=== PATIENT | male | born 1940 | race Caucasian/White ===

== ENCOUNTER 2016-07-24 11:34 | Inpatient (IN) | payer MEDICARE, OTHER ==
--- NOTE | 2016-07-24 11:59 | EDM.PDOC ---
<Bo Cramer - Last Filed: 07/24/16 20:56> ED HPI GI/ABDOMINAL - General Chief Complaint: Abdominal Pain Stated Complaint: [facility] Time Seen by Provider: 07/24/16 11:40 - Related Data Allergies/ADRs: Allergies Allergy/AdvReac Type Severity Reaction Status Date / Time strawberries Allergy Unknown Cannot Uncoded 07/25/16 00:30 Remember Home Meds: Home Meds Isosorbide Mononitrate [Isosorbide Mononitrate ER] 60 mg PO DAILY 07/15/13 [ History] Phenytoin Sodium Extended 200 mg PO TID 07/15/13 [History] atorvaSTATin [Lipitor] 40 mg PO DAILY 07/15/13 [History] Clotrimazole 10 mg PO BID 12/22/15 [History] Warfarin [Coumadin] 5 mg PO IRAHETA 12/22/15 [History] Aspirin [Tamika Chewable Aspirin] 81 mg PO DAILY 05/20/16 [History] Carvedilol 6.25 mg PO BIDMEALS 05/20/16 [History] Sulfamethoxazole/Trimethoprim [Sulfamethoxazole-Tmp Ds Tablet] 1 tab PO DAILY [History] Acetaminophen/oxyCODONE [Percocet 325-5 MG] 1 tab PO Q4H PRN 07/24/16 [History] Calcium Carb/D3/Magnesium/Zinc [Farzad Mag Zinc + D3] 1 each PO DAILY 07/24/16 [ History] Mycophenolate Mofetil 1,000 mg PO BID 07/24/16 [History] Warfarin [Coumadin] 2.5 mg PO MOTUWETHFRSA 07/24/16 [History] diphenhydrAMINE HCl [Benadryl] 25 mg PO BID PRN 07/24/16 [History] Bisacodyl [Dulcolax] 5 mg PO DAILY PRN #30 tablet 07/30/16 [Rx] Enoxaparin [Lovenox] 70 mg SUBCUT Q12HR #9 syringe 07/30/16 [Rx] Ergocalciferol (Vitamin D2) [Vitamin D2] 50,000 units PO Fr@2100 #6 cap [Rx] Famotidine 20 mg PO DAILY #14 tablet 07/30/16 [Rx] Lidocaine 2% [Xylocaine 2% Viscous] 15 ml PO TIDAC #13 cup 07/30/16 [Rx] Course - Vital Signs Last Recorded V/S: Last Vital Signs Temp 36.9 C 07/30/16 12:03 Pulse 79 07/30/16 12:03 Resp 18 07/30/16 12:03 BP 108/73 07/30/16 12:03 Pulse Ox 100 07/30/16 12:03 - Orders/Labs/Meds Labs: Laboratory Tests 07/24/16 07/24/16 07/24/16 Range/Units 12:04 12:04 12:04 WBC 8.54 (4.23-9.07) K/mm3 RBC 4.20 L (4.63-6.08) M/mm3 Hgb 12.0 L (13.7-17.5) gm/L Hct 36.2 L (40.1-51.0) % MCV 86.2 (79.0-92.2) fl MCH 28.6 (25.7-32.2) pg MCHC 33.1 (32.2-35.5) g/dl RDW Std Deviation 47.3 H (35.1-43.9) fL Plt Count 398 H (163-337) K/mm3 MPV 9.1 L (9.4-12.3) fl Neutrophils % (Manual) 75 H (40-60) % Band Neutrophils % 3 (0-10) % Lymphocytes % (Manual) 20 (20-40) % Atypical Lymphs % 0 % Monocytes % (Manual) 2 (2-10) % Eosinophils % (Manual) 0 L (0.8-7.0) % Basophils % (Manual) 0 L (0.2-1.2) Platelet Estimate Adequate RBC Morph Comment Normal PT 60.1 H* (8.0-13.0) SECONDS INR 4.98 Sodium 138 (136-145) mEq/L Potassium 3.8 (3.5-5.1) mEq/L Chloride 101 (98-107) mEq/L Carbon Dioxide 23 (21-32) mEq/L Anion Gap 17.8 H (5-15) BUN 26 H (7-18) mg/dL Creatinine 1.2 (0.7-1.3) mg/dL Est Cr Clr Drug Dosing 52.76 mL/min Estimated GFR (MDRD) 59 (>60) mL/min BUN/Creatinine Ratio 21.7 H (14-18) Glucose 93 (83-115) mg/dL Calcium 12.0 H (8.5-10.1) mg/dL Magnesium 1.5 L (1.8-2.4) mg/dl Total Bilirubin 0.3 (0.2-1.0) mg/dL AST 54 H (15-37) U/L ALT 24 (16-63) U/L Alkaline Phosphatase 184 H (46-116) U/L Troponin I (0.00-0.056) ng/mL C-Reactive Protein 4.5 H* (<1.0) mg/dL Total Protein 8.3 H (6.4-8.2) g/dl Albumin 2.7 L (3.4-5.0) g/dl Globulin 5.6 gm/dL Albumin/Globulin Ratio 0.5 L (1-2) Urine Color (Yellow) Urine Appearance (Clear) Urine pH (5.0-8.0) Ur Specific Dennard (1.005-1.030) Urine Protein (Negative) Urine Glucose (UA) (Negative) Urine Ketones (Negative) Urine Occult Blood (Negative) Urine Nitrite (Negative) Urine Bilirubin (Negative) Urine Urobilinogen (0.2-1.0) Ur Leukocyte Esterase (Negative) Urine RBC (0-5) /hpf Urine WBC (0-5) /hpf Ur Epithelial Cells (0-5) /hpf Urine Bacteria (FEW) /hpf Urine Mucus (FEW) /hpf Phenytoin 8.4 L (10.0-20.0) ug/mL 07/24/16 07/24/16 Range/Units 14:40 19:35 WBC (4.23-9.07) K/mm3 RBC (4.63-6.08) M/mm3 Hgb (13.7-17.5) gm/L Hct (40.1-51.0) % MCV (79.0-92.2) fl MCH (25.7-32.2) pg MCHC (32.2-35.5) g/dl RDW Std Deviation (35.1-43.9) fL Plt Count (163-337) K/mm3 MPV (9.4-12.3) fl Neutrophils % (Manual) (40-60) % Band Neutrophils % (0-10) % Lymphocytes % (Manual) (20-40) % Atypical Lymphs % % Monocytes % (Manual) (2-10) % Eosinophils % (Manual) (0.8-7.0) % Basophils % (Manual) (0.2-1.2) Platelet Estimate RBC Morph Comment PT (8.0-13.0) SECONDS INR Sodium (136-145) mEq/L Potassium (3.5-5.1) mEq/L Chloride (98-107) mEq/L Carbon Dioxide (21-32) mEq/L Anion Gap (5-15) BUN (7-18) mg/dL Creatinine (0.7-1.3) mg/dL Est Cr Clr Drug Dosing mL/min Estimated GFR (MDRD) (>60) mL/min BUN/Creatinine Ratio (14-18) Glucose (83-115) mg/dL Calcium (8.5-10.1) mg/dL Magnesium (1.8-2.4) mg/dl Total Bilirubin (0.2-1.0) mg/dL AST (15-37) U/L ALT (16-63) U/L Alkaline Phosphatase (46-116) U/L Troponin I < 0.017 (0.00-0.056) ng/mL C-Reactive Protein (<1.0) mg/dL Total Protein (6.4-8.2) g/dl Albumin (3.4-5.0) g/dl Globulin gm/dL Albumin/Globulin Ratio (1-2) Urine Color Yellow (Yellow) Urine Appearance Slt cloudy H (Clear) Urine pH 5.5 (5.0-8.0) Ur Specific Dennard > or = 1.030 (1.005-1.030) Urine Protein 2+ H (Negative) Urine Glucose (UA) Negative (Negative) Urine Ketones 1+ H (Negative) Urine Occult Blood 2+ H (Negative) Urine Nitrite Negative (Negative) Urine Bilirubin 1+ H (Negative) Urine Urobilinogen 0.2 (0.2-1.0) Ur Leukocyte Esterase Negative (Negative) Urine RBC 0-5 (0-5) /hpf Urine WBC 0-5 (0-5) /hpf Ur Epithelial Cells 0-5 (0-5) /hpf Urine Bacteria Few (FEW) /hpf Urine Mucus Not seen (FEW) /hpf Phenytoin (10.0-20.0) ug/mL Meds: Medications Discontinued Medications Generic Name Dose Route Start Last Admin Trade Name Freq PRN Reason Stop Dose Admin Acetaminophen 650 mg 07/24/16 22:37 07/30/16 09:05 Tylenol PO 650 mg Q4H PRN Administration Pain (Mild 1-3)/fever Hydrocodone Bitart/Acetaminophen 1 tab 07/24/16 22:37 07/29/16 17:46 Banner 325-5 Mg PO 1 tab Q4H PRN Administration Pain (moderate 4-6) Al Hydroxide/Mg Hydroxide 30 ml 07/28/16 11:00 07/29/16 16:15 Mag-Al Plus PO 30 ml TIDAC RICH Administration Albuterol 2.5 mg 07/24/16 22:37 Proventil Neb Soln NEB Q2H PRN Shortness Of Breath/wheezing Aspirin 81 mg 07/25/16 09:00 07/30/16 09:08 Aspirin PO 81 mg DAILY RICH Administration Bisacodyl 10 mg 07/24/16 21:59 07/25/16 00:22 Dulcolax RECTAL 07/24/16 22:00 Not Given ONETIME ONE Bisacodyl 5 mg 07/24/16 22:37 Dulcolax PO DAILY PRN Constipation Carvedilol 6.25 mg 07/25/16 07:00 07/30/16 07:00 Coreg PO 6.25 mg BIDMEALS RICH Administration Clotrimazole 10 mg 07/25/16 09:00 07/30/16 09:08 Mycelex PO 10 mg BID RICH Administration Al Hydroxide/Mg Hydroxide 30 0 ml 07/26/16 12:17 07/27/16 13:32 ml/ Lidocaine HCl 15 ml PO 1 solution Q4H PRN Administration ESOPHAGITIS Al Hydroxide/Mg Hydroxide 30 0 ml 07/27/16 12:38 ml/ Lidocaine HCl 15 ml PO TIDAC PRN ESOPHAGITIS Al Hydroxide/Mg Hydroxide 30 0 ml 07/27/16 17:00 07/28/16 11:52 ml/ Lidocaine HCl 15 ml PO Not Given TIDAC RICH Diatrizoate Meglum/Diatrizoate Sod 120 ml 07/24/16 13:16 07/24/16 14:26 Gastrografin 37% PO 07/24/16 13:17 90 ml ONETIME ONE Administration Diphenhydr/Magaldrate/Simeth/Lidoca 30 ml 07/26/16 12:00 First-Mouthwash Blm Susp PO ASDIRECTED PRN esophagitis Diphenhydramine HCl 25 mg 07/24/16 23:58 Benadryl PO ASDIRECTED PRN Allergies Diphenhydramine HCl 25 mg 07/25/16 00:10 Benadryl PO BID PRN Allergies Diphtheria/Tetanus/Acell Pertussis 0.5 ml 07/25/16 13:43 Boostrix IM 07/25/16 13:44 .ONCE ONE Diphtheria/Tetanus/Acell Pertussis 0.5 ml 07/30/16 12:15 07/30/16 12:16 Boostrix IM 07/30/16 12:16 0.5 ml .ONCE ONE Administration Enoxaparin Sodium 70 mg 07/26/16 21:00 07/30/16 09:07 Lovenox SUBCUT 70 mg Q12HR RICH Administration Ergocalciferol 50,000 units 07/28/16 21:00 07/29/16 08:34 Vitamin D2 PO 50,000 units Fr@2100 RICH Administration Hydralazine HCl 20 mg 07/24/16 23:05 Apresoline IVPUSH Q4H PRN Hypertension Hydromorphone HCl 0.5 mg 07/24/16 12:06 07/24/16 12:23 Dilaudid IVPUSH 07/24/16 12:07 0.5 mg ONETIME ONE Administration Hydromorphone HCl 0.25 mg 07/24/16 22:37 Dilaudid IVPUSH Q2H PRN Pain (severe 7-10) Hydromorphone HCl 0.25 mg 07/27/16 16:01 Dilaudid IVPUSH Q2H PRN Pain (severe 7-10) Sodium Chloride 1,000 mls @ 250 mls/hr 07/24/16 12:00 07/24/16 12:04 Normal Saline IV 150 mls/hr ASDIRECTED RICH Administration Sodium Chloride 1,000 mls @ 125 mls/hr 07/24/16 22:45 Normal Saline IV ASDIRECTED RICH Magnesium Sulfate 4 gm/ Premix 100 mls @ 50 mls/hr 07/24/16 23:06 07/25/16 00 :05 IV 07/25/16 01:05 Not Given ONETIME ONE Dextrose/Sodium Chloride 1,000 mls @ 250 mls/hr 07/24/16 23:15 07/26/16 02:18 Dextrose 5%-1/2 Ns IV 250 mls/hr ASDIRECTED RICH Administration Magnesium Sulfate 2 gm/ Premix 50 mls @ 25 mls/hr 07/24/16 23:20 07/24/16 23: 45 IV 07/25/16 01:19 25 mls/hr ONETIME ONE Administration Dextrose/Sodium Chloride 1,000 mls @ 100 mls/hr 07/26/16 06:45 07/29/16 05:47 Dextrose 5%-1/2 Ns IV 100 mls/hr ASDIRECTED RICH Administration Magnesium Sulfate 2 gm/ Premix 50 mls @ 25 mls/hr 07/26/16 12:00 07/26/16 12: 34 IV 07/26/16 13:59 25 mls/hr ONETIME ONE Administration Lidocaine HCl Confirm 07/26/16 09:18 Xylocaine-Mpf 1% Administered 07/26/16 09:19 Dose 4 mls @ as directed .ROUTE .STK-MED ONE Magnesium Sulfate 2 gm/ Premix 50 mls @ 25 mls/hr 07/27/16 07:45 07/27/16 09: 11 IV 07/27/16 09:44 25 mls/hr ONETIME ONE Administration Magnesium Sulfate 2 gm/ Premix 50 mls @ 25 mls/hr 07/28/16 08:00 07/28/16 08: 17 IV 07/28/16 09:59 25 mls/hr ONETIME ONE Administration Magnesium Sulfate 2 gm/ Premix 50 mls @ 25 mls/hr 07/28/16 18:29 07/28/16 18: 40 IV 07/28/16 20:28 25 mls/hr ONETIME ONE Administration Iopamidol 100 ml 07/24/16 13:16 07/24/16 14:26 Isovue-300 (61%) IVPUSH 07/24/16 13:17 100 ml ONETIME ONE Administration Isosorbide Mononitrate 60 mg 07/25/16 09:00 07/30/16 09:06 Imdur PO 60 mg DAILY RICH Administration Lidocaine HCl 15 ml 07/28/16 11:00 07/30/16 07:02 Xylocaine 2% Viscous PO 15 ml TIDAC RICH Administration Lidocaine HCl 15 ml 07/30/16 11:00 07/30/16 11:44 Xylocaine 2% Viscous PO 15 ml TIDAC RICH Administration Lorazepam 1 mg 07/24/16 22:37 Ativan IV Q6H PRN Anxiety Magnesium Citrate 240 ml 07/24/16 16:30 07/24/16 16:44 Citrate Of Magnesia PO 07/24/16 16:31 240 ml ONETIME ONE Administration Magnesium Oxide 400 mg 07/28/16 09:00 07/30/16 09:08 Magnesium Oxide PO 400 mg BID RICH Administration Magnesium Sulfate 1 dose 07/24/16 23:15 Pharmacy To Dose - Magnesium Replacement .XX ASDIRECTED [facility] Metoclopramide HCl 7.5 mg 07/24/16 15:29 07/24/16 15:37 Reglan IVPUSH 07/24/16 15:30 7.5 mg ONETIME ONE Administration Metoprolol Tartrate 5 mg 07/24/16 23:05 Lopressor IVPUSH Q4H PRN Tachycardia Morphine Sulfate 2 mg 07/24/16 20:30 07/24/16 20:35 Morphine IVPUSH 07/24/16 20:31 2 mg ONETIME ONE Administration Mycophenolate Mofetil 1,000 mg 07/25/16 09:00 07/30/16 09:04 Cellcept PO 1,000 mg BID RICH Administration Nitroglycerin 0.4 mg 07/24/16 19:56 07/24/16 20:18 Nitrostat SL 07/24/16 20:07 0.4 mg Q5M PRN Administration Chest Pain Ondansetron HCl 4 mg 07/24/16 12:06 07/24/16 12:24 Zofran IVPUSH 07/24/16 12:07 4 mg ONETIME ONE Administration Ondansetron HCl 4 mg 07/24/16 18:13 07/24/16 18:18 Zofran IVPUSH 07/24/16 18:14 4 mg ONETIME ONE Administration Ondansetron HCl 4 mg 07/24/16 22:37 07/25/16 05:10 Zofran IV 4 mg Q6H PRN Administration Nausea/Vomiting Ondansetron HCl 4 mg 07/25/16 21:52 07/28/16 05:44 Zofran IV 4 mg Q4H PRN Administration Nausea/Vomiting Oxycodone/Acetaminophen 1 tab 07/24/16 23:15 07/25/16 00:26 Percocet 325-5 Mg PO Not Given Q4H [facility] Oxycodone/Acetaminophen 1 tab 07/24/16 23:58 Percocet 325-5 Mg PO Q4H PRN Pain Pantoprazole Sodium 40 mg 07/26/16 12:00 07/30/16 11:57 Protonix Iv IVPUSH 40 mg Q12H [facility] Administration Calcium/D3/Magnesium 1 each 07/25/16 09:00 07/30/16 09:09 /Zinc Supplement PO Not Given DAILY [facility] Phenytoin Sodium 200 mg 07/25/16 09:00 07/30/16 09:06 Phenytoin PO 200 mg TID RICH Administration Phytonadione 5 mg 07/24/16 22:45 07/24/16 23:47 Aquamephyton PO 07/24/16 22:46 2.5 mg ONETIME ONE Administration Phytonadione 2.5 mg 07/25/16 00:01 07/25/16 00:10 Aquamephyton PO 07/25/16 00:02 2.5 mg ONETIME ONE Administration Pneumococcal Polyvalent Vaccine 0.5 ml 07/25/16 13:45 Pneumovax 23 IM 07/25/16 13:46 .ONCE ONE Pneumococcal Polyvalent Vaccine 0.5 ml 07/30/16 12:10 07/30/16 12:17 Pneumovax 23 SUBCUT 07/30/16 12:11 0.5 ml .ONCE ONE Administration Polyethylene Glycol 17 gm 07/24/16 22:37 Miralax PO DAILY PRN Constipation Polyethylene Glycol/Electrolytes 4,000 ml 07/25/16 20:34 07/26/16 00:28 Golytely PO 07/25/16 20:35 Not Given ONETIME ONE Potassium Chloride 1 dose 07/24/16 23:15 Pharmacy To Dose - Potassium Replacement .XX ASDIRECTED [facility] Potassium Chloride 20 meq 07/26/16 12:00 07/26/16 16:02 Klor-Con M20 PO 07/26/16 15:01 20 meq Q3H RICH Administration Potassium Chloride 20 meq 07/27/16 07:45 07/27/16 10:58 Klor-Con M20 PO 07/27/16 10:46 20 meq Q3H RICH Administration Potassium Chloride 20 meq 07/29/16 12:00 07/29/16 16:15 Klor-Con M20 PO 07/29/16 15:01 20 meq Q3H RICH Administration Propofol Confirm 07/26/16 09:18 Diprivan 20 Ml Administered 07/26/16 09:19 Dose 200 mg .ROUTE .STK-MED ONE Rosuvastatin Calcium 10 mg 07/25/16 09:00 07/30/16 09:08 Crestor PO 10 mg DAILY RICH Administration Senna/Docusate Sodium 1 tab 07/24/16 22:37 Senna Plus PO BID PRN Constipation Sodium Chloride 10 ml 07/24/16 13:16 07/24/16 14:26 Saline Flush FLUSH 07/24/16 13:17 10 ml ONETIME ONE Administration Tamsulosin HCl 0.4 mg 07/25/16 09:00 07/30/16 09:06 Flomax PO 0.4 mg BIDPC RICH Administration Temazepam 15 mg 07/24/16 22:37 Restoril PO BEDTIME PRN Sleep Trimethoprim/Sulfamethoxazole 1 tab 07/25/16 09:00 07/30/16 09:08 Septra Ds PO 1 tab DAILY RICH Administration Warfarin Sodium 0 dose 07/27/16 16:06 Pharmacy To Dose - Warfarin PO ASDIRECTED PRN RX TO DOSE COUMADIN Warfarin Sodium 5 mg 07/27/16 18:00 07/27/16 17:12 Coumadin PO 07/27/16 22:00 5 mg QPM RICH Administration Warfarin Sodium 5 mg 07/28/16 18:00 07/28/16 17:20 Coumadin PO 07/28/16 18:01 5 mg ONETIME ONE Administration Warfarin Sodium 5 mg 07/29/16 18:00 07/29/16 17:46 Coumadin PO 07/29/16 21:00 5 mg QPM RICH Administration Warfarin Sodium 5 mg 07/30/16 18:00 Coumadin PO 07/30/16 21:00 QPM RICH - Re-Assessments/Exams Free Text/Narrative Re-Assessment/Exam: 07/24/16 20:17 Assumed care at change of shift. Patient recently developed some chest pain left -sided with some left upper abdominal discomfort 2. Patient has achieved is oral contrast for his CAT scan and this was followed up a bottle of mag citrate is not able to recall bottle of mag citrate because of nausea. While attempting to drink mag citrate he did develop some chest discomfort. He rates his pain as a 10 he is not diaphoretic there is no associated shortness of breath or radiating pain we'll are attempting nitroglycerin and did recheck another EKG that was nondiagnostic. 07/24/16 20:32 Patient was trialed on nitroglycerin this may help a little bit but as time went by his pain would radiate from his abdomen up into his chest is hard to know his troponin came back negative. We'll continue to observe we'll try morphine for his abdominal discomfort as he is pain-free at this time in his chest. 07/24/16 20:52 Has resolved after 2 mg of morphine patient is doing much better given this scenario living in [place] we will watch the patient overnight, make sure this resolves without difficulty. Case discussed with Dr. Apple the hospitalist. Departure - Departure Time of Disposition: 20:55 Disposition: Refer to Observation Clinical Impression: Chest pain, Abdominal pain of unknown cause <Chalo Hoskins - Last Filed: 07/31/16 23:58> ED HPI GI/ABDOMINAL - General Source of Information: Reports: Patient, EMS notes reviewed History Limitations: Reports: No limitations - History of Present Illness INITIAL COMMENTS - FREE TEXT/NARRATIVE: 75-year-old male presents to the ED per [place] [facility]. Chief complaint is diffuse right lyssa-abdominal pain radiating through to his right back and flank area for the last 3 days. Bowels have been working slowly and tends to be constipated. Last bowel movement reportedly was 2 days ago. Has hiccups at present --is not sure if he is going to vomit. His appetite is poor . he has had very little had very little intake over the last 2-3 days. Not aware of any fever or chills. Denies any change in color of the urine. Previous abdominal surgery is that of temporary colostomy left lower quadrant for 2 months. Midline incision for laparotomy for initial surgery as well as reanastomosis . Apparently had remote peptic ulcer surgery done on his stomach as well. He can not remember of bowel was removed. OCan not remembere why he had surgery. Denies abdomen feel bloated or distended. He has no history of kidney stones. Pain is constant and radiates from right lower quadrant across the lower abdomen to the left lower quadrant. Pain does have a colicky component. He was given Dilaudid 1 mg intravenousl en route to the hospital by the by [facility]edics. Currently relates rates his pain as a 6/10. Symptom Onset Date: 07/21/16 Timing/Duration: Reports: Day(s):, Getting worse, Gradual onset Location: other (Right hemiabdomen radiating towards the right flank. He gives no history of kidney stones) Quality: Reports: ache, cramping, fullness Severity: moderate Improves with: Reports: other (Nothing seems to make it better or worse.) Context: Denies: bad/questionable food, out of country travel, recent surgery, lifting, activity/exercise Associated Symptoms: Reports: back pain, constipation, loss of appetite, malaise , other (Has the hiccups at this time). 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: Other (see below) (None) Past Medical History HEENT History: Reports: Impaired vision Cardiovascular History: Reports: CAD, High cholesterol, Hypertension, MD Respiratory History: Reports: SOB Gastrointestinal History: Reports: Diverticulosis Musculoskeletal History: Reports: Arthritis, Osteoarthritis, Osteoporosis Neurological History: Reports: Seizure - Past Surgical History HEENT Surgical History: Reports: Cataract surgery GI Surgical History: Reports: Cholecystectomy, Colostomy Social & Family History - Family History Family Medical History: Noncontributory - Tobacco Use Smoking Status *Q: Former Smoker (Quit 29 years ago.) Years of Tobacco use: 20 Used Tobacco, but Quit: Yes Month Tobacco Last Used: 04/1991 Second Hand Smoke Exposure: No - Caffeine Use Caffeine Use: Reports: Coffee, Tea - Alcohol Use Alcohol Use History: Yes Days Per Week of Alcohol Use: 0 (Quit drinking alcohol 29 years ago) - Recreational Drug Use Recreational Drug Use: No - Living Situation & Occupation Living situation: Reports: single Occupation: retired ED ROS GENERAL - Review of Systems Review Of Systems: See Below Constitutional: Reports: malaise, weakness, fatigue, decreased appetite, weight loss. Denies: fever, chills HEENT: Reports: Other (Dry mouth) Respiratory: Reports: Shortness of Breath, Wheezing (Occasional wheezing.) Cardiovascular: Reports: Blood pressure problem, Dyspnea on exertion. Denies: Chest pain, Edema, Lightheadedness, Orthopnea, Palpitations (Chronically) Endocrine: Reports: fatigue GI/Abdominal: Reports: Abdominal pain, Constipation, Decreased appetite (See history of present illness), Nausea. Denies: Black stool, Difficulty swallowing , Distension, Flatus, Hematemesis, Hematochezia, Melena, Stool incontinence, Vomiting, Other : Reports: frequency, other (Nocturia usually x4) Musculoskeletal: Reports: back pain (Occasional pause with low back pain and knee and hip pain.) Skin: Reports: other (Or skin sores top of the head and face nose from picking.) Neurological: Reports: No Symptoms Psychiatric: Reports: Other Hematologic/Lymphatic: Reports: no symptoms Immunologic: Reports: no symptoms ED EXAM, GI/ABD - Physical Exam Exam: See Below Exam Limited By: No limitations General Appearance: alert, WD/WN, other (Disheveled and poorly dressed. Numerous skin sores on his hand nose left chin area from picking.) Eyes: bilateral: normal appearance (No jaundice) Throat/Mouth: Other (Tongue is very dry with thick tenacious sputum and mucus.) Head: atraumatic, normocephalic Neck: normal inspection, supple, non-tender. No: full range of motion, carotid bruit, lymphadenopathy (L), lymphadenopathy (R) Respiratory/Chest: decreased breath sounds (Severely decreased breath sounds to the posterior lung bases i.e. COPD. Decreased air entry lower 30%), wheezing. No: rhonchi (Occasional expiratory wheezes.) Cardiovascular: regular rate, rhythm, no edema, no gallop, no murmur, no rub. No: normal peripheral pulses GI/Abdominal: no organomegaly, no distention, hypoactive bowel sounds, other ( Evidence of midline laparotomies at least twice and a healed colostomy wound left lower quadrant. No hernias identified in the wounds. Surgical wounds are well-healed. There is no guarding or rebound tenderness.). No: no abnormal bruit, distention, guarding, rebound Back Exam: normal inspection, full range of motion, CVA tenderness (R) (Mild). No: CVA tenderness (L) Extremities: normal inspection, normal capillary refill, other (Decreased range of motion of both hips. Crepitus both knees with evidence of a stricture changes. Poor pedal pulses.) Neurological: alert, oriented, CN II-XII intact, normal cognition Psychiatric: normal affect, normal mood Skin Exam: Warm, Dry, Intact, Normal color, Other (unkempt appearance) Course - Orders/Labs/Meds Labs: Laboratory Tests 07/24/16 07/24/16 07/24/16 Range/Units 12:04 12:04 12:04 WBC 8.54 (4.23-9.07) K/mm3 RBC 4.20 L (4.63-6.08) M/mm3 Hgb 12.0 L (13.7-17.5) gm/L Hct 36.2 L (40.1-51.0) % MCV 86.2 (79.0-92.2) fl MCH 28.6 (25.7-32.2) pg MCHC 33.1 (32.2-35.5) g/dl RDW Std Deviation 47.3 H (35.1-43.9) fL Plt Count 398 H (163-337) K/mm3 MPV 9.1 L (9.4-12.3) fl Neutrophils % (Manual) 75 H (40-60) % Band Neutrophils % 3 (0-10) % Lymphocytes % (Manual) 20 (20-40) % Atypical Lymphs % 0 % Monocytes % (Manual) 2 (2-10) % Eosinophils % (Manual) 0 L (0.8-7.0) % Basophils % (Manual) 0 L (0.2-1.2) Platelet Estimate Adequate RBC Morph Comment Normal PT 60.1 H* (8.0-13.0) SECONDS INR 4.98 Sodium 138 (136-145) mEq/L Potassium 3.8 (3.5-5.1) mEq/L Chloride 101 (98-107) mEq/L Carbon Dioxide 23 (21-32) mEq/L Anion Gap 17.8 H (5-15) BUN 26 H (7-18) mg/dL Creatinine 1.2 (0.7-1.3) mg/dL Est Cr Clr Drug Dosing 52.76 mL/min Estimated GFR (MDRD) 59 (>60) mL/min BUN/Creatinine Ratio 21.7 H (14-18) Glucose 93 (83-115) mg/dL Calcium 12.0 H (8.5-10.1) mg/dL Magnesium 1.5 L (1.8-2.4) mg/dl Total Bilirubin 0.3 (0.2-1.0) mg/dL AST 54 H (15-37) U/L ALT 24 (16-63) U/L Alkaline Phosphatase 184 H (46-116) U/L Troponin I (0.00-0.056) ng/mL C-Reactive Protein 4.5 H* (<1.0) mg/dL Total Protein 8.3 H (6.4-8.2) g/dl Albumin 2.7 L (3.4-5.0) g/dl Globulin 5.6 gm/dL Albumin/Globulin Ratio 0.5 L (1-2) Urine Color (Yellow) Urine Appearance (Clear) Urine pH (5.0-8.0) Ur Specific Dennard (1.005-1.030) Urine Protein (Negative) Urine Glucose (UA) (Negative) Urine Ketones (Negative) Urine Occult Blood (Negative) Urine Nitrite (Negative) Urine Bilirubin (Negative) Urine Urobilinogen (0.2-1.0) Ur Leukocyte Esterase (Negative) Urine RBC (0-5) /hpf Urine WBC (0-5) /hpf Ur Epithelial Cells (0-5) /hpf Urine Bacteria (FEW) /hpf Urine Mucus (FEW) /hpf Phenytoin 8.4 L (10.0-20.0) ug/mL 07/24/16 07/24/16 Range/Units 14:40 19:35 WBC (4.23-9.07) K/mm3 RBC (4.63-6.08) M/mm3 Hgb (13.7-17.5) gm/L Hct (40.1-51.0) % MCV (79.0-92.2) fl MCH (25.7-32.2) pg MCHC (32.2-35.5) g/dl RDW Std Deviation (35.1-43.9) fL Plt Count (163-337) K/mm3 MPV (9.4-12.3) fl Neutrophils % (Manual) (40-60) % Band Neutrophils % (0-10) % Lymphocytes % (Manual) (20-40) % Atypical Lymphs % % Monocytes % (Manual) (2-10) % Eosinophils % (Manual) (0.8-7.0) % Basophils % (Manual) (0.2-1.2) Platelet Estimate RBC Morph Comment PT (8.0-13.0) SECONDS INR Sodium (136-145) mEq/L Potassium (3.5-5.1) mEq/L Chloride (98-107) mEq/L Carbon Dioxide (21-32) mEq/L Anion Gap (5-15) BUN (7-18) mg/dL Creatinine (0.7-1.3) mg/dL Est Cr Clr Drug Dosing mL/min Estimated GFR (MDRD) (>60) mL/min BUN/Creatinine Ratio (14-18) Glucose (83-115) mg/dL Calcium (8.5-10.1) mg/dL Magnesium (1.8-2.4) mg/dl Total Bilirubin (0.2-1.0) mg/dL AST (15-37) U/L ALT (16-63) U/L Alkaline Phosphatase (46-116) U/L Troponin I < 0.017 (0.00-0.056) ng/mL C-Reactive Protein (<1.0) mg/dL Total Protein (6.4-8.2) g/dl Albumin (3.4-5.0) g/dl Globulin gm/dL Albumin/Globulin Ratio (1-2) Urine Color Yellow (Yellow) Urine Appearance Slt cloudy H (Clear) Urine pH 5.5 (5.0-8.0) Ur Specific Dennard > or = 1.030 (1.005-1.030) Urine Protein 2+ H (Negative) Urine Glucose (UA) Negative (Negative) Urine Ketones 1+ H (Negative) Urine Occult Blood 2+ H (Negative) Urine Nitrite Negative (Negative) Urine Bilirubin 1+ H (Negative) Urine Urobilinogen 0.2 (0.2-1.0) Ur Leukocyte Esterase Negative (Negative) Urine RBC 0-5 (0-5) /hpf Urine WBC 0-5 (0-5) /hpf Ur Epithelial Cells 0-5 (0-5) /hpf Urine Bacteria Few (FEW) /hpf Urine Mucus Not seen (FEW) /hpf Phenytoin (10.0-20.0) ug/mL Meds: Medications Discontinued Medications Generic Name Dose Route Start Last Admin Trade Name Freq PRN Reason Stop Dose Admin Acetaminophen 650 mg 07/24/16 22:37 07/30/16 09:05 Tylenol PO 650 mg Q4H PRN Administration Pain (Mild 1-3)/fever Hydrocodone Bitart/Acetaminophen 1 tab 07/24/16 22:37 07/29/16 17:46 Banner 325-5 Mg PO 1 tab Q4H PRN Administration Pain (moderate 4-6) Al Hydroxide/Mg Hydroxide 30 ml 07/28/16 11:00 07/29/16 16:15 Mag-Al Plus PO 30 ml TIDAC RICH Administration Albuterol 2.5 mg 07/24/16 22:37 Proventil Neb Soln NEB Q2H PRN Shortness Of Breath/wheezing Aspirin 81 mg 07/25/16 09:00 07/30/16 09:08 Aspirin PO 81 mg DAILY RICH Administration Bisacodyl 10 mg 07/24/16 21:59 07/25/16 00:22 Dulcolax RECTAL 07/24/16 22:00 Not Given ONETIME ONE Bisacodyl 5 mg 07/24/16 22:37 Dulcolax PO DAILY PRN Constipation Carvedilol 6.25 mg 07/25/16 07:00 07/30/16 07:00 Coreg PO 6.25 mg BIDMEALS RICH Administration Clotrimazole 10 mg 07/25/16 09:00 07/30/16 09:08 Mycelex PO 10 mg BID RICH Administration Al Hydroxide/Mg Hydroxide 30 0 ml 07/26/16 12:17 07/27/16 13:32 ml/ Lidocaine HCl 15 ml PO 1 solution Q4H PRN Administration ESOPHAGITIS Al Hydroxide/Mg Hydroxide 30 0 ml 07/27/16 12:38 ml/ Lidocaine HCl 15 ml PO TIDAC PRN ESOPHAGITIS Al Hydroxide/Mg Hydroxide 30 0 ml 07/27/16 17:00 07/28/16 11:52 ml/ Lidocaine HCl 15 ml PO Not Given TIDAC RICH Diatrizoate Meglum/Diatrizoate Sod 120 ml 07/24/16 13:16 07/24/16 14:26 Gastrografin 37% PO 07/24/16 13:17 90 ml ONETIME ONE Administration Diphenhydr/Magaldrate/Simeth/Lidoca 30 ml 07/26/16 12:00 First-Mouthwash Blm Susp PO ASDIRECTED PRN esophagitis Diphenhydramine HCl 25 mg 07/24/16 23:58 Benadryl PO ASDIRECTED PRN Allergies Diphenhydramine HCl 25 mg 07/25/16 00:10 Benadryl PO BID PRN Allergies Diphtheria/Tetanus/Acell Pertussis 0.5 ml 07/25/16 13:43 Boostrix IM 07/25/16 13:44 .ONCE ONE Diphtheria/Tetanus/Acell Pertussis 0.5 ml 07/30/16 12:15 07/30/16 12:16 Boostrix IM 07/30/16 12:16 0.5 ml .ONCE ONE Administration Enoxaparin Sodium 70 mg 07/26/16 21:00 07/30/16 09:07 Lovenox SUBCUT 70 mg Q12HR RICH Administration Ergocalciferol 50,000 units 07/28/16 21:00 07/29/16 08:34 Vitamin D2 PO 50,000 units Fr@2100 RICH Administration Hydralazine HCl 20 mg 07/24/16 23:05 Apresoline IVPUSH Q4H PRN Hypertension Hydromorphone HCl 0.5 mg 07/24/16 12:06 07/24/16 12:23 Dilaudid IVPUSH 07/24/16 12:07 0.5 mg ONETIME ONE Administration Hydromorphone HCl 0.25 mg 07/24/16 22:37 Dilaudid IVPUSH Q2H PRN Pain (severe 7-10) Hydromorphone HCl 0.25 mg 07/27/16 16:01 Dilaudid IVPUSH Q2H PRN Pain (severe 7-10) Sodium Chloride 1,000 mls @ 250 mls/hr 07/24/16 12:00 07/24/16 12:04 Normal Saline IV 150 mls/hr ASDIRECTED RICH Administration Sodium Chloride 1,000 mls @ 125 mls/hr 07/24/16 22:45 Normal Saline IV ASDIRECTED RICH Magnesium Sulfate 4 gm/ Premix 100 mls @ 50 mls/hr 07/24/16 23:06 07/25/16 00 :05 IV 07/25/16 01:05 Not Given ONETIME ONE Dextrose/Sodium Chloride 1,000 mls @ 250 mls/hr 07/24/16 23:15 07/26/16 02:18 Dextrose 5%-1/2 Ns IV 250 mls/hr ASDIRECTED RICH Administration Magnesium Sulfate 2 gm/ Premix 50 mls @ 25 mls/hr 07/24/16 23:20 07/24/16 23: 45 IV 07/25/16 01:19 25 mls/hr ONETIME ONE Administration Dextrose/Sodium Chloride 1,000 mls @ 100 mls/hr 07/26/16 06:45 07/29/16 05:47 Dextrose 5%-1/2 Ns IV 100 mls/hr ASDIRECTED RICH Administration Magnesium Sulfate 2 gm/ Premix 50 mls @ 25 mls/hr 07/26/16 12:00 07/26/16 12: 34 IV 07/26/16 13:59 25 mls/hr ONETIME ONE Administration Lidocaine HCl Confirm 07/26/16 09:18 Xylocaine-Mpf 1% Administered 07/26/16 09:19 Dose 4 mls @ as directed .ROUTE .STK-MED ONE Magnesium Sulfate 2 gm/ Premix 50 mls @ 25 mls/hr 07/27/16 07:45 07/27/16 09: 11 IV 07/27/16 09:44 25 mls/hr ONETIME ONE Administration Magnesium Sulfate 2 gm/ Premix 50 mls @ 25 mls/hr 07/28/16 08:00 07/28/16 08: 17 IV 07/28/16 09:59 25 mls/hr ONETIME ONE Administration Magnesium Sulfate 2 gm/ Premix 50 mls @ 25 mls/hr 07/28/16 18:29 07/28/16 18: 40 IV 07/28/16 20:28 25 mls/hr ONETIME ONE Administration Iopamidol 100 ml 07/24/16 13:16 07/24/16 14:26 Isovue-300 (61%) IVPUSH 07/24/16 13:17 100 ml ONETIME ONE Administration Isosorbide Mononitrate 60 mg 07/25/16 09:00 07/30/16 09:06 Imdur PO 60 mg DAILY RICH Administration Lidocaine HCl 15 ml 07/28/16 11:00 07/30/16 07:02 Xylocaine 2% Viscous PO 15 ml TIDAC RICH Administration Lidocaine HCl 15 ml 07/30/16 11:00 07/30/16 11:44 Xylocaine 2% Viscous PO 15 ml TIDAC RICH Administration Lorazepam 1 mg 07/24/16 22:37 Ativan IV Q6H PRN Anxiety Magnesium Citrate 240 ml 07/24/16 16:30 07/24/16 16:44 Citrate Of Magnesia PO 07/24/16 16:31 240 ml ONETIME ONE Administration Magnesium Oxide 400 mg 07/28/16 09:00 07/30/16 09:08 Magnesium Oxide PO 400 mg BID RICH Administration Magnesium Sulfate 1 dose 07/24/16 23:15 Pharmacy To Dose - Magnesium Replacement .XX ASDIRECTED [facility] Metoclopramide HCl 7.5 mg 07/24/16 15:29 07/24/16 15:37 Reglan IVPUSH 07/24/16 15:30 7.5 mg ONETIME ONE Administration Metoprolol Tartrate 5 mg 07/24/16 23:05 Lopressor IVPUSH Q4H PRN Tachycardia Morphine Sulfate 2 mg 07/24/16 20:30 07/24/16 20:35 Morphine IVPUSH 07/24/16 20:31 2 mg ONETIME ONE Administration Mycophenolate Mofetil 1,000 mg 07/25/16 09:00 07/30/16 09:04 Cellcept PO 1,000 mg BID RICH Administration Nitroglycerin 0.4 mg 07/24/16 19:56 07/24/16 20:18 Nitrostat SL 07/24/16 20:07 0.4 mg Q5M PRN Administration Chest Pain Ondansetron HCl 4 mg 07/24/16 12:06 07/24/16 12:24 Zofran IVPUSH 07/24/16 12:07 4 mg ONETIME ONE Administration Ondansetron HCl 4 mg 07/24/16 18:13 07/24/16 18:18 Zofran IVPUSH 07/24/16 18:14 4 mg ONETIME ONE Administration Ondansetron HCl 4 mg 07/24/16 22:37 07/25/16 05:10 Zofran IV 4 mg Q6H PRN Administration Nausea/Vomiting Ondansetron HCl 4 mg 07/25/16 21:52 07/28/16 05:44 Zofran IV 4 mg Q4H PRN Administration Nausea/Vomiting Oxycodone/Acetaminophen 1 tab 07/24/16 23:15 07/25/16 00:26 Percocet 325-5 Mg PO Not Given Q4H [facility] Oxycodone/Acetaminophen 1 tab 07/24/16 23:58 Percocet 325-5 Mg PO Q4H PRN Pain Pantoprazole Sodium 40 mg 07/26/16 12:00 07/30/16 11:57 Protonix Iv IVPUSH 40 mg Q12H [facility] Administration Calcium/D3/Magnesium 1 each 07/25/16 09:00 07/30/16 09:09 /Zinc Supplement PO Not Given DAILY [facility] Phenytoin Sodium 200 mg 07/25/16 09:00 07/30/16 09:06 Phenytoin PO 200 mg TID RICH Administration Phytonadione 5 mg 07/24/16 22:45 07/24/16 23:47 Aquamephyton PO 07/24/16 22:46 2.5 mg ONETIME ONE Administration Phytonadione 2.5 mg 07/25/16 00:01 07/25/16 00:10 Aquamephyton PO 07/25/16 00:02 2.5 mg ONETIME ONE Administration Pneumococcal Polyvalent Vaccine 0.5 ml 07/25/16 13:45 Pneumovax 23 IM 07/25/16 13:46 .ONCE ONE Pneumococcal Polyvalent Vaccine 0.5 ml 07/30/16 12:10 07/30/16 12:17 Pneumovax 23 SUBCUT 07/30/16 12:11 0.5 ml .ONCE ONE Administration Polyethylene Glycol 17 gm 07/24/16 22:37 Miralax PO DAILY PRN Constipation Polyethylene Glycol/Electrolytes 4,000 ml 07/25/16 20:34 07/26/16 00:28 Golytely PO 07/25/16 20:35 Not Given ONETIME ONE Potassium Chloride 1 dose 07/24/16 23:15 Pharmacy To Dose - Potassium Replacement .XX ASDIRECTED [facility] Potassium Chloride 20 meq 07/26/16 12:00 07/26/16 16:02 Klor-Con M20 PO 07/26/16 15:01 20 meq Q3H RICH Administration Potassium Chloride 20 meq 07/27/16 07:45 07/27/16 10:58 Klor-Con M20 PO 07/27/16 10:46 20 meq Q3H RICH Administration Potassium Chloride 20 meq 07/29/16 12:00 07/29/16 16:15 Klor-Con M20 PO 07/29/16 15:01 20 meq Q3H RICH Administration Propofol Confirm 07/26/16 09:18 Diprivan 20 Ml Administered 07/26/16 09:19 Dose 200 mg .ROUTE .STK-MED ONE Rosuvastatin Calcium 10 mg 07/25/16 09:00 07/30/16 09:08 Crestor PO 10 mg DAILY RICH Administration Senna/Docusate Sodium 1 tab 07/24/16 22:37 Senna Plus PO BID PRN Constipation Sodium Chloride 10 ml 07/24/16 13:16 07/24/16 14:26 Saline Flush FLUSH 07/24/16 13:17 10 ml ONETIME ONE Administration Tamsulosin HCl 0.4 mg 07/25/16 09:00 07/30/16 09:06 Flomax PO 0.4 mg BIDPC RICH Administration Temazepam 15 mg 07/24/16 22:37 Restoril PO BEDTIME PRN Sleep Trimethoprim/Sulfamethoxazole 1 tab 07/25/16 09:00 07/30/16 09:08 Septra Ds PO 1 tab DAILY RICH Administration Warfarin Sodium 0 dose 07/27/16 16:06 Pharmacy To Dose - Warfarin PO ASDIRECTED PRN RX TO DOSE COUMADIN Warfarin Sodium 5 mg 07/27/16 18:00 07/27/16 17:12 Coumadin PO 07/27/16 22:00 5 mg QPM RICH Administration Warfarin Sodium 5 mg 07/28/16 18:00 07/28/16 17:20 Coumadin PO 07/28/16 18:01 5 mg ONETIME ONE Administration Warfarin Sodium 5 mg 07/29/16 18:00 07/29/16 17:46 Coumadin PO 07/29/16 21:00 5 mg QPM RICH Administration Warfarin Sodium 5 mg 07/30/16 18:00 Coumadin PO 07/30/16 21:00 QPM RICH - Radiology Interpretation Free Text/Narrative:: 75-year-old male arrives in the ED per ambulance from [place]. He does a lot of a private residence. He states she's been having right lyssa-abdominal pain rating to his right flank for the last 3 days. Pain is constant with a colicky component. Tends to be on the constipated side. No history of kidney stones. He is afebrile upon arrival. 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 This is his knees the pain a good deal. He reports pain in his right flank is worse in the pain in his right lower abdomen. Previous abdominal surgery laparotomy x2 for temporary colostomy left side. It's unclear whether this was a Wilde's procedure due to diverticulitis or if he actually had some colon resected. A history has benign prostatism. He is a benign abdomen on examination with hypoactive bowel sounds no distention. Plan IV normal saline at 150 mils per hour. One view of the abdomen done as well as routine lab work and a urinalysis. - Re-Assessments/Exams Free Text/Narrative Re-Assessment/Exam: 07/24/16 13:03 KUB reveals increased stool throughout the transverse colon and the descending colon on the left side. There is also increased stool in the rectal vault. No sign of bowel obstruction. White count is 8.54 with a left shift of 75% neutrophils and 3% bands. Hemoglobin is 12.0 hematocrit is 36.2 platelets 390,000. The PT is elevated at 16.1 INR is elevated at 4.98. Takedown the stool is positive. Chemistry shows a sodium of 138 a potassium of 3.8. Chloride 11 bicarbonate 23. Anion gap is elevated at 17.8. BUN is 26 anion is 1.2 GFR 59 CRP is elevated at 4.5. AST is 54 ALT is 24 alkaline phosphatase 104. Because of the pain and elevated white count and elevated CRP CT of the abdomen done with oral and IV contrast. Awaiting a urinalysis. 07/24/16 13:12 looking at old records of Dr. Terry and Dr. Francois he patient was admitted in July 2013 with slight bleeding per rectum. His Coumadin was high at that time as well. He had a negative colonoscopy performed at that time. CT suggested a thickening mid colon in the descending colon side at that time. He had had polyps removed in the past on colonoscopies he said upper GI surgery for peptic ulcer disease prior to that. I therefore cannot find information relating to a colostomy temporarily and if part of his bowl was resected. Stool for guaiac was strongly positive. He is not anemic at this time. Red cell indices do not reveal any evidence of microcytosis. 07/24/16 14:52 ET of the abdomen and pelvis has been completed. Visualized portions of the lungs appear clear. Heart is borderline in size. The liver appears intact previous cholecystectomy appreciated. Pancreas is mildly atrophic. Spleen normal . Stomach is filled with contrast.. Kidneys are both normal as are the drainage tubes. There is a large amount of stool throughout the colon. There are a few diverticula but no evidence of acute diverticulitis. Appendix is visualized and is felt to be upper limits of normal in size. But it is short and stubby. Evidence of diffuse atherosclerosis of the aorta appreciated. 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 Anastomatic sutures are present in the LLQ -- in the distribution of the sigmoid colon. There are marked degenerative changes throughout the thoracic spine and a compression fracture of T12 is noted. Radiologist appreciated and this is new since his CT was done about 2 and half years ago. Urine was obtained by catheter and noted to be bloody. Apparently catheter was passed with some degreee of difficulty. 07/24/16 15:15 urinalysis shows 2+ blood but no signs of any infection. Therefore I believe his major problem is actually constipation. 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 I do not feel this is an emergency however. 07/24/16 15:28 on reexamination he is still having significant right-sided abdominal pain. I cannot be sure the aneurysm is not contributing to some portion of this pain. Benign abdominal examination otherwise. Overall impression is that the constipation is contributing a good deal to his abdominal pain at this time. Pain radiates up into his right flank area posteriorly. The kidney itself does not show any sign of obstruction of the right side Also discussed the aneurysm he is eager to have this looked at and possibly fixed as soon as possible. He is asked to call [place] in [facility] to see if we can set something up. He is very nauseated this time and I'm going to give him Reglan 7.5 mg IV for nausea relief. 07/24/16 18:13 patient is starting to keep down the Citroma. Feeling more nauseated. Will give Zofran 4 mg IV. 07/24/16 19:05 patient has not yet had a bowel movement after the Citroma. I will transfer care to Dr. Cramer as it is change of shift. The goal is the same. Bowel clans which I think will relieve his right-sided abdominal pain and then he could go home. Ms. however or if the stool comes out quite bloody indicating a further problem with GI bleeding due to this hyperanticoagulation he may require admission to the hospital.
[2016-07-24] MEDS ORDERED: Sodium Chloride 0.9% 1,000 ML IV SCH ×2 (12:00→22:45)
[2016-07-24] MEDS ORDERED: Ondansetron 4 MG/2 ML SDV IVPUSH ONE ×2 (12:06→18:13)
[2016-07-24] MEDS ORDERED: HYDROmorphone 0.5 MG/0.5 ML Syringe IVPUSH ONE (12:06)
[2016-07-24] MEDS ORDERED: Iopamidol 612 MG/ML 100 ML Bottle IVPUSH ONE (13:16)
[2016-07-24] MEDS ORDERED: Diatrizoate Meglumine/Diatrizoate Sodium 37% 120 ML Bottle PO ONE (13:16)
[2016-07-24] MEDS ORDERED: Sodium Chloride 0.9% 10 ML Syringe FLUSH ONE (13:16)
--- NOTE | 2016-07-24 15:02 | CT ---
CT abdomen and pelvis Technique: Multiple axial sections were obtained from above the dome of the diaphragm inferiorly through the pubic symphysis. Intravenous and oral contrast was utilized. Comparison: Previous CT abdomen and pelvis study of 07/15/13. Findings: Visualized lung bases shows nothing acute. Liver shows no focal abnormality. Spleen appears within normal limits. Surgical clips are seen from prior cholecystectomy. Adrenal glands show no nodule. Pancreas is within normal limits other than being atrophied. Kidneys show symmetric contrast enhancement without hydronephrosis or mass. Aorta shows some ectasia with maximum AP dimension of 2.5 cm. Ectasia of the common iliac arteries are also noted. Atherosclerotic change is seen within the aorta and within the iliac vessels. Aneurysm is seen which appears to be at the bifurcation of the common iliac artery into the external and internal iliac arteries on the right side. Aneurysm felt to mostly involve the internal iliac artery measuring up to 2.8 cm which has increased from prior exam at which time it measured about 2.3 cm. No retroperitoneal adenopathy or mesenteric abnormalities are seen. Appendix is seen which appears to be normal. No pelvic mass or adenopathy is seen. Mild increased stool is noted within portions of the rectum and sigmoid colon. Anastomotic sutures are noted within the sigmoid colon. Bowel gas pattern is unremarkable. Delayed images shows contrast within the distal ureters and within the bladder. Compression deformity seen at T12 which is an interval change from prior study. Mild degenerative change is scattered within the spine. Impression: 1. Interval sigmoid resection with anastomotic sutures being seen when compared to prior exam. 2. Interval cholecystectomy also noted. 3. 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 This could be causing the patient's symptoms and please correlate. Consideration could be made to refer the patient to an interventional radiologist. 4. Other incidental findings as noted above. Nothing acute is otherwise appreciated. Diagnostic code #5
--- NOTE | 2016-07-24 15:02 | CR ---
Abdomen: Supine view of the abdomen was obtained. Comparison: No previous study. Scattered degenerative spurring seen within the spine. Bony structures are osteopenic. Surgical anastomotic sutures are seen within the pelvis. Arterial calcification is seen. Surgical clips noted within the upper abdomen. Bowel gas pattern is normal. Calcification appears to be present within the central left kidney presumably within the renal pelvis. Impression: 1. Incidental findings. 2. Possible renal calculus within the left renal pelvis. Diagnostic code #3
[2016-07-24] MEDS ORDERED: Metoclopramide 10 MG/2 ML SDV IVPUSH ONE (15:29)
[2016-07-24] MEDS ORDERED: Magnesium Citrate Solution 296 ML Bottle PO ONE (16:30)
[2016-07-24] MEDS: Nitroglycerin 0.4 MG Tab.SL SL PRN ×2 (20:02→20:18)
[2016-07-24] MEDS ORDERED: Morphine 2 MG/ML Syringe IVPUSH ONE (20:30)
[2016-07-24] MEDS ORDERED: HYDROmorphone 1 MG/ML Syringe IVPUSH PRN (22:37)
[2016-07-24] MEDS ORDERED: Ondansetron 4 MG/2 ML SDV IV PRN (22:37)
[2016-07-24] MEDS ORDERED: Albuterol 0.083% 2.5 MG/3 ML Neb Soln NEB PRN (22:37)
[2016-07-24] MEDS ORDERED: Temazepam 15 MG Cap PO PRN (22:37)
[2016-07-24] MEDS ORDERED: LORazepam 2 MG/ML MDV IV PRN (22:37)
[2016-07-24] MEDS ORDERED: Polyethylene Glycol 3350 Powder 17 GM Packet PO PRN (22:37)
[2016-07-24] MEDS ORDERED: Bisacodyl 5 MG Tab PO PRN (22:37)
--- NOTE | 2016-07-24 22:46 | PCM.HP ---
H&P History of Present Illness - General Date of Service: 07/24/16 Admit Problem/Dx: Admission Diagnosis/Problem Admission Diagnosis/Problem Chest pain Source of Information: Patient, Family, Old records, Provider, RN notes reviewed History Limitations: Reports: No limitations - History of Present Illness Initial Comments - Free Text/Narative: This is a 75 yo elderly white male with past medical hx/o CAD, [place] in 1996, HLD, HTN, Chronic SOB, OA, Osteoporosis, Seizure Disorder, Chronic Bullous Pemphigoid and Diverticulosis who comes in to ED with complaints of abdominal with radiation to the right flank that has been going on for 3 days now but more like over a couple of months according to his . His pain is constant with colicky in nature. He is known to have chronic constipation. Patient carries a hx/o colon resection with colostomy in the past due to bowel obstruction. His colostomy has been repaired along with intestinal anastomosis. Per , patient has not been doing well for over 2 months now. He has been having chronic abdominal and flank pain. He is on narcotic for pain management. His warfarin was stopped for planned colonoscopy. His initial lab shows a CBC remarkable for Hgb of 12, Hct of 36.2, Platelet of 398 and Neutrophils of 75. His chemistry is remarkable for AG of 17.8, Cr of 26 , Ca of 12, Mg of 1.5, AST of 54, Alk Phos of 184, CRP of 4.5, and Albumin of 2.7. Troponinc x1 is < 0.070. PT/INR is 60/4.98. His UA is negative for UTI but with spec gravity of > or = 1.030. 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 Patient was referred to me for abdominal pain, chest pain and constipation. He is full code. Right Abdominal Pain Score (Numeric/FACES): 10 - Related Data Allergies/Adverse Reactions: Allergies Allergy/AdvReac Type Severity Reaction Status Date / Time strawberries Allergy Unknown Cannot Uncoded 07/24/16 11:42 Remember Home Medications: Home Meds Isosorbide Mononitrate [Isosorbide Mononitrate ER] 60 mg PO DAILY 07/15/13 [ History] Phenytoin Sodium Extended 200 mg PO TID 07/15/13 [History] atorvaSTATin [Lipitor] 40 mg PO DAILY 07/15/13 [History] Clotrimazole [Clotrimazole] 10 mg PO BID 12/22/15 [History] Warfarin [Coumadin] 5 mg PO IRAHETA 12/22/15 [History] Aspirin [Tamika Chewable Aspirin] 81 mg PO DAILY 05/20/16 [History] Carvedilol 6.25 mg PO BIDMEALS 05/20/16 [History] Sulfamethoxazole/Trimethoprim [Sulfamethoxazole-Tmp Ds Tablet] 1 tab PO DAILY [History] Acetaminophen/oxyCODONE [Percocet 325-5 MG] 1 tab PO Q4H 07/24/16 [History] Calcium Carb/D3/Magnesium/Zinc [Farzad Mag Zinc + D3] 1 each PO DAILY 07/24/16 [ History] Mycophenolate Mofetil 1,000 mg PO BID 07/24/16 [History] Warfarin [Coumadin] 2.5 mg PO MOTUWETHFRSA 07/24/16 [History] diphenhydrAMINE HCl [Benadryl] 25 mg PO ASDIRECTED PRN 07/24/16 [History] Past Medical History HEENT History: Reports: Impaired vision Cardiovascular History: Reports: CAD, High cholesterol, Hypertension, [place] Respiratory History: Reports: SOB Gastrointestinal History: Reports: Diverticulosis Musculoskeletal History: Reports: Arthritis, Osteoarthritis, Osteoporosis Neurological History: Reports: Seizure - Past Surgical History HEENT Surgical History: Reports: Cataract surgery GI Surgical History: Reports: Cholecystectomy, Colostomy Social & Family History - Family History Family Medical History: Noncontributory - Tobacco Use Smoking Status *Q: Former Smoker (Quit 29 years ago.) Years of Tobacco use: 20 Used Tobacco, but Quit: Yes Month Tobacco Last Used: 04/1991 Second Hand Smoke Exposure: No - Caffeine Use Caffeine Use: Reports: Coffee, Tea - Alcohol Use Days Per Week of Alcohol Use: 0 (Quit drinking alcohol 29 years ago) - Recreational Drug Use Recreational Drug Use: No - Living Situation & Occupation Living situation: Reports: single Occupation: retired H&P Review of Systems - Review of Systems: Review Of Systems: See Below General: Reports: malaise, weakness, fatigue, decreased appetite, weight loss HEENT: Reports: other (dry mouth) Pulmonary: Reports: Shortness of Breath, Wheezing Cardiovascular: Reports: dyspnea on exertion, blood pressure problem. Denies: chest pain Gastrointestinal: Reports: Abdominal pain, Constipation, Decreased appetite, Nausea. Denies: Black stool, Bloody stool, Hematochezia, Melena Genitourinary: Reports: frequency, other (nocturia) Musculoskeletal: Reports: back pain, other (flank pain) Skin: Reports: lesions Psychiatric: Denies: depression, anxiety, hallucinations Neurological: Reports: Weakness. Denies: Confusion, Seizure, Difficulty Walking Hematologic/Lymphatic: Reports: easy bleeding Immunologic: Reports: no symptoms Exam - Exam Exam: See Below - Vital Signs Vital Signs: Last Vital Signs Temp 36.6 C 07/24/16 21:51 Pulse 106 H 07/24/16 21:51 Resp 18 07/24/16 21:51 BP 120/98 H 07/24/16 21:51 Pulse Ox 98 07/24/16 21:51 Weight: 68.311 kg - Exam General: alert, oriented, cooperative, mild distress HEENT: Conjunctiva clear, EACs clear, EOMI, Hearing intact, Nares patent, Normal nasal septum, Posterior pharynx clear, Pupils equal, Pupils reactive. No : Mucosa moist & pink Neck: supple, trachea midline Lungs: Normal respiratory effort, Decreased breath sounds, Wheezing Cardiovascular: regular rate, regular rhythm. No: systolic murmur, diastolic murmur Abdomen: soft, tenderness, hypoactive bowel sounds, other (midline surgical scar and healed colostomy on left lower quadrant). No: organomegaly, peritoneal signs, distention, guarding, rigidity, rebound, McBurney's sign, abdominal bruit, aortic pulsation, aortic bruit (Male) Exam: Urethral discharge, Other (bloody discharge). No: Penile lesions, Scrotal swelling, Scrotum tenderness (L), Scrotum tenderness (R), Suprapubic fullness, Testicular mass, Testicular tenderness (L), Testicular tenderness (R) Rectal (Males) Exam: Normal exam. No: Bloody Stool Back Exam: normal inspection, decreased range of motion, vertebral tenderness. No: CVA tenderness (L), CVA tenderness (R) Extremities: normal inspection, normal pulses. No: clubbing, cyanosis, calf tenderness, edema Peripheral Pulses: 2+: posterior tibial (L), posterior tibial (R), dorsalis pedis (L), dorsalis pedis (R) Skin: warm, dry, intact, other (numerous skin sores) Neuro Extensive - Mental Status: oriented x3, normal cognition, memory intact Neuro Extensive - Motor, Sensory, Reflexes: CN II-XII intact (fairly intact), normal gait Psychiatric: alert, normal affect, normal mood - Patient Data Result Diagrams: 07/24/16 12:04 07/24/16 12:04 EKG INTERPRETATION EKG Date: 07/24/16 Time: 23:09 Rhythm: other (Sinus tachycardia) Rate (beats/min): 101 QRS: RBBB EKG Interpretation Comments: Q wave in V2-V6 *Q Meaningful Use (ADM) - VTE *Q VTE Criteria *Q: - Stroke *Q Stroke Criteria *Q: - AMI *Q AMI Criteria *Q: Problem List Initiated/Reviewed/Updated: Yes Orders Last 24hrs: Active Orders 24 hr Category Date Time Status Cardiac Monitoring [RC] CONTINUOUS Care 07/24/16 22:39 Ordered Height and Weight [RC] DAILY Care 07/24/16 22:37 Ordered Intake and Output [RC] QSHIFT Care 07/24/16 22:39 Ordered Oxygen Therapy [RC] PRN Care 07/24/16 22:37 Ordered RT Aerosol Therapy [RC] ASDIRECTED Care 07/24/16 22:41 Ordered Up With Assistance [RC] ASDIRECTED Care 07/24/16 22:37 Ordered Up ad Ambreen [RC] ASDIRECTED Care 07/24/16 22:37 Ordered VTE/DVT Education [RC] PER UNIT ROUTINE Care 07/24/16 22:37 Ordered Vital Signs [RC] Q4H Care 07/24/16 22:37 Ordered Consult to Case Management [CONS] Routine Cons 07/24/16 22:41 Ordered Consult to [employer] [CONS] Routine Cons 07/24/16 22:41 Ordered Consult to Spiritual Care [CONS] Routine Cons 07/24/16 22:41 Ordered OT Evaluation and Treatment [CONS] Routine Cons 07/24/16 22:41 Ordered PT Evaluation and Treatment [CONS] Routine Cons 07/24/16 22:41 Ordered BASIC METABOLIC PANEL,BMP [CHEM] AM Lab 07/25/16 05:11 Ordered BASIC METABOLIC PANEL,BMP [CHEM] AM Lab 07/26/16 05:11 Ordered BASIC METABOLIC PANEL,BMP [CHEM] AM Lab 07/27/16 05:11 Ordered BASIC METABOLIC PANEL,BMP [CHEM] AM Lab 07/28/16 05:11 Ordered BASIC METABOLIC PANEL,BMP [CHEM] AM Lab 07/29/16 05:11 Ordered CBC WITH AUTO DIFF [HEME] AM Lab 07/25/16 05:11 Ordered CBC WITH AUTO DIFF [HEME] AM Lab 07/26/16 05:11 Ordered CBC WITH AUTO DIFF [HEME] AM Lab 07/27/16 05:11 Ordered CBC WITH AUTO DIFF [HEME] AM Lab 07/28/16 05:11 Ordered CBC WITH AUTO DIFF [HEME] AM Lab 07/29/16 05:11 Ordered INR,PT,PROTHROMBIN TIME [COAG] AM Lab 07/25/16 05:11 Ordered INR,PT,PROTHROMBIN TIME [COAG] AM Lab 07/26/16 05:11 Ordered INR,PT,PROTHROMBIN TIME [COAG] AM Lab 07/27/16 05:11 Ordered INR,PT,PROTHROMBIN TIME [COAG] AM Lab 07/28/16 05:11 Ordered INR,PT,PROTHROMBIN TIME [COAG] AM Lab 07/29/16 05:11 Ordered MAGNESIUM [CHEM] AM Lab 07/25/16 05:11 Ordered MAGNESIUM [CHEM] AM Lab 07/26/16 05:11 Ordered MAGNESIUM [CHEM] AM Lab 07/27/16 05:11 Ordered MAGNESIUM [CHEM] AM Lab 07/28/16 05:11 Ordered MAGNESIUM [CHEM] AM Lab 07/29/16 05:11 Ordered Acetaminophen [Tylenol] Med 07/24/16 22:37 Ordered 650 mg PO Q4H PRN Acetaminophen/HYDROcodone [[place] 325-5 MG] Med 07/24/16 22:37 Ordered 1 tab PO Q4H PRN Albuterol [Proventil Neb Soln] Med 07/24/16 22:37 Ordered 2.5 mg NEB Q2H PRN Bisacodyl [Dulcolax] Med 07/24/16 22:37 Ordered 5 mg PO DAILY PRN Docusate Sodium/Sennosides [Senna Plus] Med 07/24/16 22:37 Ordered 1 tab PO BID PRN HYDROmorphone [Dilaudid] Med 07/24/16 22:37 Ordered 0.25 mg IVPUSH Q2H PRN LORazepam [Ativan] Med 07/24/16 22:37 Ordered 1 mg IV Q6H PRN Ondansetron [Zofran] Med 07/24/16 22:37 Ordered 4 mg IV Q6H PRN Phytonadione [AquaMephyton] Med 07/24/16 22:45 Once 5 mg PO ONETIME ONE Polyethylene Glycol 3350 [MiraLAX] Med 07/24/16 22:37 Ordered 17 gm PO DAILY PRN Sodium Chloride 0.9% @ 125 MLS/HR (1000ml) Med 07/24/16 22:45 Ordered Sodium Chloride 0.9% [Normal Saline] 1,000 ml IV ASDIRECTED Temazepam [Restoril] Med 07/24/16 22:37 Ordered 15 mg PO BEDTIME PRN Resuscitation Status Routine Resus Stat 07/24/16 22:37 Ordered Medication Orders Acetaminophen (Tylenol) 650 mg PO Q4H PRN PRN Reason: Pain (Mild 1-3)/fever Hydrocodone Bitart/Acetaminophen ([place] 325-5 Mg) 1 tab PO Q4H PRN PRN Reason: Pain (moderate 4-6) Albuterol (Proventil Neb Soln) 2.5 mg NEB Q2H PRN PRN Reason: Shortness Of Breath/wheezing Bisacodyl (Dulcolax) 5 mg PO DAILY PRN PRN Reason: Constipation Hydromorphone HCl (Dilaudid) 0.25 mg IVPUSH Q2H PRN PRN Reason: Pain (severe 7-10) Sodium Chloride (Normal Saline) 1,000 mls @ 125 mls/hr IV ASDIRECTED RICH Lorazepam (Ativan) 1 mg IV Q6H PRN PRN Reason: Anxiety Ondansetron HCl (Zofran) 4 mg IV Q6H PRN PRN Reason: Nausea/Vomiting Polyethylene Glycol (Miralax) 17 gm PO DAILY PRN PRN Reason: Constipation Senna/Docusate Sodium (Senna Plus) 1 tab PO BID PRN PRN Reason: Constipation Temazepam (Restoril) 15 mg PO BEDTIME PRN PRN Reason: Sleep Assessment/Plan Comment:: Assessment/Plan: Acute: Acute on Chronic Abdominal Pain - Likely from Impacted stools - Has been going on for 2 months now per - He is taking narcotics for it - He is scheduled for colonoscopy - CTS can showed: impacted stools and a 2.8 cm aneurysm in internal iliac artery - Bowel prep Gross Hematuria - 2/2 failed traumatic garvin insertion attempt in ED - He has supratherapeutic INR of 4.9 - Witness by me and night nursing staff - IVF hydration Supratherapeutic INR - INR is 4.9 - On Warfarin for Stroke ppx - He is also on anti-rejection and seizure meds - Oral Vit k 5 mg po x1 now Acute on Chronic Flank Pain - He is on narcotic pain - This has been going on for 2 months now, he is scheduled for colonoscopy - This maybe mistaken for chest pain Chest Pain - I do no think he actually has chest pain - Troponin x 1 negative and EKG is non-diagnostic (Sinus Rhythm and RB3) - CE Q6 x 2 more and follow up EKG in AM Dehydration - Spec gravity on UA is 1.030 - Contributory to his Constipation - Will hydrate him Constipation - As noted on CT scan - Bowel prep: oral and suppository Hypomagnesemia - Mg 1.5 - Magnesium Sulfate Supplement - Pharmacy to replete and monitor Generalized Weakness - Has been going on for 2 months - PT/OT consult - Vit D and TFT in am Hypercalcemia with Elevated Alk Phos Level - Suspect Hyperparathyroidism - Will check Vit D level, likely low given his hx/o osteoporosis Chronic: Hx/o Cardiac Dysrhythmia? on Warfarin CAD HTN HLD Hx/o [place] in 1996 Hx/o Diverticulosis OA Osteoporosis Urinary Retention SOB Seizure Hx/o Colon Resection 2/2 bowel obstruction with colostomy Hx/o Skin Abnormality: Bullous Pemphigoid on immuno-suppressant (Cellcept) and anti-fungal Plan: Admit to Inpatient with Tele Routine AM Labs KUB follow up in AM Resume Home Meds except Warfarin PT/OT consult Possible GS consult in AM for colonoscopy, will talk to Dr. Stanton since we discuss case with him this evening SW/CM for d/c planning Code status: 1
[2016-07-24] MEDS ORDERED: Metoprolol Tartrate 5 MG/5 ML SDV IVPUSH PRN (23:05)
[2016-07-24] MEDS ORDERED: hydrALAZINE 20 MG/ML SDV IVPUSH PRN (23:05)
[2016-07-24] MEDS ORDERED: Magnesium Sulfate/Water 4 GM in Premix Bag 1 BAG IV ONE (23:06)
[2016-07-24] MEDS ORDERED: Acetaminophen/oxyCODONE 325-5 MG Tab PO SCH (23:15)
[2016-07-24] MEDS ORDERED: Magnesium Sulfate/Water 2 GM in Premix Bag 1 BAG IV ONE (23:20)
[2016-07-24] MEDS: Dextrose 5%-0.45% NaCl 1,000 ML IV SCH (23:45)
[2016-07-24] MEDS: Bisacodyl 10 MG Supp RECTAL ONE (23:47)
[2016-07-24] MEDS ORDERED: Acetaminophen/oxyCODONE 325-5 MG Tab PO PRN (23:58)
[2016-07-24] MEDS ORDERED: diphenhydrAMINE 25 MG Cap PO PRN (23:58)
[2016-07-25] MEDS ORDERED: Phytonadione ORAL 2.5mg/2.5ml Soln Simple Syrup U/D PO ONE (00:01)
[2016-07-25] MEDS ORDERED: diphenhydrAMINE 25 MG Cap PO PRN (00:10)
[2016-07-25] MEDS: Bisacodyl 10 MG Supp RECTAL ONE (00:22)
[2016-07-25] MEDS: Dextrose 5%-0.45% NaCl 1,000 ML IV SCH ×5 (05:01→22:17)
[2016-07-25] MEDS: Carvedilol 6.25 MG Tab PO SCH ×2 (07:07→17:02)
--- NOTE | 2016-07-25 09:13 | CR ---
Chest: Portable view of the chest was obtained. Comparison: Previous chest x-ray of 05/20/16. Heart size at the upper limits of normal. Tortuous thoracic aorta is seen. Minimal scarring is noted within the left lung base. Lungs otherwise are clear. Scoliosis is present within the spine. Bony structures are osteopenic. Impression: 1. Incidental findings. Nothing acute is identified. Diagnostic code #2
[2016-07-25] MEDS: Clotrimazole 10 MG Troche PO SCH ×2 (09:50→20:56)
[2016-07-25] MEDS: Aspirin 81 MG Tab.Chew PO SCH (09:50)
[2016-07-25] MEDS: Rosuvastatin 10 MG Tab PO SCH (09:51)
[2016-07-25] MEDS: Phenytoin 100 MG Cap.ER PO SCH ×3 (09:51→20:56)
[2016-07-25] MEDS: Sulfamethoxazole/Trimethoprim 800-160 MG Tab PO SCH (09:51)
[2016-07-25] MEDS: Isosorbide Mononitrate 60 MG Tab.ER PO SCH (09:51)
[2016-07-25] MEDS: Tamsulosin 0.4 MG Cap.ER PO SCH ×2 (09:51→17:02)
[2016-07-25] MEDS: Mycophenolate Mofetil 250 MG Cap PO SCH ×2 (09:53→21:30)
--- NOTE | 2016-07-25 09:58 | PCM.PN ---
- General Info Date of Service: 07/25/16 Admission Dx/Problem (Free Text): Admission Diagnosis/Problem Admission Diagnosis/Problem Chest pain Subjective Update: Follow up Functional Status: Reports: pain controlled, tolerating diet, ambulating, urinating. Denies: new symptoms - Review of Systems General: Reports: Weakness. Denies: Fever, Chills HEENT: Reports: no symptoms Pulmonary: Denies: shortness of breath Cardiovascular: Denies: Chest Pain Gastrointestinal: Denies: Abdominal pain, Nausea, Vomiting Genitourinary: Reports: hematuria Musculoskeletal: Reports: no symptoms Skin: Reports: no symptoms Neurological: Reports: Weakness. Denies: Confusion Psychiatric: Denies: depression, anxiety, hallucinations Systems Review Comment:: His hematuria has greatly improved to tea-pinkish in color. He had a good few bowel movements overnight. He abdominal, flank and chest pain is gone. His Hgb is stable at 11.6 (12). His INR is now at 1.45. Troponin x 3 and CKMB x 2 -were all negative. He appears comfortable and in no acute distress. - Patient Data Vitals - most recent: Last Vital Signs Temp 36.7 C 07/25/16 07:33 Pulse 84 07/25/16 07:33 Resp 16 07/25/16 07:33 BP 131/72 07/25/16 07:33 Pulse Ox 97 07/25/16 07:33 Weight - most recent: 67.676 kg I&O - last 24 hours: Intake & Output 07/24/16 07/25/16 07/25/16 22:59 06:59 14:59 Intake Total 1450 Output Total 500 Balance 950 Lab Results last 24 hrs: Laboratory Results - last 24 hr 07/25/16 07/25/16 07/25/16 Range/Units 05:58 05:58 05:58 WBC 12.32 H (4.23-9.07) K/mm3 RBC 3.94 L (4.63-6.08) M/mm3 Hgb 11.6 L (13.7-17.5) gm/L Hct 34.4 L (40.1-51.0) % MCV 87.3 (79.0-92.2) fl MCH 29.4 (25.7-32.2) pg MCHC 33.7 (32.2-35.5) g/dl RDW Std Deviation 48.2 H (35.1-43.9) fL Plt Count 390 H (163-337) K/mm3 MPV 9.4 (9.4-12.3) fl Neut % (Auto) 77.7 H (34.0-67.9) % Lymph % (Auto) 8.8 L (21.8-53.1) % [place] % (Auto) 12.2 (5.3-12.2) % Eos % (Auto) 0.6 L (0.8-7.0) Baso % (Auto) 0.3 (0.1-1.2) % Neut # (Auto) 9.57 H (1.78-5.38) K/mm3 Lymph # (Auto) 1.09 L (1.32-3.57) K/mm3 [place] # (Auto) 1.50 H (0.30-0.82) K/mm3 Eos # (Auto) 0.07 (0.04-0.54) K/mm3 Baso # (Auto) 0.04 (0.01-0.08) K/mm3 Manual Slide Review Normal smear PT 16.2 H (8.0-13.0) SECONDS INR 1.45 Sodium 136 (136-145) mEq/L Potassium 4.0 (3.5-5.1) mEq/L Chloride 103 (98-107) mEq/L Carbon Dioxide 28 (21-32) mEq/L Anion Gap 9.0 (5-15) BUN 24 H (7-18) mg/dL Creatinine 0.9 (0.7-1.3) mg/dL Est Cr Clr Drug Dosing 69.97 mL/min Estimated GFR (MDRD) > 60 (>60) mL/min BUN/Creatinine Ratio 26.7 H (14-18) Glucose 155 H (83-115) mg/dL Calcium 10.2 H (8.5-10.1) mg/dL Magnesium 2.5 H (1.8-2.4) mg/dl CK-MB (CK-2) 1.7 (0-3.6) ng/ml Troponin I 0.030 (0.00-0.056) ng/mL Free T4 1.30 (0.76-1.46) ng/dL TSH 3rd Generation 1.572 (0.358-3.74) uIU/mL Med Orders - Current: Current Medications Acetaminophen (Tylenol) 650 mg PO Q4H PRN PRN Reason: Pain (Mild 1-3)/fever Hydrocodone Bitart/Acetaminophen ([place] 325-5 Mg) 1 tab PO Q4H PRN PRN Reason: Pain (moderate 4-6) Albuterol (Proventil Neb Soln) 2.5 mg NEB Q2H PRN PRN Reason: Shortness Of Breath/wheezing Aspirin (Aspirin) 81 mg PO DAILY [facility] Last Admin: 07/25/16 09:50 Dose: 81 mg Bisacodyl (Dulcolax) 5 mg PO DAILY PRN PRN Reason: Constipation Carvedilol (Coreg) 6.25 mg PO BIDMEALS [facility] Last Admin: 07/25/16 07:07 Dose: 6.25 mg Clotrimazole (Mycelex) 10 mg PO BID [facility] Last Admin: 07/25/16 09:50 Dose: 10 mg Diphenhydramine HCl (Benadryl) 25 mg PO BID PRN PRN Reason: Allergies Hydralazine HCl (Apresoline) 20 mg IVPUSH Q4H PRN PRN Reason: Hypertension Hydromorphone HCl (Dilaudid) 0.25 mg IVPUSH Q2H PRN PRN Reason: Pain (severe 7-10) Dextrose/Sodium Chloride (Dextrose 5%-1/2 Ns) 1,000 mls @ 250 mls/hr IV ASDIRECTED [facility] Last Admin: 07/25/16 09:50 Dose: 250 mls/hr Isosorbide Mononitrate (Imdur) 60 mg PO DAILY [facility] Last Admin: 07/25/16 09:51 Dose: 60 mg Lorazepam (Ativan) 1 mg IV Q6H PRN PRN Reason: Anxiety Magnesium Sulfate (Pharmacy To Dose - Magnesium Replacement) 1 dose .XX ASDIRECTED [facility] Metoprolol Tartrate (Lopressor) 5 mg IVPUSH Q4H PRN PRN Reason: Tachycardia Mycophenolate Mofetil (Cellcept) 1,000 mg PO BID [facility] Last Admin: 07/25/16 09:53 Dose: 1,000 mg Ondansetron HCl (Zofran) 4 mg IV Q6H PRN PRN Reason: Nausea/Vomiting Last Admin: 07/25/16 05:10 Dose: 4 mg Oxycodone/Acetaminophen (Percocet 325-5 Mg) 1 tab PO Q4H PRN PRN Reason: Pain Calcium/D3/Magnesium (/Zinc Supplement) 1 each PO DAILY [facility] Phenytoin Sodium (Phenytoin) 200 mg PO TID [facility] Last Admin: 07/25/16 09:51 Dose: 200 mg Polyethylene Glycol (Miralax) 17 gm PO DAILY PRN PRN Reason: Constipation Potassium Chloride (Pharmacy To Dose - Potassium Replacement) 1 dose .XX ASDIRECTED [facility] Rosuvastatin Calcium (Crestor) 10 mg PO DAILY [facility] Last Admin: 07/25/16 09:51 Dose: 10 mg Senna/Docusate Sodium (Senna Plus) 1 tab PO BID PRN PRN Reason: Constipation [facility] Admin: 07/25/16 09:51 Dose: 0.4 mg Temazepam (Restoril) 15 mg PO BEDTIME PRN PRN Reason: Sleep Trimethoprim/Sulfamethoxazole (Septra Ds) 1 tab PO DAILY [facility] Last Admin: 07/25/16 09:51 Dose: 1 tab Discontinued Medications Bisacodyl (Dulcolax) 10 mg RECTAL ONETIME ONE Stop: 07/24/16 22:00 Last Admin: 07/25/16 00:22 Dose: Not Given Diatrizoate Meglum/Diatrizoate Sod (Gastrografin 37%) 120 ml PO ONETIME ONE Stop: 07/24/16 13:17 Last Admin: 07/24/16 14:26 Dose: 90 ml Diphenhydramine HCl (Benadryl) 25 mg PO ASDIRECTED PRN PRN Reason: Allergies Hydromorphone HCl (Dilaudid) 0.5 mg IVPUSH ONETIME ONE Stop: 07/24/16 12:07 Last Admin: 07/24/16 12:23 Dose: 0.5 mg Sodium Chloride (Normal Saline) 1,000 mls @ 250 mls/hr IV ASDIRECTED [facility] Last Admin: 07/24/16 12:04 Dose: 150 mls/hr Sodium Chloride (Normal Saline) 1,000 mls @ 125 mls/hr IV ASDIRECTED [facility] Magnesium Sulfate 4 gm/ Premix 100 mls @ 50 mls/hr IV ONETIME ONE Stop: 07/25/16 01:05 Last Admin: 07/25/16 00:05 Dose: Not Given Magnesium Sulfate 2 gm/ Premix 50 mls @ 25 mls/hr IV ONETIME ONE Stop: 07/25/16 01:19 Last Admin: 07/24/16 23:45 Dose: 25 mls/hr Iopamidol (Isovue-300 (61%)) 100 ml IVPUSH ONETIME ONE Stop: 07/24/16 13:17 Last Admin: 07/24/16 14:26 Dose: 100 ml Magnesium Citrate (Citrate Of Magnesia) 240 ml PO ONETIME ONE Stop: 07/24/16 16:31 Last Admin: 07/24/16 16:44 Dose: 240 ml Metoclopramide HCl (Reglan) 7.5 mg IVPUSH ONETIME ONE Stop: 07/24/16 15:30 Last Admin: 07/24/16 15:37 Dose: 7.5 mg Morphine Sulfate (Morphine) 2 mg IVPUSH ONETIME ONE Stop: 07/24/16 20:31 Last Admin: 07/24/16 20:35 Dose: 2 mg Nitroglycerin (Nitrostat) 0.4 mg SL Q5M PRN PRN Reason: Chest Pain Stop: 07/24/16 20:07 Last Admin: 07/24/16 20:18 Dose: 0.4 mg Ondansetron HCl (Zofran) 4 mg IVPUSH ONETIME ONE Stop: 07/24/16 12:07 Last Admin: 07/24/16 12:24 Dose: 4 mg Ondansetron HCl (Zofran) 4 mg IVPUSH ONETIME ONE Stop: 07/24/16 18:14 Last Admin: 07/24/16 18:18 Dose: 4 mg Oxycodone/Acetaminophen (Percocet 325-5 Mg) 1 tab PO Q4H [facility] Last Admin: 07/25/16 00:26 Dose: Not Given Phytonadione (Aquamephyton) 5 mg PO ONETIME ONE Stop: 07/24/16 22:46 Last Admin: 07/24/16 23:47 Dose: 2.5 mg Phytonadione (Aquamephyton) 2.5 mg PO ONETIME ONE Stop: 07/25/16 00:02 Last Admin: 07/25/16 00:10 Dose: 2.5 mg Sodium Chloride (Saline Flush) 10 ml FLUSH ONETIME ONE Stop: 07/24/16 13:17 Last Admin: 07/24/16 14:26 Dose: 10 ml - Exam General: alert, cooperative, no acute distress HEENT: Pupils equal, Pupils reactive, EOMI, Mucous membr. moist/pink Neck: supple, trachea midline, no JVD, no thyromegaly Lungs: Normal respiratory effort, Decreased breath sounds Cardiovascular: Regular Rate, Regular Rhythm Abdomen: bowel sounds present, soft, no tenderness, no distension (Male) Exam: Deferred Back Exam: normal inspection, decreased range of motion Extremities: no edema, normal pulses, no tenderness/swelling, no clubbing, no cyanosis, no calf tenderness Skin: warm, dry, intact, other (noted mutliple skin sores) Neurological: no new focal deficit Psy/Mental Status: alert, normal affect, normal mood - Problem List Review Problem List Initiated/Reviewed/Updated: Yes - My Orders Last 24 Hours: My Active Orders 07/24/16 21:00 Patient Status [ADT] Routine 07/24/16 22:37 Height and Weight [RC] 04 Oxygen Therapy [RC] PRN Up With Assistance [RC] QSHIFT Up ad Ambreen [RC] QSHIFT VTE/DVT Education [RC] BID Vital Signs [RC] Q4HR Acetaminophen [Tylenol] 650 mg PO Q4H PRN Acetaminophen/HYDROcodone [[place] 325-5 MG] 1 tab PO Q4H PRN Albuterol [Proventil Neb Soln] 2.5 mg NEB Q2H PRN Bisacodyl [Dulcolax] 5 mg PO DAILY PRN Docusate Sodium/Sennosides [Senna Plus] 1 tab PO BID PRN HYDROmorphone [Dilaudid] 0.25 mg IVPUSH Q2H PRN LORazepam [Ativan] 1 mg IV Q6H PRN Ondansetron [Zofran] 4 mg IV Q6H PRN Polyethylene Glycol 3350 [MiraLAX] 17 gm PO DAILY PRN Temazepam [Restoril] 15 mg PO BEDTIME PRN Resuscitation Status Routine 07/24/16 22:39 Cardiac Monitoring [RC] Intake and Output [RC] 04,16 07/24/16 22:41 RT Aerosol Therapy [RC] Consult to Case Management [CONS] Routine Consult to Director Of Research And Development [CONS] Routine Consult to Spiritual Care [CONS] Routine OT Evaluation and Treatment [CONS] Routine PT Evaluation and Treatment [CONS] Routine 07/24/16 23:05 Metoprolol Tartrate [Lopressor] 5 mg IVPUSH Q4H PRN hydrALAZINE [Apresoline] 20 mg IVPUSH Q4H PRN 07/24/16 23:15 Dextrose 5%-0.45% NaCl [Dextrose 5%-1/2 NS] 1,000 ml IV ASDIRECTED Magnesium Rep Pharmacy to Dose [Pharmacy to Dose - Magnesium Replacement] 1 dose .XX ASDIRECTED Potassium Rep Pharmacy to Dose [Pharmacy to Dose - Potassium Replacement] 1 dose .XX ASDIRECTED 07/24/16 23:24 VITAMIN D 25-HYROXY (D2, D3) [REF] Stat 07/24/16 23:26 PTH INTACT INCL CALCIUM [REF] Stat 07/24/16 23:58 Acetaminophen/oxyCODONE [Percocet 325-5 MG] 1 tab PO Q4H PRN 07/25/16 00:10 diphenhydrAMINE [Benadryl] 25 mg PO BID PRN 07/25/16 00:17 Precautions [COMM] Routine 07/25/16 01:31 Antiembolic Devices [RC] PER UNIT ROUTINE SCD [Sequential Compression Device] [OM.PC] Routine 07/25/16 05:11 KUB [Abdomen 1V Flat] [CR] AM 07/25/16 07:00 EKG 12 Lead [EKG Documentation Completion] [RC] AM Carvedilol [Coreg] 6.25 mg PO BIDMEALS 07/25/16 09:00 Aspirin 81 mg PO DAILY Clotrimazole [Mycelex] 10 mg PO BID Isosorbide Mononitrate [Imdur] 60 mg PO DAILY Mycophenolate Mofetil [Cellcept] 1,000 mg PO BID Patient's Own Medication [Ptom] 1 each PO DAILY Phenytoin 200 mg PO TID Rosuvastatin [Crestor] 10 mg PO DAILY Sulfamethoxazole/Trimethoprim [Septra DS] 1 tab PO DAILY Tamsulosin [Flomax] 0.4 mg PO BIDPC 07/25/16 09:56 Consult to Physician [CONS] Routine 07/25/16 09:58 Notify Provider Consults [RC] ASDIRECTED 07/25/16 12:00 CKMB [CHEM] Routine TROPONIN I [CHEM] Routine 07/25/16 Breakfast Clear Liquid Diet [DIET] 07/26/16 05:11 BASIC METABOLIC PANEL,BMP [CHEM] AM CBC WITH AUTO DIFF [HEME] AM INR,PT,PROTHROMBIN TIME [COAG] AM MAGNESIUM [CHEM] AM 07/27/16 05:11 BASIC METABOLIC PANEL,BMP [CHEM] AM CBC WITH AUTO DIFF [HEME] AM INR,PT,PROTHROMBIN TIME [COAG] AM MAGNESIUM [CHEM] AM 07/28/16 05:11 BASIC METABOLIC PANEL,BMP [CHEM] AM CBC WITH AUTO DIFF [HEME] AM INR,PT,PROTHROMBIN TIME [COAG] AM MAGNESIUM [CHEM] AM 07/29/16 05:11 BASIC METABOLIC PANEL,BMP [CHEM] AM CBC WITH AUTO DIFF [HEME] AM INR,PT,PROTHROMBIN TIME [COAG] AM MAGNESIUM [CHEM] AM - Plan Plan:: Assessment/Plan: Acute: Acute on Chronic Abdominal Pain, Improved - Likely from Impacted stools - Has been going on for 2 months now per - He is taking narcotics for it - He is scheduled for colonoscopy - CTS can showed: impacted stools and 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 Stanton Hypermagnesemia - 2/2 Receiving Mag-Citrate and Mag-Sulfate last night - Mg 2.5 - Will monitor Resolved: Subtherapeutic INR - INR is 4.9---> 1.45 - On Warfarin for Stroke ppx - He is also on anti-rejection and seizure meds - Received Oral Vit k 5 mg po x1 last night S/p Acute on Chronic Flank Pain - He is on narcotic pain - This has been going on for 2 months now, he is scheduled for colonoscopy - This maybe mistaken for chest pain S/p Chest Pain - I do no think he actually has chest pain - Troponin x 1 negative and EKG is non-diagnostic (Sinus Rhythm and RB3) - CE x 2 more and CKMB x 2 all negative S/p Dehydration - Spec gravity on UA is 1.030 - Contributory to his Constipation - Will hydrate him S/p Constipation - As noted on CT scan - Bowel prep: oral and suppository S/p Hypomagnesemia - Mg 1.5 - Magnesium Sulfate Supplement - Pharmacy to replete and monitor Chronic: Hx/o Cardiac Dysrhythmia? 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 Burden for colonoscopy and EGD SW/CM for d/c planning Code status: 1 CM spoke to and would like to have colonoscopy done here. She also would like to have an EGD to re-check patient's hx/o esophageal tear. I called and spoke to Dr. Stanton and discussed case with him. For now, we will keep patient on clears for possible endoscopy in am. Will also consult MEDICAL BILLING SERVICE to asses his swallowing.
--- NOTE | 2016-07-25 10:24 | CR ---
Abdomen: Supine view of the abdomen was obtained. Comparison: Previous abdominal x-ray of 07/24/16. Contrast seen within the colon from CT exam performed one day earlier. Surgical clips are seen within the right upper abdomen. Small amount of vascular calcification is seen medial to the left kidney. Vascular calcification is noted within the iliac vessels. Mild degenerative change is noted within the spine. Impression: 1. Incidental findings as noted above. Diagnostic code #2
[2016-07-25] MEDS: MAGNESIUM PO SCH (10:46)
[2016-07-25] MEDS: CALCIUM PO SCH (10:46)
[2016-07-25] MEDS: D3 PO SCH (10:46)
[2016-07-25] MEDS: [UNRECOGNIZED DRUG - OTHER] PO SCH (10:46)
[2016-07-25] MEDS ORDERED: Diphtheria,Pertussis(Acell),Tetanus Vaccine 0.5 ML SDV inactive IM ONE (13:43)
[2016-07-25] MEDS ORDERED: Pneumococcal Polyvalent-23 Vaccine 0.5 ML SDV IM ONE (13:45)
--- NOTE | 2016-07-25 20:34 | PCM.CONSN ---
- General Info Date of Service: 07/25/16 - Patient Data Vitals - most recent: Last Vital Signs Temp 98.2 F 07/25/16 19:25 Pulse 74 07/25/16 19:25 Resp 18 07/25/16 19:25 BP 112/79 07/25/16 19:25 Pulse Ox 98 07/25/16 19:25 Weight - most recent: 67.676 kg I&O - last 24 hours: Intake & Output 07/25/16 07/25/16 07/25/16 07:59 15:59 23:59 Intake Total 5042 711 8044 Output Total 500 300 Balance 597 [id number] [id number] Lab Results last 24 hrs: Laboratory Results - last 24 hr 07/25/16 07/25/16 07/25/16 Range/Units 05:58 05:58 05:58 WBC 12.32 H (4.23-9.07) K/mm3 RBC 3.94 L (4.63-6.08) M/mm3 Hgb 11.6 L (13.7-17.5) gm/L Hct 34.4 L (40.1-51.0) % MCV 87.3 (79.0-92.2) fl MCH 29.4 (25.7-32.2) pg MCHC 33.7 (32.2-35.5) g/dl RDW Std Deviation 48.2 H (35.1-43.9) fL Plt Count 390 H (163-337) K/mm3 MPV 9.4 (9.4-12.3) fl Neut % (Auto) 77.7 H (34.0-67.9) % Lymph % (Auto) 8.8 L (21.8-53.1) % [place] % (Auto) 12.2 (5.3-12.2) % Eos % (Auto) 0.6 L (0.8-7.0) Baso % (Auto) 0.3 (0.1-1.2) % Neut # (Auto) 9.57 H (1.78-5.38) K/mm3 Lymph # (Auto) 1.09 L (1.32-3.57) K/mm3 [place] # (Auto) 1.50 H (0.30-0.82) K/mm3 Eos # (Auto) 0.07 (0.04-0.54) K/mm3 Baso # (Auto) 0.04 (0.01-0.08) K/mm3 Manual Slide Review Normal smear PT 16.2 H (8.0-13.0) SECONDS INR 1.45 Sodium 136 (136-145) mEq/L Potassium 4.0 (3.5-5.1) mEq/L Chloride 103 (98-107) mEq/L Carbon Dioxide 28 (21-32) mEq/L Anion Gap 9.0 (5-15) BUN 24 H (7-18) mg/dL Creatinine 0.9 (0.7-1.3) mg/dL Est Cr Clr Drug Dosing 69.97 mL/min Estimated GFR (MDRD) > 60 (>60) mL/min BUN/Creatinine Ratio 26.7 H (14-18) Glucose 155 H (83-115) mg/dL Calcium 10.2 H (8.5-10.1) mg/dL Magnesium 2.5 H (1.8-2.4) mg/dl CK-MB (CK-2) 1.7 (0-3.6) ng/ml Troponin I 0.030 (0.00-0.056) ng/mL Free T4 1.30 (0.76-1.46) ng/dL TSH 3rd Generation 1.572 (0.358-3.74) uIU/mL 07/25/16 Range/Units 12:22 WBC (4.23-9.07) K/mm3 RBC (4.63-6.08) M/mm3 Hgb (13.7-17.5) gm/L Hct (40.1-51.0) % MCV (79.0-92.2) fl MCH (25.7-32.2) pg MCHC (32.2-35.5) g/dl RDW Std Deviation (35.1-43.9) fL Plt Count (163-337) K/mm3 MPV (9.4-12.3) fl Neut % (Auto) (34.0-67.9) % Lymph % (Auto) (21.8-53.1) % [place] % (Auto) (5.3-12.2) % Eos % (Auto) (0.8-7.0) Baso % (Auto) (0.1-1.2) % Neut # (Auto) (1.78-5.38) K/mm3 Lymph # (Auto) (1.32-3.57) K/mm3 [place] # (Auto) (0.30-0.82) K/mm3 Eos # (Auto) (0.04-0.54) K/mm3 Baso # (Auto) (0.01-0.08) K/mm3 Manual Slide Review PT (8.0-13.0) SECONDS INR Sodium (136-145) mEq/L Potassium (3.5-5.1) mEq/L Chloride (98-107) mEq/L Carbon Dioxide (21-32) mEq/L Anion Gap (5-15) BUN (7-18) mg/dL Creatinine (0.7-1.3) mg/dL Est Cr Clr Drug Dosing mL/min Estimated GFR (MDRD) (>60) mL/min BUN/Creatinine Ratio (14-18) Glucose (83-115) mg/dL Calcium (8.5-10.1) mg/dL Magnesium (1.8-2.4) mg/dl CK-MB (CK-2) 1.5 (0-3.6) ng/ml Troponin I 0.042 (0.00-0.056) ng/mL Free T4 (0.76-1.46) ng/dL TSH 3rd Generation (0.358-3.74) uIU/mL Med Orders - Current: Current Medications Acetaminophen (Tylenol) 650 mg PO Q4H PRN PRN Reason: Pain (Mild 1-3)/fever Hydrocodone Bitart/Acetaminophen ([place] 325-5 Mg) 1 tab PO Q4H PRN PRN Reason: Pain (moderate 4-6) Albuterol (Proventil Neb Soln) 2.5 mg NEB Q2H PRN PRN Reason: Shortness Of Breath/wheezing Aspirin (Aspirin) 81 mg PO DAILY [facility] Last Admin: 07/25/16 09:50 Dose: 81 mg Bisacodyl (Dulcolax) 5 mg PO DAILY PRN PRN Reason: Constipation Carvedilol (Coreg) 6.25 mg PO BIDMEALS [facility] Last Admin: 07/25/16 17:02 Dose: 6.25 mg Clotrimazole (Mycelex) 10 mg PO BID [facility] Last Admin: 07/25/16 09:50 Dose: 10 mg Diphenhydramine HCl (Benadryl) 25 mg PO BID PRN PRN Reason: Allergies Hydralazine HCl (Apresoline) 20 mg IVPUSH Q4H PRN PRN Reason: Hypertension Hydromorphone HCl (Dilaudid) 0.25 mg IVPUSH Q2H PRN PRN Reason: Pain (severe 7-10) Dextrose/Sodium Chloride (Dextrose 5%-1/2 Ns) 1,000 mls @ 250 mls/hr IV ASDIRECTED [facility] Last Admin: 07/25/16 17:57 Dose: 250 mls/hr Isosorbide Mononitrate (Imdur) 60 mg PO DAILY [facility] Last Admin: 07/25/16 09:51 Dose: 60 mg Lorazepam (Ativan) 1 mg IV Q6H PRN PRN Reason: Anxiety Magnesium Sulfate (Pharmacy To Dose - Magnesium Replacement) 1 dose .XX ASDIRECTED [facility] Metoprolol Tartrate (Lopressor) 5 mg IVPUSH Q4H PRN PRN Reason: Tachycardia Mycophenolate Mofetil (Cellcept) 1,000 mg PO BID [facility] Last Admin: 07/25/16 09:53 Dose: 1,000 mg Ondansetron HCl (Zofran) 4 mg IV Q6H PRN PRN Reason: Nausea/Vomiting Last Admin: 07/25/16 05:10 Dose: 4 mg Calcium/D3/Magnesium (/Zinc Supplement) 1 each PO DAILY [facility] Last Admin: 07/25/16 10:46 Dose: Not Given Phenytoin Sodium (Phenytoin) 200 mg PO TID [facility] Last Admin: 07/25/16 15:19 Dose: 200 mg Polyethylene Glycol (Miralax) 17 gm PO DAILY PRN PRN Reason: Constipation Potassium Chloride (Pharmacy To Dose - Potassium Replacement) 1 dose .XX ASDIRECTED [facility] Rosuvastatin Calcium (Crestor) 10 mg PO DAILY [facility] Last Admin: 07/25/16 09:51 Dose: 10 mg Senna/Docusate Sodium (Senna Plus) 1 tab PO BID PRN PRN Reason: Constipation Tamsulosin [facility] ([facility]) [facility] Last Admin: 07/25/16 17:02 Dose: 0.4 mg Temazepam (Restoril) 15 mg PO BEDTIME PRN PRN Reason: Sleep Trimethoprim/Sulfamethoxazole (Septra Ds) 1 tab PO DAILY [facility] Last Admin: 07/25/16 09:51 Dose: 1 tab Discontinued Medications Bisacodyl (Dulcolax) 10 mg RECTAL ONETIME ONE Stop: 07/24/16 22:00 Last Admin: 07/25/16 00:22 Dose: Not Given Diatrizoate Meglum/Diatrizoate Sod (Gastrografin 37%) 120 ml PO ONETIME ONE Stop: 07/24/16 13:17 Last Admin: 07/24/16 14:26 Dose: 90 ml Diphenhydramine HCl (Benadryl) 25 mg PO ASDIRECTED PRN PRN Reason: Allergies Diphtheria/Tetanus/Acell Pertussis (Boostrix) 0.5 ml IM .ONCE ONE Stop: 07/25/16 13:44 Hydromorphone HCl (Dilaudid) 0.5 mg IVPUSH ONETIME ONE Stop: 07/24/16 12:07 Last Admin: 07/24/16 12:23 Dose: 0.5 mg Sodium Chloride (Normal Saline) 1,000 mls @ 250 mls/hr IV ASDIRECTED [facility] Last Admin: 07/24/16 12:04 Dose: 150 mls/hr Sodium Chloride (Normal Saline) 1,000 mls @ 125 mls/hr IV ASDIRECTED [facility] Magnesium Sulfate 4 gm/ Premix 100 mls @ 50 mls/hr IV ONETIME ONE Stop: 07/25/16 01:05 Last Admin: 07/25/16 00:05 Dose: Not Given Magnesium Sulfate 2 gm/ Premix 50 mls @ 25 mls/hr IV ONETIME ONE Stop: 07/25/16 01:19 Last Admin: 07/24/16 23:45 Dose: 25 mls/hr Iopamidol (Isovue-300 (61%)) 100 ml IVPUSH ONETIME ONE Stop: 07/24/16 13:17 Last Admin: 07/24/16 14:26 Dose: 100 ml Magnesium Citrate (Citrate Of Magnesia) 240 ml PO ONETIME ONE Stop: 07/24/16 16:31 Last Admin: 07/24/16 16:44 Dose: 240 ml Metoclopramide HCl (Reglan) 7.5 mg IVPUSH ONETIME ONE Stop: 07/24/16 15:30 Last Admin: 07/24/16 15:37 Dose: 7.5 mg Morphine Sulfate (Morphine) 2 mg IVPUSH ONETIME ONE Stop: 07/24/16 20:31 Last Admin: 07/24/16 20:35 Dose: 2 mg Nitroglycerin (Nitrostat) 0.4 mg SL Q5M PRN PRN Reason: Chest Pain Stop: 07/24/16 20:07 Last Admin: 07/24/16 20:18 Dose: 0.4 mg Ondansetron HCl (Zofran) 4 mg IVPUSH ONETIME ONE Stop: 07/24/16 12:07 Last Admin: 07/24/16 12:24 Dose: 4 mg Ondansetron HCl (Zofran) 4 mg IVPUSH ONETIME ONE Stop: 07/24/16 18:14 Last Admin: 07/24/16 18:18 Dose: 4 mg Oxycodone/Acetaminophen (Percocet 325-5 Mg) 1 tab PO Q4H [facility] Last Admin: 07/25/16 00:26 Dose: Not Given Oxycodone/Acetaminophen (Percocet 325-5 Mg) 1 tab PO Q4H PRN PRN Reason: Pain Phytonadione ([place]amephy[place]) 5 mg PO ONETIME ONE Stop: 07/24/16 22:46 Last Admin: 07/24/16 23:47 Dose: 2.5 mg Phytonadione (Aquamephyton) 2.5 mg PO ONETIME ONE Stop: 07/25/16 00:02 Last Admin: 07/25/16 00:10 Dose: 2.5 mg Pneumococcal Polyvalent Vaccine (Pneumovax 23) 0.5 ml IM .ONCE ONE Stop: 07/25/16 13:46 Sodium Chloride (Saline Flush) 10 ml FLUSH ONETIME ONE Stop: 07/24/16 13:17 Last Admin: 07/24/16 14:26 Dose: 10 ml Consult PN Assessment/Plan Procedures: Procedures ASSAY OF BLOOD LIPOPROTEIN (06/25/14) ASSAY OF FERRITIN (07/15/13) ASSAY OF IRON (07/15/13) ASSAY OF LACTIC ACID (07/15/13) ASSAY OF LIPOPROTEIN (06/25/14) ASSAY OF MAGNESIUM (05/20/16) ASSAY OF NATRIURETIC PEPTIDE (05/20/16) ASSAY OF PHENYTOIN TOTAL (05/20/16) ASSAY OF TROPONIN QUANT (05/20/16) ASSAY THYROID STIM HORMONE (06/25/14) AUTOMATED RETICULOCYTE COUNT (07/15/13) BLOOD TYPING SEROLOGIC ABO (07/15/13) BLOOD TYPING SEROLOGIC RH(D) (07/15/13) C-REACTIVE PROTEIN (05/20/16) CATARACT SURG W/IOL 1 STAGE (01/20/16) CHEST X-RAY 1 VIEW FRONTAL (07/15/13) CHEST X-RAY 2VW FRONTAL&LATL (05/20/16) COMPATIBILITY TEST ANTIGLOB (07/15/13) COMPLETE CBC AUTOMATED (07/15/13) COMPLETE CBC W/AUTO DIFF WBC (05/20/16) COMPREHEN METABOLIC PANEL (05/20/16) CREATINE MB FRACTION (05/20/16) CT ABD & PELV W/CONTRAST (07/15/13) ELECTROCARDIOGRAM TRACING (05/20/16) EMERGENCY DEPT VISIT (05/20/16) MEASURE BLOOD OXYGEN LEVEL (07/15/13) METABOLIC PANEL TOTAL CA (07/29/13) MICROALBUMIN SEMIQUANT (06/23/14) OCCULT BLD FECES 1-3 TESTS (07/30/13) PROTHROMBIN TIME (05/20/16) RBC ANTIBODY SCREEN (07/15/13) ROUTINE VENIPUNCTURE (05/20/16) THER/PROPH/DIAG INJ IV PUSH (07/15/13) THROMBOPLASTIN TIME PARTIAL (07/15/13) TISSUE EXAM BY PATHOLOGIST (07/15/13) TTE W/DOPPLER COMPLETE (07/15/13) TX/PRO/DX INJ NEW DRUG ADDON (07/15/13) URINALYSIS AUTO W/SCOPE (06/25/14) Problem List Initiated/Reviewed/Updated: Yes Plan: surgical consults dictated HIEN
[2016-07-25] MEDS: Polyethylene Glycol/Electrolytes 4,000 ML Bottle PO ONE (20:57)
[2016-07-25] MEDS: Ondansetron 4 MG/2 ML SDV IV PRN (22:17)
[2016-07-26] MEDS: Polyethylene Glycol/Electrolytes 4,000 ML Bottle PO ONE (00:28)
[2016-07-26] MEDS: Dextrose 5%-0.45% NaCl 1,000 ML IV SCH ×3 (02:18→23:57)
[2016-07-26] MEDS: Carvedilol 6.25 MG Tab PO SCH ×2 (06:01→16:01)
--- NOTE | 2016-07-26 07:51 | PCM.PREANE ---
Preanesthetic Assessment - Anesthesia/Transfusion/Family Hx Anesthesia History: Prior Anesthesia Without Reaction Family History of Anesthesia Reaction: No Transfusion History: No Prior Transfusion(s) - Review of Systems General: No Symptoms Pulmonary: Shortness of Breath (frequently), Wheezing Cardiovascular: Chest Pain (sharp- not now) Gastrointestinal: Abdominal pain, Constipation Neurological: Dizziness (some times), Seizure (in past but now on pills), Difficulty Walking Other: Reports: Easy Bruising - Physical Assessment NPO Status Date: 07/25/16 NPO Status Time: 17:00 Pulse: 85 O2 Sat by Pulse Oximetry: 97 Respiratory Rate: 17 Blood Pressure: 108/66 Temperature: 98.4 F Vital Signs: Last Vital Signs Temp 98.4 F 07/26/16 02:48 Pulse 85 07/26/16 06:01 Resp 17 07/26/16 02:48 BP 108/66 07/26/16 06:01 Pulse Ox 97 07/26/16 02:48 Height: 5 ft 8 in Weight: 71.35 kg ASA Class: 3 Mental Status: Alert & Oriented x3 Airway Class: Mallampati = 1 Dentition: Reports: Edentulous Thyro-Mental Finger Breadths: 3 Mouth Opening Finger Breadths: 3 ROM/Head Extension: Full Lungs: Clear to auscultation, Normal respiratory effort Cardiovascular: Regular Rate, Regular Rhythm - Lab Values: Laboratory Last Values WBC 7.73 K/mm3 (4.23-9.07) 07/26/16 06:04 RBC 3.55 M/mm3 (4.63-6.08) L 07/26/16 06:04 Hgb 10.1 gm/L (13.7-17.5) L 07/26/16 06:04 Hct 30.6 % (40.1-51.0) L 07/26/16 06:04 MCV 86.2 fl (79.0-92.2) 07/26/16 06:04 MCH 28.5 pg (25.7-32.2) 07/26/16 06:04 MCHC 33.0 g/dl (32.2-35.5) 07/26/16 06:04 RDW Std Deviation 45.4 fL (35.1-43.9) H 07/26/16 06:04 Plt Count 339 K/mm3 (163-337) H 07/26/16 06:04 MPV 8.7 fl (9.4-12.3) L 07/26/16 06:04 Neut % (Auto) 70.8 % (34.0-67.9) H 07/26/16 06:04 Lymph % (Auto) 14.5 % (21.8-53.1) L 07/26/16 06:04 [place] % (Auto) 12.0 % (5.3-12.2) 07/26/16 06:04 Eos % (Auto) 2.2 (0.8-7.0) 07/26/16 06:04 Baso % (Auto) 0.1 % (0.1-1.2) 07/26/16 06:04 Neut # (Auto) 5.47 K/mm3 (1.78-5.38) H 07/26/16 06:04 Lymph # (Auto) 1.12 K/mm3 (1.32-3.57) L 07/26/16 06:04 [place] # (Auto) 0.93 K/mm3 (0.30-0.82) H 07/26/16 06:04 Eos # (Auto) 0.17 K/mm3 (0.04-0.54) 07/26/16 06:04 Baso # (Auto) 0.01 K/mm3 (0.01-0.08) 07/26/16 06:04 Neutrophils % (Manual) 75 % (40-60) H 07/24/16 12:04 Band Neutrophils % 3 % (0-10) 07/24/16 12:04 Lymphocytes % (Manual) 20 % (20-40) 07/24/16 12:04 Atypical Lymphs % 0 % 07/24/16 12:04 Monocytes % (Manual) 2 % (2-10) 07/24/16 12:04 Eosinophils % (Manual) 0 % (0.8-7.0) L 07/24/16 12:04 Basophils % (Manual) 0 (0.2-1.2) L 07/24/16 12:04 Manual Slide Review Normal smear 07/25/16 05:58 Platelet Estimate Adequate 07/24/16 12:04 RBC Morph Comment Normal 07/24/16 12:04 PT 11.1 SECONDS (8.0-13.0) 07/26/16 06:04 INR 1.02 07/26/16 06:04 Sodium 135 mEq/L (136-145) L 07/26/16 06:04 Potassium 3.3 mEq/L (3.5-5.1) L 07/26/16 06:04 Chloride 102 mEq/L (98-107) 07/26/16 06:04 Carbon Dioxide 25 mEq/L (21-32) 07/26/16 06:04 Anion Gap 11.3 (5-15) 07/26/16 06:04 BUN 10 mg/dL (7-18) 07/26/16 06:04 Creatinine 0.8 mg/dL (0.7-1.3) 07/26/16 06:04 Est Cr Clr Drug Dosing 79.56 mL/min 07/26/16 06:04 Estimated GFR (MDRD) > 60 mL/min (>60) 07/26/16 06:04 BUN/Creatinine Ratio 12.5 (14-18) L 07/26/16 06:04 Glucose 126 mg/dL (83-115) H 07/26/16 06:04 Calcium 9.7 mg/dL (8.5-10.1) 07/26/16 06:04 Magnesium 1.4 mg/dl (1.8-2.4) L 07/26/16 06:04 Total Bilirubin 0.3 mg/dL (0.2-1.0) 07/24/16 12:04 AST 54 U/L (15-37) H 07/24/16 12:04 ALT 24 U/L (16-63) 07/24/16 12:04 Alkaline Phosphatase 184 U/L (46-116) H 07/24/16 12:04 CK-MB (CK-2) 1.5 ng/ml (0-3.6) 07/25/16 12:22 Troponin I 0.042 ng/mL (0.00-0.056) 07/25/16 12:22 C-Reactive Protein 4.5 mg/dL (<1.0) H* 07/24/16 12:04 Total Protein 8.3 g/dl (6.4-8.2) H 07/24/16 12:04 Albumin 2.7 g/dl (3.4-5.0) L 07/24/16 12:04 Globulin 5.6 gm/dL 07/24/16 12:04 Albumin/Globulin Ratio 0.5 (1-2) L 07/24/16 12:04 Vitamin D 25-Hydroxy 13 ng/mL H 07/24/16 23:24 Free T4 1.30 ng/dL (0.76-1.46) 07/25/16 05:58 TSH 3rd Generation 1.572 uIU/mL (0.358-3.74) 07/25/16 05:58 Urine Color Yellow (Yellow) 07/24/16 14:40 Urine Appearance Slt cloudy (Clear) H 07/24/16 14:40 Urine pH 5.5 (5.0-8.0) 07/24/16 14:40 Ur Specific [place] > or = 1.030 (1.005-1.030) 07/24/16 14:40 Urine Protein 2+ (Negative) H 07/24/16 14:40 Urine Glucose (UA) Negative (Negative) 07/24/16 14:40 Urine Ketones 1+ (Negative) H 07/24/16 14:40 Urine Occult Blood 2+ (Negative) H 07/24/16 14:40 Urine Nitrite Negative (Negative) 07/24/16 14:40 Urine Bilirubin 1+ (Negative) H 07/24/16 14:40 Urine Urobilinogen 0.2 (0.2-1.0) 07/24/16 14:40 Ur Leukocyte Esterase Negative (Negative) 07/24/16 14:40 Urine RBC 0-5 /hpf (0-5) 07/24/16 14:40 Urine WBC 0-5 /hpf (0-5) 07/24/16 14:40 Ur Epithelial Cells 0-5 /hpf (0-5) 07/24/16 14:40 Urine Bacteria Few /hpf (FEW) 07/24/16 14:40 Urine Mucus Not seen /hpf (FEW) 07/24/16 14:40 Phenytoin 8.4 ug/mL (10.0-20.0) L 07/24/16 12:04 - Allergies Allergies/Adverse Reactions: Allergies Allergy/AdvReac Type Severity Reaction Status Date / Time strawberries Allergy Unknown Cannot Uncoded 07/25/16 00:30 Remember - Blood Blood Available: No - Anesthesia Plan Pre-Op Medication Ordered: Beta Randa Beta Randa: Carvedilol Med Last Dose Date: 07/26/16 Med Last Dose Time: 06:00 - Acknowledgements Anesthesia Type Planned: MAC Pt an Appropriate Candidate for the Planned Anesthesia: Yes Alternatives and Risks of Anesthesia Discussed w Pt/Guardian: Yes Pt/Guardian Understands and Agrees with Anesthesia Plan: Yes PreAnesthesia Questionnaire HEENT History: Reports: Impaired vision Other HEENT History: Glases Cardiovascular History: Reports: CAD, High cholesterol, Hypertension, [place] Other Cardiovascular History: [place] in 1996 Respiratory History: Reports: SOB Gastrointestinal History: Reports: Diverticulosis Other Gastrointestinal History: "3 years he had a blockage in intestines, put a temporary bag on it - Dr. Bartlett at [facility] in [place]". Bleeding ulcer in and had half of stomach removed. Musculoskeletal History: Reports: Arthritis, Osteoarthritis, Osteoporosis Other Musculoskeletal History: Falling at home lately Neurological History: Reports: Seizure Other Neuro History: Last seizure was 1984. denies that patient has memory problems Other Psychiatric History: Been a little more "down" the last couple montshs. 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 Nisreen Bell - [facility] - Past Surgical History HEENT Surgical History: Reports: Cataract surgery GI Surgical History: Reports: Cholecystectomy, Colostomy - SUBSTANCE USE Smoking Status *Q: Former Smoker (Quit 29 years ago.) Tobacco Use Within Last Twelve Months: No Second Hand Smoke Exposure: No Days Per Week of Alcohol Use: 0 (Quit drinking alcohol 29 years ago) Recreational Drug Use History: No - HOME MEDS Home Medications: Home Meds Isosorbide Mononitrate [Isosorbide Mononitrate ER] 60 mg PO DAILY 07/15/13 [ History] Phenytoin Sodium Extended 200 mg PO TID 07/15/13 [History] atorvaSTATin [Lipitor] 40 mg PO DAILY 07/15/13 [History] Clotrimazole [Clotrimazole] 10 mg PO BID 12/22/15 [History] Warfarin [Coumadin] 5 mg PO IRAHETA 12/22/15 [History] Aspirin [Tamika Chewable Aspirin] 81 mg PO DAILY 05/20/16 [History] Carvedilol 6.25 mg PO BIDMEALS 05/20/16 [History] Sulfamethoxazole/Trimethoprim [Sulfamethoxazole-Tmp Ds Tablet] 1 tab PO DAILY [History] Acetaminophen/oxyCODONE [Percocet 325-5 MG] 1 tab PO Q4H PRN 07/24/16 [History] Calcium Carb/D3/Magnesium/Zinc [Farzad Mag Zinc + D3] 1 each PO DAILY 07/24/16 [ History] Mycophenolate Mofetil 1,000 mg PO BID 07/24/16 [History] Warfarin [Coumadin] 2.5 mg PO MOTUWETHFRSA 07/24/16 [History] diphenhydrAMINE HCl [Benadryl] 25 mg PO BID PRN 07/24/16 [History] - CURRENT (IN HOUSE) MEDS Current Meds: Current Medications Acetaminophen (Tylenol) 650 mg PO Q4H PRN PRN Reason: Pain (Mild 1-3)/fever Hydrocodone Bitart/Acetaminophen ([place] 325-5 Mg) 1 tab PO Q4H PRN PRN Reason: Pain (moderate 4-6) Albuterol (Proventil Neb Soln) 2.5 mg NEB Q2H PRN PRN Reason: Shortness Of Breath/wheezing Aspirin (Aspirin) 81 mg PO DAILY [facility] Last Admin: 07/25/16 09:50 Dose: 81 mg Bisacodyl (Dulcolax) 5 mg PO DAILY PRN PRN Reason: Constipation Carvedilol (Coreg) 6.25 mg PO BIDMEALS [facility] Last Admin: 07/26/16 06:01 Dose: 6.25 mg Clotrimazole (Mycelex) 10 mg PO BID [facility] Last Admin: 07/25/16 20:56 Dose: 10 mg Diphenhydramine HCl (Benadryl) 25 mg PO BID PRN PRN Reason: Allergies Hydralazine HCl (Apresoline) 20 mg IVPUSH Q4H PRN PRN Reason: Hypertension Hydromorphone HCl (Dilaudid) 0.25 mg IVPUSH Q2H PRN PRN Reason: Pain (severe 7-10) Dextrose/Sodium Chloride (Dextrose 5%-1/2 Ns) 1,000 mls @ 100 mls/hr IV ASDIRECTED [facility] Isosorbide Mononitrate (Imdur) 60 mg PO DAILY [facility] Last Admin: 07/25/16 09:51 Dose: 60 mg Lorazepam (Ativan) 1 mg IV Q6H PRN PRN Reason: Anxiety Magnesium Sulfate (Pharmacy To Dose - Magnesium Replacement) 1 dose .XX ASDIRECTED [facility] Metoprolol Tartrate (Lopressor) 5 mg IVPUSH Q4H PRN PRN Reason: Tachycardia Mycophenolate Mofetil (Cellcept) 1,000 mg PO BID [facility] Last Admin: 07/25/16 21:30 Dose: 1,000 mg Ondansetron HCl (Zofran) 4 mg IV Q4H PRN PRN Reason: Nausea/Vomiting Last Admin: 07/25/16 22:17 Dose: 4 mg Calcium/D3/Magnesium (/Zinc Supplement) 1 each PO DAILY [facility] Last Admin: 07/25/16 10:46 Dose: Not Given Phenytoin Sodium (Phenytoin) 200 mg PO TID [facility] Last Admin: 07/25/16 20:56 Dose: 200 mg Polyethylene Glycol (Miralax) 17 gm PO DAILY PRN PRN Reason: Constipation Potassium Chloride (Pharmacy To Dose - Potassium Replacement) 1 dose .XX ASDIRECTED [facility] Rosuvastatin Calcium (Crestor) 10 mg PO DAILY [facility] Last Admin: 07/25/16 09:51 Dose: 10 mg Senna/Docusate Sodium (Senna Plus) 1 tab PO BID PRN PRN Reason: Constipation Tamsulosin HCl (Flomax) 0.4 mg PO BIDPC [facility] Last Admin: 07/25/16 17:02 Dose: 0.4 mg Temazepam (Restoril) 15 mg PO BEDTIME PRN PRN Reason: Sleep Trimethoprim/Sulfamethoxazole (Septra Ds) 1 tab PO DAILY [facility] Last Admin: 07/25/16 09:51 Dose: 1 tab Discontinued Medications Bisacodyl (Dulcolax) 10 mg RECTAL ONETIME ONE Stop: 07/24/16 22:00 Last Admin: 07/25/16 00:22 Dose: Not Given Diatrizoate Meglum/Diatrizoate Sod (Gastrografin 37%) 120 ml PO ONETIME ONE Stop: 07/24/16 13:17 Last Admin: 07/24/16 14:26 Dose: 90 ml Diphenhydramine HCl (Benadryl) 25 mg PO ASDIRECTED PRN PRN Reason: Allergies Diphtheria/Tetanus/Acell Pertussis (Boostrix) 0.5 ml IM .ONCE ONE Stop: 07/25/16 13:44 Hydromorphone HCl (Dilaudid) 0.5 mg IVPUSH ONETIME ONE Stop: 07/24/16 12:07 Last Admin: 07/24/16 12:23 Dose: 0.5 mg Sodium Chloride (Normal Saline) 1,000 mls @ 250 mls/hr IV ASDIRECTED [facility] Last Admin: 07/24/16 12:04 Dose: 150 mls/hr Sodium Chloride (Normal Saline) 1,000 mls @ 125 mls/hr IV ASDIRECTED [facility] Magnesium Sulfate 4 gm/ Premix 100 mls @ 50 mls/hr IV ONETIME ONE Stop: 07/25/16 01:05 Last Admin: 07/25/16 00:05 Dose: Not Given Dextrose/Sodium Chloride (Dextrose 5%-1/2 Ns) 1,000 mls @ 250 mls/hr IV ASDIRECTED [facility] Last Admin: 07/26/16 02:18 Dose: 250 mls/hr Magnesium Sulfate 2 gm/ Premix 50 mls @ 25 mls/hr IV ONETIME ONE Stop: 07/25/16 01:19 Last Admin: 07/24/16 23:45 Dose: 25 mls/hr Iopamidol (Isovue-300 (61%)) 100 ml IVPUSH ONETIME ONE Stop: 07/24/16 13:17 Last Admin: 07/24/16 14:26 Dose: 100 ml Magnesium Citrate (Citrate Of Magnesia) 240 ml PO ONETIME ONE Stop: 07/24/16 16:31 Last Admin: 07/24/16 16:44 Dose: 240 ml Metoclopramide HCl (Reglan) 7.5 mg IVPUSH ONETIME ONE Stop: 07/24/16 15:30 Last Admin: 07/24/16 15:37 Dose: 7.5 mg Morphine Sulfate (Morphine) 2 mg IVPUSH ONETIME ONE Stop: 07/24/16 20:31 Last Admin: 07/24/16 20:35 Dose: 2 mg Nitroglycerin (Nitrostat) 0.4 mg SL Q5M PRN PRN Reason: Chest Pain Stop: 07/24/16 20:07 Last Admin: 07/24/16 20:18 Dose: 0.4 mg Ondansetron HCl (Zofran) 4 mg IVPUSH ONETIME ONE Stop: 07/24/16 12:07 Last Admin: 07/24/16 12:24 Dose: 4 mg Ondansetron HCl (Zofran) 4 mg IVPUSH ONETIME ONE Stop: 07/24/16 18:14 Last Admin: 07/24/16 18:18 Dose: 4 mg Ondansetron HCl (Zofran) 4 mg IV Q6H PRN PRN Reason: Nausea/Vomiting Last Admin: 07/25/16 05:10 Dose: 4 mg Oxycodone/Acetaminophen (Percocet 325-5 Mg) 1 tab PO Q4H RICH Last Admin: 07/25/16 00:26 Dose: Not Given Oxycodone/Acetaminophen (Percocet 325-5 Mg) 1 tab PO Q4H PRN PRN Reason: Pain Phytonadione (Aquamephyton) 5 mg PO ONETIME ONE Stop: 07/24/16 22:46 Last Admin: 07/24/16 23:47 Dose: 2.5 mg Phytonadione (Aquamephyton) 2.5 mg PO ONETIME ONE Stop: 07/25/16 00:02 Last Admin: 07/25/16 00:10 Dose: 2.5 mg Pneumococcal Polyvalent Vaccine (Pneumovax 23) 0.5 ml IM .ONCE ONE Stop: 07/25/16 13:46 Polyethylene Glycol/Electrolytes (Golytely) 4,000 ml PO ONETIME ONE Stop: 07/25/16 20:35 Last Admin: 07/26/16 00:28 Dose: Not Given Sodium Chloride (Saline Flush) 10 ml FLUSH ONETIME ONE Stop: 07/24/16 13:17 Last Admin: 07/24/16 14:26 Dose: 10 ml
--- NOTE | 2016-07-26 08:22 | PCM.PN ---
- General Info Date of Service: 07/26/16 Admission Dx/Problem (Free Text): Admission Diagnosis/Problem Admission Diagnosis/Problem Chest pain Subjective Update: Follow up Functional Status: Reports: pain controlled, ambulating, urinating. Denies: new symptoms - Review of Systems General: Reports: Weakness, Malaise. Denies: Fever, Fatigue, Chills HEENT: Reports: no symptoms Pulmonary: Denies: shortness of breath Cardiovascular: Denies: Chest Pain Gastrointestinal: Denies: Abdominal pain, Nausea, Vomiting Genitourinary: Reports: no symptoms Musculoskeletal: Reports: no symptoms Skin: Denies: cyanosis, rash Neurological: Denies: Confusion, Dizziness, Difficulty Walking Psychiatric: Denies: depression, anxiety, agitation, cravings, hallucinations Systems Review Comment:: Had difficulty taking in the bowel pre last night. However he is asymptomatic. He has keke acuet issues at [facility]. - Patient Data Vitals - most recent: Last Vital Signs Temp 36.9 C 07/26/16 07:58 Pulse 85 07/26/16 07:58 Resp 17 07/26/16 07:58 BP 108/66 07/26/16 07:58 Pulse Ox 97 07/26/16 07:58 Weight - most recent: 71.35 kg I&O - last 24 hours: Intake & Output 07/25/16 07/26/16 07/26/16 22:59 06:59 14:59 Intake Total 2181 2255 Output Total 300 1000 Balance 1881 1255 Lab Results last 24 hrs: Laboratory Results - last 24 hr 07/24/16 07/25/16 07/26/16 Range/Units 23:24 12:22 06:04 WBC 7.73 (4.23-9.07) K/mm3 RBC 3.55 L (4.63-6.08) M/mm3 Hgb 10.1 L (13.7-17.5) gm/L Hct 30.6 L (40.1-51.0) % MCV 86.2 (79.0-92.2) fl MCH 28.5 (25.7-32.2) pg MCHC 33.0 (32.2-35.5) g/dl RDW Std Deviation 45.4 H (35.1-43.9) fL Plt Count 339 H (163-337) K/mm3 MPV 8.7 L (9.4-12.3) fl Neut % (Auto) 70.8 H (34.0-67.9) % Lymph % (Auto) 14.5 L (21.8-53.1) % [place] % (Auto) 12.0 (5.3-12.2) % Eos % (Auto) 2.2 (0.8-7.0) Baso % (Auto) 0.1 (0.1-1.2) % Neut # (Auto) 5.47 H (1.78-5.38) K/mm3 Lymph # (Auto) 1.12 L (1.32-3.57) K/mm3 [place] # (Auto) 0.93 H (0.30-0.82) K/mm3 Eos # (Auto) 0.17 (0.04-0.54) K/mm3 Baso # (Auto) 0.01 (0.01-0.08) K/mm3 PT (8.0-13.0) SECONDS INR Sodium (136-145) mEq/L Potassium (3.5-5.1) mEq/L Chloride (98-107) mEq/L Carbon Dioxide (21-32) mEq/L Anion Gap (5-15) BUN (7-18) mg/dL Creatinine (0.7-1.3) mg/dL Est Cr Clr Drug Dosing mL/min Estimated GFR (MDRD) (>60) mL/min BUN/Creatinine Ratio (14-18) Glucose (83-115) mg/dL Calcium (8.5-10.1) mg/dL Magnesium (1.8-2.4) mg/dl CK-MB (CK-2) 1.5 (0-3.6) ng/ml Troponin I 0.042 (0.00-0.056) ng/mL Vitamin D 25-Hydroxy 13 H ng/mL 07/26/16 07/26/16 Range/Units 06:04 06:04 WBC (4.23-9.07) K/mm3 RBC (4.63-6.08) M/mm3 Hgb (13.7-17.5) gm/L Hct (40.1-51.0) % MCV (79.0-92.2) fl MCH (25.7-32.2) pg MCHC (32.2-35.5) g/dl RDW Std Deviation (35.1-43.9) fL Plt Count (163-337) K/mm3 MPV (9.4-12.3) fl Neut % (Auto) (34.0-67.9) % Lymph % (Auto) (21.8-53.1) % [place] % (Auto) (5.3-12.2) % Eos % (Auto) (0.8-7.0) Baso % (Auto) (0.1-1.2) % Neut # (Auto) (1.78-5.38) K/mm3 Lymph # (Auto) (1.32-3.57) K/mm3 [place] # (Auto) (0.30-0.82) K/mm3 Eos # (Auto) (0.04-0.54) K/mm3 Baso # (Auto) (0.01-0.08) K/mm3 PT 11.1 (8.0-13.0) SECONDS INR 1.02 Sodium 135 L (136-145) mEq/L Potassium 3.3 L (3.5-5.1) mEq/L Chloride 102 (98-107) mEq/L Carbon Dioxide 25 (21-32) mEq/L Anion Gap 11.3 (5-15) BUN 10 (7-18) mg/dL Creatinine 0.8 (0.7-1.3) mg/dL Est Cr Clr Drug Dosing 79.56 mL/min Estimated GFR (MDRD) > 60 (>60) mL/min BUN/Creatinine Ratio 12.5 L (14-18) Glucose 126 H (83-115) mg/dL Calcium 9.7 (8.5-10.1) mg/dL Magnesium 1.4 L (1.8-2.4) mg/dl CK-MB (CK-2) (0-3.6) ng/ml Troponin I (0.00-0.056) ng/mL Vitamin D 25-Hydroxy ng/mL Med Orders - Current: Current Medications Acetaminophen (Tylenol) 650 mg PO Q4H PRN PRN Reason: Pain (Mild 1-3)/fever Hydrocodone Bitart/Acetaminophen ([place] 325-5 Mg) 1 tab PO Q4H PRN PRN Reason: Pain (moderate 4-6) Albuterol (Proventil Neb Soln) 2.5 mg NEB Q2H PRN PRN Reason: Shortness Of Breath/wheezing Aspirin (Aspirin) 81 mg PO DAILY [facility] Last Admin: 07/25/16 09:50 Dose: 81 mg Bisacodyl (Dulcolax) 5 mg PO DAILY PRN PRN Reason: Constipation Carvedilol (Coreg) 6.25 mg PO BIDMEALS [facility] Last Admin: 07/26/16 06:01 Dose: 6.25 mg Clotrimazole (Mycelex) 10 mg PO BID [facility] Last Admin: 07/25/16 20:56 Dose: 10 mg Diphenhydramine HCl (Benadryl) 25 mg PO BID PRN PRN Reason: Allergies Hydralazine HCl (Apresoline) 20 mg IVPUSH Q4H PRN PRN Reason: Hypertension Hydromorphone HCl (Dilaudid) 0.25 mg IVPUSH Q2H PRN PRN Reason: Pain (severe 7-10) Dextrose/Sodium Chloride (Dextrose 5%-1/2 Ns) 1,000 mls @ 100 mls/hr IV ASDIRECTED [facility] Magnesium Sulfate 2 gm/ Premix 50 mls @ 25 mls/hr IV ONETIME ONE Stop: 07/26/16 13:59 Isosorbide Mononitrate (Imdur) 60 mg PO DAILY [facility] Last Admin: 07/25/16 09:51 Dose: 60 mg Lorazepam (Ativan) 1 mg IV Q6H PRN PRN Reason: Anxiety Magnesium Sulfate (Pharmacy To Dose - Magnesium Replacement) 1 dose .XX ASDIRECTED [facility] Metoprolol Tartrate (Lopressor) 5 mg IVPUSH Q4H PRN PRN Reason: Tachycardia Mycophenolate Mofetil (Cellcept) 1,000 mg PO BID [facility] Last Admin: 07/25/16 21:30 Dose: 1,000 mg Ondansetron HCl (Zofran) 4 mg IV Q4H PRN PRN Reason: Nausea/Vomiting Last Admin: 07/25/16 22:17 Dose: 4 mg Calcium/D3/Magnesium (/Zinc Supplement) 1 each PO DAILY [facility] Last Admin: 07/25/16 10:46 Dose: Not Given Phenytoin Sodium (Phenytoin) 200 mg PO TID [facility] Last Admin: 07/25/16 20:56 Dose: 200 mg Polyethylene Glycol (Miralax) 17 gm PO DAILY PRN PRN Reason: Constipation Potassium Chloride (Pharmacy To Dose - Potassium Replacement) 1 dose .XX ASDIRECTED [facility] Potassium Chloride (Klor-Con M20) 20 meq PO Q3H [facility] Stop: 07/26/16 15:01 Rosuvastatin Calcium (Crestor) 10 mg PO DAILY [facility] Last Admin: 07/25/16 09:51 Dose: 10 mg Senna/Docusate Sodium (Senna Plus) 1 tab PO BID PRN PRN Reason: Constipation Tamsulosin HCl (Flomax) 0.4 mg PO BIDPC [facility] Last Admin: 07/25/16 17:02 Dose: 0.4 mg Temazepam (Restoril) 15 mg PO BEDTIME PRN PRN Reason: Sleep Trimethoprim/Sulfamethoxazole (Septra Ds) 1 tab PO DAILY [facility] Last Admin: 07/25/16 09:51 Dose: 1 tab Discontinued Medications Bisacodyl (Dulcolax) 10 mg RECTAL ONETIME ONE Stop: 07/24/16 22:00 Last Admin: 07/25/16 00:22 Dose: Not Given Diatrizoate Meglum/Diatrizoate Sod (Gastrografin 37%) 120 ml PO ONETIME ONE Stop: 07/24/16 13:17 Last Admin: 07/24/16 14:26 Dose: 90 ml Diphenhydramine HCl (Benadryl) 25 mg PO ASDIRECTED PRN PRN Reason: Allergies Diphtheria/Tetanus/Acell Pertussis (Boostrix) 0.5 ml IM .ONCE ONE Stop: 07/25/16 13:44 Hydromorphone HCl (Dilaudid) 0.5 mg IVPUSH ONETIME ONE Stop: 07/24/16 12:07 Last Admin: 07/24/16 12:23 Dose: 0.5 mg Sodium Chloride (Normal Saline) 1,000 mls @ 250 mls/hr IV ASDIRECTED [facility] Last Admin: 07/24/16 12:04 Dose: 150 mls/hr Sodium Chloride (Normal Saline) 1,000 mls @ 125 mls/hr IV ASDIRECTED [facility] Magnesium Sulfate 4 gm/ Premix 100 mls @ 50 mls/hr IV ONETIME ONE Stop: 07/25/16 01:05 Last Admin: 07/25/16 00:05 Dose: Not Given Dextrose/Sodium Chloride (Dextrose 5%-1/2 Ns) 1,000 mls @ 250 mls/hr IV ASDIRECTED [facility] Last Admin: 07/26/16 02:18 Dose: 250 mls/hr Magnesium Sulfate 2 gm/ Premix 50 mls @ 25 mls/hr IV ONETIME ONE Stop: 07/25/16 01:19 Last Admin: 07/24/16 23:45 Dose: 25 mls/hr Iopamidol (Isovue-300 (61%)) 100 ml IVPUSH ONETIME ONE Stop: 07/24/16 13:17 Last Admin: 07/24/16 14:26 Dose: 100 ml Magnesium Citrate (Citrate Of Magnesia) 240 ml PO ONETIME ONE Stop: 07/24/16 16:31 Last Admin: 07/24/16 16:44 Dose: 240 ml Metoclopramide HCl (Reglan) 7.5 mg IVPUSH ONETIME ONE Stop: 07/24/16 15:30 Last Admin: 07/24/16 15:37 Dose: 7.5 mg Morphine Sulfate (Morphine) 2 mg IVPUSH ONETIME ONE Stop: 07/24/16 20:31 Last Admin: 07/24/16 20:35 Dose: 2 mg Nitroglycerin (Nitrostat) 0.4 mg SL Q5M PRN PRN Reason: Chest Pain Stop: 07/24/16 20:07 Last Admin: 07/24/16 20:18 Dose: 0.4 mg Ondansetron HCl (Zofran) 4 mg IVPUSH ONETIME ONE Stop: 07/24/16 12:07 Last Admin: 07/24/16 12:24 Dose: 4 mg Ondansetron HCl (Zofran) 4 mg IVPUSH ONETIME ONE Stop: 07/24/16 18:14 Last Admin: 07/24/16 18:18 Dose: 4 mg Ondansetron HCl (Zofran) 4 mg IV Q6H PRN PRN Reason: Nausea/Vomiting Last Admin: 07/25/16 05:10 Dose: 4 mg Oxycodone/Acetaminophen (Percocet 325-5 Mg) 1 tab PO Q4H [facility] Last Admin: 07/25/16 00:26 Dose: Not Given Oxycodone/Acetaminophen (Percocet 325-5 Mg) 1 tab PO Q4H PRN PRN Reason: Pain Phytonadione (Aquamephyton) 5 mg PO ONETIME ONE Stop: 07/24/16 22:46 Last Admin: 07/24/16 23:47 Dose: 2.5 mg Phytonadione (Aquamephyton) 2.5 mg PO ONETIME ONE Stop: 07/25/16 00:02 Last Admin: 07/25/16 00:10 Dose: 2.5 mg Pneumococcal Polyvalent Vaccine (Pneumovax 23) 0.5 ml IM .ONCE ONE Stop: 07/25/16 13:46 Polyethylene Glycol/Electrolytes (Golytely) 4,000 ml PO ONETIME ONE Stop: 07/25/16 20:35 Last Admin: 07/26/16 00:28 Dose: Not Given Sodium Chloride (Saline Flush) 10 ml FLUSH ONETIME ONE Stop: 07/24/16 13:17 Last Admin: 07/24/16 14:26 Dose: 10 ml - Exam General: alert, oriented, cooperative, no acute distress HEENT: Pupils equal, Pupils reactive, Mucous membr. moist/pink Neck: supple, trachea midline, no JVD Lungs: Normal respiratory effort Cardiovascular: Regular Rate, Regular Rhythm Abdomen: bowel sounds present, soft, no tenderness, no distension (Male) Exam: Deferred Back Exam: normal inspection, decreased range of motion Extremities: no edema, normal pulses, no tenderness/swelling, no clubbing, no cyanosis, no calf tenderness Skin: warm, dry, intact Neurological: no new focal deficit Psy/Mental Status: alert, depressed. No: normal affect - Problem List Review Problem List Initiated/Reviewed/Updated: Yes - My Orders Last 24 Hours: My Active Orders 07/25/16 09:00 Aspirin 81 mg PO DAILY Clotrimazole [Mycelex] 10 mg PO BID Isosorbide Mononitrate [Imdur] 60 mg PO DAILY Mycophenolate Mofetil [Cellcept] 1,000 mg PO BID Patient's Own Medication [Ptom] 1 each PO DAILY Phenytoin 200 mg PO TID Rosuvastatin [Crestor] 10 mg PO DAILY Sulfamethoxazole/Trimethoprim [Septra DS] 1 tab PO DAILY Tamsulosin [Flomax] 0.4 mg PO BIDPC 07/25/16 09:56 Consult to Physician [CONS] Routine 07/25/16 09:58 Notify Provider Consults [RC] ASDIRECTED 07/25/16 13:44 Vaccines to be Administered [RC] PER UNIT ROUTINE 07/25/16 14:55 Consult to Speech Language Pathology [FLIGHT READINESS TECHNICIAN Evaluation and Treatment] [CONS] Routine 07/25/16 21:52 Ondansetron [Zofran] 4 mg IV Q4H PRN 07/26/16 06:45 Dextrose 5%-0.45% NaCl [Dextrose 5%-1/2 NS] 1,000 ml IV ASDIRECTED 07/26/16 12:00 Magnesium Sulfate/Water [Magnesium Sulfate 2 GM in Water 50 ML] 2 gm Premix Bag 1 bag IV ONETIME Potassium Chloride [Klor-Con M20] 20 meq PO Q3H 07/27/16 05:11 BASIC METABOLIC PANEL,BMP [CHEM] AM CBC WITH AUTO DIFF [HEME] AM INR,PT,PROTHROMBIN TIME [COAG] AM MAGNESIUM [CHEM] AM 07/28/16 05:11 BASIC METABOLIC PANEL,BMP [CHEM] AM CBC WITH AUTO DIFF [HEME] AM INR,PT,PROTHROMBIN TIME [COAG] AM MAGNESIUM [CHEM] AM 07/29/16 05:11 BASIC METABOLIC PANEL,BMP [CHEM] AM CBC WITH AUTO DIFF [HEME] AM INR,PT,PROTHROMBIN TIME [COAG] AM MAGNESIUM [CHEM] AM - Plan Plan:: Assessment/Plan: Acute: Generalized Weakness - Has been going on for 2 months - Continue PT/OT - Vit D--pending - TFT: normal Hx/o Esophageal Tear - Pending EGD this am - would like to get it done here if possible - Will consult Dr. Stanton Hypomagnesemia - Mg 1.4 - Pharmacy to replete and monitor Hypokalemia - K 3.3 - Pharmacy to replete and monitor Subtherapeutic INR - INR 1.0 - Will start Lovenox Sub BID - Will try to reach and Dr. Stanton for further input Resolved: Subtherapeutic INR - INR is 4.9---> 1.45 - On Warfarin for Stroke ppx - He is also on anti-rejection and seizure meds - Received Oral Vit k 5 mg po x1 last night S/p Acute on Chronic Flank Pain - He is on narcotic pain - This has been going on for 2 months now, he is scheduled for colonoscopy - This maybe mistaken for chest pain S/p Chest Pain - I do no think he actually has chest pain - Troponin x 1 negative and EKG is non-diagnostic (Sinus Rhythm and RB3) - CE x 2 more and CKMB x 2 all negative S/p Dehydration - Spec gravity on UA is 1.030 - Contributory to his Constipation - Will hydrate him S/p Constipation - As noted on CT scan - Bowel prep: oral and suppository S/p Hypomagnesemia - Mg 1.5 - Magnesium Sulfate Supplement - Pharmacy to replete and monitor S/p Acute on Chronic Abdominal Pain - Likely from Impacted stools - Has been going on for 2 months now per - He is taking narcotics for it - He is scheduled for colonoscopy - CTS can showed: impacted stools and 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 Romy VILLALTA TID Encourage to Ambulate TID SW/CM for d/c planning Code status: 1
--- NOTE | 2016-07-26 08:30 | CONS ---
CONSULTING PHYSICIAN: Brett Stanton MD DATE OF CONSULTATION: 07/25/2016 HISTORY OF PRESENT ILLNESS: This 75-year-old came in through the emergency room on 07/24, with nausea and vomiting and abdominal pain in the lower abdomen radiating to the right flank. This had been going on for 3 days and says even longer than that. The patient was placed in the hospital and was given enemas for what appeared to be a longstanding problem of constipation and he improved. Of interest is he had diverticulosis with obstruction and a colon resection with colostomy and then reanastomosis by Dr. Calzada about 3 years ago. He also has had a problem with the esophageal tear of unknown etiology treated with endoscopic stapling device. The family was wondering of the source of his nausea and vomiting. The patient's chronic abdominal pain comes and goes. It seems to be in the abdomen and rotates around to the left flank and this has been going on for about 2 months. He is on narcotics for chronic pain management, given laminectomy for his back. He also has the need for warfarin, but it is not known to the patient. REVIEW OF SYSTEMS: He does have some chronic abdominal pain and flank pain. Past history of kidney stones. Has some nausea and vomiting. Chronic constipation, malaise, tiredness. Denies any chest pain, cough, hoarseness, fainting, weakness, numbness, convulsions. Additional review of systems, no hematemesis, no melena, or hematochezia. FAMILY HISTORY: Not helpful. SOCIAL HISTORY: Former smoker. Quit 29 years ago. Does use alcohol. No recreational use of drugs. PHYSICAL EXAMINATION: GENERAL: Reveals an alert cooperative male. VITAL SIGNS: Temperature is 98, pulse 70, blood pressure 104/58, and respirations 16. HEENT: Eyes, sclerae white. Extraocular muscle motion normal. Oral cavity, healthy mucous membrane with mouth and tongue. NECK: Supple. No nodes. No thyromegaly. Trachea midline. LUNGS: Clear, but distant breath sounds. No rales or rhonchi. HEART: Tones regular rate. No S3, S4, or jugular venous distention or murmurs. ABDOMEN: Soft, no tenderness, guarding, rebound, organomegaly, or pulsatile masses. Midline surgical scar noted. No ventral or inguinal hernias. RECTAL: Per admitting physician normal. BACK: There is a kyphoscoliosis, but no tenderness. Mild right tenderness, especially rib tenderness. EXTREMITY: Moves all 4 extremities. No sensorineural deficit. Pulses are present. SKIN: Warm and dry. NEUROLOGIC: Mental status oriented x3. Memory is poor for details. Cranial nerves 3 to 12 intact. No sensorineural deficit. LABORATORY DATA: Reviewed. MEDICATIONS: Per medication reconciliation form. ASSESSMENT: 1. Abdominal pain, unknown etiology, chronic constipation, and a history of sigmoid resection. 2. Secondly is history of esophageal injury in the past and persistent vomiting. PLAN: 1. Colonoscopy. Discussed the procedure, risks, complications. He understands. 2. Upper GI endoscopy. Discussed these with the patient, risks, complications. He understands and consents and we will schedule. LASHELL /[id number]
[2016-07-26] MEDS ORDERED: Propofol 200 MG/20 ML SDV ONE (09:18)
[2016-07-26] MEDS ORDERED: Lidocaine 1% 4 ML ONE (09:18)
[2016-07-26] MEDS: [UNRECOGNIZED DRUG - OTHER] PO SCH (10:05)
[2016-07-26] MEDS: CALCIUM PO SCH (10:05)
[2016-07-26] MEDS: MAGNESIUM PO SCH (10:05)
[2016-07-26] MEDS: D3 PO SCH (10:05)
[2016-07-26] MEDS ORDERED: Diphenhydramine/Lidocaine/MagAl/Simethicone 119 ML Bottle PO PRN (12:00)
[2016-07-26] MEDS ORDERED: Magnesium Sulfate/Water 2 GM in Premix Bag 1 BAG IV ONE (12:00)
--- NOTE | 2016-07-26 12:04 | PCM.OPNOTE ---
- General Post-Op/Procedure Note Date of Surgery/Procedure: 07/26/16 Operative Procedure(s): EGS with bx Pre Op Diagnosis: nausea and vomiting Post-Op Diagnosis: Same Anesthesia Technique: MAC Primary Surgeon: Brett Stanton EBL in mLs: 0 Complications: None Condition: Good Free Text/Narrative:: Intake & Output 07/25/16 07/26/16 07/26/16 23:59 07:59 15:59 Intake Total 2181 2255 Output Total 300 1000 Balance 1881 1255
--- NOTE | 2016-07-26 12:08 | PCM48HPAN ---
Post Anesthesia Note - EVALUATION WITHIN 48HRS OF ANESTHETIC Vital Signs in Normal Range: Yes Patient Participated in Evaluation: Yes Respiratory Function Stable: Yes Airway Patent: Yes Cardiovascular Function Stable: Yes Hydration Status Stable: Yes Pain Control Satisfactory: Yes Nausea and Vomiting Control Satisfactory: Yes Mental Status Recovered: Yes
[2016-07-26] MEDS ORDERED: Alum Hydrox/Mag Hydrox/Simeth 30 ML, Lidocaine 2% 15 ML PO PRN ×2 (12:17)
[2016-07-26] MEDS: Phenytoin 100 MG Cap.ER PO SCH ×3 (12:36→20:41)
[2016-07-26] MEDS: Rosuvastatin 10 MG Tab PO SCH (12:36)
[2016-07-26] MEDS: Tamsulosin 0.4 MG Cap.ER PO SCH ×2 (12:36→17:45)
[2016-07-26] MEDS: Isosorbide Mononitrate 60 MG Tab.ER PO SCH (12:36)
[2016-07-26] MEDS: Potassium Chloride 20 MEQ Tab.ER PO SCH ×2 (12:36→16:02)
[2016-07-26] MEDS: Sulfamethoxazole/Trimethoprim 800-160 MG Tab PO SCH (12:36)
[2016-07-26] MEDS: Clotrimazole 10 MG Troche PO SCH ×2 (12:37→20:41)
[2016-07-26] MEDS: Pantoprazole 40 MG Vial IVPUSH SCH ×2 (12:37→23:52)
[2016-07-26] MEDS: Aspirin 81 MG Tab.Chew PO SCH (12:37)
[2016-07-26] MEDS: Mycophenolate Mofetil 250 MG Cap PO SCH ×2 (12:45→20:45)
--- NOTE | 2016-07-26 13:57 | OR ---
DATE OF OPERATION: 07/26/2016 SURGEON: Brett Stanton MD PREOPERATIVE DIAGNOSIS: Nausea and vomiting. POSTOPERATIVE DIAGNOSIS: Nausea and vomiting. OPERATION PERFORMED: Esophagogastroduodenoscopy with biopsy. FINDINGS: Esophagitis, grade 4, involving the lower part of the esophagus starting at 40 cm with the GE junction, resides up to about 30 cm. It is all ulceration and exudate without any notable normal esophageal mucosa. The second portion of the duodenum was unremarkable, but the duodenal bulb appears to be absent and looks like there might have been a pyloromyotomy. The area around this area labeled duodenal bulb was biopsied and it was not clear whether it is duodenum or antrum. Also some inflammation and thickening of the antrum, and this was biopsied. Body, fundus, and cardia unremarkable. There is a sliding hiatal hernia, which is incompetence. There is a lot of free flow of bile into the stomach. ANESTHESIA: Done under IV sedation. DESCRIPTION OF PROCEDURE: The patient was taken to the operating room, placed in a supine position, connected to monitoring equipment, given IV sedation, and placed in left lateral position. Bite block was inserted. Video Olympus gastroscope placed in the posterior oropharynx, threaded past the cricopharyngeus, down the esophagus, into the stomach. The stomach was insufflated, which only partially inflated and then passed into the second portion of the duodenum, which was unremarkable. Duodenal bulb appeared to be absent as was the pylorus and lot of inflammation where duodenum met the stomach, and this was biopsied. The antrum was biopsied and then J-maneuver was performed, and the rest of the stomach was evaluated. The stomach was difficult to expand. Scope was withdrawn to the GE junction, which showed erosive esophagitis extending from 40 cm at the beginning of the GE junction up to about 30 cm. This erosions involved the entire circumference of the esophagus, and there was no notable normal mucosa whatsoever in this segment of the distal esophagus. The rest of the esophagus above this did not show any pathology of acute nature. Biopsies of the GE junction at 30 cm was performed. The rest of the esophagus was viewed as the scope withdrawn. The patient tolerated the procedure and was sent to the recovery room in a stable condition. Specimen sent to pathology in a labeled container. DIAGNOSIS: Severe esophagitis. ESTIMATED BLOOD LOSS: 0 mLs. MMODAL /[id number]
[2016-07-26] MEDS: Acetaminophen/HYDROcodone 325-5 MG Tab PO PRN ×2 (17:51→22:14)
[2016-07-26] MEDS: Enoxaparin 80 MG/0.8 ML Syringe SUBCUT SCH (20:42)
[2016-07-27] MEDS: Acetaminophen/HYDROcodone 325-5 MG Tab PO PRN ×5 (01:13→22:30)
[2016-07-27] MEDS: Carvedilol 6.25 MG Tab PO SCH ×2 (06:19→16:00)
[2016-07-27] MEDS: Ondansetron 4 MG/2 ML SDV IV PRN (06:31)
[2016-07-27] MEDS ORDERED: Magnesium Sulfate/Water 2 GM in Premix Bag 1 BAG IV ONE (07:45)
--- NOTE | 2016-07-27 08:55 | PCM.PN ---
- General Info Date of Service: 07/27/16 Admission Dx/Problem (Free Text): Admission Diagnosis/Problem Admission Diagnosis/Problem Chest pain Subjective Update: Follow up Functional Status: Reports: pain controlled, urinating, new symptoms - Review of Systems General: Denies: Fever, Weakness, Fatigue, Malaise, Chills HEENT: Reports: no symptoms Pulmonary: Denies: shortness of breath Cardiovascular: Denies: Chest Pain Gastrointestinal: Denies: Abdominal pain, Constipation, Diarrhea, Difficulty swallowing, Nausea, Vomiting Genitourinary: Reports: no symptoms Musculoskeletal: Reports: no symptoms Skin: Reports: no symptoms Neurological: Reports: Weakness. Denies: Dizziness, Gait Disturbance Psychiatric: Denies: depression, anxiety, hallucinations Systems Review Comment:: No overnight issues. Still has mild abdominal pain. No nausea or dry heaving this am. He tolerated clear liquids. Patient would like to speak with Dr. Stanton. He has no new complaints. - Patient Data Vitals - most recent: Last Vital Signs Temp 36.9 C 07/27/16 03:21 Pulse 77 07/27/16 06:19 Resp 20 07/27/16 03:21 BP 134/84 07/27/16 06:19 Pulse Ox 98 07/27/16 03:21 Weight - most recent: 71.078 kg I&O - last 24 hours: Intake & Output 07/26/16 07/27/16 07/27/16 22:59 06:59 14:59 Intake Total 1850 1355 Output Total 1950 1000 Balance -100 355 Lab Results last 24 hrs: Laboratory Results - last 24 hr 07/27/16 07/27/16 07/27/16 Range/Units 06:05 06:05 06:05 WBC 6.54 (4.23-9.07) K/mm3 RBC 3.61 L (4.63-6.08) M/mm3 Hgb 10.3 L (13.7-17.5) gm/L Hct 31.3 L (40.1-51.0) % MCV 86.7 (79.0-92.2) fl MCH 28.5 (25.7-32.2) pg MCHC 32.9 (32.2-35.5) g/dl RDW Std Deviation 46.1 H (35.1-43.9) fL Plt Count 331 (163-337) K/mm3 MPV 9.1 L (9.4-12.3) fl Neut % (Auto) 61.8 (34.0-67.9) % Lymph % (Auto) 21.1 L (21.8-53.1) % Taylor % (Auto) 13.5 H (5.3-12.2) % Eos % (Auto) 2.8 (0.8-7.0) Baso % (Auto) 0.3 (0.1-1.2) % Neut # (Auto) 4.05 (1.78-5.38) K/mm3 Lymph # (Auto) 1.38 (1.32-3.57) K/mm3 Taylor # (Auto) 0.88 H (0.30-0.82) K/mm3 Eos # (Auto) 0.18 (0.04-0.54) K/mm3 Baso # (Auto) 0.02 (0.01-0.08) K/mm3 Manual Slide Review Normal smear PT 11.3 (8.0-13.0) SECONDS INR 1.03 Sodium 138 (136-145) mEq/L Potassium 3.3 L (3.5-5.1) mEq/L Chloride 105 (98-107) mEq/L Carbon Dioxide 24 (21-32) mEq/L Anion Gap 12.3 (5-15) BUN 5 L (7-18) mg/dL Creatinine 0.9 (0.7-1.3) mg/dL Est Cr Clr Drug Dosing 70.98 mL/min Estimated GFR (MDRD) > 60 (>60) mL/min BUN/Creatinine Ratio 5.6 L (14-18) Glucose 110 (83-115) mg/dL Calcium 9.5 (8.5-10.1) mg/dL Magnesium 1.5 L (1.8-2.4) mg/dl Med Orders - Current: Current Medications Acetaminophen (Tylenol) 650 mg PO Q4H PRN PRN Reason: Pain (Mild 1-3)/fever Hydrocodone Bitart/Acetaminophen (Beemer 325-5 Mg) 1 tab PO Q4H PRN PRN Reason: Pain (moderate 4-6) Last Admin: 07/27/16 06:27 Dose: 1 tab Albuterol (Proventil Neb Soln) 2.5 mg NEB Q2H PRN PRN Reason: Shortness Of Breath/wheezing Aspirin (Aspirin) 81 mg PO DAILY [facility] Last Admin: 07/26/16 12:37 Dose: 81 mg Bisacodyl (Dulcolax) 5 mg PO DAILY PRN PRN Reason: Constipation Carvedilol (Coreg) 6.25 mg PO BIDMEALS [facility] Last Admin: 07/27/16 06:19 Dose: 6.25 mg Clotrimazole (Mycelex) 10 mg PO BID [facility] Last Admin: 07/26/16 20:41 Dose: 10 mg Al Hydroxide/Mg Hydroxide 30 (ml/ Lidocaine HCl 15 ml) 0 ml PO Q4H PRN PRN Reason: ESOPHAGITIS Diphenhydramine HCl (Benadryl) 25 mg PO BID PRN PRN Reason: Allergies Enoxaparin Sodium (Lovenox) 70 mg SUBCUT Q12HR [facility] Last Admin: 07/26/16 20:42 Dose: 70 mg Hydralazine HCl (Apresoline) 20 mg IVPUSH Q4H PRN PRN Reason: Hypertension Hydromorphone HCl (Dilaudid) 0.25 mg IVPUSH Q2H PRN PRN Reason: Pain (severe 7-10) Dextrose/Sodium Chloride (Dextrose 5%-1/2 Ns) 1,000 mls @ 100 mls/hr IV ASDIRECTED [facility] Last Admin: 07/26/16 23:57 Dose: 100 mls/hr Magnesium Sulfate 2 gm/ Premix 50 mls @ 25 mls/hr IV ONETIME ONE Stop: 07/27/16 09:44 Isosorbide Mononitrate (Imdur) 60 mg PO DAILY [facility] Last Admin: 07/26/16 12:36 Dose: 60 mg Lorazepam (Ativan) 1 mg IV Q6H PRN PRN Reason: Anxiety Magnesium Sulfate (Pharmacy To Dose - Magnesium Replacement) 1 dose .XX ASDIRECTED [facility] Metoprolol Tartrate (Lopressor) 5 mg IVPUSH Q4H PRN PRN Reason: Tachycardia Mycophenolate Mofetil (Cellcept) 1,000 mg PO BID [facility] Last Admin: 07/26/16 20:45 Dose: 1,000 mg Ondansetron HCl (Zofran) 4 mg IV Q4H PRN PRN Reason: Nausea/Vomiting Last Admin: 07/27/16 06:31 Dose: 4 mg Pantoprazole Sodium (Protonix Iv) 40 mg IVPUSH Q12H [facility] Last Admin: 07/26/16 23:52 Dose: 40 mg Calcium/D3/Magnesium (/Zinc Supplement) 1 each PO DAILY [facility] Last Admin: 07/26/16 10:05 Dose: Not Given Phenytoin Sodium (Phenytoin) 200 mg PO TID [facility] Last Admin: 07/26/16 20:41 Dose: 200 mg Polyethylene Glycol (Miralax) 17 gm PO DAILY PRN PRN Reason: Constipation Potassium Chloride (Pharmacy To Dose - Potassium Replacement) 1 dose .XX ASDIRECTED [facility] Potassium Chloride (Klor-Con M20) 20 meq PO Q3H [facility] Stop: 07/27/16 10:46 Rosuvastatin Calcium (Crestor) 10 mg PO DAILY [facility] Last Admin: 07/26/16 12:36 Dose: 10 mg Senna/Docusate Sodium (Senna Plus) 1 tab PO BID PRN PRN Reason: Constipation Tamsulosin HCl (Flomax) 0.4 mg PO BIDPC [facility] Last Admin: 07/26/16 17:45 Dose: 0.4 mg Temazepam (Restoril) 15 mg PO BEDTIME PRN PRN Reason: Sleep Trimethoprim/Sulfamethoxazole (Septra Ds) 1 tab PO DAILY [facility] Last Admin: 07/26/16 12:36 Dose: 1 tab Discontinued Medications Bisacodyl (Dulcolax) 10 mg RECTAL ONETIME ONE Stop: 07/24/16 22:00 Last Admin: 07/25/16 00:22 Dose: Not Given Diatrizoate Meglum/Diatrizoate Sod (Gastrografin 37%) 120 ml PO ONETIME ONE Stop: 07/24/16 13:17 Last Admin: 07/24/16 14:26 Dose: 90 ml Diphenhydr/Magaldrate/Simeth/Lidoca (First-Mouthwash Blm Susp) 30 ml PO ASDIRECTED PRN PRN Reason: esophagitis Diphenhydramine HCl (Benadryl) 25 mg PO ASDIRECTED PRN PRN Reason: Allergies Diphtheria/Tetanus/Acell Pertussis (Boostrix) 0.5 ml IM .ONCE ONE Stop: 07/25/16 13:44 Hydromorphone HCl (Dilaudid) 0.5 mg IVPUSH ONETIME ONE Stop: 07/24/16 12:07 Last Admin: 07/24/16 12:23 Dose: 0.5 mg Sodium Chloride (Normal Saline) 1,000 mls @ 250 mls/hr IV ASDIRECTED [facility] Last Admin: 07/24/16 12:04 Dose: 150 mls/hr Sodium Chloride (Normal Saline) 1,000 mls @ 125 mls/hr IV ASDIRECTED [facility] Magnesium Sulfate 4 gm/ Premix 100 mls @ 50 mls/hr IV ONETIME ONE Stop: 07/25/16 01:05 Last Admin: 07/25/16 00:05 Dose: Not Given Dextrose/Sodium Chloride (Dextrose 5%-1/2 Ns) 1,000 mls @ 250 mls/hr IV ASDIRECTED [facility] Last Admin: 07/26/16 02:18 Dose: 250 mls/hr Magnesium Sulfate 2 gm/ Premix 50 mls @ 25 mls/hr IV ONETIME ONE Stop: 07/25/16 01:19 Last Admin: 07/24/16 23:45 Dose: 25 mls/hr Magnesium Sulfate 2 gm/ Premix 50 mls @ 25 mls/hr IV ONETIME ONE Stop: 07/26/16 13:59 Last Admin: 07/26/16 12:34 Dose: 25 mls/hr Lidocaine HCl (Xylocaine-Mpf 1%) Confirm Administered Dose 4 mls @ as directed .ROUTE .STK-MED ONE Stop: 07/26/16 09:19 Iopamidol (Isovue-300 (61%)) 100 ml IVPUSH ONETIME ONE Stop: 07/24/16 13:17 Last Admin: 07/24/16 14:26 Dose: 100 ml Magnesium Citrate (Citrate Of Magnesia) 240 ml PO ONETIME ONE Stop: 07/24/16 16:31 Last Admin: 07/24/16 16:44 Dose: 240 ml Metoclopramide HCl (Reglan) 7.5 mg IVPUSH ONETIME ONE Stop: 07/24/16 15:30 Last Admin: 07/24/16 15:37 Dose: 7.5 mg Morphine Sulfate (Morphine) 2 mg IVPUSH ONETIME ONE Stop: 07/24/16 20:31 Last Admin: 07/24/16 20:35 Dose: 2 mg Nitroglycerin (Nitrostat) 0.4 mg SL Q5M PRN PRN Reason: Chest Pain Stop: 07/24/16 20:07 Last Admin: 07/24/16 20:18 Dose: 0.4 mg Ondansetron HCl (Zofran) 4 mg IVPUSH ONETIME ONE Stop: 07/24/16 12:07 Last Admin: 07/24/16 12:24 Dose: 4 mg Ondansetron HCl (Zofran) 4 mg IVPUSH ONETIME ONE Stop: 07/24/16 18:14 Last Admin: 07/24/16 18:18 Dose: 4 mg Ondansetron HCl (Zofran) 4 mg IV Q6H PRN PRN Reason: Nausea/Vomiting Last Admin: 07/25/16 05:10 Dose: 4 mg Oxycodone/Acetaminophen (Percocet 325-5 Mg) 1 tab PO Q4H [facility] Last Admin: 07/25/16 00:26 Dose: Not Given Oxycodone/Acetaminophen (Percocet 325-5 Mg) 1 tab PO Q4H PRN PRN Reason: Pain Phytonadione (Aquamephyton) 5 mg PO ONETIME ONE Stop: 07/24/16 22:46 Last Admin: 07/24/16 23:47 Dose: 2.5 mg Phytonadione (Aquamephyton) 2.5 mg PO ONETIME ONE Stop: 07/25/16 00:02 Last Admin: 07/25/16 00:10 Dose: 2.5 mg Pneumococcal Polyvalent Vaccine (Pneumovax 23) 0.5 ml IM .ONCE ONE Stop: 07/25/16 13:46 Polyethylene Glycol/Electrolytes (Golytely) 4,000 ml PO ONETIME ONE Stop: 07/25/16 20:35 Last Admin: 07/26/16 00:28 Dose: Not Given Potassium Chloride (Klor-Con M20) 20 meq PO Q3H [facility] Stop: 07/26/16 15:01 Last Admin: 07/26/16 16:02 Dose: 20 meq Propofol (Diprivan 20 Ml) Confirm Administered Dose 200 mg .ROUTE .STK-MED ONE Stop: 07/26/16 09:19 Sodium Chloride (Saline Flush) 10 ml FLUSH ONETIME ONE Stop: 07/24/16 13:17 Last Admin: 07/24/16 14:26 Dose: 10 ml - Exam General: alert, oriented, cooperative, no acute distress HEENT: Pupils equal, Pupils reactive, EOMI, Mucous membr. moist/pink Neck: supple, trachea midline, no JVD, no thyromegaly Lungs: Normal respiratory effort, Decreased breath sounds Cardiovascular: Regular Rate, Regular Rhythm Abdomen: bowel sounds present, soft, rigidity, tenderness (minimal). No: no tenderness, no distension (Male) Exam: Deferred Back Exam: normal inspection, decreased range of motion Extremities: no edema, normal pulses, no tenderness/swelling, no clubbing, no cyanosis, no calf tenderness Peripheral Pulses: 2+: dorsalis pedis (L), dorsalis pedis (R) Skin: intact Neurological: no new focal deficit Psy/Mental Status: alert, normal affect, normal mood - Problem List Review Problem List Initiated/Reviewed/Updated: Yes - My Orders Last 24 Hours: My Active Orders 07/26/16 15:18 OOB [Out of Bed] [RC] Q8HR 07/26/16 21:00 Enoxaparin [Lovenox] 70 mg SUBCUT Q12HR 07/26/16 21:03 Ambulate [RC] 09,15,20 07/27/16 07:45 Magnesium Sulfate/Water [Magnesium Sulfate 2 GM in Water 50 ML] 2 gm Premix Bag 1 bag IV ONETIME Potassium Chloride [Klor-Con M20] 20 meq PO Q3H 07/28/16 05:11 BASIC METABOLIC PANEL,BMP [CHEM] AM CBC WITH AUTO DIFF [HEME] AM INR,PT,PROTHROMBIN TIME [COAG] AM MAGNESIUM [CHEM] AM 07/29/16 05:11 BASIC METABOLIC PANEL,BMP [CHEM] AM CBC WITH AUTO DIFF [HEME] AM INR,PT,PROTHROMBIN TIME [COAG] AM MAGNESIUM [CHEM] AM 07/31/16 07:00 CBC W/O DIFF,HEMOGRAM [HEME] MOTH@69908/03/16 07:00 CBC W/O DIFF,HEMOGRAM [HEME] MOTH@69908/07/16 07:00 CBC W/O DIFF,HEMOGRAM [HEME] MOTH@69908/10/16 07:00 CBC W/O DIFF,HEMOGRAM [HEME] MOTH@69908/14/16 07:00 CBC W/O DIFF,HEMOGRAM [HEME] MOTH@0700 - Plan Plan:: Assessment/Plan: Acute: Esophagitis With Sliding Hiatal Hernia S/p EGD - On PPI and Viscous Xylocain for Dysphagia - Dr. Stanton following Generalized Weakness - Has been going on for 2 months - Continue PT/OT - Vit D--pending - TFT: normal Hx/o Esophageal Tear - Pending EGD this am - would like to get it done here if possible - Will consult Dr. Stanton Hypomagnesemia - Mg 1.4 ---> 1.5 - Pharmacy to replete and monitor Hypokalemia - K 3.3 same - Pharmacy to replete and monitor Subtherapeutic INR - INR 1.0 - Continue Lovenox Sub BID - Will resume Warfarin, since he will not have colonoscopy anytime soon. Dr. Stanton would like this esophagitis get better before undergoing colonoscopy. - Pharmacy to monitor and follow Resolved: Subtherapeutic INR - INR is 4.9---> 1.45 - On Warfarin for Stroke ppx - He is also on anti-rejection and seizure meds - Received Oral Vit k 5 mg po x1 last night S/p Acute on Chronic Flank Pain - He is on narcotic pain - This has been going on for 2 months now, he is scheduled for colonoscopy - This maybe mistaken for chest pain S/p Chest Pain - I do no think he actually has chest pain - Troponin x 1 negative and EKG is non-diagnostic (Sinus Rhythm and RB3) - CE x 2 more and CKMB x 2 all negative S/p Dehydration - Spec gravity on UA is 1.030 - Contributory to his Constipation - Will hydrate him S/p Constipation - As noted on CT scan - Bowel prep: oral and suppository S/p Hypomagnesemia - Mg 1.5 - Magnesium Sulfate Supplement - Pharmacy to replete and monitor S/p Acute on Chronic Abdominal Pain - Likely from Impacted stools - Has been going on for 2 months now per - He is taking narcotics for it - He is scheduled for colonoscopy - CTS can showed: impacted stools and 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 Stanton in 1 week for further eval and possible outpatient colonoscopy SW/CM for d/c planning Code status: 1 LOS > 96 hrs, we have to resume his warfarin and advance his diet as tolerated
[2016-07-27] MEDS: Phenytoin 100 MG Cap.ER PO SCH ×3 (09:15→20:31)
[2016-07-27] MEDS: Aspirin 81 MG Tab.Chew PO SCH (09:15)
[2016-07-27] MEDS: Clotrimazole 10 MG Troche PO SCH ×2 (09:15→20:31)
[2016-07-27] MEDS: Isosorbide Mononitrate 60 MG Tab.ER PO SCH (09:16)
[2016-07-27] MEDS: Tamsulosin 0.4 MG Cap.ER PO SCH ×2 (09:16→17:12)
[2016-07-27] MEDS: Sulfamethoxazole/Trimethoprim 800-160 MG Tab PO SCH (09:16)
[2016-07-27] MEDS: Rosuvastatin 10 MG Tab PO SCH (09:16)
[2016-07-27] MEDS: Potassium Chloride 20 MEQ Tab.ER PO SCH ×2 (09:16→10:58)
[2016-07-27] MEDS: Mycophenolate Mofetil 250 MG Cap PO SCH ×2 (09:17→20:31)
[2016-07-27] MEDS: MAGNESIUM PO SCH (09:18)
[2016-07-27] MEDS: CALCIUM PO SCH (09:18)
[2016-07-27] MEDS: [UNRECOGNIZED DRUG - OTHER] PO SCH (09:18)
[2016-07-27] MEDS: D3 PO SCH (09:18)
[2016-07-27] MEDS: Enoxaparin 80 MG/0.8 ML Syringe SUBCUT SCH ×2 (09:24→20:31)
[2016-07-27] MEDS: Dextrose 5%-0.45% NaCl 1,000 ML IV SCH ×2 (09:30→21:40)
[2016-07-27] MEDS: Pantoprazole 40 MG Vial IVPUSH SCH (11:00)
[2016-07-27] MEDS ORDERED: Alum Hydrox/Mag Hydrox/Simeth 30 ML, Lidocaine 2% 15 ML PO PRN ×2 (12:38)
[2016-07-27] MEDS: Alum Hydrox/Mag Hydrox/Simeth 30 ML, Lidocaine 2% 15 ML PO SCH ×2 (16:00)
[2016-07-27] MEDS ORDERED: HYDROmorphone 0.5 MG/0.5 ML Syringe IVPUSH PRN (16:01)
[2016-07-27] MEDS ORDERED: Warfarin 5 MG Tab PO SCH (18:00)
[2016-07-27] MEDS: Acetaminophen 325 MG Tab PO PRN (20:31)
[2016-07-28] MEDS: Pantoprazole 40 MG Vial IVPUSH SCH ×3 (00:05→23:13)
[2016-07-28] MEDS: Ondansetron 4 MG/2 ML SDV IV PRN (05:44)
[2016-07-28] MEDS: Acetaminophen/HYDROcodone 325-5 MG Tab PO PRN (05:45)
[2016-07-28] MEDS: Carvedilol 6.25 MG Tab PO SCH ×3 (05:45→16:03)
[2016-07-28] MEDS: Alum Hydrox/Mag Hydrox/Simeth 30 ML, Lidocaine 2% 15 ML PO SCH ×6 (05:51→11:52)
--- NOTE | 2016-07-28 07:11 | PCM.PN ---
- General Info Date of Service: 07/28/16 Admission Dx/Problem (Free Text): Admission Diagnosis/Problem Admission Diagnosis/Problem Chest pain Subjective Update: Follow up Functional Status: Reports: pain controlled, tolerating diet, urinating. Denies : new symptoms - Review of Systems General: Denies: Fever, Weakness, Fatigue, Malaise, Chills, Night Sweats HEENT: Reports: no symptoms Pulmonary: Denies: shortness of breath Cardiovascular: Denies: Chest Pain Gastrointestinal: Reports: Abdominal pain. Denies: Nausea, Vomiting Genitourinary: Reports: no symptoms Musculoskeletal: Reports: no symptoms Skin: Reports: rash Neurological: Denies: Confusion Psychiatric: Denies: depression, mood lability, anxiety, hallucinations, suicidal ideation Systems Review Comment:: No overnight or cute issues. He is doing much better. Still has mild abdominal pain. He is tolerating clear liquid diet. He has no new complaints. - Patient Data Vitals - most recent: Last Vital Signs Temp 37.1 C 07/28/16 03:38 Pulse 72 07/28/16 05:45 Resp 20 07/28/16 03:38 BP 123/76 07/28/16 05:45 Pulse Ox 97 07/28/16 03:38 Weight - most recent: 71.668 kg I&O - last 24 hours: Intake & Output 07/27/16 07/28/16 07/28/16 22:59 06:59 14:59 Intake Total 2125 1417 Output Total 250 2150 Balance 1875 -733 Lab Results last 24 hrs: Laboratory Results - last 24 hr 07/24/16 Range/Units 23:26 PTH Intact 3 L (12-88) pg/mL Calcium (PTH Intact) 10.2 (8.5-10.2) mg/dL Med Orders - Current: Current Medications Acetaminophen (Tylenol) 650 mg PO Q4H PRN PRN Reason: Pain (Mild 1-3)/fever Last Admin: 07/27/16 20:31 Dose: 650 mg Hydrocodone Bitart/Acetaminophen ([place] 325-5 Mg) 1 tab PO Q4H PRN PRN Reason: Pain (moderate 4-6) Last Admin: 07/28/16 05:45 Dose: 1 tab Albuterol (Proventil Neb Soln) 2.5 mg NEB Q2H PRN PRN Reason: Shortness Of Breath/wheezing Aspirin (Aspirin) 81 mg PO DAILY [facility] Last Admin: 07/27/16 09:15 Dose: 81 mg Bisacodyl (Dulcolax) 5 mg PO DAILY PRN PRN Reason: Constipation Carvedilol (Coreg) 6.25 mg PO BIDMEALS [facility] Last Admin: 07/28/16 07:07 Dose: Not Given Clotrimazole (Mycelex) 10 mg PO BID [facility] Last Admin: 07/27/16 20:31 Dose: 10 mg Al Hydroxide/Mg Hydroxide 30 (ml/ Lidocaine HCl 15 ml) 0 ml PO TIDAC [facility] Last Admin: 07/28/16 07:07 Dose: Not Given Diphenhydramine HCl (Benadryl) 25 mg PO BID PRN PRN Reason: Allergies Enoxaparin Sodium (Lovenox) 70 mg SUBCUT Q12HR [facility] Last Admin: 07/27/16 20:31 Dose: 70 mg Hydralazine HCl (Apresoline) 20 mg IVPUSH Q4H PRN PRN Reason: Hypertension Hydromorphone HCl (Dilaudid) 0.25 mg IVPUSH Q2H PRN PRN Reason: Pain (severe 7-10) Dextrose/Sodium Chloride (Dextrose 5%-1/2 Ns) 1,000 mls @ 100 mls/hr IV ASDIRECTED [facility] Last Admin: 07/27/16 21:40 Dose: 100 mls/hr Isosorbide Mononitrate (Imdur) 60 mg PO DAILY [facility] Last Admin: 07/27/16 09:16 Dose: 60 mg Lorazepam (Ativan) 1 mg IV Q6H PRN PRN Reason: Anxiety Magnesium Sulfate (Pharmacy To Dose - Magnesium Replacement) 1 dose .XX ASDIRECTED [facility] Metoprolol Tartrate (Lopressor) 5 mg IVPUSH Q4H PRN PRN Reason: Tachycardia Mycophenolate Mofetil (Cellcept) 1,000 mg PO BID [facility] Last Admin: 07/27/16 20:31 Dose: 1,000 mg Ondansetron HCl (Zofran) 4 mg IV Q4H PRN PRN Reason: Nausea/Vomiting Last Admin: 07/28/16 05:44 Dose: 4 mg Pantoprazole Sodium (Protonix Iv) 40 mg IVPUSH Q12H [facility] Last Admin: 07/28/16 00:05 Dose: 40 mg Calcium/D3/Magnesium (/Zinc Supplement) 1 each PO DAILY [facility] Last Admin: 07/27/16 09:18 Dose: Not Given Phenytoin Sodium (Phenytoin) 200 mg PO TID [facility] Last Admin: 07/27/16 20:31 Dose: 200 mg Polyethylene Glycol (Miralax) 17 gm PO DAILY PRN PRN Reason: Constipation Potassium Chloride (Pharmacy To Dose - Potassium Replacement) 1 dose .XX ASDIRECTED [facility] Rosuvastatin Calcium (Crestor) 10 mg PO DAILY [facility] Last Admin: 07/27/16 09:16 Dose: 10 mg Senna/Docusate Sodium (Senna Plus) 1 tab PO BID PRN PRN Reason: Constipation Tamsulosin HCl (Flomax) 0.4 mg PO BIDPC [facility] Last Admin: 07/27/16 17:12 Dose: 0.4 mg Temazepam (Restoril) 15 mg PO BEDTIME PRN PRN Reason: Sleep Trimethoprim/Sulfamethoxazole (Septra Ds) 1 tab PO DAILY [facility] Last Admin: 07/27/16 09:16 Dose: 1 tab Warfarin Sodium (Pharmacy To Dose - Warfarin) 0 dose PO ASDIRECTED PRN PRN Reason: RX TO DOSE COUMADIN Discontinued Medications Bisacodyl (Dulcolax) 10 mg RECTAL ONETIME ONE Stop: 07/24/16 22:00 Last Admin: 07/25/16 00:22 Dose: Not Given Al Hydroxide/Mg Hydroxide 30 (ml/ Lidocaine HCl 15 ml) 0 ml PO Q4H PRN PRN Reason: ESOPHAGITIS Last Admin: 07/27/16 13:32 Dose: 1 solution Al Hydroxide/Mg Hydroxide 30 (ml/ Lidocaine HCl 15 ml) 0 ml PO TIDAC PRN PRN Reason: ESOPHAGITIS Diatrizoate Meglum/Diatrizoate Sod (Gastrografin 37%) 120 ml PO ONETIME ONE Stop: 07/24/16 13:17 Last Admin: 07/24/16 14:26 Dose: 90 ml Diphenhydr/Magaldrate/Simeth/Lidoca (First-Mouthwash Blm Susp) 30 ml PO ASDIRECTED PRN PRN Reason: esophagitis Diphenhydramine HCl (Benadryl) 25 mg PO ASDIRECTED PRN PRN Reason: Allergies Diphtheria/Tetanus/Acell Pertussis (Boostrix) 0.5 ml IM .ONCE ONE Stop: 07/25/16 13:44 Hydromorphone HCl (Dilaudid) 0.5 mg IVPUSH ONETIME ONE Stop: 07/24/16 12:07 Last Admin: 07/24/16 12:23 Dose: 0.5 mg Hydromorphone HCl (Dilaudid) 0.25 mg IVPUSH Q2H PRN PRN Reason: Pain (severe 7-10) Sodium Chloride (Normal Saline) 1,000 mls @ 250 mls/hr IV ASDIRECTED [facility] Last Admin: 07/24/16 12:04 Dose: 150 mls/hr Sodium Chloride (Normal Saline) 1,000 mls @ 125 [facility] S[facility] 4 gm/ Premix 100 mls @ 50 mls/hr IV ONETIME ONE Stop: 07/25/16 01:05 Last Admin: 07/25/16 00:05 Dose: Not Given Dextrose/Sodium Chloride (Dextrose 5%-1/2 Ns) 1,000 mls @ 250 mls[facility]hr [facility] Last Admin: 07/26/16 02:18 Dose: 250 mls/hr Magnesium Sulfate 2 gm/ Premix 50 mls @ 25 mls/hr IV ONETIME ONE Stop: 07/25/16 01:19 Last Admin: 07/24/16 23:45 Dose: 25 mls/hr Magnesium Sulfate 2 gm/ Premix 50 mls @ 25 mls/hr IV ONETIME ONE Stop: 07/26/16 13:59 Last Admin: 07/26/16 12:34 Dose: 25 mls/hr Lidocaine HCl (Xylocaine-Mpf 1%) Confirm Administered Dose 4 mls @ as directed .ROUTE .STK-MED ONE Stop: 07/26/16 09:19 Magnesium Sulfate 2 gm/ Premix 50 mls @ 25 mls/hr IV ONETIME ONE Stop: 07/27/16 09:44 Last Admin: 07/27/16 09:11 Dose: 25 mls/hr Iopamidol (Isovue-300 (61%)) 100 ml IVPUSH ONETIME ONE Stop: 07/24/16 13:17 Last Admin: 07/24/16 14:26 Dose: 100 ml Magnesium Citrate (Citrate Of Magnesia) 240 ml PO ONETIME ONE Stop: 07/24/16 16:31 Last Admin: 07/24/16 16:44 Dose: 240 ml Metoclopramide HCl (Reglan) 7.5 mg IVPUSH ONETIME ONE Stop: 07/24/16 15:30 Last Admin: 07/24/16 15:37 Dose: 7.5 mg Morphine Sulfate (Morphine) 2 mg IVPUSH ONETIME ONE Stop: 07/24/16 20:31 Last Admin: 07/24/16 20:35 Dose: 2 mg Nitroglycerin (Nitrostat) 0.4 mg SL Q5M PRN PRN Reason: Chest Pain Stop: 07/24/16 20:07 Last Admin: 07/24/16 20:18 Dose: 0.4 mg Ondansetron HCl (Zofran) 4 mg IVPUSH ONETIME ONE Stop: 07/24/16 12:07 Last Admin: 07/24/16 12:24 Dose: 4 mg Ondansetron HCl (Zofran) 4 mg IVPUSH ONETIME ONE Stop: 07/24/16 18:14 Last Admin: 07/24/16 18:18 Dose: 4 mg Ondansetron HCl (Zofran) 4 mg IV Q6H PRN PRN Reason: Nausea/Vomiting Last Admin: 07/25/16 05:10 Dose: 4 mg Oxycodone/Acetaminophen (Percocet 325-5 Mg) 1 tab PO Q4H [facility] Last Admin: 07/25/16 00:26 Dose: Not Given Oxycodone/Acetaminophen (Percocet 325-5 Mg) 1 tab PO Q4H PRN PRN Reason: Pain Phytonadione (Aquamephyton) 5 mg PO ONETIME ONE Stop: 07/24/16 22:46 Last Admin: 07/24/16 23:47 Dose: 2.5 mg Phytonadione (Aquamephyton) 2.5 mg PO ONETIME ONE Stop: 07/25/16 00:02 Last Admin: 07/25/16 00:10 Dose: 2.5 mg Pneumococcal Polyvalent Vaccine (Pneumovax 23) 0.5 ml IM .ONCE ONE Stop: 07/25/16 13:46 Polyethylene Glycol/Electrolytes (Golytely) 4,000 ml PO ONETIME ONE Stop: 07/25/16 20:35 Last Admin: 07/26/16 00:28 Dose: Not Given Potassium Chloride (Klor-Con M20) 20 meq PO Q3H [facility] Stop: 07/26/16 15:01 Last Admin: 07/26/16 16:02 Dose: 20 meq Potassium Chloride (Klor-Con M20) 20 meq PO Q3H [facility] Stop: 07/27/16 10:46 Last Admin: 07/27/16 10:58 Dose: 20 meq Propofol (Diprivan 20 Ml) Confirm Administered Dose 200 mg .ROUTE .STK-MED ONE Stop: 07/26/16 09:19 Sodium Chloride (Saline Flush) 10 ml FLUSH ONETIME ONE Stop: 07/24/16 13:17 Last Admin: 07/24/16 14:26 Dose: 10 ml Warfarin Sodium (Coumadin) 5 mg PO QPM [facility] Stop: 07/27/16 22:00 Last Admin: 07/27/16 17:12 Dose: 5 mg - Exam General: alert, oriented, cooperative, no acute distress HEENT: Pupils equal, Pupils reactive, EOMI, Mucous membr. moist/pink Neck: supple, trachea midline, no JVD, no thyromegaly Lungs: Clear to auscultation, Normal respiratory effort Cardiovascular: Regular Rate, Regular Rhythm Abdomen: bowel sounds present, soft, no tenderness, no distension, tenderness ( mild). No: rigidity, rebound, guarding (Male) Exam: Deferred Back Exam: normal inspection, decreased range of motion Extremities: no edema, normal pulses, no tenderness/swelling, no clubbing, no cyanosis, no calf tenderness Peripheral Pulses: 2+: posterior tibial (L), posterior tibial (R), dorsalis pedis (L), dorsalis pedis (R) Skin: warm, dry, other (numerous skin lesions) Wound/Incisions: healing well Neurological: no new focal deficit Psy/Mental Status: alert, normal affect, normal mood, labile mood - Problem List Review Problem List Initiated/Reviewed/Updated: Yes - My Orders Last 24 Hours: My Active Orders 07/27/16 16:01 HYDROmorphone [Dilaudid] 0.25 mg IVPUSH Q2H PRN 07/27/16 16:06 Warfarin Pharmacy to Dose [Pharmacy to Dose - Warfarin] 0 dose PO ASDIRECTED PRN 07/27/16 Breakfast Soft Diet [DIET] 07/28/16 06:48 BASIC METABOLIC PANEL,BMP [CHEM] AM CBC WITH AUTO DIFF [HEME] AM INR,PT,PROTHROMBIN TIME [COAG] AM MAGNESIUM [CHEM] AM 07/29/16 05:11 BASIC METABOLIC PANEL,BMP [CHEM] AM CBC WITH AUTO DIFF [HEME] AM INR,PT,PROTHROMBIN TIME [COAG] AM MAGNESIUM [CHEM] AM 07/31/16 07:00 CBC W/O DIFF,HEMOGRAM [HEME] MOTH@00 08/03/16 07:00 CBC W/O DIFF,HEMOGRAM [HEME] MOTH@69908/07/16 07:00 CBC W/O DIFF,HEMOGRAM [HEME] MOTH@69908/10/16 07:00 CBC W/O DIFF,HEMOGRAM [HEME] MOTH@69908/14/16 07:00 CBC W/O DIFF,HEMOGRAM [HEME] MOTH@699 - Plan Plan:: Assessment/Plan: Acute: Esophagitis With Sliding Hiatal Hernia S/p EGD - On PPI and Viscous Xylocain for Dysphagia - Dr. Stanton following Generalized Weakness - Has been going on for 2 months - Continue PT/OT - Vit D---> 13 (Low) - TFT: normal Hx/o Esophageal Tear - Pending EGD this am - would like to get it done here if possible - Will consult Dr. Stanton Hypomagnesemia - Mg 1.4 ---> 1.6 - Pharmacy to replete and monitor - Also on Mag-Ox 400 mg po BID Subtherapeutic INR - INR 1.0 - Continue Lovenox Sub BID and Warfarin - Pharmacy to monitor and follow Vit D Deficiency - Vit D2 50K units po Weekly for 4 weeks then monthly Resolved: Subtherapeutic INR - INR is 4.9---> 1.45 - On Warfarin for Stroke ppx - He is also on anti-rejection and seizure meds - Received Oral Vit k 5 mg po x1 last night S/p Acute on Chronic Flank Pain - He is on narcotic pain - This has been going on for 2 months now, he is scheduled for colonoscopy - This maybe mistaken for chest pain S/p Chest Pain - I do no think he actually has chest pain - Troponin x 1 negative and EKG is non-diagnostic (Sinus Rhythm and RB3) - CE x 2 more and CKMB x 2 all negative S/p Dehydration - Spec gravity on UA is 1.030 - Contributory to his Constipation - Will hydrate him S/p Constipation - As noted on CT scan - Bowel prep: oral and suppository S/p Hypomagnesemia - Mg 1.5 - Magnesium Sulfate Supplement - Pharmacy to replete and monitor S/p Acute on Chronic Abdominal Pain - Likely from Impacted stools - Has been going on for 2 months now per - He is taking narcotics for it - He is scheduled for colonoscopy - CTS can showed: impacted stools and 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
[2016-07-28] MEDS ORDERED: Magnesium Sulfate/Water 2 GM in Premix Bag 1 BAG IV ONE ×2 (08:00→18:29)
[2016-07-28] MEDS: Dextrose 5%-0.45% NaCl 1,000 ML IV SCH ×2 (08:17→18:39)
[2016-07-28] MEDS: Rosuvastatin 10 MG Tab PO SCH (08:19)
[2016-07-28] MEDS: Phenytoin 100 MG Cap.ER PO SCH ×3 (08:19→21:20)
[2016-07-28] MEDS: Sulfamethoxazole/Trimethoprim 800-160 MG Tab PO SCH (08:19)
[2016-07-28] MEDS: Clotrimazole 10 MG Troche PO SCH ×2 (08:19→21:20)
[2016-07-28] MEDS: D3 PO SCH (08:20)
[2016-07-28] MEDS: Tamsulosin 0.4 MG Cap.ER PO SCH ×2 (08:20→17:20)
[2016-07-28] MEDS: Mycophenolate Mofetil 250 MG Cap PO SCH ×2 (08:20→21:18)
[2016-07-28] MEDS: Isosorbide Mononitrate 60 MG Tab.ER PO SCH (08:20)
[2016-07-28] MEDS: MAGNESIUM PO SCH (08:20)
[2016-07-28] MEDS: Aspirin 81 MG Tab.Chew PO SCH (08:20)
[2016-07-28] MEDS: CALCIUM PO SCH (08:20)
[2016-07-28] MEDS: [UNRECOGNIZED DRUG - OTHER] PO SCH (08:20)
[2016-07-28] MEDS: Magnesium Oxide 400 MG Tab PO SCH ×2 (09:42→21:19)
[2016-07-28] MEDS: Enoxaparin 80 MG/0.8 ML Syringe SUBCUT SCH ×2 (09:43→21:19)
[2016-07-28] MEDS: Lidocaine 2% Viscous Solution 15 ML Cup PO SCH ×2 (11:52→16:05)
[2016-07-28] MEDS: Aluminum Hydroxide/Magnesium Hydroxide/Simethicone Susp 30 ML Cup PO SCH ×2 (11:52→16:05)
[2016-07-28] MEDS ORDERED: Warfarin 5 MG Tab PO ONE (18:00)
--- NOTE | 2016-07-28 18:09 | PCM.SN ---
- Free Text/Narrative Note: Spoke to patients this am, updated her about his progress and the possibility of d/c this weekend. She is aware patient will follow up with Dr. Burden for further eval in week.
[2016-07-28] MEDS: Ergocalciferol (Vitamin D2) 50,000 Unit Cap PO SCH (21:53)
[2016-07-29] MEDS: Dextrose 5%-0.45% NaCl 1,000 ML IV SCH (05:47)
[2016-07-29] MEDS: Lidocaine 2% Viscous Solution 15 ML Cup PO SCH ×4 (05:48→16:15)
[2016-07-29] MEDS: Aluminum Hydroxide/Magnesium Hydroxide/Simethicone Susp 30 ML Cup PO SCH ×4 (05:48→16:15)
[2016-07-29] MEDS: Carvedilol 6.25 MG Tab PO SCH ×3 (05:48→16:16)
--- NOTE | 2016-07-29 07:27 | PCM.PN ---
- General Info Date of Service: 07/29/16 Admission Dx/Problem (Free Text): Admission Diagnosis/Problem Admission Diagnosis/Problem Chest pain Subjective Update: Follow up Functional Status: Reports: pain controlled, tolerating diet, urinating. Denies : new symptoms - Review of Systems General: Denies: Fever, Weakness, Fatigue, Malaise, Chills HEENT: Reports: no symptoms Pulmonary: Denies: shortness of breath Cardiovascular: Denies: Chest Pain Gastrointestinal: Reports: Abdominal pain. Denies: Constipation, Diarrhea, Nausea, Vomiting Genitourinary: Reports: no symptoms Musculoskeletal: Reports: no symptoms Skin: Reports: rash. Denies: cyanosis Neurological: Denies: Confusion, Weakness Psychiatric: Denies: depression, anxiety, agitation, cravings, hallucinations, homicidal ideation Systems Review Comment:: No overnight or acute issues. He is essentially the same as yesterday. He has no new complaints. - Patient Data Vitals - most recent: Last Vital Signs Temp 36.6 C 07/29/16 05:09 Pulse 74 07/29/16 05:48 Resp 14 07/29/16 05:09 BP 136/78 07/29/16 06:15 Pulse Ox 97 07/29/16 05:09 Weight - most recent: 71.758 kg I&O - last 24 hours: Intake & Output 07/28/16 07/29/16 07/29/16 22:59 06:59 14:59 Intake Total 1834 1245 400 Output Total 900 2500 Balance 934 1245 -2100 Lab Results last 24 hrs: Laboratory Results - last 24 hr 07/28/16 07/28/16 07/29/16 Range/Units 06:48 06:48 05:30 WBC 6.61 (4.23-9.07) K/mm3 RBC 3.54 L (4.63-6.08) M/mm3 Hgb 10.1 L (13.7-17.5) gm/L Hct 30.8 L (40.1-51.0) % MCV 87.0 (79.0-92.2) fl MCH 28.5 (25.7-32.2) pg MCHC 32.8 (32.2-35.5) g/dl RDW Std Deviation 47.3 H (35.1-43.9) fL Plt Count 348 H (163-337) K/mm3 MPV 9.5 (9.4-12.3) fl Neut % (Auto) 63.4 (34.0-67.9) % Lymph % (Auto) 17.5 L (21.8-53.1) % Rusk % (Auto) 14.4 H (5.3-12.2) % Eos % (Auto) 4.1 (0.8-7.0) Baso % (Auto) 0.3 (0.1-1.2) % Neut # (Auto) 4.19 (1.78-5.38) K/mm3 Lymph # (Auto) 1.16 L (1.32-3.57) K/mm3 Rusk # (Auto) 0.95 H (0.30-0.82) K/mm3 Eos # (Auto) 0.27 (0.04-0.54) K/mm3 Baso # (Auto) 0.02 (0.01-0.08) K/mm3 PT 11.6 (8.0-13.0) SECONDS INR 1.06 Sodium 137 (136-145) mEq/L Potassium 3.9 (3.5-5.1) mEq/L Chloride 104 (98-107) mEq/L Carbon Dioxide 26 (21-32) mEq/L Anion Gap 10.9 (5-15) BUN 6 L (7-18) mg/dL Creatinine 0.9 (0.7-1.3) mg/dL Est Cr Clr Drug Dosing 70.98 mL/min Estimated GFR (MDRD) > 60 (>60) mL/min BUN/Creatinine Ratio 6.7 L (14-18) Glucose 112 (83-115) mg/dL Calcium 9.6 (8.5-10.1) mg/dL Magnesium 1.6 L (1.8-2.4) mg/dl 07/29/16 07/29/16 Range/Units 05:30 05:30 WBC (4.23-9.07) K/mm3 RBC (4.63-6.08) M/mm3 Hgb (13.7-17.5) gm/L Hct (40.1-51.0) % MCV (79.0-92.2) fl MCH (25.7-32.2) pg MCHC (32.2-35.5) g/dl RDW Std Deviation (35.1-43.9) fL Plt Count (163-337) K/mm3 MPV (9.4-12.3) fl Neut % (Auto) (34.0-67.9) % Lymph % (Auto) (21.8-53.1) % Rusk % (Auto) (5.3-12.2) % Eos % (Auto) (0.8-7.0) Baso % (Auto) (0.1-1.2) % Neut # (Auto) (1.78-5.38) K/mm3 Lymph # (Auto) (1.32-3.57) K/mm3 Rusk # (Auto) (0.30-0.82) K/mm3 Eos # (Auto) (0.04-0.54) K/mm3 Baso # (Auto) (0.01-0.08) K/mm3 PT 13.5 H (8.0-13.0) SECONDS INR 1.22 Sodium 135 L (136-145) mEq/L Potassium 3.4 L (3.5-5.1) mEq/L Chloride 104 (98-107) mEq/L Carbon Dioxide 24 (21-32) mEq/L Anion Gap 10.4 (5-15) BUN 6 L (7-18) mg/dL Creatinine 0.8 (0.7-1.3) mg/dL Est Cr Clr Drug Dosing 79.86 mL/min Estimated GFR (MDRD) > 60 (>60) mL/min BUN/Creatinine Ratio 7.5 L (14-18) Glucose 121 H (83-115) mg/dL Calcium 9.0 (8.5-10.1) mg/dL Magnesium 2.0 (1.8-2.4) mg/dl Med Orders - Current: Current Medications Acetaminophen (Tylenol) 650 mg PO Q4H PRN PRN Reason: Pain (Mild 1-3)/fever Last Admin: 07/27/16 20:31 Dose: 650 mg Hydrocodone Bitart/Acetaminophen (Brooks 325-5 Mg) 1 tab PO Q4H PRN PRN Reason: Pain (moderate 4-6) Last Admin: 07/28/16 05:45 Dose: 1 tab Al Hydroxide/Mg Hydroxide (Mag-Al Plus) 30 ml PO TIDAC RICH Last Admin: 07/29/16 06:41 Dose: Not Given Albuterol (Proventil Neb Soln) 2.5 mg NEB Q2H PRN PRN Reason: Shortness Of Breath/wheezing Aspirin (Aspirin) 81 mg PO DAILY [facility] Last Admin: 07/28/16 08:20 Dose: 81 mg Bisacodyl (Dulcolax) 5 mg PO DAILY PRN PRN Reason: Constipation Carvedilol (Coreg) 6.25 mg PO BIDMEALS [facility] Last Admin: 07/29/16 06:40 Dose: Not Given Clotrimazole (Mycelex) 10 mg PO BID [facility] Last Admin: 07/28/16 21:20 Dose: 10 mg Diphenhydramine HCl (Benadryl) 25 mg PO BID PRN PRN Reason: Allergies Enoxaparin Sodium (Lovenox) 70 mg SUBCUT Q12HR [facility] Last Admin: 07/28/16 21:19 Dose: 70 mg Ergocalciferol (Vitamin D2) 50,000 units PO Fr@2100 [facility] Last Admin: 07/28/16 21:53 Dose: Not Given Hydralazine HCl (Apresoline) 20 mg IVPUSH Q4H PRN PRN Reason: Hypertension Hydromorphone HCl (Dilaudid) 0.25 mg IVPUSH Q2H PRN PRN Reason: Pain (severe 7-10) Dextrose/Sodium Chloride (Dextrose 5%-1/2 Ns) 1,000 mls @ 100 mls/hr IV ASDIRECTED [facility] Last Admin: 07/29/16 05:47 Dose: 100 mls/hr Isosorbide Mononitrate (Imdur) 60 mg PO DAILY [facility] Last Admin: 07/28/16 08:20 Dose: 60 mg Lidocaine HCl (Xylocaine 2% Viscous) 15 ml PO TIDAC [facility] Last Admin: 07/29/16 06:41 Dose: Not Given Lorazepam (Ativan) 1 mg IV Q6H PRN PRN Reason: Anxiety Magnesium Oxide (Magnesium Oxide) 400 mg PO BID [facility] Last Admin: 07/28/16 21:19 Dose: 400 mg Magnesium Sulfate (Pharmacy To Dose - Magnesium Replacement) 1 dose .XX ASDIRECTED [facility] Metoprolol Tartrate (Lopressor) 5 mg IVPUSH Q4H PRN PRN Reason: Tachycardia Mycophenolate Mofetil (Cellcept) 1,000 mg PO BID [facility] Last Admin: 07/28/16 21:18 Dose: 1,000 mg Ondansetron HCl (Zofran) 4 mg IV Q4H PRN PRN Reason: Nausea/Vomiting Last Admin: 07/28/16 05:44 Dose: 4 mg Pantoprazole Sodium (Protonix Iv) 40 mg IVPUSH Q12H [facility] Last Admin: 07/28/16 23:13 Dose: 40 mg Calcium/D3/Magnesium (/Zinc Supplement) 1 each PO DAILY [facility] Last Admin: 07/28/16 08:20 Dose: Not Given Phenytoin Sodium (Phenytoin) 200 mg PO TID [facility] Last Admin: 07/28/16 21:20 Dose: 200 mg Polyethylene Glycol (Miralax) 17 gm PO DAILY PRN PRN Reason: Constipation Potassium Chloride (Pharmacy To Dose - Potassium Replacement) 1 dose .XX ASDIRECTED [facility] Rosuvastatin Calcium (Crestor) 10 mg PO DAILY [facility] Last Admin: 07/28/16 08:19 Dose: 10 mg Senna/Docusate Sodium (Senna Plus) 1 tab PO BID PRN PRN Reason: Constipation Tamsulosin HCl (Flomax) 0.4 mg PO BIDPC [facility] Last Admin: 07/28/16 17:20 Dose: 0.4 mg Temazepam (Restoril) 15 mg PO BEDTIME PRN PRN Reason: Sleep Trimethoprim/Sulfamethoxazole (Septra Ds) 1 tab PO DAILY [facility] Last Admin: 07/28/16 08:19 Dose: 1 tab Warfarin Sodium (Pharmacy To Dose - Warfarin) 0 dose PO ASDIRECTED PRN PRN Reason: RX TO DOSE COUMADIN Discontinued Medications Bisacodyl (Dulcolax) 10 mg RECTAL ONETIME ONE Stop: 07/24/16 22:00 Last Admin: 07/25/16 00:22 Dose: Not Given Al Hydroxide/Mg Hydroxide 30 (ml/ Lidocaine HCl 15 ml) 0 ml PO Q4H PRN PRN Reason: ESOPHAGITIS Last Admin: 07/27/16 13:32 Dose: 1 solution Al Hydroxide/Mg Hydroxide 30 (ml/ Lidocaine HCl 15 ml) 0 ml PO TIDAC PRN PRN Reason: ESOPHAGITIS Al Hydroxide/Mg Hydroxide 30 (ml/ Lidocaine HCl 15 ml) 0 ml PO TIDAC [facility] Last Admin: 07/28/16 11:52 Dose: Not Given Diatrizoate Meglum/Diatrizoate Sod (Gastrografin 37%) 120 ml PO ONETIME ONE Stop: 07/24/16 13:17 Last Admin: 07/24/16 14:26 Dose: 90 ml Diphenhydr/Magaldrate/Simeth/Lidoca (First-Mouthwash Blm Susp) 30 ml PO ASDIRECTED PRN PRN Reason: esophagitis Diphenhydramine HCl (Benadryl) 25 mg PO ASDIRECTED PRN PRN Reason: Allergies Diphtheria/Tetanus/Acell Pertussis (Boostrix) 0.5 ml IM .ONCE ONE Stop: 07/25/16 13:44 Hydromorphone HCl (Dilaudid) 0.5 mg IVPUSH ONETIME ONE Stop: 07/24/16 12:07 Last Admin: 07/24/16 12:23 Dose: 0.5 mg Hydromorphone HCl (Dilaudid) 0.25 mg IVPUSH Q2H PRN PRN Reason: Pain (severe 7-10) Sodium Chloride (Normal Saline) 1,000 mls @ 250 mls/hr IV ASDIRECTED [facility] Last Admin: 07/24/16 12:04 Dose: 150 mls/hr Sodium Chloride (Normal Saline) 1,000 mls @ 125 mls/hr IV ASDIRECTED [facility] Magnesium Sulfate 4 gm/ Premix 100 mls @ 50 mls/hr IV ONETIME ONE Stop: 07/25/16 01:05 Last Admin: 07/25/16 00:05 Dose: Not Given Dextrose/Sodium Chloride (Dextrose 5%-1/2 Ns) 1,000 mls @ 250 mls/hr IV ASDIRECTED [facility] Last Admin: 07/26/16 02:18 Dose: 250 mls/hr Magnesium Sulfate 2 gm/ Premix 50 mls @ 25 mls/hr IV ONETIME ONE Stop: 07/25/16 01:19 Last Admin: 07/24/16 23:45 Dose: 25 mls/hr Magnesium Sulfate 2 gm/ Premix 50 mls @ 25 mls/hr IV ONETIME ONE Stop: 07/26/16 13:59 Last Admin: 07/26/16 12:34 Dose: 25 mls/hr Lidocaine HCl (Xylocaine-Mpf 1%) Confirm Administered Dose 4 mls @ as directed .ROUTE .STK-MED ONE Stop: 07/26/16 09:19 Magnesium Sulfate 2 gm/ Premix 50 mls @ 25 mls/hr IV ONETIME ONE Stop: 07/27/16 09:44 Last Admin: 07/27/16 09:11 Dose: 25 mls/hr Magnesium Sulfate 2 gm/ Premix 50 mls @ 25 mls/hr IV ONETIME ONE Stop: 07/28/16 09:59 Last Admin: 07/28/16 08:17 Dose: 25 mls/hr Magnesium Sulfate 2 gm/ Premix 50 mls @ 25 mls/hr IV ONETIME ONE Stop: 07/28/16 20:28 Last Admin: 07/28/16 18:40 Dose: 25 mls/hr Iopamidol (Isovue-300 (61%)) 100 ml IVPUSH ONETIME ONE Stop: 07/24/16 13:17 Last Admin: 07/24/16 14:26 Dose: 100 ml Magnesium Citrate (Citrate Of Magnesia) 240 ml PO ONETIME ONE Stop: 07/24/16 16:31 Last Admin: 07/24/16 16:44 Dose: 240 ml Metoclopramide HCl (Reglan) 7.5 mg IVPUSH ONETIME ONE Stop: 07/24/16 15:30 Last Admin: 07/24/16 15:37 Dose: 7.5 mg Morphine Sulfate (Morphine) 2 mg IVPUSH ONETIME ONE Stop: 07/24/16 20:31 Last Admin: 07/24/16 20:35 Dose: 2 mg Nitroglycerin (Nitrostat) 0.4 mg SL Q5M PRN PRN Reason: Chest Pain Stop: 07/24/16 20:07 Last Admin: 07/24/16 20:18 Dose: 0.4 mg Ondansetron HCl (Zofran) 4 mg IVPUSH ONETIME ONE Stop: 07/24/16 12:07 Last Admin: 07/24/16 12:24 Dose: 4 mg Ondansetron HCl (Zofran) 4 mg IVPUSH ONETIME ONE Stop: 07/24/16 18:14 Last Admin: 07/24/16 18:18 Dose: 4 mg Ondansetron HCl (Zofran) 4 mg IV Q6H PRN PRN Reason: Nausea/Vomiting Last Admin: 07/25/16 05:10 Dose: 4 mg Oxycodone/Acetaminophen (Percocet 325-5 Mg) 1 tab PO Q4H [facility] Last Admin: 07/25/16 00:26 Dose: Not Given Oxycodone/Acetaminophen (Percocet 325-5 Mg) 1 tab PO Q4H PRN PRN Reason: Pain Phytonadione (Aquamephyton) 5 mg PO ONETIME ONE Stop: 07/24/16 22:46 Last Admin: 07/24/16 23:47 Dose: 2.5 mg Phytonadione (Aquamephyton) 2.5 mg PO ONETIME ONE Stop: 07/25/16 00:02 Last Admin: 07/25/16 00:10 Dose: 2.5 mg Pneumococcal Polyvalent Vaccine (Pneumovax 23) 0.5 ml IM .ONCE ONE Stop: 07/25/16 13:46 Polyethylene Glycol/Electrolytes (Golytely) 4,000 ml PO ONETIME ONE Stop: 07/25/16 20:35 Last Admin: 07/26/16 00:28 Dose: Not Given Potassium Chloride (Klor-Con M20) 20 meq PO Q3H R[facility] Stop: 07/26/16 15:01 Last Admin: 07/26/16 16:02 Dose: 20 meq Potassium Chloride (Klor-Con M20) 20 meq PO Q3H [facility] Stop: 07/27/16 10:46 Last Admin: 07/27/16 10:58 Dose: 20 meq Propofol (Diprivan 20 Ml) Confirm Administered Dose 200 mg .ROUTE .STK-MED ONE Stop: 07/26/16 09:19 Sodium Chloride (Saline Flush) 10 ml FLUSH ONETIME ONE Stop: 07/24/16 13:17 Last Admin: 07/24/16 14:26 Dose: 10 ml Warfarin Sodium (Coumadin) 5 mg PO QPM R[facility] Stop: 07/27/16 22:00 Last Admin: 07/27/16 17:12 Dose: 5 mg Warfarin Sodium (Coumadin) 5 mg PO ONETIME ONE Stop: 07/28/16 18:01 Last Admin: 07/28/16 17:20 Dose: 5 mg - Exam General: alert, cooperative, no acute distress HEENT: Pupils equal, Pupils reactive, EOMI, Mucous membr. moist/pink Neck: supple, trachea midline, no JVD, no thyromegaly Lungs: Normal respiratory effort, Decreased breath sounds Cardiovascular: Regular Rate, Regular Rhythm Abdomen: bowel sounds present, soft, no tenderness, no distension (Male) Exam: Deferred Back Exam: normal inspection, decreased range of motion Extremities: no edema, normal pulses, no tenderness/swelling, no clubbing, no cyanosis, no calf tenderness Skin: warm, dry, intact, other (numerous skin lesion) Wound/Incisions: healing well Neurological: no new focal deficit Psy/Mental Status: alert, normal affect, normal mood - Problem List Review Problem List Initiated/Reviewed/Updated: Yes - My Orders Last 24 Hours: My Active Orders 07/28/16 09:00 Magnesium Oxide 400 mg PO BID 07/28/16 21:00 Ergocalciferol (Vitamin D2) [Vitamin D2] 50,000 units PO Fr@2100 07/31/16 07:00 CBC W/O DIFF,HEMOGRAM [HEME] MOTH@0700 08/03/16 07:00 CBC W/O DIFF,HEMOGRAM [HEME] MOTH@0700 08/07/16 07:00 CBC W/O DIFF,HEMOGRAM [HEME] MOTH@0700 08/10/16 07:00 CBC W/O DIFF,HEMOGRAM [HEME] MOTH@0700 08/14/16 07:00 CBC W/O DIFF,HEMOGRAM [HEME] MOTH@0700 - Plan Plan:: Assessment/Plan: Acute: Esophagitis With Sliding Hiatal Hernia S/p EGD - On PPI and Viscous Xylocain for Dysphagia - Improved, he is able to eat - Dr. Stanton consulted Generalized Weakness, Improved - Has been going on for 2 months - Continue PT/OT - Vit D---> 13 (Low) - TFT: normal Subtherapeutic INR - INR 1.0 ---> 1.27 - Continue Lovenox Sub BID and Warfarin - Pharmacy to monitor and follow Vit D Deficiency - Vit D level is 13 (low) - Vit D2 50K units po Weekly for 4 weeks then monthly Hx/o Esophageal Tear - EGD showed no tear - would like to get it done here if possible Resolved: Subtherapeutic INR - INR is 4.9---> 1.45 - On Warfarin for Stroke ppx - He is also on anti-rejection and seizure meds - Received Oral Vit k 5 mg po x1 last night S/p Acute on Chronic Flank Pain - He is on narcotic pain - This has been going on for 2 months now, he is scheduled for colonoscopy - This maybe mistaken for chest pain S/p Chest Pain - I do no think he actually has chest pain - Troponin x 1 negative and EKG is non-diagnostic (Sinus Rhythm and RB3) - CE x 2 more and CKMB x 2 all negative S/p Dehydration - Spec gravity on UA is 1.030 - Contributory to his Constipation - Will hydrate him S/p Constipation - As noted on CT scan - Bowel prep: oral and suppository S/p Acute on Chronic Abdominal Pain - Likely from Impacted stools - Has been going on for 2 months now per - He is taking narcotics for it - He is scheduled for colonoscopy - CTS can showed: impacted stools and 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
[2016-07-29] MEDS: Acetaminophen/HYDROcodone 325-5 MG Tab PO PRN ×2 (08:33→17:46)
[2016-07-29] MEDS: Aspirin 81 MG Tab.Chew PO SCH (08:33)
[2016-07-29] MEDS: Phenytoin 100 MG Cap.ER PO SCH ×3 (08:33→21:25)
[2016-07-29] MEDS: Magnesium Oxide 400 MG Tab PO SCH ×2 (08:33→21:24)
[2016-07-29] MEDS: Sulfamethoxazole/Trimethoprim 800-160 MG Tab PO SCH (08:33)
[2016-07-29] MEDS: Clotrimazole 10 MG Troche PO SCH ×2 (08:33→21:25)
[2016-07-29] MEDS: Isosorbide Mononitrate 60 MG Tab.ER PO SCH (08:33)
[2016-07-29] MEDS: Tamsulosin 0.4 MG Cap.ER PO SCH ×2 (08:33→17:46)
[2016-07-29] MEDS: Mycophenolate Mofetil 250 MG Cap PO SCH ×2 (08:33→21:22)
[2016-07-29] MEDS: CALCIUM PO SCH (08:34)
[2016-07-29] MEDS: Rosuvastatin 10 MG Tab PO SCH (08:34)
[2016-07-29] MEDS: D3 PO SCH (08:34)
[2016-07-29] MEDS: Enoxaparin 80 MG/0.8 ML Syringe SUBCUT SCH ×2 (08:34→21:23)
[2016-07-29] MEDS: [UNRECOGNIZED DRUG - OTHER] PO SCH (08:34)
[2016-07-29] MEDS: Ergocalciferol (Vitamin D2) 50,000 Unit Cap PO SCH (08:34)
[2016-07-29] MEDS: MAGNESIUM PO SCH (08:34)
[2016-07-29] MEDS: Potassium Chloride 20 MEQ Tab.ER PO SCH ×2 (11:21→16:15)
[2016-07-29] MEDS: Pantoprazole 40 MG Vial IVPUSH SCH (11:21)
[2016-07-29] MEDS ORDERED: Warfarin 5 MG Tab PO SCH (18:00)
[2016-07-30] MEDS: Pantoprazole 40 MG Vial IVPUSH SCH ×2 (00:45→11:57)
[2016-07-30] MEDS: Carvedilol 6.25 MG Tab PO SCH (07:00)
[2016-07-30] MEDS: Lidocaine 2% Viscous Solution 15 ML Cup PO SCH (07:02)
[2016-07-30] MEDS: Mycophenolate Mofetil 250 MG Cap PO SCH (09:04)
[2016-07-30] MEDS: Acetaminophen 325 MG Tab PO PRN (09:05)
[2016-07-30] MEDS: Isosorbide Mononitrate 60 MG Tab.ER PO SCH (09:06)
[2016-07-30] MEDS: Tamsulosin 0.4 MG Cap.ER PO SCH (09:06)
[2016-07-30] MEDS: Phenytoin 100 MG Cap.ER PO SCH (09:06)
[2016-07-30] MEDS: Enoxaparin 80 MG/0.8 ML Syringe SUBCUT SCH (09:07)
[2016-07-30] MEDS: Rosuvastatin 10 MG Tab PO SCH (09:08)
[2016-07-30] MEDS: Magnesium Oxide 400 MG Tab PO SCH (09:08)
[2016-07-30] MEDS: Clotrimazole 10 MG Troche PO SCH (09:08)
[2016-07-30] MEDS: Sulfamethoxazole/Trimethoprim 800-160 MG Tab PO SCH (09:08)
[2016-07-30] MEDS: Aspirin 81 MG Tab.Chew PO SCH (09:08)
[2016-07-30] MEDS: [UNRECOGNIZED DRUG - OTHER] PO SCH (09:09)
[2016-07-30] MEDS: D3 PO SCH (09:09)
[2016-07-30] MEDS: MAGNESIUM PO SCH (09:09)
[2016-07-30] MEDS: CALCIUM PO SCH (09:09)
--- NOTE | 2016-07-30 10:44 | PCM.DCSUM1 ---
Discharge Summary - Hospital Course Brief History: This is a 75 yo elderly white male with past medical hx/o CAD, [place] in 1996, HLD, HTN, Chronic SOB, OA, Osteoporosis, Seizure Disorder, Chronic Bullous Pemphigoid and Diverticulosis who comes in to ED with complaints of abdominal with radiation to the right flank that has been going on for 3 days now but more like over a couple of months according to his . His pain is constant with colicky in nature. He is known to have chronic constipation. Patient carries a hx/o colon resection with colostomy in the past due to bowel obstruction. His colostomy has been repaired along with intestinal anastomosis. Per , patient has not been doing well for over 2 months now. He has been having chronic abdominal and flank pain. He is on narcotic for pain management. His warfarin was stopped for planned colonoscopy. His initial lab shows a CBC remarkable for Hgb of 12, Hct of 36.2, Platelet of 398 and Neutrophils of 75. His chemistry is remarkable for AG of 17.8, Cr of 26, Ca of 12, Mg of 1.5, AST of 54, Alk Phos of 184, CRP of 4.5, and Albumin of 2.7. Troponinc x1 is < 0.070. PT/INR is 60/4.98. His UA is negative for UTI but with spec gravity of > or = 1.030. 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 Patient was referred to me for abdominal pain, chest pain and constipation. - Discharge Data Discharge Date: 07/30/16 Discharge Disposition: Home, Self-Care 01 Condition: Good - Discharge Diagnosis/Problem(s) (1) Gross hematuria SNOMED Code(s): 964224232 ICD Code: R31.0 - GROSS HEMATURIA Status: Resolved (2) Abdominal pain of unknown cause SNOMED Code(s): 989883492 ICD Code: R10.9 - UNSPECIFIED ABDOMINAL PAIN Status: Chronic (3) Supratherapeutic INR SNOMED Code(s): 726038873, 046843407 ICD Code: R79.1 - ABNORMAL COAGULATION PROFILE Status: Resolved (4) Acute flank pain SNOMED Code(s): 626240920 ICD Code: R10.9 - UNSPECIFIED ABDOMINAL PAIN Status: Resolved (5) Chest pain of uncertain etiology SNOMED Code(s): 96441890 ICD Code: R07.89 - OTHER CHEST PAIN Status: Resolved (6) Dehydration SNOMED Code(s): 09928852 ICD Code: E86.0 - DEHYDRATION Status: Resolved (7) Constipation SNOMED Code(s): 30462765 ICD Code: K59.00 - CONSTIPATION, UNSPECIFIED Status: Resolved Qualifiers: Constipation type: unspecified constipation type Qualified Code(s): K59.00 - Constipation, unspecified (8) Hypomagnesemia SNOMED Code(s): 389221123 ICD Code: E83.42 - HYPOMAGNESEMIA Status: Resolved (9) Hypercalcemia SNOMED Code(s): 30010948 ICD Code: E83.52 - HYPERCALCEMIA Status: Resolved (10) Generalized muscle weakness SNOMED Code(s): 23491407 ICD Code: M62.81 - MUSCLE WEAKNESS (GENERALIZED) Status: Resolved (11) Esophagitis SNOMED Code(s): 00345456 ICD Code: K20.9 - ESOPHAGITIS, UNSPECIFIED Status: Acute (12) Sliding hiatal hernia SNOMED Code(s): 202527869 ICD Code: K44.9 - DIAPHRAGMATIC HERNIA WITHOUT OBSTRUCTION OR GANGRENE Status: Chronic (13) Vitamin D deficiency SNOMED Code(s): 42712733 ICD Code: E55.9 - VITAMIN D DEFICIENCY, UNSPECIFIED Status: Acute (14) Aneurysm of internal iliac artery SNOMED Code(s): 372380629 ICD Code: I72.3 - ANEURYSM OF ILIAC ARTERY Status: Acute - Patient Summary/Data Operative Procedure(s) Performed: EGD with bx Complications: None Consults: Consultations 07/24/16 22:41 Consult to Case Management [CONS] Routine Consult to Inserter Operator [CONS] Routine Consult to Spiritual Care [CONS] Routine OT Evaluation and Treatment [CONS] Routine PT Evaluation and Treatment [CONS] Routine 07/25/16 09:56 Consult to Physician [CONS] Routine 07/25/16 14:55 Consult to Speech Language Pathology [BASKETBALL COACH Evaluation and Treatment] [CONS] Routine Hospital Course: Patient was primarily admitted for abdominal pain felt to be secondary to severe constipation. Patient carries a hx/o chronic abdominal pain and flank pain. He was initially scheduled for colonoscopy but he was brought over to us due to worsening abdominal and flank pain. A CT scan of his abdomen showed severe constipation and a finding of an internal iliac aneurysm, appeared to be stable. With bowel prep, patient constipation gradually resolved. As we gathered more information from his , patient has not been doing well in the past 2-3 months. His appetite was not great and he has been having generalized weakness. He also carried a hx/o esophageal tear and again also scheduled for endoscopy in [place], [place]. After further talking to his , she requested those procedures be done here if possible. So Dr. Stanton was consulted for evaluation and management. Once his INR was subtherapeutic, patient underwent upper endoscopy. He tolerated the procedure w/o any complications. EGD showed a esophagitis and a sliding hiatal hernia. Patient was treated with PPIs and Maalox mixed with Viscous lidocaine. Patient slowly improved on this regimen. We felt this was the reason for his vague chest pain. Patient has done fairly well since admission. His hospital course was complicated by gross hematuria from traumatic garvin insertion in the setting of considerably elevated INR level. However his symptom improved immediately after getting a one time low dose of Vitamin K. His INR is now at 1.57. He will be discharged with Lovenox 70 mg SubQ BID and to continue his warfarin home dose. On this admission, patient did not have lower endoscopy because he was not able to take in the colon prep. However he will follow up with Dr. Stanton in one week for possible outpatient procedure. He was provided stool softener in the meantime given that he is actively taking narcotics for his chronic pain syndrome. Prior to discharge, patient was able to eat without significant GI symptoms. His chest and flank pain have resolved. He also felt better then when he first came in. However he still has some lingering mild abdominal pain but he will further evaluated in 1 week. Patient will go home with new medications as listed on his discharge med list: Dulcolax 5 mg po daily PNR for constipation, Vit D2 50K units po weekly for 3 weeks and then monthly for Vit D. Deficiency, Famotidine 20 mg po Daily for esophagitis and Viscous Lidocaine 15 mg po TID for his Esophagitis. Patient was advised to follow dietary restriction. He is to call his doctor for any questions or concerns. If unable to reach him, he is to go to the nearest medical facility for further care. Lastly, he was further advised to call Dr. Stanton/s office for follow up appointment if not already scheduled. Patient expressed understanding and in agreement with the plans as discussed above. All questions were answered. - Patient Instructions Diet: Usual Diet as Tolerated Activity: As Tolerated Driving: Do Not Drive Showering/Bathing: May Shower Notify Provider of: Fever, Increased Pain, Swelling and Redness, Nausea and/or Vomiting Other/Special Instructions: - Please take all medications as directed. - Follow up with your doctor in 2-3 weeks. - Follow dietary restriction as directed by the Lumber Material Handler. - Keep your appointment with Dr. Stanton in 1 week if not already scheduled, please give him call. - INR check on Sunday- for your Warfarin. - Call you doctor for any questions or concerns. If you are not able to get a hold of him, go to the nearest medical facility for urgent medical care - Discharge Plan Prescriptions/Med Rec: Enoxaparin [Lovenox] 70 mg SUBCUT Q12HR #9 syringe Bisacodyl [Dulcolax] 5 mg PO DAILY PRN #30 tablet PRN Reason: Constipation Ergocalciferol (Vitamin D2) [Vitamin D2] 50,000 units PO Fr@2100 #6 cap Famotidine 20 mg PO DAILY #14 tablet Lidocaine 2% [Xylocaine 2% Viscous] 15 ml PO TIDAC #13 cup Home Medications: Home Meds Isosorbide Mononitrate [Isosorbide Mononitrate ER] 60 mg PO DAILY 07/15/13 [ History] Phenytoin Sodium Extended 200 mg PO TID 07/15/13 [History] atorvaSTATin [Lipitor] 40 mg PO DAILY 07/15/13 [History] Clotrimazole 10 mg PO BID 12/22/15 [History] Warfarin [Coumadin] 5 mg PO IRAHETA 12/22/15 [History] Aspirin [Tamkia Chewable Aspirin] 81 mg PO DAILY 05/20/16 [History] Carvedilol 6.25 mg PO BIDMEALS 05/20/16 [History] Sulfamethoxazole/Trimethoprim [Sulfamethoxazole-Tmp Ds Tablet] 1 tab PO DAILY [History] Acetaminophen/oxyCODONE [Percocet 325-5 MG] 1 tab PO Q4H PRN 07/24/16 [History] Calcium Carb/D3/Magnesium/Zinc [Farzad Mag Zinc + D3] 1 each PO DAILY 07/24/16 [ History] Mycophenolate Mofetil 1,000 mg PO BID 07/24/16 [History] Warfarin [Coumadin] 2.5 mg PO MOTUWETHFRSA 07/24/16 [History] diphenhydrAMINE HCl [Benadryl] 25 mg PO BID PRN 07/24/16 [History] Bisacodyl [Dulcolax] 5 mg PO DAILY PRN #30 tablet 07/30/16 [Rx] Enoxaparin [Lovenox] 70 mg SUBCUT Q12HR #9 syringe 07/30/16 [Rx] Ergocalciferol (Vitamin D2) [Vitamin D2] 50,000 units PO Fr@2100 #6 cap [Rx] Famotidine 20 mg PO DAILY #14 tablet 07/30/16 [Rx] Lidocaine 2% [Xylocaine 2% Viscous] 15 ml PO TIDAC #13 cup 07/30/16 [Rx] Patient Handouts: Constipation, Adult, Abdominal Pain, Adult, [id number], Nonspecific Chest Pain, [id number], How and Where to Give Subcutaneous Enoxaparin Injections, Hematuria, Adult Referrals: Elian Carter MD [Primary Care Provider] - - Discharge Summary/Plan Comment DC Time >30 min.: Yes (40 mins) Discharge Summary/Plan Comment: Discharge to Home Face to Face Documentation: Due to listed medical diagnoses, patient is in need of skilled home health services for disease assessment, disease management, disease education, PT/OT, Nursing/MANHOLE STRIPPER services, and Home safety eval. Patient is homebound due to chronic generalized weakness, decreased level of endurance, decreased activity tolerance and will benefit from services above to increase his level of independence. Dr. Carter, will follow him closely after discharge. - General Info Date of Service: 07/30/16 Admission Dx/Problem (Free Text: Admission Diagnosis/Problem Admission Diagnosis/Problem Chest pain Subjective Update: Follow up Functional Status: Reports: pain controlled, tolerating diet, ambulating, urinating. Denies: new symptoms - Review of Systems General: Denies: Fever, Weakness, Chills HEENT: Reports: no symptoms Pulmonary: Denies: shortness of breath Cardiovascular: Denies: Chest Pain Gastrointestinal: Reports: Abdominal pain, Difficulty swallowing, Flatus. Denies: Constipation, Diarrhea, Nausea, Vomiting Genitourinary: Reports: no symptoms Musculoskeletal: Reports: no symptoms Skin: Denies: cyanosis, rash Neurological: Denies: Confusion, Trouble Speaking, Weakness Psychiatric: Denies: confusion, depression, anxiety, agitation, hallucinations Systems Review Comment: No overnight or acute issues. He is doing relatively well. Still has baseline abdominal pain. His INR is at 1.56. He is ready to go home. - Patient Data Vitals - Most Recent: Last Vital Signs Temp 36.9 C 07/30/16 09:05 Pulse 72 07/30/16 08:00 Resp 16 07/30/16 08:00 BP 135/70 07/30/16 08:00 Pulse Ox 96 07/30/16 08:00 Weight - Most Recent: 70.307 kg I&O - Last 24 hours: Intake & Output 07/29/16 07/30/16 07/30/16 22:59 06:59 14:59 Intake Total 805 300 Output Total 700 Balance 105 300 Lab Results - Last 24 hrs: Laboratory Results - last 24 hr 07/30/16 07/30/16 07/30/16 Range/Units 05:51 05:51 05:51 WBC 6.20 (4.23-9.07) K/mm3 RBC 3.67 L (4.63-6.08) M/mm3 Hgb 10.5 L (13.7-17.5) gm/L Hct 31.8 L (40.1-51.0) % MCV 86.6 (79.0-92.2) fl MCH 28.6 (25.7-32.2) pg MCHC 33.0 (32.2-35.5) g/dl RDW Std Deviation 48.0 H (35.1-43.9) fL Plt Count 353 H (163-337) K/mm3 MPV 9.3 L (9.4-12.3) fl Neut % (Auto) 56.3 (34.0-67.9) % Lymph % (Auto) 22.3 (21.8-53.1) % [place] % (Auto) 15.8 H (5.3-12.2) % Eos % (Auto) 4.7 (0.8-7.0) Baso % (Auto) 0.3 (0.1-1.2) % Neut # (Auto) 3.49 (1.78-5.38) K/mm3 Lymph # (Auto) 1.38 (1.32-3.57) K/mm3 [place] # (Auto) 0.98 H (0.30-0.82) K/mm3 Eos # (Auto) 0.29 (0.04-0.54) K/mm3 Baso # (Auto) 0.02 (0.01-0.08) K/mm3 Manual Slide Review Abnormal smear PT 17.5 H (8.0-13.0) SECONDS INR 1.56 Sodium 136 (136-145) mEq/L Potassium 3.8 (3.5-5.1) mEq/L Chloride 103 (98-107) mEq/L Carbon Dioxide 23 (21-32) mEq/L Anion Gap 13.8 (5-15) BUN 9 (7-18) mg/dL Creatinine 0.8 (0.7-1.3) mg/dL Est Cr Clr Drug Dosing 79.86 mL/min Estimated GFR (MDRD) > 60 (>60) mL/min BUN/Creatinine Ratio 11.3 L (14-18) Glucose 98 (83-115) mg/dL Calcium 9.4 (8.5-10.1) mg/dL Magnesium 1.9 (1.8-2.4) mg/dl Med Orders - Current: Current Medications Acetaminophen (Tylenol) 650 mg PO Q4H PRN PRN Reason: Pain (Mild 1-3)/fever Last Admin: 07/30/16 09:05 Dose: 650 mg Hydrocodone Bitart/Acetaminophen ([place] 325-5 Mg) 1 tab PO Q4H PRN PRN Reason: Pain (moderate 4-6) Last Admin: 07/29/16 17:46 Dose: 1 tab Albuterol (Proventil Neb Soln) 2.5 mg NEB Q2H PRN PRN Reason: Shortness Of Breath/wheezing Aspirin (Aspirin) 81 mg PO DAILY [facility] Last Admin: 07/30/16 09:08 Dose: 81 mg Bisacodyl (Dulcolax) 5 mg PO DAILY PRN PRN Reason: Constipation Carvedilol (Coreg) 6.25 mg PO BIDMEALS [facility] Last Admin: 07/30/16 07:00 Dose: 6.25 mg Clotrimazole (Mycelex) 10 mg PO BID [facility] Last Admin: 07/30/16 09:08 Dose: 10 mg Diphenhydramine HCl (Benadryl) 25 mg PO BID PRN PRN Reason: Allergies Enoxaparin Sodium (Lovenox) 70 mg SUBCUT Q12HR [facility] Last Admin: 07/30/16 09:07 Dose: 70 mg Ergocalciferol (Vitamin D2) 50,000 units PO Fr@2100 [facility] Last Admin: 07/29/16 08:34 Dose: 50,000 units Hydralazine HCl (Apresoline) 20 mg IVPUSH Q4H PRN PRN Reason: Hypertension Hydromorphone HCl (Dilaudid) 0.25 mg IVPUSH Q2H PRN PRN Reason: Pain (severe 7-10) Isosorbide Mononitrate (Imdur) 60 mg PO DAILY [facility] Last Admin: 07/30/16 09:06 Dose: 60 mg Lidocaine HCl (Xylocaine 2% Viscous) 15 ml PO TIDAC [facility] Lorazepam (Ativan) 1 mg IV Q6H PRN PRN Reason: Anxiety Magnesium Oxide (Magnesium Oxide) 400 mg PO BID [facility] Last Admin: 07/30/16 09:08 Dose: 400 mg Magnesium Sulfate (Pharmacy To Dose - Magnesium Replacement) 1 dose .XX ASDIRECTED [facility] Metoprolol Tartrate (Lopressor) 5 mg IVPUSH Q4H PRN PRN Reason: Tachycardia Mycophenolate Mofetil (Cellcept) 1,000 mg PO BID [facility] Last Admin: 07/30/16 09:04 Dose: 1,000 mg Ondansetron HCl (Zofran) 4 mg IV Q4H PRN PRN Reason: Nausea/Vomiting Last Admin: 07/28/16 05:44 Dose: 4 mg Pantoprazole Sodium (Protonix Iv) 40 mg IVPUSH Q12H [facility] Last Admin: 07/30/16 00:45 Dose: 40 mg Calcium/D3/Magnesium (/Zinc Supplement) 1 each PO DAILY [facility] Last Admin: 07/30/16 09:09 Dose: Not Given Phenytoin Sodium (Phenytoin) 200 mg PO TID [facility] Last Admin: 07/30/16 09:06 Dose: 200 mg Polyethylene Glycol (Miralax) 17 gm PO DAILY PRN PRN Reason: Constipation Potassium Chloride (Pharmacy To Dose - Potassium Replacement) 1 dose .XX ASDIRECTED [facility] Rosuvastatin Calcium (Crestor) 10 mg PO DAILY [facility] Last Admin: 07/30/16 09:08 Dose: 10 mg Senna/Docusate Sodium (Senna Plus) 1 tab PO BID PRN PRN Reason: Constipation Tamsulosin HCl (Flomax) 0.4 mg PO BIDPC [facility] Last Admin: 07/30/16 09:06 Dose: 0.4 mg Temazepam (Restoril) 15 mg PO BEDTIME PRN PRN Reason: Sleep Trimethoprim/Sulfamethoxazole (Septra Ds) 1 tab PO DAILY [facility] Last Admin: 07/30/16 09:08 Dose: 1 tab Warfarin Sodium (Pharmacy To Dose - Warfarin) 0 dose PO ASDIRECTED PRN PRN Reason: RX TO DOSE COUMADIN Warfarin Sodium (Coumadin) 5 mg PO QPM [facility] Stop: 07/30/16 21:00 Discontinued Medications Al Hydroxide/Mg Hydroxide (Mag-Al Plus) 30 ml PO TIDAC [facility] Last Admin: 07/29/16 16:15 Dose: 30 ml Bisacodyl (Dulcolax) 10 mg RECTAL ONETIME ONE Stop: 07/24/16 22:00 Last Admin: 07/25/16 00:22 Dose: Not Given Al Hydroxide/Mg Hydroxide 30 (ml/ Lidocaine HCl 15 ml) 0 ml PO Q4H PRN PRN Reason: ESOPHAGITIS Last Admin: 07/27/16 13:32 Dose: 1 solution Al Hydroxide/Mg Hydroxide 30 (ml/ Lidocaine HCl 15 ml) 0 ml PO TIDAC PRN PRN Reason: ESOPHAGITIS Al Hydroxide/Mg Hydroxide 30 (ml/ Lidocaine HCl 15 ml) 0 ml PO TIDAC [facility] Last Admin: 07/28/16 11:52 Dose: Not Given Diatrizoate Meglum/Diatrizoate Sod (Gastrografin 37%) 120 ml PO ONETIME ONE Stop: 07/24/16 13:17 Last Admin: 07/24/16 14:26 Dose: 90 ml Diphenhydr/Magaldrate/Simeth/Lidoca (First-Mouthwash Blm Susp) 30 ml PO ASDIRECTED PRN PRN Reason: esophagitis Diphenhydramine HCl (Benadryl) 25 mg PO ASDIRECTED PRN PRN Reason: Allergies Diphtheria/Tetanus/Acell Pertussis (Boostrix) 0.5 ml IM .ONCE ONE Stop: 07/25/16 13:44 Hydromorphone HCl (Dilaudid) 0.5 mg IVPUSH ONETIME ONE Stop: 07/24/16 12:07 Last Admin: 07/24/16 12:23 Dose: 0.5 mg Hydromorphone HCl (Dilaudid) 0.25 mg IVPUSH Q2H PRN PRN Reason: Pain (severe 7-10) Sodium Chloride (Normal Saline) 1,000 mls @ 250 mls/hr IV ASDIRECTED [facility] Last Admin: 07/24/16 12:04 Dose: 150 mls/hr Sodium Chloride (Normal Saline) 1,000 mls @ 125 mls/hr IV ASDIRECTED [facility] Magnesium Sulfate 4 gm/ Premix 100 mls @ 50 mls/hr IV ONETIME ONE Stop: 07/25/16 01:05 Last Admin: 07/25/16 00:05 Dose: Not Given Dextrose/Sodium Chloride (Dextrose 5%-1/2 Ns) 1,000 mls @ 250 mls/hr IV ASDIRECTED [facility] Last Admin: 07/26/16 02:18 Dose: 250 mls/hr Magnesium Sulfate 2 gm/ Premix 50 mls @ 25 mls/hr IV ONETIME ONE Stop: 07/25/16 01:19 Last Admin: 07/24/16 23:45 Dose: 25 mls/hr Dextrose/Sodium Chloride (Dextrose 5%-1/2 Ns) 1,000 mls @ 100 mls/hr IV ASDIRECTED [facility] Last Admin: 07/29/16 05:47 Dose: 100 mls/hr Magnesium Sulfate 2 gm/ Premix 50 mls @ 25 mls/hr IV ONETIME ONE Stop: 07/26/16 13:59 Last Admin: 07/26/16 12:34 Dose: 25 mls/hr Lidocaine HCl (Xylocaine-Mpf 1%) Confirm Administered Dose 4 mls @ as directed .ROUTE .STK-MED ONE Stop: 07/26/16 09:19 Magnesium Sulfate 2 gm/ Premix 50 mls @ 25 mls/hr IV ONETIME ONE Stop: 07/27/16 09:44 Last Admin: 07/27/16 09:11 Dose: 25 mls/hr Magnesium Sulfate 2 gm/ Premix 50 mls @ 25 mls/hr IV ONETIME ONE Stop: 07/28/16 09:59 Last Admin: 07/28/16 08:17 Dose: 25 mls/hr Magnesium Sulfate 2 gm/ Premix 50 mls @ 25 mls/hr IV ONETIME ONE Stop: 07/28/16 20:28 Last Admin: 07/28/16 18:40 Dose: 25 mls/hr Iopamidol (Isovue-300 (61%)) 100 ml IVPUSH ONETIME ONE Stop: 07/24/16 13:17 Last Admin: 07/24/16 14:26 Dose: 100 ml Lidocaine HCl (Xylocaine 2% Viscous) 15 ml PO TIDAC [facility] Last Admin: 07/30/16 07:02 Dose: 15 ml Magnesium Citrate (Citrate Of Magnesia) 240 ml PO ONETIME ONE Stop: 07/24/16 16:31 Last Admin: 07/24/16 16:44 Dose: 240 ml Metoclopramide HCl (Reglan) 7.5 mg IVPUSH ONETIME ONE Stop: 07/24/16 15:30 Last Admin: 07/24/16 15:37 Dose: 7.5 mg Morphine Sulfate (Morphine) 2 mg IVPUSH ONETIME ONE Stop: 07/24/16 20:31 Last Admin: 07/24/16 20:35 Dose: 2 mg Nitroglycerin (Nitrostat) 0.4 mg SL Q5M PRN PRN Reason: Chest Pain Stop: 07/24/16 20:07 Last Admin: 07/24/16 20:18 Dose: 0.4 mg Ondansetron HCl (Zofran) 4 mg IVPUSH ONETIME ONE Stop: 07/24/16 12:07 Last Admin: 07/24/16 12:24 Dose: 4 mg Ondansetron HCl (Zofran) 4 mg IVPUSH ONETIME ONE Stop: 07/24/16 18:14 Last Admin: 07/24/16 18:18 Dose: 4 mg Ondansetron HCl (Zofran) 4 mg IV Q6H PRN PRN Reason: Nausea/Vomiting Last Admin: 07/25/16 05:10 Dose: 4 mg Oxycodone/Acetaminophen (Percocet 325-5 Mg) 1 tab PO Q4H [facility] Last Admin: 07/25/16 00:26 Dose: Not Given Oxycodone/Acetaminophen (Percocet 325-5 Mg) 1 tab PO Q4H PRN PRN Reason: Pain Phytonadione (Aquamephyton) 5 mg PO ONETIME ONE Stop: 07/24/16 22:46 Last Admin: 07/24/16 23:47 Dose: 2.5 mg Phytonadione (Aquamephyton) 2.5 mg PO ONETIME ONE Stop: 07/25/16 00:02 Last Admin: 07/25/16 00:10 Dose: 2.5 mg Pneumococcal Polyvalent Vaccine (Pneumovax 23) 0.5 ml IM .ONCE ONE Stop: 07/25/16 13:46 Polyethylene Glycol/Electrolytes (Golytely) 4,000 ml PO ONETIME ONE Stop: 07/25/16 20:35 Last Admin: 07/26/16 00:28 Dose: Not Given Potassium Chloride (Klor-Con M20) 20 meq PO Q3H [facility] Stop: 07/26/16 15:01 Last Admin: 07/26/16 16:02 Dose: 20 meq Potassium Chloride (Klor-Con M20) 20 meq PO Q3H [facility] Stop: 07/27/16 10:46 Last Admin: 07/27/16 10:58 Dose: 20 meq Potassium Chloride (Klor-Con M20) 20 meq PO Q3H [facility] Stop: 07/29/16 15:01 Last Admin: 07/29/16 16:15 Dose: 20 meq Propofol (Diprivan 20 Ml) Confirm Administered Dose 200 mg .ROUTE .STK-MED ONE Stop: 07/26/16 09:19 Sodium Chloride (Saline Flush) 10 ml FLUSH ONETIME ONE Stop: 07/24/16 13:17 Last Admin: 07/24/16 14:26 Dose: 10 ml Warfarin Sodium (Coumadin) 5 mg PO QPM [facility] Stop: 07/27/16 22:00 Last Admin: 07/27/16 17:12 Dose: 5 mg Warfarin Sodium (Coumadin) 5 mg PO ONETIME ONE Stop: 07/28/16 18:01 Last Admin: 07/28/16 17:20 Dose: 5 mg Warfarin Sodium (Coumadin) 5 mg PO QPM [facility] Stop: 07/29/16 21:00 Last Admin: 07/29/16 17:46 Dose: 5 mg - Exam General: Reports: alert, oriented, cooperative, no acute distress HEENT: Reports: Pupils equal, Pupils reactive, EOMI, Mucous membr. moist/pink Neck: Reports: supple, trachea midline, no JVD, no thyromegaly Lungs: Reports: Clear to auscultation, Normal respiratory effort Cardiovascular: Reports: Irregular Rhythm Abdomen: Reports: bowel sounds present, soft, no tenderness, no distension, tenderness (mild tenderness but no more than usual). Denies: rigidity, rebound , guarding, organomegaly (Male) Exam: Deferred Rectal (Males) Exam: Deferred Back Exam: Reports: normal inspection, decreased range of motion Extremities: Reports: no edema, normal pulses, no tenderness/swelling, no clubbing, no cyanosis, no calf tenderness Skin: Reports: warm, dry, intact Neurological: Reports: no new focal deficit Psy/Mental Status: Reports: alert, normal affect, normal mood *Q Meaningful Use (DIS) - VTE *Q VTE Criteria *Q: - Stroke *Q Stroke Criteria *Q: - AMI *Q AMI Criteria *Q:
[2016-07-30] MEDS ORDERED: Lidocaine 2% Viscous Solution 15 ML Cup PO SCH (11:00)
[2016-07-30] MEDS ORDERED: Pneumococcal Polyvalent-23 Vaccine 0.5 ML SDV SUBCUT ONE (12:10)
[2016-07-30] MEDS ORDERED: Diphtheria,Pertussis(Acell),Tetanus Vaccine 0.5 ML SDV inactive IM ONE (12:15)
[2016-07-30 12:16] VITALS: BP 108/73
[2016-07-30] MEDS ORDERED: Warfarin 5 MG Tab PO SCH (18:00)
== END 2016-07-30 13:05 | disposition home or self-care (01) | DRG 392 ==
LOC: JD.ED 11:34 → JD.MS 20:59 → OBSVTOIN 21:00 → JD.MS 21:00
PROVIDERS: ADMIT Internal Medicine; ATTEND Internal Medicine
PROC: 0DB68ZX Excision of Stomach, Via Natural or Artificial Opening Endoscopic, Diagnostic (ICD-10-PCS; principal; 2016-07-26)
PROC: 0DB98ZX Excision of Duodenum, Via Natural or Artificial Opening Endoscopic, Diagnostic (ICD-10-PCS; 2016-07-26)
DX: R10.31 Right lower quadrant pain (principal); K22.10 Ulcer of esophagus without bleeding; R10.9 Unspecified abdominal pain; G89.29 Other chronic pain; E78.00 Pure hypercholesterolemia, unspecified; R31.0 Gross hematuria; R79.1 Abnormal coagulation profile; R07.9 Chest pain, unspecified; Z79.01 Long term (current) use of anticoagulants; Z79.82 Long term (current) use of aspirin; Z79.899 Other long term (current) drug therapy; Z91.018 Allergy to other foods; E87.6 Hypokalemia; E86.0 Dehydration; K59.09 Other constipation; E83.42 Hypomagnesemia; R53.1 Weakness; E83.52 Hypercalcemia; I25.10 Atherosclerotic heart disease of native coronary artery without angina pectoris; I10 Essential (primary) hypertension; Z87.891 Personal history of nicotine dependence; E78.5 Hyperlipidemia, unspecified; I25.2 Old myocardial infarction; M19.90 Unspecified osteoarthritis, unspecified site; M81.0 Age-related osteoporosis without current pathological fracture; R33.9 Retention of urine, unspecified; R06.02 Shortness of breath; G40.909 Epilepsy, unspecified, not intractable, without status epilepticus; Z90.49 Acquired absence of other specified parts of digestive tract; K44.9 Diaphragmatic hernia without obstruction or gangrene; E55.9 Vitamin D deficiency, unspecified; I72.3 Aneurysm of iliac artery; M62.81 Muscle weakness (generalized); Z23 Encounter for immunization
CPT/HCPCS: 36415; 71010; 74000; 74177; 80053; 80185; 81001; 83735; 84484; 85025; 85610; 86140; 93005; 96361; 96374; 96375; 96376; 99285; A9270 ×2; J1170; J2270; J2405 ×2; J2765; J7040; J7050; Q9963; Q9967; 80048; 82306; 82310; 82553; 83970; 84439; 84443; 88305; 88305-26; 88313; 88313-26; 90471; 90715; 90732; 92610-GN; 97110-GO; 97116-GP; 97161-GP; 97165-GO; 97530-GO; 97535-GO; C9113; G0009; J1650; J2704; J3430; J3475; J7042

== ENCOUNTER 2016-08-04 12:20 | Inpatient (IN) | payer MEDICARE, OTHER, MEDICAID ==
--- NOTE | 2016-08-04 12:32 | EDM.PDOC ---
ED HPI GI/ABDOMINAL - General Chief Complaint: Abdominal Pain Stated Complaint: [facility] Time Seen by Provider: 08/04/16 12:29 Source of Information: Reports: Patient History Limitations: Reports: No limitations - History of Present Illness INITIAL COMMENTS - FREE TEXT/NARRATIVE: 75-year-old male sent down to the ED per [facility] [facility]. He resides in a home in [place] with his elderly . Chief complaint is diffuse midabdominal pain off and on for the last 3-4 days. Unclear when he last had a bowel movement. He has a home care nurse who apparently attempted an enema SundayAugust 02 morning and got little to no results. He thinks his last bowel movement was anywhere between 4 and 7 days ago. He has slight nausea. Describes the pain primarily is intermittent and crampy and mostly periumbilical. No associated fever or chills. Denies any genitourinary complaints. Appetite remains poor. He has not taken anything for pain this morning. He been using narcotics for pain control. This is contributing to his current problem with constipation. Patient was admitted to the hospital on 24 July and just left the hospital on the . He was admitted with chest pain and abdominal pain which required an upper GI endoscopy which identified a sliding hiatal hernia and esophagitis. History with viscous lidocaine and Pepcid and things seemed to improve. His appetite and was improved at that time discharge and he is eating much better. His bowel treatment regime was changed to a Dulcolax to his treatment plan daily but apparently it's failed to produce regular bowel movements. Patient has had previous colon surgery with resection and transient colostomy. This was re\\re. Many years ago. He came in to hospital hyperanticoagulated and he required a small dose of lidocaine to reduce some. He was having some active bleeding after attempted Rose catheterization. Therefore because he was unable to perform the total bowel cleanse required for colonoscopy colonoscopy was not performed. Symptom Onset Date: 07/31/16 Timing/Duration: Reports: Getting worse, Intermittent (Started about 4 days ago has been intermittent since that time.), Waxing/waning Location: periumbilical Quality: Reports: ache, cramping, fullness Severity: moderate Improves with: Reports: other (Can't defecate.) Worsens with: Reports: other (E.) Context: Denies: sick contact, bad/questionable food, out of country travel, recent surgery, recent trauma, lifting, activity/exercise Associated Symptoms: Reports: constipation, loss of appetite, malaise, nausea/ vomiting (Intermittent low-grade nausea.). 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, Other (see below) - Related Data Allergies/ADRs: Allergies Allergy/AdvReac Type Severity Reaction Status Date / Time strawberries Allergy Unknown Cannot Uncoded 08/04/16 18:21 Remember Home Meds: Home Meds Isosorbide Mononitrate [Isosorbide Mononitrate ER] 60 mg PO DAILY 07/15/13 [ History] Phenytoin Sodium Extended 200 mg PO TID 07/15/13 [History] atorvaSTATin [Lipitor] 40 mg PO DAILY 07/15/13 [History] Warfarin [Coumadin] 5 mg PO IRAHETA 12/22/15 [History] Aspirin [Tamika Chewable Aspirin] 81 mg PO DAILY 05/20/16 [History] Carvedilol 6.25 mg PO BIDMEALS 05/20/16 [History] Sulfamethoxazole/Trimethoprim [Sulfamethoxazole-Tmp Ds Tablet] 1 tab PO DAILY [History] Mycophenolate Mofetil 1,000 mg PO BID 07/24/16 [History] Warfarin [Coumadin] 2.5 mg PO MOTUWETHFRSA 07/24/16 [History] diphenhydrAMINE HCl [Benadryl] 25 mg PO DAILY PRN 07/24/16 [History] Bisacodyl [Dulcolax] 5 mg PO DAILY PRN #30 tablet 07/30/16 [Rx] Lidocaine 2% [Xylocaine 2% Viscous] 15 ml PO TIDAC #13 cup 07/30/16 [Rx] Docusate Sodium 100 mg PO DAILY PRN 08/04/16 [History] Famotidine 20 mg PO DAILY 08/04/16 [History] Polyethylene Glycol 3350 [MiraLAX] 17 gm PO DAILY PRN 08/04/16 [History] Vitamin D. 1.25 mg PO WEEKLY 08/04/16 [History] oxyCODONE HCl/Acetaminophen [Percocet 10-325 mg Tablet] 1 tab PO Q4H PRN [History] Past Medical History HEENT History: Reports: Impaired vision Other HEENT History: Glasses Cardiovascular History: Reports: Afib (Chronically and is on Coumadin for this reason.), CAD, High cholesterol, Hypertension, [place] Other Cardiovascular History: [place] in 1996 Respiratory History: Reports: SOB Gastrointestinal History: Reports: Diverticulosis Other Gastrointestinal History: "3 years he had a blockage in intestines, put a temporary bag on it - Dr. Bartlett at [facility] in [place]". Bleeding ulcer in and had half of stomach removed. Musculoskeletal History: Reports: Arthritis, Osteoarthritis, Osteoporosis Other Musculoskeletal History: Falling at home lately Neurological History: Reports: Seizure Other Neuro History: Last seizure was 1984. denies that patient has memory problems Other Psychiatric History: Been a little more "down" the last couple montshs. 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 Nisreen Bell - [facility] - Past Surgical History HEENT Surgical History: Reports: Cataract surgery GI Surgical History: Reports: Cholecystectomy, Colostomy Social & Family History - Family History Family Medical History: Noncontributory - Tobacco Use Smoking Status *Q: Former Smoker (Quit 29 years ago.) Years of Tobacco use: 20 Used Tobacco, but Quit: Yes Month Tobacco Last Used: 04/1991 Second Hand Smoke Exposure: No - Caffeine Use Caffeine Use: Reports: Coffee, Tea - Alcohol Use Days Per Week of Alcohol Use: 0 (Quit drinking alcohol 29 years ago) - Recreational Drug Use Recreational Drug Use: No - Living Situation & Occupation Living situation: Reports: single Occupation: retired [employer] - Review of Systems Review Of Systems: See Below Constitutional: Reports: malaise, weakness, fatigue, decreased appetite, weight loss. Denies: fever, chills HEENT: Reports: Other (Eyesight is poor.) Respiratory: Reports: Shortness of Breath (Chronically. He has end-stage COPD. He is on oxygen), Cough (Occasional mucus production no hemoptysis). Denies: Wheezing ( at 3 L per minute continuously.), Pleuritic Chest Pain Cardiovascular: Reports: Blood pressure problem, Dyspnea on exertion ( Chronically). Denies: Chest pain, Claudication (Usually well-controlled on medication.), Orthopnea, Palpitations Endocrine: Reports: fatigue GI/Abdominal: Reports: Abdominal pain (See history of present illness), Constipation, Nausea (Mild) : Reports: frequency, incontinence (Sometime) Musculoskeletal: Reports: back pain, joint pain (Hips knees neck and shoulder) Skin: Reports: bruising (Bruises very easily because he is on Coumadin. He is particularly bruised badly in his abdominal wall since he was last admitted with treatment and with Lovenox shots the) Neurological: Reports: No Symptoms Psychiatric: Reports: No symptoms ED EXAM, GI/ABD - Physical Exam Exam: See Below Exam Limited By: No limitations General Appearance: alert, no apparent distress, other (Appears disheveled.) Eyes: bilateral: pale conjunctiva (Mild.) Throat/Mouth: Normal inspection, Normal lips, Normal oropharynx, Other Head: atraumatic (Tongue is mildly dry and coated.), normocephalic Neck: normal inspection, supple, non-tender, full range of motion. No: lymphadenopathy (L), lymphadenopathy (R) Respiratory/Chest: no respiratory distress, decreased breath sounds (Decrease of the lower 50% of lung jimenez bilaterally. Occasional expiratory wheezes.), wheezing. No: rales, rhonchi Cardiovascular: normal peripheral pulses, no murmur, irregularly irregular GI/Abdominal: soft, non tender, hyperactive bowel sounds, tenderness (Mostly in the epigastrium.), distention (Mildly distended. Typically to percussion.), other (Patient has multiple ecchymoses large bruises that Lovenox injection sites across both sides of the upper and lower abdominal wall. Mild subcutaneous hematomas are evident at several of these spots.). No: guarding Back Exam: normal inspection. No: full range of motion, CVA tenderness (L), CVA tenderness (R) Extremities: normal inspection, normal range of motion, non-tender, no pedal edema, normal capillary refill Neurological: alert, oriented, CN II-XII intact, normal cognition, normal gait Psychiatric: flat affect Skin Exam: Warm, Dry, Intact, Normal color, No rash Course - Vital Signs Last Recorded V/S: Last Vital Signs Temp 36.4 C 08/06/16 15:02 Pulse 92 08/06/16 16:52 Resp 20 08/06/16 15:02 BP 121/75 08/06/16 16:52 Pulse Ox 99 08/06/16 15:02 - Orders/Labs/Meds Orders: Medication Orders Bisacodyl (Dulcolax) 5 mg PO DAILY PRN PRN Reason: Constipation Carvedilol (Coreg) 6.25 mg PO BIDMEALS [facility] Last Admin: 08/06/16 16:52 Dose: 6.25 mg Admin: 08/06/16 09:45 Dose: 6.25 mg Admin: 08/05/16 16:05 Dose: 6.25 mg Admin: 08/05/16 06:34 Dose: 6.25 mg Al Hydroxide/Mg Hydroxide 30 (ml/ Lidocaine HCl 15 ml) 0 ml PO TIDAC PRN PRN Reason: STOMACH IRRITATION Diphenhydramine HCl (Benadryl) 25 mg PO DAILY PRN PRN Reason: Itching Sodium Chloride (Sodium Chloride 0.45%) 1,000 mls @ 50 mls/hr IV ASDIRECTED [facility] Last Admin: 08/06/16 16:56 Dose: 50 mls/hr Infusion: 08/06/16 16:56 Dose: 50 mls/hr Admin: 08/06/16 11:42 Dose: 50 mls/hr Infusion: 08/06/16 11:42 Dose: 50 mls/hr Admin: 08/06/16 01:00 Dose: 70 mls/hr Infusion: 08/05/16 21:23 Dose: 70 mls/hr Admin: 08/05/16 09:21 Dose: 70 mls/hr Infusion: 08/05/16 08:55 Dose: 70 mls/hr Admin: 08/04/16 18:37 Dose: 70 mls/hr Isosorbide Mononitrate (Imdur) 60 mg PO DAILY [facility] Last Admin: 08/06/16 09:44 Dose: 60 mg Admin: 08/05/16 09:22 Dose: 60 mg Mycophenolate Mofetil (Cellcept) 1,000 mg PO BID [facility] Last Admin: 08/06/16 09:44 Dose: 1,000 mg Admin: 08/05/16 21:23 Dose: 1,000 mg Admin: 08/05/16 09:22 Dose: 1,000 mg Ondansetron HCl (Zofran) 4 mg IVPUSH Q8H PRN PRN Reason: Nausea/Vomiting Phenytoin Sodium (Phenytoin) 200 mg PO TID [facility] Last Admin: 08/06/16 16:52 Dose: 200 mg Admin: 08/06/16 09:44 Dose: 200 mg Admin: 08/05/16 21:24 Dose: 200 mg Admin: 08/05/16 16:05 Dose: 200 mg Admin: 08/05/16 09:22 Dose: 200 mg Admin: 08/04/16 21:38 Dose: 200 mg Potassium Chloride (Potassium Chloride Solution) 40 meq PO BIDMEALS [facility] Last Admin: 08/06/16 16:52 Dose: 40 meq Admin: 08/06/16 09:43 Dose: 40 meq Admin: 08/05/16 17:58 Dose: 40 meq Prochlorperazine Edisylate (Compazine) 5 mg IVPUSH Q6H PRN PRN Reason: Nausea/Vomiting Rosuvastatin Calcium (Crestor) 10 mg PO DAILY [facility] Last Admin: 08/06/16 09:44 Dose: 10 mg Admin: 08/05/16 09:22 Dose: 10 mg Trimethoprim/Sulfamethoxazole (Septra Ds) 1 tab PO DAILY [facility] Last Admin: 08/06/16 09:44 Dose: 1 tab Admin: 08/05/16 09:22 Dose: 1 tab Labs: Laboratory Tests 08/04/16 08/04/16 08/04/16 Range/Units 13:00 13:00 13:00 WBC 6.13 (4.23-9.07) K/mm3 RBC 4.01 L (4.63-6.08) M/mm3 Hgb 11.5 L (13.7-17.5) gm/L Hct 35.0 L (40.1-51.0) % MCV 87.3 (79.0-92.2) fl MCH 28.7 (25.7-32.2) pg MCHC 32.9 (32.2-35.5) g/dl RDW Std Deviation 48.5 H (35.1-43.9) fL Plt Count 347 H (163-337) K/mm3 MPV 8.8 L (9.4-12.3) fl Neutrophils % (Manual) 75 H (40-60) % Band Neutrophils % 0 (0-10) % Lymphocytes % (Manual) 25 (20-40) % Atypical Lymphs % 0 % Immat Monocytes % (Man) 0 Monocytes % (Manual) 0 L (2-10) % Eosinophils % (Manual) 0 L (0.8-7.0) % Basophils % (Manual) 0 L (0.2-1.2) Metamyelocytes % 0 Myelocytes % 0 Promyelocytes % 0 Blast Cells % 0 Plasma Cell % (Manual) 0 Nucleated RBCs 0.0 % Hypersegmented Neuts Few Platelet Estimate Adequate Anisocytosis 2+ moderate RBC Morph Comment Normal PT 36.6 H (8.0-13.0) SECONDS INR 3.12 Sodium 139 (136-145) mEq/L Potassium 3.9 (3.5-5.1) mEq/L Chloride 106 (98-107) mEq/L Carbon Dioxide 25 (21-32) mEq/L Anion Gap 11.9 (5-15) BUN 20 H (7-18) mg/dL Creatinine 1.1 (0.7-1.3) mg/dL Est Cr Clr Drug Dosing 44.13 mL/min Estimated GFR (MDRD) > 60 (>60) mL/min BUN/Creatinine Ratio 18.2 H (14-18) Glucose 79 L (83-115) mg/dL Calcium 12.1 H (8.5-10.1) mg/dL Total Bilirubin 0.4 (0.2-1.0) mg/dL AST 24 (15-37) U/L ALT 16 (16-63) U/L Alkaline Phosphatase 185 H (46-116) U/L C-Reactive Protein 3.4 H* (<1.0) mg/dL Total Protein 7.5 (6.4-8.2) g/dl Albumin 2.6 L (3.4-5.0) g/dl Globulin 4.9 gm/dL Albumin/Globulin Ratio 0.5 L (1-2) Lipase (73-393) U/L // Range/Units 13:00 WBC (4.23-9.07) K/mm3 RBC (4.63-6.08) M/mm3 Hgb (13.7-17.5) gm/L Hct (40.1-51.0) % MCV (79.0-92.2) fl MCH (25.7-32.2) pg MCHC (32.2-35.5) g/dl RDW Std Deviation (35.1-43.9) fL Plt Count (163-337) K/mm3 MPV (9.4-12.3) fl Neutrophils % (Manual) (40-60) % Band Neutrophils % (0-10) % Lymphocytes % (Manual) (20-40) % Atypical Lymphs % % Immat Monocytes % (Man) Monocytes % (Manual) (2-10) % Eosinophils % (Manual) (0.8-7.0) % Basophils % (Manual) (0.2-1.2) Metamyelocytes % Myelocytes % Promyelocytes % Blast Cells % Plasma Cell % (Manual) Nucleated RBCs % Hypersegmented Neuts Platelet Estimate Anisocytosis RBC Morph Comment PT (8.0-13.0) SECONDS INR Sodium (136-145) mEq/L Potassium (3.5-5.1) mEq/L Chloride (98-107) mEq/L Carbon Dioxide (21-32) mEq/L Anion Gap (5-15) BUN (7-18) mg/dL Creatinine (0.7-1.3) mg/dL Est Cr Clr Drug Dosing mL/min Estimated GFR (MDRD) (>60) mL/min BUN/Creatinine Ratio (14-18) Glucose (83-115) mg/dL Calcium (8.5-10.1) mg/dL Total Bilirubin (0.2-1.0) mg/dL AST (15-37) U/L ALT (16-63) U/L Alkaline Phosphatase (46-116) U/L C-Reactive Protein (<1.0) mg/dL Total Protein (6.4-8.2) g/dl Albumin (3.4-5.0) g/dl Globulin gm/dL Albumin/Globulin Ratio (1-2) Lipase 284 (73-393) U/L Meds: Medications Generic Name Dose Route Start Last Admin Trade Name Freq PRN Reason Stop Dose Admin Bisacodyl 5 mg 08/04/16 17:42 Dulcolax PO DAILY PRN Constipation Carvedilol 6.25 mg 08/05/16 07:00 08/06/16 16:52 Coreg PO 6.25 mg BIDMEALS RICH Administration Al Hydroxide/Mg Hydroxide 30 0 ml 08/05/16 09:02 ml/ Lidocaine HCl 15 ml PO TIDAC PRN STOMACH IRRITATION Diphenhydramine HCl 25 mg 08/04/16 17:42 Benadryl PO DAILY PRN Itching Sodium Chloride 1,000 mls @ 50 mls/hr 08/04/16 18:00 08/06/16 16:56 Sodium Chloride 0.45% IV 50 mls/hr ASDIRECTED RICH Administration Isosorbide Mononitrate 60 mg 08/05/16 09:00 08/06/16 09:44 Imdur PO 60 mg DAILY RICH Administration Mycophenolate Mofetil 1,000 mg 08/05/16 09:00 08/06/16 09:44 Cellcept PO 1,000 mg BID RICH Administration Ondansetron HCl 4 mg 08/04/16 18:01 Zofran IVPUSH Q8H PRN Nausea/Vomiting Phenytoin Sodium 200 mg 08/04/16 21:00 08/06/16 16:52 Phenytoin PO 200 mg TID RICH Administration Potassium Chloride 40 meq 08/05/16 17:30 08/06/16 16:52 Potassium Chloride Solution PO 40 meq BIDMEALS RICH Administration Prochlorperazine Edisylate 5 mg 08/04/16 17:55 Compazine IVPUSH Q6H PRN Nausea/Vomiting Rosuvastatin Calcium 10 mg 08/05/16 09:00 08/06/16 09:44 Crestor PO 10 mg DAILY RICH Administration Trimethoprim/Sulfamethoxazole 1 tab 08/05/16 09:00 08/06/16 09:44 Septra Ds PO 1 tab DAILY RICH Administration Discontinued Medications Generic Name Dose Route Start Last Admin Trade Name Freq PRN Reason Stop Dose Admin Aspirin 81 mg 08/05/16 09:00 08/05/16 09:22 Aspirin PO 81 mg DAILY RICH Administration Hydromorphone HCl 0.5 mg 08/04/16 12:42 08/04/16 12:49 Dilaudid IVPUSH 08/04/16 12:43 0.5 mg ONETIME ONE Administration Sodium Chloride 1,000 mls @ 150 mls/hr 08/04/16 12:45 08/04/16 12:48 Normal Saline IV 150 mls/hr ASDIRECTED RICH Administration Sodium Chloride 1,000 mls @ 100 mls/hr 08/04/16 18:15 Sodium Chloride 0.45% IV ASDIRECTED RICH Sodium Chloride 1,000 mls @ 999 mls/hr 08/04/16 18:30 Sodium Chloride 0.45% IV 08/04/16 19:31 ASDIRECTED [facility] Sodium Chloride 1,000 mls @ 70 mls/hr 08/04/16 18:15 Normal Saline IV ASDIRECTED [facility] Magnesium Sulfate 2 gm/ Premix 50 mls @ 25 mls/hr 08/05/16 17:30 08/05/16 18: 00 IV 08/05/16 19:29 25 mls/hr ONETIME ONE Administration Lidocaine HCl 15 ml 08/05/16 07:00 08/05/16 06:34 Xylocaine 2% Viscous PO Not Given TIDAC [facility] Magnesium Citrate 240 ml 08/04/16 17:54 08/04/16 18:14 Citrate Of Magnesia PO 08/04/16 17:55 Not Given ONETIME ONE Mycophenolate Mofetil 1,000 mg 08/04/16 21:00 08/04/16 21:38 Cellcept PO Not Given BID [facility] Ondansetron HCl 4 mg 08/04/16 12:43 08/04/16 12:50 Zofran IVPUSH 08/04/16 12:44 4 mg ONETIME ONE Administration Mycophenolate 0 each 08/05/16 09:00 Mofetil 250 Mg Cap. PO BID [facility] Phytonadione 5 mg 08/04/16 17:52 08/04/16 18:37 Aquamephyton PO 08/04/16 17:53 5 mg ONETIME ONE Administration Polyethylene Glycol 102 gm 08/04/16 12:44 08/04/16 13:01 Miralax PO 08/04/16 12:45 102 gm ONETIME ONE Administration Polyethylene Glycol/Electrolytes 4,000 ml 08/05/16 15:25 08/05/16 15:36 Golytely PO 08/05/16 15:26 Not Given ONETIME ONE Polyethylene Glycol/Electrolytes 4,000 ml 08/06/16 17:00 08/06/16 18:19 Golytely PO 08/06/16 17:01 4,000 ml ONETIME ONE Administration - Radiology Interpretation Free Text/Narrative:: 35-year-old male presents the ED for evaluation of periumbilical cramping abdominal pain for the better part of 4 days. Has a history of chronic constipation. Intermittent mild nausea without any vomiting. He appears to be suffering malnutrition. I have seen him recently on several occasions and he continues to lose weight. Examination reveals decreased air entry to the posterior 50% of lung jimenez. He remains on oxygen continuously for his COPD. Abdomen is slightly distended and tympanitic to percussion comparison aerophagia. Tonsils are active in all 4 quadrants. Soft patient however with no organomegaly masses or peritoneal signs. Plan KUB to be done routine labs. IV normal saline at 150 mils per hour. We'll give Dilaudid 0.5 mg IV and Zofran 4 mg IV for pain and nausea relief. - Re-Assessments/Exams Free Text/Narrative Re-Assessment/Exam: 08/04/16 12:52 KUB reveals scattered gas with some evidence of constipation involving the left hemicolon and the splenic flexure area. There is a small amount of stool in the rectal vault. It appears that enema would not likely provide much symptom relief. Therefore going to try 6 scoops of MiraLax next a 24 ounces of Gatorade orally to see if we can get his bowels working this way. Routine labs will be checked. Include PT/INR 08/04/16 13:52 ; White count 6.13 with hemoglobin of 11.5. Of note this is an improvement compared to discharge was 10.5. Hematocrit is 35.0x3 and 47,000. PTT is 36.6 and INR 3.12. Remains mildly hyperinflated coagulated. Sodium is 139 potassium 3.9 chloride 16 bicarbonate 25 anion gap is 11.9 BUN was 20 creatinine is 1.1 glucose was 79 calcium 12.1 it was 12.0 on last admission I ordered an ionized calcium. Alk phosphatase is 185 CRP is mildly elevated at 3.4 lipase normal at 284. Therefore the only abnormality I can identify at this time is mild constipation on x-ray. He was therefore given 6 scoops of MiraLax powder mixed with 24 ounces of Gatorade per or to act as a bowel cleanse. Identified to the nurses that he likely will be able to go home. He contacted his who indicates that she does not want him back home. She feels he's failing to thrive not eating and not passing bowels and she feels them more difficult to look after them. Therefore his only option therefore would be to look for a senior care bed. I will have nursing home social worker become involved in this case. 08/04/1714;: spoke with Dr. Valente who is in the ED and he is willing to scope this fellow if we can get him spell cleaned out. He refused bowel prep in the past. He was treated with constant for constipation while in the ED was six scoops of MiraLax and 24 ounces of Gatorade which he did take quite well while he was in the ED. If his bowel is cleansed and no abnormalities are identified as to cause of recent blood loss per rectum other than his supratherapeutic INR plan will be to discharge and two children senior care on Sunday. His is informed of this and part of the decision-making process. She refused to take him home until he is able to eat and function normally in the home. He is exhibiting sinus symptoms about a third to thrive with continued weight loss. Departure - Departure Time of Disposition: 18:00 Disposition: DC/Tfer to Acute Hospital 02 Condition: fair (failure to thrive.) Clinical Impression: Supratherapeutic INR, Adult failure to thrive syndrome
[2016-08-04] MEDS ORDERED: HYDROmorphone 0.5 MG/0.5 ML Syringe IVPUSH ONE (12:42)
[2016-08-04] MEDS ORDERED: Ondansetron 4 MG/2 ML SDV IVPUSH ONE (12:43)
[2016-08-04] MEDS ORDERED: Polyethylene Glycol 3350 Powder 17 GM Packet PO ONE (12:44)
[2016-08-04] MEDS ORDERED: Sodium Chloride 0.9% 1,000 ML IV SCH ×2 (12:45→18:15)
--- NOTE | 2016-08-04 13:41 | CR ---
Abdomen: Supine view of the abdomen was obtained. Comparison: Previous abdominal x-ray of 07/25/16. Atherosclerotic change is noted within the aortoiliac vessels. Surgical clips are seen within the upper abdomen. Bowel gas pattern is normal. Surgical anastomotic sutures are seen within the pelvis. Impression: 1. Incidental findings. Normal bowel gas pattern. Diagnostic code #2
[2016-08-04] MEDS ORDERED: Bisacodyl 5 MG Tab PO PRN (17:42)
[2016-08-04] MEDS ORDERED: diphenhydrAMINE 25 MG Cap PO PRN (17:42)
[2016-08-04] MEDS ORDERED: Phytonadione ORAL 2.5mg/2.5ml Soln Simple Syrup U/D PO ONE (17:52)
[2016-08-04] MEDS ORDERED: Magnesium Citrate Solution 296 ML Bottle PO ONE (17:54)
[2016-08-04] MEDS ORDERED: Prochlorperazine 10 MG/2 ML SDV IVPUSH PRN (17:55)
[2016-08-04] MEDS ORDERED: Ondansetron 4 MG/2 ML SDV IVPUSH PRN (18:01)
--- NOTE | 2016-08-04 18:08 | PCM.HP ---
H&P History of Present Illness - General Date of Service: 08/04/16 Admit Problem/Dx: Admission Diagnosis/Problem Admission Diagnosis/Problem Abdominal pain - History of Present Illness Initial Comments - Free Text/Narative: 75 year old male recently discharged on after a length of stay for abdominal pain, 07/24/16-07/30/16. He was to have had a colonoscopy as an outpatient after preventing the diagnostic test as an inpatient when he refused to take his Golytely as ordered. He takes chronic narcotics for unspecified abdominal pain. Reports being constipated, and eating very little since he was discharged; last bowel movement was reported as 08/01/16. The [facility] report documents a complaint of abdominal pain. Vital signs were stable. The complaint in the ED was abdominal pain. Minimal nausea, as well as a decrease in appetite; he has loss reportedly six pounds. He denies fever, chills; narcotic induced constipation is highly probable. This would exacerbate the current complaint of abdominal pain. He underwent an EGD on his July admission, this resulted in an diagnosis of a sliding hiatal hernia and esophagitis. The procedure was performed by Dr Stanton. There is a remote history of bowel obstruction with subsequent colon resection and colostomy; the colostomy was reversed. He currently is being hydrated and has been given Miralax in the ED. The six scoops of Miralax (given at 1244 hour) have had a profound/rapid result by 1750 hour. Since presenting to the hospital side after admission, he has been incontinent of stool, defecating while a sleep. He has required a change in bed clothes twice since arrival. It is anticipated that he will comply with the necessary bowel prep for a colonoscopy, the procedure is tentatively scheduled for 08/07/16. Onset of Symptoms: Reports: unknown/unsure Duration of Symptoms: Reports: Day(s):, Getting worse, Waxing/waning Location: Reports: abdomen Severity: moderate Improves with: Reports: None Worsens with: Reports: None Associated Symptoms: Reports: loss of appetite, nausea/vomiting, weakness Abdominal Pain Score (Numeric/FACES): 10 - Related Data Allergies/Adverse Reactions: Allergies Allergy/AdvReac Type Severity Reaction Status Date / Time strawberries Allergy Unknown Cannot Uncoded 08/04/16 18:21 Remember Home Medications: Home Meds Isosorbide Mononitrate [Isosorbide Mononitrate ER] 60 mg PO DAILY 07/15/13 [ History] Phenytoin Sodium Extended 200 mg PO TID 07/15/13 [History] atorvaSTATin [Lipitor] 40 mg PO DAILY 07/15/13 [History] Warfarin [Coumadin] 5 mg PO IRAHETA 12/22/15 [History] Aspirin [Tamika Chewable Aspirin] 81 mg PO DAILY 05/20/16 [History] Carvedilol 6.25 mg PO BIDMEALS 05/20/16 [History] Sulfamethoxazole/Trimethoprim [Sulfamethoxazole-Tmp Ds Tablet] 1 tab PO DAILY [History] Mycophenolate Mofetil 1,000 mg PO BID 07/24/16 [History] Warfarin [Coumadin] 2.5 mg PO MOTUWETHFRSA 07/24/16 [History] diphenhydrAMINE HCl [Benadryl] 25 mg PO DAILY PRN 07/24/16 [History] Bisacodyl [Dulcolax] 5 mg PO DAILY PRN #30 tablet 07/30/16 [Rx] Lidocaine 2% [Xylocaine 2% Viscous] 15 ml PO TIDAC #13 cup 07/30/16 [Rx] Docusate Sodium 100 mg PO DAILY PRN 08/04/16 [History] Famotidine 20 mg PO DAILY 08/04/16 [History] Polyethylene Glycol 3350 [MiraLAX] 17 gm PO DAILY PRN 08/04/16 [History] Vitamin D. 1.25 mg PO WEEKLY 08/04/16 [History] oxyCODONE HCl/Acetaminophen [Percocet 10-325 mg Tablet] 1 tab PO Q4H PRN [History] Past Medical History HEENT History: Reports: Impaired vision Other HEENT History: Glasses Cardiovascular History: Reports: Afib (Chronically and is on Coumadin for this reason.), CAD, High cholesterol, Hypertension, PA Other Cardiovascular History: PA in 1996 Respiratory History: Reports: SOB Gastrointestinal History: Reports: Diverticulosis Other Gastrointestinal History: "3 years he had a blockage in intestines, put a temporary bag on it - Dr. Bartlett at [facility] in [place]". Bleeding ulcer in 1969's and had half of stomach removed. Musculoskeletal History: Reports: Arthritis, Osteoarthritis, Osteoporosis Other Musculoskeletal History: Falling at home lately Neurological History: Reports: Seizure Other Neuro History: Last seizure was 1984. denies that patient has memory problems Other Psychiatric History: Been a little more "down" the last couple montshs. 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 Nisreen Bell [facility] dermatology [facility] - Past Surgical History HEENT Surgical History: Reports: Cataract surgery GI Surgical History: Reports: Cholecystectomy, Colostomy Social & Family History - Family History Family Medical History: Noncontributory - Tobacco Use Smoking Status *Q: Former Smoker (Quit 29 years ago.) Years of Tobacco use: 20 Used Tobacco, but Quit: Yes Month Tobacco Last Used: 04/1991 Second Hand Smoke Exposure: No - Caffeine Use Caffeine Use: Reports: Coffee, Tea - Alcohol Use Days Per Week of Alcohol Use: 0 (Quit drinking alcohol 29 years ago) - Recreational Drug Use Recreational Drug Use: No - Living Situation & Occupation Living situation: Reports: single Occupation: retired H&P Review of Systems - Review of Systems: Review Of Systems: See Below General: Reports: malaise, weakness, fatigue HEENT: Reports: no symptoms Pulmonary: Reports: No Symptoms Cardiovascular: Reports: no symptoms Gastrointestinal: Reports: Abdominal pain, Constipation, Decreased appetite, Nausea Genitourinary: Reports: no symptoms Musculoskeletal: Reports: no symptoms Skin: Reports: no symptoms Psychiatric: Reports: no symptoms Neurological: Reports: No Symptoms Hematologic/Lymphatic: Reports: no symptoms Immunologic: Reports: no symptoms Exam - Exam Exam: See Below - Vital Signs Vital Signs: Last Vital Signs Temp 36.4 C 08/04/16 18:01 Pulse 85 08/04/16 18:01 Resp 14 08/04/16 18:01 BP 143/95 H 08/04/16 18:01 Pulse Ox 95 08/04/16 18:01 Weight: 65.726 kg - Exam Quality Assessment: DVT prophylaxis General: alert, oriented, mild distress HEENT: Nares patent, Normal nasal septum, Pupils equal, Pupils reactive, Other ( dry mucosa), PERRLA Neck: supple, trachea midline Lungs: Normal respiratory effort, Rhonchi, Wheezing Cardiovascular: regular rate, irregular rhythm Abdomen: normal bowel sounds, soft, distention, guarding (no), rigidity (no), rebound (no), tenderness (no) (Male) Exam: Deferred Rectal (Males) Exam: Deferred Back Exam: normal inspection Extremities: normal pulses Skin: warm Neurological: cranial nerves intact Neuro Extensive - Mental Status: alert, oriented x3 Neuro Extensive - Motor, Sensory, Reflexes: CN II-XII intact Psychiatric: alert, depressed - Patient Data Lab Results last 24 hrs: Laboratory Results - last 24 hr 08/04/16 Range/Units 16:20 Urine Color Yellow (Yellow) Urine Appearance Clear (Clear) Urine pH 6.0 (5.0-8.0) Ur Specific [place] > or = 1.030 (1.005-1.030) Urine Protein 2+ H (Negative) Urine Glucose (UA) Negative (Negative) Urine Ketones 1+ H (Negative) Urine Occult Blood 2+ H (Negative) Urine Nitrite Negative (Negative) Urine Bilirubin 2+ H (Negative) Urine Urobilinogen 1.0 (0.2-1.0) Ur Leukocyte Esterase Negative (Negative) Urine RBC 50-75 H (0-5) /hpf Urine WBC 0-5 (0-5) /hpf Ur Epithelial Cells Not Reportable Ur Squamous Epith Cells 0-5 (0-5) /hpf Urine Bacteria Many H (FEW) /hpf Hyaline Casts 5-10 H (0-5) /lpf Urine Mucus Moderate H (FEW) /hpf Result Diagrams: 08/05/16 06:01 08/05/16 06:01 *Q Meaningful Use (ADM) - VTE *Q VTE Criteria *Q: - Stroke *Q Stroke Criteria *Q: - AMI *Q AMI Criteria *Q: - Problem List (1) Abdominal pain SNOMED Code(s): 00194570 ICD Code: R10.9 - UNSPECIFIED ABDOMINAL PAIN Status: Acute Current Visit : Yes (2) Hiatal hernia SNOMED Code(s): 83502133 ICD Code: K44.9 - DIAPHRAGMATIC HERNIA WITHOUT OBSTRUCTION OR GANGRENE Status: Acute Current Visit: Yes (3) Afib, Atrial fibrillation and flutter SNOMED Code(s): 384312135 ICD Code: I48.91 - UNSPECIFIED ATRIAL FIBRILLATION; I48.92 - UNSPECIFIED ATRIAL FLUTTER Status: Acute Current Visit: No (4) Aneurysm of internal iliac artery SNOMED Code(s): 514123418 ICD Code: I72.3 - ANEURYSM OF ILIAC ARTERY Status: Acute Current Visit: No (5) Dehydration SNOMED Code(s): 02615901 ICD Code: E86.0 - DEHYDRATION Status: Resolved Current Visit: No Problem List Initiated/Reviewed/Updated: Yes Orders Last 24hrs: Active Orders 24 hr Category Date Time Status Activity as Tolerated [RC] .Routine Care 08/04/16 18:08 Ordered Antiembolic Devices [RC] PER UNIT ROUTINE Care 08/04/16 17:52 Ordered Notify Provider Consults [RC] ASDIRECTED Care 08/04/16 18:04 Ordered Vital Signs [RC] PER UNIT ROUTINE Care 08/04/16 17:43 Ordered Consult to Occupational Therapy [OT Evaluation and Cons 08/07/16 10:00 Ordered Treatment] [CONS] Routine Consult to Physical Therapy [PT Evaluation and Cons 08/05/16 09:00 Ordered Treatment] [CONS] Routine Consult to Physician [CONS] Routine Cons 08/05/16 10:00 Ordered Clear Liquid Diet [DIET] Diet 08/04/16 Dinner Ordered BMP [BASIC METABOLIC PANEL,BMP] [CHEM] DAILY Lab 08/05/16 05:00 Ordered BMP [BASIC METABOLIC PANEL,BMP] [CHEM] DAILY Lab 08/06/16 05:00 Ordered BMP [BASIC METABOLIC PANEL,BMP] [CHEM] DAILY Lab 08/07/16 05:00 Ordered BMP [BASIC METABOLIC PANEL,BMP] [CHEM] DAILY Lab 08/08/16 05:00 Ordered CBC WITH AUTO DIFF [HEME] DAILY Lab 08/05/16 05:00 Ordered CBC WITH AUTO DIFF [HEME] DAILY Lab 08/06/16 05:00 Ordered CBC WITH AUTO DIFF [HEME] DAILY Lab 08/07/16 05:00 Ordered CBC WITH AUTO DIFF [HEME] DAILY Lab 08/08/16 05:00 Ordered INR,PT,PROTHROMBIN TIME [COAG] Routine Lab 08/05/16 05:00 Ordered Aspirin Med 08/05/16 09:00 Ordered 81 mg PO DAILY Bisacodyl [Dulcolax] Med 08/04/16 17:42 Ordered 5 mg PO DAILY PRN Carvedilol [Coreg] Med 08/05/16 07:00 Ordered 6.25 mg PO BIDMEALS Isosorbide Mononitrate [Imdur] Med 08/05/16 09:00 Ordered 60 mg PO DAILY Lidocaine 2% [Xylocaine 2% Viscous] Med 08/05/16 07:00 Ordered 15 ml PO TIDAC Mycophenolate Mofetil Med 08/04/16 21:00 Ordered 1,000 mg PO BID Ondansetron [Zofran] Med 08/04/16 18:01 Ordered 4 mg IVPUSH Q8H PRN Phenytoin Sodium Extended [Phenytoin Sodium Extended] Med 08/04/16 21:00 Ordered 200 mg PO TID Prochlorperazine [Compazine] Med 08/04/16 17:55 Ordered 5 mg IVPUSH Q6H PRN Sodium Chloride 0.45% 1,000 ml Med 08/04/16 18:00 Ordered IV ASDIRECTED Sulfamethoxazole/Trimethoprim [Septra DS] Med 08/05/16 09:00 Ordered 1 tab PO DAILY atorvaSTATin Med 08/05/16 09:00 Ordered 40 mg PO DAILY diphenhydrAMINE [Benadryl] Med 08/04/16 17:42 Ordered 25 mg PO DAILY PRN DELBERT Hose [Antiembolic Hose] [OM.PC] Routine Oth 08/04/16 17:52 Ordered Code Status [Resuscitation Status] Routine Resus Stat 08/04/16 17:44 Ordered Medication Orders Aspirin (Aspirin) 81 mg PO DAILY RICH Bisacodyl (Dulcolax) 5 mg PO DAILY PRN PRN Reason: Constipation Carvedilol (Coreg) 6.25 mg PO BIDMEALS RICH Diphenhydramine HCl (Benadryl) 25 mg PO DAILY PRN PRN Reason: Itching Sodium Chloride (Normal Saline) 1,000 mls @ 150 mls/hr IV ASDIRECTED RICH Last Admin: 08/04/16 12:48 Dose: 150 mls/hr Isosorbide Mononitrate (Imdur) 60 mg PO DAILY RICH Lidocaine HCl (Xylocaine 2% Viscous) 15 ml PO TIDAC RICH Mycophenolate Mofetil (Cellcept) 1,000 mg PO BID RICH Phenytoin Sodium (Phenytoin) 200 mg PO TID RICH Prochlorperazine Edisylate (Compazine) 5 mg IVPUSH Q6H PRN PRN Reason: Nausea/Vomiting Rosuvastatin Calcium (Crestor) 10 mg PO DAILY RICH Trimethoprim/Sulfamethoxazole (Septra Ds) 1 tab PO DAILY RICH Assessment/Plan Comment:: Impression: Abdominal pain with decrease appetite and weight loss Narcotic use for abdominal pain of uncllear etiology Query Liver disease, hx of ETOH A Fib on coumadin s/p Vitamin K in the ED Recent EGD with finding of hiatal hernia and esophagitis Plan: Clear Liquids General surgery consult Bowel prep for procedure, 08/06/16 DVT/GI prophylaxis SW/CM consult for SNF placement
[2016-08-04] MEDS ORDERED: Sodium Chloride 0.45% 1,000 ML IV SCH ×2 (18:15→18:30)
[2016-08-04] MEDS: Sodium Chloride 0.45% 1,000 ML IV SCH (18:37)
[2016-08-04] MEDS ORDERED: Mycophenolate Mofetil 250 MG Cap PO SCH (21:00)
[2016-08-04] MEDS: Phenytoin 100 MG Cap.ER PO SCH (21:38)
[2016-08-05] MEDS: Carvedilol 6.25 MG Tab PO SCH ×2 (06:34→16:05)
[2016-08-05] MEDS ORDERED: Lidocaine 2% Viscous Solution 15 ML Cup PO SCH (07:00)
[2016-08-05] MEDS ORDERED: MYCOPHENOLATE MOFETIL 250 MG PO SCH (09:00)
[2016-08-05] MEDS ORDERED: Aspirin 81 MG Tab.Chew PO SCH (09:00)
[2016-08-05] MEDS ORDERED: Alum Hydrox/Mag Hydrox/Simeth 30 ML, Lidocaine 2% 15 ML PO PRN ×2 (09:02)
[2016-08-05] MEDS: Sodium Chloride 0.45% 1,000 ML IV SCH (09:21)
[2016-08-05] MEDS: Sulfamethoxazole/Trimethoprim 800-160 MG Tab PO SCH (09:22)
[2016-08-05] MEDS: Isosorbide Mononitrate 60 MG Tab.ER PO SCH (09:22)
[2016-08-05] MEDS: MYCOPHENOLATE MOFETIL 250 MG PO SCH ×2 (09:22→21:23)
[2016-08-05] MEDS: Rosuvastatin 10 MG Tab PO SCH (09:22)
[2016-08-05] MEDS: Phenytoin 100 MG Cap.ER PO SCH ×3 (09:22→21:24)
[2016-08-05] MEDS ORDERED: Polyethylene Glycol/Electrolytes 4,000 ML Bottle PO ONE (15:25)
--- NOTE | 2016-08-05 16:03 | PCM.CONSN ---
- General Info Date of Service: 08/05/16 - Patient Data Vitals - most recent: Last Vital Signs Temp 98.2 F 08/05/16 15:03 Pulse 86 08/05/16 15:03 Resp 18 08/05/16 15:03 BP 115/59 L 08/05/16 15:03 Pulse Ox 97 08/05/16 15:03 Weight - most recent: 65.091 kg I&O - last 24 hours: Intake & Output 08/05/16 08/05/16 08/05/16 07:59 15:59 23:59 Intake Total 1100 Balance 1100 Lab Results last 24 hrs: Laboratory Results - last 24 hr 08/04/16 08/04/16 08/05/16 Range/Units 16:20 18:45 06:01 WBC 6.25 (4.23-9.07) K/mm3 RBC 3.78 L (4.63-6.08) M/mm3 Hgb 11.0 L (13.7-17.5) gm/L Hct 33.7 L (40.1-51.0) % MCV 89.2 (79.0-92.2) fl MCH 29.1 (25.7-32.2) pg MCHC 32.6 (32.2-35.5) g/dl RDW Std Deviation 50.1 H (35.1-43.9) fL Plt Count 365 H (163-337) K/mm3 MPV 9.4 (9.4-12.3) fl Neut % (Auto) 65.8 (34.0-67.9) % Lymph % (Auto) 17.9 L (21.8-53.1) % [place] % (Auto) 12.5 H (5.3-12.2) % Eos % (Auto) 3.2 (0.8-7.0) Baso % (Auto) 0.3 (0.1-1.2) % Neut # (Auto) 4.11 (1.78-5.38) K/mm3 Lymph # (Auto) 1.12 L (1.32-3.57) K/mm3 [place] # (Auto) 0.78 (0.30-0.82) K/mm3 Eos # (Auto) 0.20 (0.04-0.54) K/mm3 Baso # (Auto) 0.02 (0.01-0.08) K/mm3 PT (8.0-13.0) SECONDS INR Sodium (136-145) mEq/L Potassium (3.5-5.1) mEq/L Chloride (98-107) mEq/L Carbon Dioxide (21-32) mEq/L Anion Gap (5-15) BUN (7-18) mg/dL Creatinine (0.7-1.3) mg/dL Est Cr Clr Drug Dosing mL/min Estimated GFR (MDRD) (>60) mL/min BUN/Creatinine Ratio (14-18) Glucose (83-115) mg/dL Calcium (8.5-10.1) mg/dL Magnesium (1.8-2.4) mg/dl Urine Color Yellow (Yellow) Urine Appearance Clear (Clear) Urine pH 6.0 (5.0-8.0) Ur Specific [place] > or = 1.030 (1.005-1.030) Urine Protein 2+ H (Negative) Urine Glucose (UA) Negative (Negative) Urine Ketones 1+ H (Negative) Urine Occult Blood 2+ H (Negative) Urine Nitrite Negative (Negative) Urine Bilirubin 2+ H (Negative) Urine Urobilinogen 1.0 (0.2-1.0) Ur Leukocyte Esterase Negative (Negative) Urine RBC 50-75 H (0-5) /hpf Urine WBC 0-5 (0-5) /hpf Ur Epithelial Cells Not Reportable Ur Squamous Epith Cells 0-5 (0-5) /hpf Urine Bacteria Many H (FEW) /hpf Hyaline Casts 5-10 H (0-5) /lpf Urine Mucus Moderate H (FEW) /hpf MRSA (PCR) Negative 08/05/16 08/05/16 Range/Units 06:01 06:01 WBC (4.23-9.07) K/mm3 RBC (4.63-6.08) M/mm3 Hgb (13.7-17.5) gm/L Hct (40.1-51.0) % MCV (79.0-92.2) fl MCH (25.7-32.2) pg MCHC (32.2-35.5) g/dl RDW Std Deviation (35.1-43.9) fL Plt Count (163-337) K/mm3 MPV (9.4-12.3) fl Neut % (Auto) (34.0-67.9) % Lymph % (Auto) (21.8-53.1) % [place] % (Auto) (5.3-12.2) % Eos % (Auto) (0.8-7.0) Baso % (Auto) (0.1-1.2) % Neut # (Auto) (1.78-5.38) K/mm3 Lymph # (Auto) (1.32-3.57) K/mm3 [place] # (Auto) (0.30-0.82) K/mm3 Eos # (Auto) (0.04-0.54) K/mm3 Baso # (Auto) (0.01-0.08) K/mm3 PT 18.1 H (8.0-13.0) SECONDS INR 1.61 Sodium 142 (136-145) mEq/L Potassium 3.5 (3.5-5.1) mEq/L Chloride 107 (98-107) mEq/L Carbon Dioxide 24 (21-32) mEq/L Anion Gap 14.5 (5-15) BUN 15 (7-18) mg/dL Creatinine 0.9 (0.7-1.3) mg/dL Est Cr Clr Drug Dosing 61.21 mL/min Estimated GFR (MDRD) > 60 (>60) mL/min BUN/Creatinine Ratio 16.7 (14-18) Glucose 77 L (83-115) mg/dL Calcium 11.5 H (8.5-10.1) mg/dL Magnesium 1.5 L (1.8-2.4) mg/dl Urine Color (Yellow) Urine Appearance (Clear) Urine pH (5.0-8.0) Ur Specific [place] (1.005-1.030) Urine Protein (Negative) Urine Glucose (UA) (Negative) Urine Ketones (Negative) Urine Occult Blood (Negative) Urine Nitrite (Negative) Urine Bilirubin (Negative) Urine Urobilinogen (0.2-1.0) Ur Leukocyte Esterase (Negative) Urine RBC (0-5) /hpf Urine WBC (0-5) /hpf Ur Epithelial Cells Ur Squamous Epith Cells (0-5) /hpf Urine Bacteria (FEW) /hpf Hyaline Casts (0-5) /lpf Urine Mucus (FEW) /hpf MRSA (PCR) Med Orders - Current: Current Medications Bisacodyl (Dulcolax) 5 mg PO DAILY PRN PRN Reason: Constipation Carvedilol (Coreg) 6.25 mg PO BIDMEALS [facility] Last Admin: 08/05/16 06:34 Dose: 6.25 mg Al Hydroxide/Mg Hydroxide 30 (ml/ Lidocaine HCl 15 ml) 0 ml PO TIDAC PRN PRN Reason: STOMACH IRRITATION Diphenhydramine HCl (Benadryl) 25 mg PO DAILY PRN PRN Reason: Itching Sodium Chloride (Sodium Chloride 0.45%) 1,000 mls @ 70 mls/hr IV ASDIRECTED [facility] Last Admin: 08/05/16 09:21 Dose: 70 mls/hr Isosorbide Mononitrate (Imdur) 60 mg PO DAILY [facility] Last Admin: 08/05/16 09:22 Dose: 60 mg Mycophenolate Mofetil (Cellcept) 1,000 mg PO BID [facility] Last Admin: 08/05/16 09:22 Dose: 1,000 mg Ondansetron HCl (Zofran) 4 mg IVPUSH Q8H PRN PRN Reason: Nausea/Vomiting Phenytoin Sodium (Phenytoin) 200 mg PO TID [facility] Last Admin: 08/05/16 09:22 Dose: 200 mg Polyethylene Glycol/Electrolytes (Golytely) 4,000 ml PO ONETIME ONE Stop: 08/06/16 17:01 Prochlorperazine Edisylate (Compazine) 5 mg IVPUSH Q6H PRN PRN Reason: Nausea/Vomiting Rosuvastatin Calcium (Crestor) 10 mg PO DAILY [facility] Last Admin: 08/05/16 09:22 Dose: 10 mg Trimethoprim/Sulfamethoxazole (Septra Ds) 1 tab PO DAILY [facility] Last Admin: 08/05/16 09:22 Dose: 1 tab Discontinued Medications Aspirin (Aspirin) 81 mg PO DAILY [facility] Last Admin: 08/05/16 09:22 Dose: 81 mg Hydromorphone HCl (Dilaudid) 0.5 mg IVPUSH ONETIME ONE Stop: 08/04/16 12:43 Last Admin: 08/04/16 12:49 Dose: 0.5 mg Sodium Chloride (Normal Saline) 1,000 mls @ 150 mls/hr IV ASDIRECTED [facility] Last Admin: 08/04/16 12:48 Dose: 150 mls/hr Sodium Chloride (Sodium Chloride 0.45%) 1,000 mls @ 100 mls/hr IV ASDIRECTED RICH Sodium Chloride (Sodium Chloride 0.45%) 1,000 mls @ 999 mls/hr IV ASDIRECTED RICH Stop: 08/04/16 19:31 Sodium Chloride (Normal Saline) 1,000 mls @ 70 mls/hr IV ASDIRECTED RICH Lidocaine HCl (Xylocaine 2% Viscous) 15 ml PO TIDAC RICH Last Admin: 08/05/16 06:34 Dose: Not Given Magnesium Citrate (Citrate Of Magnesia) 240 ml PO ONETIME ONE Stop: 08/04/16 17:55 Last Admin: 08/04/16 18:14 Dose: Not Given Mycophenolate Mofetil (Cellcept) 1,000 mg PO BID [facility] Last Admin: 08/04/16 21:38 Dose: Not Given Ondansetron HCl (Zofran) 4 mg IVPUSH ONETIME ONE Stop: 08/04/16 12:44 Last Admin: 08/04/16 12:50 Dose: 4 mg Mycophenolate (Mofetil 250 Mg Cap.) 0 each PO BID [facility] Phytonadione (Aquamephyton) 5 mg PO ONETIME ONE Stop: 08/04/16 17:53 Last Admin: 08/04/16 18:37 Dose: 5 mg Polyethylene Glycol (Miralax) 102 gm PO ONETIME ONE Stop: 08/04/16 12:45 Last Admin: 08/04/16 13:01 Dose: 102 gm Polyethylene Glycol/Electrolytes (Golytely) 4,000 ml PO ONETIME ONE Stop: 08/05/16 15:26 Last Admin: 08/05/16 15:36 Dose: Not Given Consult PN Assessment/Plan Procedures: Procedures ASSAY OF BLOOD LIPOPROTEIN (06/25/14) ASSAY OF CALCIUM (07/24/16) ASSAY OF FERRITIN (07/15/13) ASSAY OF FREE THYROXINE (07/24/16) ASSAY OF IRON (07/15/13) ASSAY OF LACTIC ACID (07/15/13) ASSAY OF LIPOPROTEIN (06/25/14) ASSAY OF MAGNESIUM (07/24/16) ASSAY OF NATRIURETIC PEPTIDE (05/20/16) ASSAY OF PARATHORMONE (07/24/16) ASSAY OF PHENYTOIN TOTAL (07/24/16) ASSAY OF TROPONIN QUANT (07/24/16) ASSAY THYROID STIM HORMONE (07/24/16) AUTOMATED RETICULOCYTE COUNT (07/15/13) BLOOD TYPING SEROLOGIC ABO (07/15/13) BLOOD TYPING SEROLOGIC RH(D) (07/15/13) C-REACTIVE PROTEIN (07/24/16) CATARACT SURG W/IOL 1 STAGE (01/20/16) CHEST X-RAY 1 VIEW FRONTAL (07/24/16) CHEST X-RAY 2VW FRONTAL&LATL (05/20/16) COMPATIBILITY TEST ANTIGLOB (07/15/13) COMPLETE CBC AUTOMATED (07/15/13) COMPLETE CBC W/AUTO DIFF WBC (07/24/16) COMPREHEN METABOLIC PANEL (07/24/16) CREATINE MB FRACTION (07/24/16) CT ABD & PELV W/CONTRAST (07/24/16) ELECTROCARDIOGRAM TRACING (07/24/16) EMERGENCY DEPT VISIT (07/24/16) EVALUATE SWALLOWING FUNCTION (07/24/16) GAIT TRAINING THERAPY (07/24/16) HYDRATE IV INFUSION ADD-ON (07/24/16) MEASURE BLOOD OXYGEN LEVEL (07/15/13) METABOLIC PANEL TOTAL CA (07/24/16) MICROALBUMIN SEMIQUANT (06/23/14) OCCULT BLD FECES 1-3 TESTS (07/30/13) OT EVAL LOW COMPLEX 30 MIN (07/24/16) PROTHROMBIN TIME (07/24/16) PT EVAL LOW COMPLEX 20 MIN (07/24/16) RBC ANTIBODY SCREEN (07/15/13) ROUTINE VENIPUNCTURE (07/24/16) SELF CARE MNGMENT TRAINING (07/24/16) SPECIAL STAINS GROUP 2 (07/24/16) THER/PROPH/DIAG INJ IV PUSH (07/24/16) THERAPEUTIC ACTIVITIES (07/24/16) THERAPEUTIC EXERCISES (07/24/16) THROMBOPLASTIN TIME PARTIAL (07/15/13) TISSUE EXAM BY PATHOLOGIST (07/24/16) TTE W/DOPPLER COMPLETE (07/15/13) TX/PRO/DX INJ NEW DRUG ADDON (07/24/16) TX/PRO/DX INJ SAME DRUG GAS MANAGER (07/24/16) URINALYSIS AUTO W/SCOPE (07/24/16) VITAMIN D 25 HYDROXY (07/24/16) X-RAY EXAM OF ABDOMEN (07/24/16) Problem List Initiated/Reviewed/Updated: Yes My Orders last 24 hours: My Active Orders 08/05/16 15:24 Verify Patient Consent Obtain [RC] ASDIRECTED 08/05/16 15:34 Abdomen Comp [US] Routine 08/06/16 06:00 INR,PT,PROTHROMBIN TIME [COAG] Routine 08/06/16 17:00 KCl/Na Sulf,Bicarb,Cl/PEG 3351 [GoLytely] 4,000 ml PO ONETIME ONE 08/06/16 Dinner Nothing per Oral After Midnight Diet [DIET] 08/07/16 08:00 Schedule Procedure [COMM] Routine Plan: consult dictated HIEN
[2016-08-05] MEDS ORDERED: Magnesium Sulfate/Water 2 GM in Premix Bag 1 BAG IV ONE (17:30)
--- NOTE | 2016-08-05 17:38 | PCM.PN ---
- General Info Date of Service: 08/05/16 Admission Dx/Problem (Free Text): The patient and his spouse had a spirited discussion regarding SNF placement; he is refusing, she is now stating that she wants him to come home as if the request for placement had not been voiced by her in the ED. A plan was started in the ED on the day of admission, she stated that she could no longer take care of him. Functional Status: Reports: tolerating diet, ambulating, urinating - Review of Systems General: Reports: No Symptoms HEENT: Reports: no symptoms Pulmonary: Reports: no symptoms Cardiovascular: Reports: No Symptoms Gastrointestinal: Reports: No symptoms Genitourinary: Reports: no symptoms Musculoskeletal: Reports: no symptoms Skin: Reports: no symptoms Neurological: Reports: No Symptoms Psychiatric: Reports: no symptoms - Patient Data Vitals - most recent: Last Vital Signs Temp 36.8 C 08/05/16 15:03 Pulse 86 08/05/16 16:05 Resp 18 08/05/16 15:03 BP 116/76 08/05/16 16:05 Pulse Ox 97 08/05/16 15:03 Weight - most recent: 65.726 kg I&O - last 24 hours: Intake & Output 08/05/16 08/05/16 08/05/16 06:59 14:59 22:59 Intake Total 1100 1057 Output Total 200 Balance 1100 857 Lab Results last 24 hrs: Laboratory Results - last 24 hr 08/04/16 08/05/16 08/05/16 Range/Units 18:45 06:01 06:01 WBC 6.25 (4.23-9.07) K/mm3 RBC 3.78 L (4.63-6.08) M/mm3 Hgb 11.0 L (13.7-17.5) gm/L Hct 33.7 L (40.1-51.0) % MCV 89.2 (79.0-92.2) fl MCH 29.1 (25.7-32.2) pg MCHC 32.6 (32.2-35.5) g/dl RDW Std Deviation 50.1 H (35.1-43.9) fL Plt Count 365 H (163-337) K/mm3 MPV 9.4 (9.4-12.3) fl Neut % (Auto) 65.8 (34.0-67.9) % Lymph % (Auto) 17.9 L (21.8-53.1) % [place] % (Auto) 12.5 H (5.3-12.2) % Eos % (Auto) 3.2 (0.8-7.0) Baso % (Auto) 0.3 (0.1-1.2) % Neut # (Auto) 4.11 (1.78-5.38) K/mm3 Lymph # (Auto) 1.12 L (1.32-3.57) K/mm3 [place] # (Auto) 0.78 (0.30-0.82) K/mm3 Eos # (Auto) 0.20 (0.04-0.54) K/mm3 Baso # (Auto) 0.02 (0.01-0.08) K/mm3 PT 18.1 H (8.0-13.0) SECONDS INR 1.61 Sodium (136-145) mEq/L Potassium (3.5-5.1) mEq/L Chloride (98-107) mEq/L Carbon Dioxide (21-32) mEq/L Anion Gap (5-15) BUN (7-18) mg/dL Creatinine (0.7-1.3) mg/dL Est Cr Clr Drug Dosing mL/min Estimated GFR (MDRD) (>60) mL/min BUN/Creatinine Ratio (14-18) Glucose (83-115) mg/dL Calcium (8.5-10.1) mg/dL Magnesium (1.8-2.4) mg/dl MRSA (PCR) Negative 08/05/16 Range/Units 06:01 WBC (4.23-9.07) K/mm3 RBC (4.63-6.08) M/mm3 Hgb (13.7-17.5) gm/L Hct (40.1-51.0) % MCV (79.0-92.2) fl MCH (25.7-32.2) pg MCHC (32.2-35.5) g/dl RDW Std Deviation (35.1-43.9) fL Plt Count (163-337) K/mm3 MPV (9.4-12.3) fl Neut % (Auto) (34.0-67.9) % Lymph % (Auto) (21.8-53.1) % [place] % (Auto) (5.3-12.2) % Eos % (Auto) (0.8-7.0) Baso % (Auto) (0.1-1.2) % Neut # (Auto) (1.78-5.38) K/mm3 Lymph # (Auto) (1.32-3.57) K/mm3 [place] # (Auto) (0.30-0.82) K/mm3 Eos # (Auto) (0.04-0.54) K/mm3 Baso # (Auto) (0.01-0.08) K/mm3 PT (8.0-13.0) SECONDS INR Sodium 142 (136-145) mEq/L Potassium 3.5 (3.5-5.1) mEq/L Chloride 107 (98-107) mEq/L Carbon Dioxide 24 (21-32) mEq/L Anion Gap 14.5 (5-15) BUN 15 (7-18) mg/dL Creatinine 0.9 (0.7-1.3) mg/dL Est Cr Clr Drug Dosing 61.21 mL/min Estimated GFR (MDRD) > 60 (>60) mL/min BUN/Creatinine Ratio 16.7 (14-18) Glucose 77 L (83-115) mg/dL Calcium 11.5 H (8.5-10.1) mg/dL Magnesium 1.5 L (1.8-2.4) mg/dl MRSA (PCR) Med Orders - Current: Current Medications Bisacodyl (Dulcolax) 5 mg PO DAILY PRN PRN Reason: Constipation Carvedilol (Coreg) 6.25 mg PO BIDMEALS [facility] Last Admin: 08/05/16 16:05 Dose: 6.25 mg Al Hydroxide/Mg Hydroxide 30 (ml/ Lidocaine HCl 15 ml) 0 ml PO TIDAC PRN PRN Reason: STOMACH IRRITATION Diphenhydramine HCl (Benadryl) 25 mg PO DAILY PRN PRN Reason: Itching Sodium Chloride (Sodium Chloride 0.45%) 1,000 mls @ 70 mls/hr IV ASDIRECTED [facility] Last Admin: 08/05/16 09:21 Dose: 70 mls/hr Magnesium Sulfate 2 gm/ Premix 50 mls @ 25 mls/hr IV ONETIME ONE Stop: 08/05/16 19:29 Isosorbide Mononitrate (Imdur) 60 mg PO DAILY [facility] Last Admin: 08/05/16 09:22 Dose: 60 mg Mycophenolate Mofetil (Cellcept) 1,000 mg PO BID [facility] Last Admin: 08/05/16 09:22 Dose: 1,000 mg Ondansetron HCl (Zofran) 4 mg IVPUSH Q8H PRN PRN Reason: Nausea/Vomiting Phenytoin Sodium (Phenytoin) 200 mg PO TID [facility] Last Admin: 08/05/16 16:05 Dose: 200 mg Polyethylene Glycol/Electrolytes (Golytely) 4,000 ml PO ONETIME ONE Stop: 08/06/16 17:01 Potassium Chloride (Potassium Chloride Solution) 40 meq PO BIDMEALS [facility] Prochlorperazine Edisylate (Compazine) 5 mg IVPUSH Q6H PRN PRN Reason: Nausea/Vomiting Rosuvastatin Calcium (Crestor) 10 mg PO DAILY [facility] Last Admin: 08/05/16 09:22 Dose: 10 mg Trimethoprim/Sulfamethoxazole (Septra Ds) 1 tab PO DAILY [facility] Last Admin: 08/05/16 09:22 Dose: 1 tab Discontinued Medications Aspirin (Aspirin) 81 mg PO DAILY [facility] Last Admin: 08/05/16 09:22 Dose: 81 mg Hydromorphone HCl (Dilaudid) 0.5 mg IVPUSH ONETIME ONE Stop: 08/04/16 12:43 Last Admin: 08/04/16 12:49 Dose: 0.5 mg Sodium Chloride (Normal Saline) 1,000 mls @ 150 mls/hr IV ASDIRECTED [facility] Last Admin: 08/04/16 12:48 Dose: 150 mls/hr Sodium Chloride (Sodium Chloride 0.45%) 1,000 mls @ 100 mls/hr IV ASDIRECTED [facility] Sodium Chloride (Sodium Chloride 0.45%) 1,000 mls @ 999 mls/hr IV ASDIRECTED [facility] Stop: 08/04/16 19:31 Sodium Chloride (Normal Saline) 1,000 mls @ 70 mls/hr IV ASDIRECTED [facility] Lidocaine HCl (Xylocaine 2% Viscous) 15 ml PO TIDAC [facility] Last Admin: 08/05/16 06:34 Dose: Not Given Magnesium Citrate (Citrate Of Magnesia) 240 ml PO ONETIME ONE Stop: 08/04/16 17:55 Last Admin: 08/04/16 18:14 Dose: Not Given Mycophenolate Mofetil (Cellcept) 1,000 mg PO BID [facility] Last Admin: 08/04/16 21:38 Dose: Not Given Ondansetron HCl (Zofran) 4 mg IVPUSH ONETIME ONE Stop: 08/04/16 12:44 Last Admin: 08/04/16 12:50 Dose: 4 mg Mycophenolate (Mofetil 250 Mg Cap.) 0 each PO BID [facility] Phytonadione (Aquamephyton) 5 mg PO ONETIME ONE Stop: 08/04/16 17:53 Last Admin: 08/04/16 18:37 Dose: 5 mg Polyethylene Glycol (Miralax) 102 gm PO ONETIME ONE Stop: 08/04/16 12:45 Last Admin: 08/04/16 13:01 Dose: 102 gm Polyethylene Glycol/Electrolytes (Golytely) 4,000 ml PO ONETIME ONE Stop: 08/05/16 15:26 Last Admin: 08/05/16 15:36 Dose: Not Given - Exam Quality Assessment: DVT prophylaxis General: alert, oriented, cooperative, no acute distress HEENT: Pupils equal, Pupils reactive, EOMI Neck: supple, trachea midline Lungs: Normal respiratory effort Cardiovascular: Regular Rate, Regular Rhythm Abdomen: bowel sounds present, soft, no tenderness, no distension (Male) Exam: Deferred Back Exam: normal inspection Extremities: normal pulses Skin: warm Neurological: no new focal deficit Psy/Mental Status: alert, normal affect, normal mood - Problem List & Annotations (1) Abdominal pain SNOMED Code(s): 66040483 Code(s): R10.9 - UNSPECIFIED ABDOMINAL PAIN Status: Acute Current Visit: Yes (2) Hiatal hernia SNOMED Code(s): 04882722 Code(s): K44.9 - DIAPHRAGMATIC HERNIA WITHOUT OBSTRUCTION OR GANGRENE Status: Acute Current Visit: Yes (3) Afib, Atrial fibrillation and flutter SNOMED Code(s): 836659103 Code(s): I48.91 - UNSPECIFIED ATRIAL FIBRILLATION; I48.92 - UNSPECIFIED ATRIAL FLUTTER Status: Acute Current Visit: No (4) Aneurysm of internal iliac artery SNOMED Code(s): 597138536 Code(s): I72.3 - ANEURYSM OF ILIAC ARTERY Status: Acute Current Visit: No (5) Dehydration SNOMED Code(s): 88178245 Code(s): E86.0 - DEHYDRATION Status: Resolved Current Visit: No - Problem List Review Problem List Initiated/Reviewed/Updated: Yes - My Orders Last 24 Hours: My Active Orders 08/04/16 17:42 Bisacodyl [Dulcolax] 5 mg PO DAILY PRN diphenhydrAMINE [Benadryl] 25 mg PO DAILY PRN 08/04/16 17:43 Vital Signs [RC] 03,09,15,21 08/04/16 17:44 Code Status [Resuscitation Status] Routine 08/04/16 17:52 Antiembolic Devices [RC] QSHIFT DELBERT Hose [Antiembolic Hose] [OM.PC] Routine 08/04/16 17:55 Prochlorperazine [Compazine] 5 mg IVPUSH Q6H PRN 08/04/16 18:00 Sodium Chloride 0.45% 1,000 ml IV ASDIRECTED 08/04/16 18:01 Ondansetron [Zofran] 4 mg IVPUSH Q8H PRN 08/04/16 18:04 Notify Provider Consults [RC] ASDIRECTED 08/04/16 18:08 Activity as Tolerated [RC] .Routine 08/04/16 21:00 Phenytoin 200 mg PO TID 08/04/16 Dinner Clear Liquid Diet [DIET] 08/05/16 06:01 CA 125 [REF] Routine CEA [REF] Routine 08/05/16 07:00 Carvedilol [Coreg] 6.25 mg PO BIDMEALS 08/05/16 09:00 Consult to Physical Therapy [PT Evaluation and Treatment] [CONS] Routine Isosorbide Mononitrate [Imdur] 60 mg PO DAILY Mycophenolate Mofetil [Cellcept] 1,000 mg PO BID Rosuvastatin [Crestor] 10 mg PO DAILY Sulfamethoxazole/Trimethoprim [Septra DS] 1 tab PO DAILY 08/05/16 09:02 Alum Hydrox/Mag Hydrox/Simeth [Mag-Al Plus] 30 ml Lidocaine 2% [Xylocaine 2% Viscous] 15 ml PO TIDAC 08/05/16 10:00 Consult to Physician [CONS] Routine 08/05/16 17:30 Magnesium Sulfate/Water [Magnesium Sulfate 2 GM in Water 50 ML] 2 gm Premix Bag 1 bag IV ONETIME Potassium Chloride [Potassium Chloride Solution] 40 meq PO BID 08/06/16 05:00 BMP [BASIC METABOLIC PANEL,BMP] [CHEM] DAILY CBC WITH AUTO DIFF [HEME] DAILY MAGNESIUM [CHEM] DAILY 08/07/16 05:00 BMP [BASIC METABOLIC PANEL,BMP] [CHEM] DAILY CBC WITH AUTO DIFF [HEME] DAILY MAGNESIUM [CHEM] DAILY 08/07/16 10:00 Consult to Occupational Therapy [OT Evaluation and Treatment] [CONS] Routine 08/08/16 05:00 BMP [BASIC METABOLIC PANEL,BMP] [CHEM] DAILY CBC WITH AUTO DIFF [HEME] DAILY MAGNESIUM [CHEM] DAILY - Plan Plan:: Impression: Abdominal pain with decrease appetite and weight loss Narcotic use for abdominal pain of unclear etiology Query Liver disease, hx of ETOH A Fib on coumadin s/p Vitamin K in the ED Recent EGD with finding of hiatal hernia and esophagitis Medical non compliance, eg viscous Lidocaine prescription had been filled, but the bottle has not been opened. Plan: Clear Liquids General surgery consult, re: colonoscopy Check CA 125/CEA Bowel prep for procedure, 08/06/16 DVT/GI prophylaxis SW/CM consult for SNF placement LOS may exceed 96 hours, pending direction of disposition
[2016-08-05] MEDS: Potassium Chloride 10% 20 MEQ/15 ML Soln 15 ML UD Cup PO SCH (17:58)
[2016-08-06] MEDS: Sodium Chloride 0.45% 1,000 ML IV SCH ×3 (01:00→16:56)
[2016-08-06] MEDS: Potassium Chloride 10% 20 MEQ/15 ML Soln 15 ML UD Cup PO SCH ×2 (09:43→16:52)
[2016-08-06] MEDS: Isosorbide Mononitrate 60 MG Tab.ER PO SCH (09:44)
[2016-08-06] MEDS: MYCOPHENOLATE MOFETIL 250 MG PO SCH ×2 (09:44→21:34)
[2016-08-06] MEDS: Rosuvastatin 10 MG Tab PO SCH (09:44)
[2016-08-06] MEDS: Sulfamethoxazole/Trimethoprim 800-160 MG Tab PO SCH (09:44)
[2016-08-06] MEDS: Phenytoin 100 MG Cap.ER PO SCH ×3 (09:44→21:34)
[2016-08-06] MEDS: Carvedilol 6.25 MG Tab PO SCH ×2 (09:45→16:52)
--- NOTE | 2016-08-06 10:27 | PCM.PN ---
- General Info Date of Service: 08/06/16 Admission Dx/Problem (Free Text): He is ready this am to start the [employer] prep! Functional Status: Reports: tolerating diet (clear liquids), ambulating, urinating - Review of Systems General: Reports: Weakness HEENT: Reports: no symptoms Pulmonary: Reports: no symptoms Cardiovascular: Reports: No Symptoms Gastrointestinal: Reports: No symptoms Genitourinary: Reports: no symptoms Musculoskeletal: Reports: no symptoms Skin: Reports: no symptoms Neurological: Reports: No Symptoms Psychiatric: Reports: no symptoms - Patient Data Vitals - most recent: Last Vital Signs Temp 36.4 C 08/06/16 01:50 Pulse 84 08/06/16 09:45 Resp 18 08/06/16 01:50 BP 162/84 H 08/06/16 09:45 Pulse Ox 95 08/06/16 01:50 Weight - most recent: 65.453 kg I&O - last 24 hours: Intake & Output 08/05/16 08/06/16 08/06/16 22:59 06:59 14:59 Intake Total 1057 0 801 Output Total 200 150 Balance 857 -150 801 Lab Results last 24 hrs: Laboratory Results - last 24 hr 08/06/16 08/06/16 08/06/16 Range/Units 05:53 05:53 05:53 WBC 5.45 (4.23-9.07) K/mm3 RBC 3.71 L (4.63-6.08) M/mm3 Hgb 10.8 L (13.7-17.5) gm/L Hct 32.5 L (40.1-51.0) % MCV 87.6 (79.0-92.2) fl MCH 29.1 (25.7-32.2) pg MCHC 33.2 (32.2-35.5) g/dl RDW Std Deviation 48.9 H (35.1-43.9) fL Plt Count 353 H (163-337) K/mm3 MPV 9.2 L (9.4-12.3) fl Neut % (Auto) 68.0 H (34.0-67.9) % Lymph % (Auto) 17.2 L (21.8-53.1) % [place] % (Auto) 10.3 (5.3-12.2) % Eos % (Auto) 3.7 (0.8-7.0) Baso % (Auto) 0.2 (0.1-1.2) % Neut # (Auto) 3.71 (1.78-5.38) K/mm3 Lymph # (Auto) 0.94 L (1.32-3.57) K/mm3 [place] # (Auto) 0.56 (0.30-0.82) K/mm3 Eos # (Auto) 0.20 (0.04-0.54) K/mm3 Baso # (Auto) 0.01 (0.01-0.08) K/mm3 PT 10.8 (8.0-13.0) SECONDS INR 0.99 Sodium 139 (136-145) mEq/L Potassium 3.2 L (3.5-5.1) mEq/L Chloride 105 (98-107) mEq/L Carbon Dioxide 23 (21-32) mEq/L Anion Gap 14.2 (5-15) BUN 12 (7-18) mg/dL Creatinine 0.9 (0.7-1.3) mg/dL Est Cr Clr Drug Dosing 61.21 mL/min Estimated GFR (MDRD) > 60 (>60) mL/min BUN/Creatinine Ratio 13.3 L (14-18) Glucose 93 (83-115) mg/dL Calcium 11.4 H (8.5-10.1) mg/dL Magnesium 1.6 L (1.8-2.4) mg/dl Med Orders - Current: Current Medications Bisacodyl (Dulcolax) 5 mg PO DAILY PRN PRN Reason: Constipation Carvedilol (Coreg) 6.25 mg PO BIDMEALS [facility] Last Admin: 08/06/16 09:45 Dose: 6.25 mg Al Hydroxide/Mg Hydroxide 30 (ml/ Lidocaine HCl 15 ml) 0 ml PO TIDAC PRN PRN Reason: STOMACH IRRITATION Diphenhydramine HCl (Benadryl) 25 mg PO DAILY PRN PRN Reason: Itching Sodium Chloride (Sodium Chloride 0.45%) 1,000 mls @ 70 mls/hr IV ASDIRECTED [facility] Last Admin: 08/06/16 01:00 Dose: 70 mls/hr Isosorbide Mononitrate (Imdur) 60 mg PO DAILY [facility] Last Admin: 08/06/16 09:44 Dose: 60 mg Mycophenolate Mofetil (Cellcept) 1,000 mg PO BID [facility] Last Admin: 08/06/16 09:44 Dose: 1,000 mg Ondansetron HCl (Zofran) 4 mg IVPUSH Q8H PRN PRN Reason: Nausea/Vomiting Phenytoin Sodium (Phenytoin) 200 mg PO TID [facility] Last Admin: 08/06/16 09:44 Dose: 200 mg Polyethylene Glycol/Electrolytes (Golytely) 4,000 ml PO ONETIME ONE Stop: 08/06/16 17:01 Potassium Chloride (Potassium Chloride Solution) 40 meq PO BIDMEALS [facility] Last Admin: 08/06/16 09:43 Dose: 40 meq Prochlorperazine Edisylate (Compazine) 5 mg IVPUSH Q6H PRN PRN Reason: Nausea/Vomiting Rosuvastatin Calcium (Crestor) 10 mg PO DAILY [facility] Last Admin: 08/06/16 09:44 Dose: 10 mg Trimethoprim/Sulfamethoxazole (Septra Ds) 1 tab PO DAILY [facility] Last Admin: 08/06/16 09:44 Dose: 1 tab Discontinued Medications Aspirin (Aspirin) 81 mg PO DAILY [facility] Last Admin: 08/05/16 09:22 Dose: 81 mg Hydromorphone HCl (Dilaudid) 0.5 mg IVPUSH ONETIME ONE Stop: 08/04/16 12:43 Last Admin: 08/04/16 12:49 Dose: 0.5 mg Sodium Chloride (Normal Saline) 1,000 mls @ 150 mls/hr IV ASDIRECTED [facility] Last Admin: 08/04/16 12:48 Dose: 150 mls/hr Sodium Chloride (Sodium Chloride 0.45%) 1,000 mls @ 100 mls/hr IV ASDIRECTED [facility] Sodium Chloride (Sodium Chloride 0.45%) 1,000 mls @ 999 mls/hr IV ASDIRECTED [facility] Stop: 08/04/16 19:31 Sodium Chloride (Normal Saline) 1,000 mls @ 70 mls/hr IV ASDIRECTED [facility] Magnesium Sulfate 2 gm/ Premix 50 mls @ 25 mls/hr IV ONETIME ONE Stop: 08/05/16 19:29 Last Admin: 08/05/16 18:00 Dose: 25 mls/hr Lidocaine HCl (Xylocaine 2% Viscous) 15 ml PO TIDAC [facility] Last Admin: 08/05/16 06:34 Dose: Not Given Magnesium Citrate (Citrate Of Magnesia) 240 ml PO ONETIME ONE Stop: 08/04/16 17:55 Last Admin: 08/04/16 18:14 Dose: Not Given Mycophenolate Mofetil (Cellcept) 1,000 mg PO BID [facility] Last Admin: 08/04/16 21:38 Dose: Not Given Ondansetron HCl (Zofran) 4 mg IVPUSH ONETIME ONE Stop: 08/04/16 12:44 Last Admin: 08/04/16 12:50 Dose: 4 mg Mycophenolate (Mofetil 250 Mg Cap.) 0 each PO BID [facility] Phytonadione (Aquamephyton) 5 mg PO ONETIME ONE Stop: 08/04/16 17:53 Last Admin: 08/04/16 18:37 Dose: 5 mg Polyethylene Glycol (Miralax) 102 gm PO ONETIME ONE Stop: 08/04/16 12:45 Last Admin: 08/04/16 13:01 Dose: 102 gm Polyethylene Glycol/Electrolytes (Golytely) 4,000 ml PO ONETIME ONE Stop: 08/05/16 15:26 Last Admin: 08/05/16 15:36 Dose: Not Given - Exam Quality Assessment: DVT prophylaxis General: alert, oriented, cooperative, no acute distress HEENT: Pupils equal, Pupils reactive, EOMI Neck: trachea midline Lungs: Normal respiratory effort Cardiovascular: Regular Rate, Regular Rhythm Abdomen: bowel sounds present, soft, no tenderness, no distension (Male) Exam: Deferred Back Exam: normal inspection Extremities: normal pulses Skin: warm Neurological: no new focal deficit Psy/Mental Status: alert, normal affect, normal mood - Problem List & Annotations (1) Abdominal pain SNOMED Code(s): 70173095 Code(s): R10.9 - UNSPECIFIED ABDOMINAL PAIN Status: Acute Current Visit: Yes (2) Hiatal hernia SNOMED Code(s): 28652016 Code(s): K44.9 - DIAPHRAGMATIC HERNIA WITHOUT OBSTRUCTION OR GANGRENE Status: Acute Current Visit: Yes (3) Afib, Atrial fibrillation and flutter SNOMED Code(s): 301509323 Code(s): I48.91 - UNSPECIFIED ATRIAL FIBRILLATION; I48.92 - UNSPECIFIED ATRIAL FLUTTER Status: Acute Current Visit: No (4) Aneurysm of internal iliac artery SNOMED Code(s): 910750652 Code(s): I72.3 - ANEURYSM OF ILIAC ARTERY Status: Acute Current Visit: No (5) Dehydration SNOMED Code(s): 59547120 Code(s): E86.0 - DEHYDRATION Status: Resolved Current Visit: No - Problem List Review Problem List Initiated/Reviewed/Updated: Yes - My Orders Last 24 Hours: My Active Orders 08/05/16 10:00 Consult to Physician [CONS] Routine 08/05/16 17:30 Potassium Chloride [Potassium Chloride Solution] 40 meq PO BIDMEALS 08/06/16 Lunch Clear Liquid Diet [DIET] 08/07/16 05:00 BMP [BASIC METABOLIC PANEL,BMP] [CHEM] DAILY CBC WITH AUTO DIFF [HEME] DAILY MAGNESIUM [CHEM] DAILY 08/07/16 10:00 Consult to Occupational Therapy [OT Evaluation and Treatment] [CONS] Routine 08/08/16 05:00 BMP [BASIC METABOLIC PANEL,BMP] [CHEM] DAILY CBC WITH AUTO DIFF [HEME] DAILY MAGNESIUM [CHEM] DAILY - Plan Plan:: Impression: Abdominal pain with decrease appetite and weight loss Narcotic use for abdominal pain of unclear etiology Query Liver disease, hx of ETOH A Fib on coumadin s/p Vitamin K in the ED Recent EGD with finding of hiatal hernia and esophagitis Plan: Clear Liquids Golytely prep today Bowel prep for procedure, 08/06/16 DVT/GI prophylaxis SW/CM consult for SNF placement
[2016-08-06] MEDS ORDERED: Polyethylene Glycol/Electrolytes 4,000 ML Bottle PO ONE (17:00)
[2016-08-07] MEDS: Carvedilol 6.25 MG Tab PO SCH ×2 (06:00→17:00)
[2016-08-07] MEDS ORDERED: Pantoprazole 40 MG Vial IVPUSH ONE (07:12)
--- NOTE | 2016-08-07 07:30 | PCM.PN ---
<Maria Luisa Ma M - Last Filed: 08/07/16 07:13> - General Info Date of Service: 08/07/16 Admission Dx/Problem (Free Text): Patient is seen this morning. He has not drank the prep for planned colonoscopy today, could not tolerate and refused to drink- got maybe 1/[address] Stanton orders, NG tube will be placed. Nursing reports noninjury fall this morning, patient states no pain now due to fall. He is very tired this morning. Continues to have abdominal pain, minimal to no appetite. Denies chest pain, SOB, back pain. Functional Status: Reports: ambulating, urinating. Denies: tolerating diet - Review of Systems General: Reports: Weakness, Fatigue. Denies: Appetite HEENT: Reports: no symptoms Pulmonary: Reports: no symptoms Cardiovascular: Reports: No Symptoms Gastrointestinal: Reports: Abdominal pain, Decreased appetite, Nausea Genitourinary: Reports: no symptoms Musculoskeletal: Reports: no symptoms Neurological: Reports: No Symptoms Psychiatric: Reports: no symptoms - Patient Data Vitals - most recent: Last Vital Signs Temp 97.3 F 08/06/16 20:10 Pulse 97 08/07/16 06:00 Resp 18 08/06/16 20:10 BP 149/99 H 08/07/16 06:00 Pulse Ox 98 08/07/16 02:29 Weight - most recent: 65.181 kg I&O - last 24 hours: Intake & Output 08/06/16 08/07/16 08/07/16 22:59 06:59 14:59 Intake Total 1373 928 Output Total 525 350 Balance 848 578 Lab Results last 24 hrs: Laboratory Results - last 24 hr 08/06/16 08/06/16 08/07/16 Range/Units 16:32 18:00 06:03 WBC 5.99 (4.23-9.07) K/mm3 RBC 3.82 L (4.63-6.08) M/mm3 Hgb 11.1 L (13.7-17.5) gm/L Hct 33.2 L (40.1-51.0) % MCV 86.9 (79.0-92.2) fl MCH 29.1 (25.7-32.2) pg MCHC 33.4 (32.2-35.5) g/dl RDW Std Deviation 49.3 H (35.1-43.9) fL Plt Count 338 H (163-337) K/mm3 MPV 9.1 L (9.4-12.3) fl Neut % (Auto) 69.7 H (34.0-67.9) % Lymph % (Auto) 16.2 L (21.8-53.1) % [place] % (Auto) 8.8 (5.3-12.2) % Eos % (Auto) 3.5 (0.8-7.0) Baso % (Auto) 0.3 (0.1-1.2) % Neut # (Auto) 4.17 (1.78-5.38) K/mm3 Lymph # (Auto) 0.97 L (1.32-3.57) K/mm3 [place] # (Auto) 0.53 (0.30-0.82) K/mm3 Eos # (Auto) 0.21 (0.04-0.54) K/mm3 Baso # (Auto) 0.02 (0.01-0.08) K/mm3 Sodium (136-145) mEq/L Potassium (3.5-5.1) mEq/L Chloride (98-107) mEq/L Carbon Dioxide (21-32) mEq/L Anion Gap (5-15) BUN (7-18) mg/dL Creatinine (0.7-1.3) mg/dL Est Cr Clr Drug Dosing mL/min Estimated GFR (MDRD) (>60) mL/min BUN/Creatinine Ratio (14-18) Glucose (83-115) mg/dL POC Glucose 74 L (83-110) mg/dL Calcium (8.5-10.1) mg/dL Magnesium (1.8-2.4) mg/dl Urine Color [employer] H (Yellow) Urine Appearance Clear (Clear) Urine pH 6.0 (5.0-8.0) Ur Specific [place] > or = 1.030 (1.005-1.030) Urine Protein 2+ H (Negative) Urine Glucose (UA) Negative (Negative) Urine Ketones 1+ H (Negative) Urine Occult Blood 3+ H (Negative) Urine Nitrite Negative (Negative) Urine Bilirubin 1+ H (Negative) Urine Urobilinogen 1.0 (0.2-1.0) Ur Leukocyte Esterase Negative (Negative) Urine RBC >100 H (0-5) /hpf Urine WBC 0-5 (0-5) /hpf Ur Epithelial Cells 0-5 (0-5) /hpf Amorphous Sediment Few H (NOT SEEN) /hpf Urine Bacteria Rare (FEW) /hpf Fine Granular Casts 0-5 (0-5) /lpf Urine Mucus Few (FEW) /hpf 08/07/16 Range/Units 06:03 WBC (4.23-9.07) K/mm3 RBC (4.63-6.08) M/mm3 Hgb (13.7-17.5) gm/L Hct (40.1-51.0) % MCV (79.0-92.2) fl MCH (25.7-32.2) pg MCHC (32.2-35.5) g/dl RDW Std Deviation (35.1-43.9) fL Plt Count (163-337) K/mm3 MPV (9.4-12.3) fl Neut % (Auto) (34.0-67.9) % Lymph % (Auto) (21.8-53.1) % [place] % (Auto) (5.3-12.2) % Eos % (Auto) (0.8-7.0) Baso % (Auto) (0.1-1.2) % Neut # (Auto) (1.78-5.38) K/mm3 Lymph # (Auto) (1.32-3.57) K/mm3 [place] # (Auto) (0.30-0.82) K/mm3 Eos # (Auto) (0.04-0.54) K/mm3 Baso # (Auto) (0.01-0.08) K/mm3 Sodium 138 (136-145) mEq/L Potassium 3.3 L (3.5-5.1) mEq/L Chloride 101 (98-107) mEq/L Carbon Dioxide 24 (21-32) mEq/L Anion Gap 16.3 H (5-15) BUN 9 (7-18) mg/dL Creatinine 0.9 (0.7-1.3) mg/dL Est Cr Clr Drug Dosing 61.21 mL/min Estimated GFR (MDRD) > 60 (>60) mL/min BUN/Creatinine Ratio 10.0 L (14-18) Glucose 101 (83-115) mg/dL POC Glucose (83-110) mg/dL Calcium 11.4 H (8.5-10.1) mg/dL Magnesium 1.3 L (1.8-2.4) mg/dl Urine Color (Yellow) Urine Appearance (Clear) Urine pH (5.0-8.0) Ur Specific [place] (1.005-1.030) Urine Protein (Negative) Urine Glucose (UA) (Negative) Urine Ketones (Negative) Urine Occult Blood (Negative) Urine Nitrite (Negative) Urine Bilirubin (Negative) Urine Urobilinogen (0.2-1.0) Ur Leukocyte Esterase (Negative) Urine RBC (0-5) /hpf Urine WBC (0-5) /hpf Ur Epithelial Cells (0-5) /hpf Amorphous Sediment (NOT SEEN) /hpf Urine Bacteria (FEW) /hpf Fine Granular Casts (0-5) /lpf Urine Mucus (FEW) /hpf Med Orders - Current: Current Medications Bisacodyl (Dulcolax) 5 mg PO DAILY PRN PRN Reason: Constipation Carvedilol (Coreg) 6.25 mg PO BIDMEALS [facility] Last Admin: 08/07/16 06:00 Dose: 6.25 mg Al Hydroxide/Mg Hydroxide 30 (ml/ Lidocaine HCl 15 ml) 0 ml PO TIDAC PRN PRN Reason: STOMACH IRRITATION Diphenhydramine HCl (Benadryl) 25 mg PO DAILY PRN PRN Reason: Itching Famotidine (Pepcid) 20 mg PO BID [facility] Sodium Chloride (Sodium Chloride 0.45%) 1,000 mls @ 50 mls/hr IV ASDIRECTED [facility] Last Admin: 08/06/16 16:56 Dose: 50 mls/hr Magnesium Sulfate 2 gm/ Premix 50 mls @ 25 mls/hr IV Q1H [facility] Stop: 08/07/16 09:14 Potassium Chloride 10 meq/ (Premix) 100 mls @ 100 mls/hr IV Q1H [facility] Stop: 08/07/16 11:14 Isosorbide Mononitrate (Imdur) 60 mg PO DAILY [facility] Last Admin: 08/06/16 09:44 Dose: 60 mg Mycophenolate Mofetil (Cellcept) 1,000 mg PO BID [facility] Last Admin: 08/06/16 21:34 Dose: 1,000 mg Ondansetron HCl (Zofran) 4 mg IVPUSH Q8H PRN PRN Reason: Nausea/Vomiting Pantoprazole Sodium (Protonix Iv) 40 mg IVPUSH ONETIME ONE Stop: 08/07/16 07:13 Phenytoin Sodium (Phenytoin) 200 mg PO TID [facility] Last Admin: 08/06/16 21:34 Dose: 200 mg Prochlorperazine Edisylate (Compazine) 5 mg IVPUSH Q6H PRN PRN Reason: Nausea/Vomiting Rosuvastatin Calcium (Crestor) 10 mg PO DAILY [facility] Last Admin: 08/06/16 09:44 Dose: 10 mg Trimethoprim/Sulfamethoxazole (Septra Ds) 1 tab PO DAILY [facility] Last Admin: 08/06/16 09:44 Dose: 1 tab Discontinued Medications Aspirin (Aspirin) 81 mg PO DAILY [facility] Last Admin: 08/05/16 09:22 Dose: 81 mg Hydromorphone HCl (Dilaudid) 0.5 mg IVPUSH ONETIME ONE Stop: 08/04/16 12:43 Last Admin: 08/04/16 12:49 Dose: 0.5 mg Sodium Chloride (Normal Saline) 1,000 mls @ 150 mls/hr IV ASDIRECTED [facility] Last Admin: 08/04/16 12:48 Dose: 150 mls/hr Sodium Chloride (Sodium Chloride 0.45%) 1,000 mls @ 100 mls/hr IV ASDIRECTED [facility] Sodium Chloride (Sodium Chloride 0.45%) 1,000 mls @ 999 mls/hr IV ASDIRECTED [facility] Stop: 08/04/16 19:31 Sodium Chloride (Normal Saline) 1,000 mls @ 70 mls/hr IV ASDIRECTED [facility] Magnesium Sulfate 2 gm/ Premix 50 mls @ 25 mls/hr IV ONETIME ONE Stop: 08/05/16 19:29 Last Admin: 08/05/16 18:00 Dose: 25 mls/hr Lidocaine HCl (Xylocaine 2% Viscous) 15 ml PO TIDAC [facility] Last Admin: 08/05/16 06:34 Dose: Not Given Magnesium Citrate (Citrate Of Magnesia) 240 ml PO ONETIME ONE Stop: 08/04/16 17:55 Last Admin: 08/04/16 18:14 Dose: Not Given Mycophenolate Mofetil (Cellcept) 1,000 mg PO BID [facility] Last Admin: 08/04/16 21:38 Dose: Not Given Ondansetron HCl (Zofran) 4 mg IVPUSH ONETIME ONE Stop: 08/04/16 12:44 Last Admin: 08/04/16 12:50 Dose: 4 mg Mycophenolate (Mofetil 250 Mg Cap.) 0 each PO BID [facility] Phytonadione (Aquamephyton) 5 mg PO ONETIME ONE Stop: 08/04/16 17:53 Last Admin: 08/04/16 18:37 Dose: 5 mg Polyethylene Glycol (Miralax) 102 gm PO ONETIME ONE Stop: 08/04/16 12:45 Last Admin: 08/04/16 13:01 Dose: 102 gm Polyethylene Glycol/Electrolytes (Golytely) 4,000 ml PO ONETIME ONE Stop: 08/05/16 15:26 Last Admin: 08/05/16 15:36 Dose: Not Given Polyethylene Glycol/Electrolytes (Golytely) 4,000 ml PO ONETIME ONE Stop: 08/06/16 17:01 Last Admin: 08/06/16 18:19 Dose: 4,000 ml Potassium Chloride (Potassium Chloride Solution) 40 meq PO BIDMEALS [facility] Last Admin: 08/06/16 16:52 Dose: 40 meq - Exam General: alert, oriented, no acute distress, other (very tired this morning) HEENT: Pupils equal, Pupils reactive, EOMI Neck: supple Lungs: Clear to auscultation, Normal respiratory effort Cardiovascular: Irregular Rhythm Abdomen: bowel sounds present, tenderness (diffuse mild tenderness), distension. No: rebound, guarding, organomegaly (Male) Exam: Deferred Extremities: no edema, no calf tenderness Peripheral Pulses: 1+: dorsalis pedis (L), dorsalis pedis (R) Skin: warm, dry Neurological: no new focal deficit Psy/Mental Status: alert - Problem List & Annotations (1) Abdominal pain SNOMED Code(s): 64070634 Code(s): R10.9 - UNSPECIFIED ABDOMINAL PAIN Status: Acute Priority: High Current Visit: Yes Qualifiers: Abdominal location: generalized Qualified Code(s): R10.84 - Generalized abdominal pain (2) Adult failure to thrive syndrome SNOMED Code(s): 293095821 Code(s): R62.7 - ADULT FAILURE TO THRIVE Status: Acute Priority: High Current Visit: Yes (3) Hypokalemia SNOMED Code(s): 53273902 Code(s): E87.6 - HYPOKALEMIA Status: Acute Priority: High Current Visit : Yes (4) Hypomagnesemia SNOMED Code(s): 975322376 Code(s): E83.42 - HYPOMAGNESEMIA Status: Acute Priority: High Current Visit: Yes (5) Hiatal hernia SNOMED Code(s): 68345025 Code(s): K44.9 - DIAPHRAGMATIC HERNIA WITHOUT OBSTRUCTION OR GANGRENE Status: Acute Priority: High Current Visit: Yes (6) Supratherapeutic INR SNOMED Code(s): 248509266, 277465208 Code(s): R79.1 - ABNORMAL COAGULATION PROFILE Status: Resolved Priority: High Current Visit: Yes (7) Esophagitis SNOMED Code(s): 98438169 Code(s): K20.9 - ESOPHAGITIS, UNSPECIFIED Status: Acute Priority: High Current Visit: No (8) Gross hematuria SNOMED Code(s): 629941860 Code(s): R31.0 - GROSS HEMATURIA Status: Acute Priority: High Current Visit: Yes - Problem List Review Problem List Initiated/Reviewed/Updated: Yes - My Orders Last 24 Hours: My Active Orders 08/07/16 07:11 Telemetry Monitoring [Cardiac Monitoring] [RC] . DIRECTED 08/07/16 07:12 Pantoprazole [ProTONIX IV] 40 mg IVPUSH ONETIME ONE 08/07/16 07:15 Magnesium Sulfate/Water [Magnesium Sulfate 2 GM in Water 50 ML] 2 gm Premix Bag 1 bag IV Q1H Potassium Chloride [KCl 10 MEQ in Water 100 ML] 10 meq Premix Bag 1 bag IV Q1H 08/07/16 09:00 Famotidine [Pepcid] 20 mg PO BID - Plan Plan:: Impression: Abdominal pain with decrease appetite and weight loss Narcotic use for abdominal pain of unclear etiology Query Liver disease, hx of ETOH A Fib on coumadin s/p Vitamin K in the ED Recent EGD with finding of hiatal hernia and esophagitis Hematuria- recurrent Hypokalemia Hypomagnesemia Plan: General Surgery consult, Dr. Stanton -Planned Colonoscopy today; patient unable to tolerate prep. Nursing contacted Dr. Stanton with instructions to place NG tube to complete rest of prep today. Plan colonoscopy later today. GB US pending report Protonix IV today and pepcid BID for esophagitis noted on prior admission with EGD Hematuria- will need Urology eval/workup as outpatient if not already done so Electrolyte abnormalities- replace and monitor with am labs Plan to resume coumadin after procedure if indicated Other: CM/SW for SNF placement PT/OT for strengthening Dietitian for consult- wt loss Patient is full code. <Dyan Allen M - Last Filed: 08/07/16 16:28> - Patient Data Vitals - most recent: Last Vital Signs Temp 36.4 C 08/07/16 14:50 Pulse 63 08/07/16 14:50 Resp 28 H 08/07/16 14:50 BP 145/96 H 08/07/16 14:50 Pulse Ox 91 L 08/07/16 14:50 I&O - last 24 hours: Intake & Output 08/07/16 08/07/16 08/07/16 06:59 14:59 22:59 Intake Total 928 Output Total 350 Balance 578 Lab Results last 24 hrs: Laboratory Results - last 24 hr 08/06/16 08/06/16 08/07/16 Range/Units 16:32 18:00 06:03 WBC 5.99 (4.23-9.07) K/mm3 RBC 3.82 L (4.63-6.08) M/mm3 Hgb 11.1 L (13.7-17.5) gm/L Hct 33.2 L (40.1-51.0) % MCV 86.9 (79.0-92.2) fl MCH 29.1 (25.7-32.2) pg MCHC 33.4 (32.2-35.5) g/dl RDW Std Deviation 49.3 H (35.1-43.9) fL Plt Count 338 H (163-337) K/mm3 MPV 9.1 L (9.4-12.3) fl Neut % (Auto) 69.7 H (34.0-67.9) % Lymph % (Auto) 16.2 L (21.8-53.1) % [place] % (Auto) 8.8 (5.3-12.2) % Eos % (Auto) 3.5 (0.8-7.0) Baso % (Auto) 0.3 (0.1-1.2) % Neut # (Auto) 4.17 (1.78-5.38) K/mm3 Lymph # (Auto) 0.97 L (1.32-3.57) K/mm3 [place] # (Auto) 0.53 (0.30-0.82) K/mm3 Eos # (Auto) 0.21 (0.04-0.54) K/mm3 Baso # (Auto) 0.02 (0.01-0.08) K/mm3 Sodium (136-145) mEq/L Potassium (3.5-5.1) mEq/L Chloride (98-107) mEq/L Carbon Dioxide (21-32) mEq/L Anion Gap (5-15) BUN (7-18) mg/dL Creatinine (0.7-1.3) mg/dL Est Cr Clr Drug Dosing mL/min Estimated GFR (MDRD) (>60) mL/min BUN/Creatinine Ratio (14-18) Glucose (83-115) mg/dL POC Glucose 74 L (83-110) mg/dL Calcium (8.5-10.1) mg/dL Magnesium (1.8-2.4) mg/dl Urine Color [employer] H (Yellow) Urine Appearance Clear (Clear) Urine pH 6.0 (5.0-8.0) Ur Specific [place] > or = 1.030 (1.005-1.030) Urine Protein 2+ H (Negative) Urine Glucose (UA) Negative (Negative) Urine Ketones 1+ H (Negative) Urine Occult Blood 3+ H (Negative) Urine Nitrite Negative (Negative) Urine Bilirubin 1+ H (Negative) Urine Urobilinogen 1.0 (0.2-1.0) Ur Leukocyte Esterase Negative (Negative) Urine RBC >100 H (0-5) /hpf Urine WBC 0-5 (0-5) /hpf Ur Epithelial Cells 0-5 (0-5) /hpf Amorphous Sediment Few H (NOT SEEN) /hpf Urine Bacteria Rare (FEW) /hpf Fine Granular Casts 0-5 (0-5) /lpf Urine Mucus Few (FEW) /hpf 08/07/16 Range/Units 06:03 WBC (4.23-9.07) K/mm3 RBC (4.63-6.08) M/mm3 Hgb (13.7-17.5) gm/L Hct (40.1-51.0) % MCV (79.0-92.2) fl MCH (25.7-32.2) pg MCHC (32.2-35.5) g/dl RDW Std Deviation (35.1-43.9) fL Plt Count (163-337) K/mm3 MPV (9.4-12.3) fl Neut % (Auto) (34.0-67.9) % Lymph % (Auto) (21.8-53.1) % [place] % (Auto) (5.3-12.2) % Eos % (Auto) (0.8-7.0) Baso % (Auto) (0.1-1.2) % Neut # (Auto) (1.78-5.38) K/mm3 Lymph # (Auto) (1.32-3.57) K/mm3 [place] # (Auto) (0.30-0.82) K/mm3 Eos # (Auto) (0.04-0.54) K/mm3 Baso # (Auto) (0.01-0.08) K/mm3 Sodium 138 (136-145) mEq/L Potassium 3.3 L (3.5-5.1) mEq/L Chloride 101 (98-107) mEq/L Carbon Dioxide 24 (21-32) mEq/L Anion Gap 16.3 H (5-15) BUN 9 (7-18) mg/dL Creatinine 0.9 (0.7-1.3) mg/dL Est Cr Clr Drug Dosing 61.21 mL/min Estimated GFR (MDRD) > 60 (>60) mL/min BUN/Creatinine Ratio 10.0 L (14-18) Glucose 101 (83-115) mg/dL POC Glucose (83-110) mg/dL Calcium 11.4 H (8.5-10.1) mg/dL Magnesium 1.3 L (1.8-2.4) mg/dl Urine Color (Yellow) Urine Appearance (Clear) Urine pH (5.0-8.0) Ur Specific [place] (1.005-1.030) Urine Protein (Negative) Urine Glucose (UA) (Negative) Urine Ketones (Negative) Urine Occult Blood (Negative) Urine Nitrite (Negative) Urine Bilirubin (Negative) Urine Urobilinogen (0.2-1.0) Ur Leukocyte Esterase (Negative) Urine RBC (0-5) /hpf Urine WBC (0-5) /hpf Ur Epithelial Cells (0-5) /hpf Amorphous Sediment (NOT SEEN) /hpf Urine Bacteria (FEW) /hpf Fine Granular Casts (0-5) /lpf Urine Mucus (FEW) /hpf Med Orders - Current: Current Medications Bisacodyl (Dulcolax) 5 mg PO DAILY PRN PRN Reason: Constipation Carvedilol (Coreg) 6.25 mg PO BIDMEALS [facility] Last Admin: 08/07/16 06:00 Dose: 6.25 mg Al Hydroxide/Mg Hydroxide 30 (ml/ Lidocaine HCl 15 ml) 0 ml PO TIDAC PRN PRN Reason: STOMACH IRRITATION Diphenhydramine HCl (Benadryl) 25 mg PO DAILY PRN PRN Reason: Itching Famotidine (Pepcid) 20 mg PO BID [facility] Last Admin: 08/07/16 14:57 Dose: 20 mg Sodium Chloride (Sodium Chloride 0.45%) 1,000 mls @ 50 mls/hr IV ASDIRECTED [facility] Last Admin: 08/07/16 11:54 Dose: 50 mls/hr Lactated Ringer's (Ringers, Lactated) 1,000 mls @ 125 mls/hr IV ASDIRECTED [facility] Stop: 08/08/16 23:00 Isosorbide Mononitrate (Imdur) 60 mg PO DAILY [facility] Last Admin: 08/07/16 14:57 Dose: 60 mg Lidocaine/Sodium Bicarbonate (Buffered Lidocaine 1% In Ns 8.4%) 0.25 ml IV ONETIME PRN PRN Reason: Prior to IV Start Stop: 08/08/16 18:00 Mycophenolate Mofetil (Cellcept) 1,000 mg PO BID [facility] Last Admin: 08/07/16 15:11 Dose: 1,000 mg Ondansetron HCl (Zofran) 4 mg IVPUSH Q8H PRN PRN Reason: Nausea/Vomiting Phenytoin Sodium (Phenytoin) 200 mg PO TID [facility] Last Admin: 08/07/16 14:41 Dose: 200 mg Prochlorperazine Edisylate (Compazine) 5 mg IVPUSH Q6H PRN PRN Reason: Nausea/Vomiting Rosuvastatin Calcium (Crestor) 10 mg PO DAILY [facility] Last Admin: 08/07/16 14:57 Dose: 10 mg Sodium Chloride (Saline Flush) 10 ml FLUSH ASDIRECTED PRN PRN Reason: Keep Vein Open Stop: 08/08/16 18:00 Trimethoprim/Sulfamethoxazole (Septra Ds) 1 tab PO DAILY [facility] Last Admin: 08/07/16 14:57 Dose: 1 tab Discontinued Medications Aspirin (Aspirin) 81 mg PO DAILY [facility] Last Admin: 08/05/16 09:22 Dose: 81 mg Hydromorphone HCl (Dilaudid) 0.5 mg IVPUSH ONETIME ONE Stop: 08/04/16 12:43 Last Admin: 08/04/16 12:49 Dose: 0.5 mg Sodium Chloride (Normal Saline) 1,000 mls @ 150 mls/hr IV ASDIRECTED [facility] Last Admin: 08/04/16 12:48 Dose: 150 mls/hr Sodium Chloride (Sodium Chloride 0.45%) 1,000 mls @ 100 mls/hr IV ASDIRECTED [facility] Sodium Chloride (Sodium Chloride 0.45%) 1,000 mls @ 999 mls/hr IV ASDIRECTED [facility] Stop: 08/04/16 19:31 Sodium Chloride (Normal Saline) 1,000 mls @ 70 mls/hr IV ASDIRECTED [facility] Magnesium Sulfate 2 gm/ Premix 50 mls @ 25 mls/hr IV ONETIME ONE Stop: 08/05/16 19:29 Last Admin: 08/05/16 18:00 Dose: 25 mls/hr Magnesium Sulfate 2 gm/ Premix 50 mls @ 25 mls/hr IV Q1H [facility] Stop: 08/07/16 09:14 Last Admin: 08/07/16 12:12 Dose: Not Given Potassium Chloride 10 meq/ (Premix) 100 mls @ 100 mls/hr IV Q1H [facility] Stop: 08/07/16 11:14 Last Admin: 08/07/16 12:11 Dose: Not Given Potassium Chloride 10 meq/ (Premix) 100 mls @ 100 mls/hr IV ONETIME ONE Stop: 08/07/16 12:59 Last Admin: 08/07/16 12:09 Dose: 100 mls/hr Magnesium Sulfate 2 gm/ Premix 50 mls @ 25 mls/hr IV Q1H [facility] Stop: 08/07/16 13:59 Last Admin: 08/07/16 14:58 Dose: 25 mls/hr Lidocaine HCl (Xylocaine 2% Viscous) 15 ml PO TIDAC [facility] Last Admin: 08/05/16 06:34 Dose: Not Given Magnesium Citrate (Citrate Of Magnesia) 240 ml PO ONETIME ONE Stop: 08/04/16 17:55 Last Admin: 08/04/16 18:14 Dose: Not Given Mycophenolate Mofetil (Cellcept) 1,000 mg PO BID [facility] Last Admin: 08/04/16 21:38 Dose: Not Given Ondansetron HCl (Zofran) 4 mg IVPUSH ONETIME ONE Stop: 08/04/16 12:44 Last Admin: 08/04/16 12:50 Dose: 4 mg Pantoprazole Sodium (Protonix Iv) 40 mg IVPUSH ONETIME ONE Stop: 08/07/16 07:13 Last Admin: 08/07/16 08:24 Dose: 40 mg Mycophenolate (Mofetil 250 Mg Cap.) 0 each PO BID [facility] Phytonadione (Aquamephyton) 5 mg PO ONETIME ONE Stop: 08/04/16 17:53 Last Admin: 08/04/16 18:37 Dose: 5 mg Polyethylene Glycol (Miralax) 102 gm PO ONETIME ONE Stop: 08/04/16 12:45 Last Admin: 08/04/16 13:01 Dose: 102 gm Polyethylene Glycol/Electrolytes (Golytely) 4,000 ml PO ONETIME ONE Stop: 08/05/16 15:26 Last Admin: 08/05/16 15:36 Dose: Not Given Polyethylene Glycol/Electrolytes (Golytely) 4,000 ml PO ONETIME ONE Stop: 08/06/16 17:01 Last Admin: 08/06/16 18:19 Dose: 4,000 ml Potassium Chloride (Potassium Chloride Solution) 40 meq PO BIDMEALS [facility] Last Admin: 08/06/16 16:52 Dose: 40 meq - Problem List & Annotations (1) Abdominal pain SNOMED Code(s): 25176996 Code(s): R10.9 - UNSPECIFIED ABDOMINAL PAIN Status: Acute Priority: High Current Visit: Yes Qualifiers: Abdominal location: generalized Qualified Code(s): R10.84 - Generalized abdominal pain (2) Hiatal hernia SNOMED Code(s): 27789133 Code(s): K44.9 - DIAPHRAGMATIC HERNIA WITHOUT OBSTRUCTION OR GANGRENE Status: Acute Priority: High Current Visit: Yes (3) Afib, Atrial fibrillation and flutter SNOMED Code(s): 594390071 Code(s): I48.91 - UNSPECIFIED ATRIAL FIBRILLATION; I48.92 - UNSPECIFIED ATRIAL FLUTTER Status: Acute Current Visit: No (4) Aneurysm of internal iliac artery SNOMED Code(s): 521505425 Code(s): I72.3 - ANEURYSM OF ILIAC ARTERY Status: Acute Current Visit: No (5) Dehydration SNOMED Code(s): 94734839 Code(s): E86.0 - DEHYDRATION Status: Resolved Current Visit: No - My Orders Last 24 Hours: My Active Orders 08/07/16 10:00 Consult to Occupational Therapy [OT Evaluation and Treatment] [CONS] Routine 08/08/16 05:00 BMP [BASIC METABOLIC PANEL,BMP] [CHEM] DAILY CBC WITH AUTO DIFF [HEME] DAILY MAGNESIUM [CHEM] DAILY - Plan Plan:: Difficulty with prep resolved with NGT placement, rescheduled colonoscopy, .
--- NOTE | 2016-08-07 07:33 | CONS ---
CONSULTING PHYSICIAN: Brett Stanton MD DATE OF CONSULTATION: 08/04/2016 PERTINENT HISTORY: This is a 75-year-old, who was here last week with abdominal pain, worked up upper GI endoscopy, showing severe esophagitis and was discharged with viscous lidocaine, Pepcid, and Prilosec. The patient improved; however, he began 3 days to have abdominal pain throughout the abdomen, came in through the emergency room and was felt to be constipated. He was admitted to the hospital for further workup. His last colonoscopy was some time ago and was concern raised that he may have had obstructive lesion in the colon. He has had colon surgery with resection due to inflammatory disease with transient colostomy. The patient at home has had a bit of a problem with failure to thrive and eat. He has been losing weight. He does have a history of gastric operation by Dr. Garsia. 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 There was also a history of drinking beer over a number of years. MEDICAL PROBLEMS: History of coronary artery disease, atrial fib on Coumadin with an INR of 2.6, history of ID in 1996, some diverticulosis and diverticulitis with infection status post surgery, history of gastric ulcer with a Billroth-I anastomosis, osteoporosis, and reports of seizures. FAMILY HISTORY: Noncontributory. Former smoker and drinker of a large quantities of beer he states. REVIEW OF SYSTEMS: No chest pain, shortness of breath, cough, hoarseness, fainting, weakness, numbness, convulsions, nausea, vomiting, or indigestion. PHYSICAL EXAMINATION: GENERAL: Reveals alert and cooperative male. He is somewhat confabulates. EYES: Sclerae white. Oral cavity, healthy mucous membrane with mouth and tongue. NECK: Supple. No nodes. No thyromegaly. LUNGS: Clear. No rales, rhonchi or dullness. CARDIOVASCULAR: No murmurs, some irregular rate. ABDOMEN: Soft. No tenderness, guarding, rebound, organomegaly, or pulsatile masses. Numerous surgical scars noted. EXTREMITIES: Upper and lower extremities, no angulation deformities. He moves all 4 extremities. PSYCHIATRIC: Confabulates little bit flat affect. He is alert and oriented. Cranial nerves 3 through 12 intact. SKIN: Warm and dry. ASSESSMENT: 1. 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 2. Chronic constipation. He has been on Percocet, which could contribute to this problem, but feel we should proceed with colonoscopy to exclude any stenosis or anastomosis from his previous surgeries and/or tumor masses. 3. Atrial fibrillation. He is on warfarin, we will stop this and probably be able to proceed on Sunday. 4. Abdominal pain, which is chronic due to constipation, esophageal reflux, esophagitis secondary to alkaline reflux. 5. History of alcohol abuse in the past. We will look for evidence of cirrhosis with an ultrasound. MMODAL /[id number]
[2016-08-07] MEDS: Potassium Chloride 10 MEQ in Premix Bag 1 BAG IV SCH ×4 (08:27→12:11)
[2016-08-07] MEDS: Isosorbide Mononitrate 60 MG Tab.ER PO SCH ×2 (09:54→14:57)
[2016-08-07] MEDS: MYCOPHENOLATE MOFETIL 250 MG PO SCH ×3 (09:54→21:55)
[2016-08-07] MEDS: Famotidine 20 MG Tab PO SCH ×3 (09:54→21:55)
[2016-08-07] MEDS: Rosuvastatin 10 MG Tab PO SCH ×2 (09:54→14:57)
[2016-08-07] MEDS: Phenytoin 100 MG Cap.ER PO SCH ×3 (09:54→21:55)
[2016-08-07] MEDS: Sulfamethoxazole/Trimethoprim 800-160 MG Tab PO SCH ×2 (09:55→14:57)
--- NOTE | 2016-08-07 10:33 | US ---
Limited abdominal ultrasound: Multiple real-time images were obtained of the upper right abdomen. Comparison: No previous abdominal ultrasound, previous CT abdomen and pelvis study dated 07/24/16 is available. Technologist's note: Patient uncooperative Liver shows no focal abnormality. Visualized portions of the pancreas show no discrete abnormality. Previous cholecystectomy is noted. No biliary duct dilatation is seen. Right kidney shows no hydronephrosis or mass and has a length of 11.0 cm. Technologist questions a possible soft tissue mass inferior to the pancreas. No corresponding finding is seen on previous CT exam and this finding is likely incidental and due to bowel. Portal vein appears patent with normal flow. Impression: 1. Incidental findings as described above. Nothing acute is identified. Diagnostic code #2 I agree with preliminary report issued by [facility]
[2016-08-07] MEDS: Sodium Chloride 0.45% 1,000 ML IV SCH (11:54)
[2016-08-07] MEDS ORDERED: Potassium Chloride 10 MEQ in Premix Bag 1 BAG IV ONE (12:00)
[2016-08-07] MEDS: Magnesium Sulfate/Water 2 GM in Premix Bag 1 BAG IV SCH ×3 (12:12→14:58)
--- NOTE | 2016-08-07 13:19 | PCM.PREANE ---
Preanesthetic Assessment - Anesthesia/Transfusion/Family Hx Anesthesia History: Prior Anesthesia Without Reaction Family History of Anesthesia Reaction: No Transfusion History: No Prior Transfusion(s) Intubation History: Unknown - Review of Systems General: No Symptoms Pulmonary: Shortness of Breath, Other (end stage COPD) Cardiovascular: Other (LA 1996, afib (chronic anticoagulation), HTN, HLD, CAD, ) Neurological: Seizure (1984 was last seizure ) Other: Reports: Liver Problems (Query liver disease (Hx ETOH)) - Physical Assessment NPO Status Date: 08/07/16 NPO Status Time: 23:59 Pulse: 100 O2 Sat by Pulse Oximetry: 95 Respiratory Rate: 24 Blood Pressure: 138/99 Temperature: 36.6 C Vital Signs: Last Vital Signs Temp 36.6 C 08/07/16 08:00 Pulse 100 08/07/16 08:00 Resp 24 H 08/07/16 08:00 BP 138/99 H 08/07/16 08:00 Pulse Ox 95 08/07/16 08:00 Height: 1.63 m Weight: 65.181 kg ASA Class: 3 Mental Status: Alert & Oriented x3 Airway Class: Mallampati = 1 Dentition: Reports: Dentures (upper and lower ) Thyro-Mental Finger Breadths: 3 Mouth Opening Finger Breadths: 3 ROM/Head Extension: Full Lungs: Clear to auscultation, Decreased breath sounds Cardiovascular: Irregular Rhythm - Lab Values: Laboratory Last Values WBC 5.99 K/mm3 (4.23-9.07) 08/07/16 06:03 RBC 3.82 M/mm3 (4.63-6.08) L 08/07/16 06:03 Hgb 11.1 gm/L (13.7-17.5) L 08/07/16 06:03 Hct 33.2 % (40.1-51.0) L 08/07/16 06:03 MCV 86.9 fl (79.0-92.2) 08/07/16 06:03 MCH 29.1 pg (25.7-32.2) 08/07/16 06:03 MCHC 33.4 g/dl (32.2-35.5) 08/07/16 06:03 RDW Std Deviation 49.3 fL (35.1-43.9) H 08/07/16 06:03 Plt Count 338 K/mm3 (163-337) H 08/07/16 06:03 MPV 9.1 fl (9.4-12.3) L 08/07/16 06:03 Neut % (Auto) 69.7 % (34.0-67.9) H 08/07/16 06:03 Lymph % (Auto) 16.2 % (21.8-53.1) L 08/07/16 06:03 [place] % (Auto) 8.8 % (5.3-12.2) 08/07/16 06:03 Eos % (Auto) 3.5 (0.8-7.0) 08/07/16 06:03 Baso % (Auto) 0.3 % (0.1-1.2) 08/07/16 06:03 Neut # (Auto) 4.17 K/mm3 (1.78-5.38) 08/07/16 06:03 Lymph # (Auto) 0.97 K/mm3 (1.32-3.57) L 08/07/16 06:03 [place] # (Auto) 0.53 K/mm3 (0.30-0.82) 08/07/16 06:03 Eos # (Auto) 0.21 K/mm3 (0.04-0.54) 08/07/16 06:03 Baso # (Auto) 0.02 K/mm3 (0.01-0.08) 08/07/16 06:03 Neutrophils % (Manual) 75 % (40-60) H 08/04/16 13:00 Band Neutrophils % 0 % (0-10) 08/04/16 13:00 Lymphocytes % (Manual) 25 % (20-40) 08/04/16 13:00 Atypical Lymphs % 0 % 08/04/16 13:00 Immat Monocytes % (Man) 0 08/04/16 13:00 Monocytes % (Manual) 0 % (2-10) L 08/04/16 13:00 Eosinophils % (Manual) 0 % (0.8-7.0) L 08/04/16 13:00 Basophils % (Manual) 0 (0.2-1.2) L 08/04/16 13:00 Metamyelocytes % 0 08/04/16 13:00 Myelocytes % 0 08/04/16 13:00 Promyelocytes % 0 08/04/16 13:00 Blast Cells % 0 08/04/16 13:00 Plasma Cell % (Manual) 0 08/04/16 13:00 Nucleated RBCs 0.0 % 08/04/16 13:00 Hypersegmented Neuts Few 08/04/16 13:00 Platelet Estimate Adequate 08/04/16 13:00 Anisocytosis 2+ moderate 08/04/16 13:00 RBC Morph Comment Normal 08/04/16 13:00 PT 10.8 SECONDS (8.0-13.0) 08/06/16 05:53 INR 0.99 08/06/16 05:53 Sodium 138 mEq/L (136-145) 08/07/16 06:03 Potassium 3.3 mEq/L (3.5-5.1) L 08/07/16 06:03 Chloride 101 mEq/L (98-107) 08/07/16 06:03 Carbon Dioxide 24 mEq/L (21-32) 08/07/16 06:03 Anion Gap 16.3 (5-15) H 08/07/16 06:03 BUN 9 mg/dL (7-18) 08/07/16 06:03 Creatinine 0.9 mg/dL (0.7-1.3) 08/07/16 06:03 Est Cr Clr Drug Dosing 61.21 mL/min 08/07/16 06:03 Estimated GFR (MDRD) > 60 mL/min (>60) 08/07/16 06:03 BUN/Creatinine Ratio 10.0 (14-18) L 08/07/16 06:03 Glucose 101 mg/dL (83-115) 08/07/16 06:03 POC Glucose 74 mg/dL (83-110) L 08/06/16 16:32 Calcium 11.4 mg/dL (8.5-10.1) H 08/07/16 06:03 Magnesium 1.3 mg/dl (1.8-2.4) L 08/07/16 06:03 Total Bilirubin 0.4 mg/dL (0.2-1.0) 08/04/16 13:00 AST 24 U/L (15-37) 08/04/16 13:00 ALT 16 U/L (16-63) 08/04/16 13:00 Alkaline Phosphatase 185 U/L (46-116) H 08/04/16 13:00 C-Reactive Protein 3.4 mg/dL (<1.0) H* 08/04/16 13:00 Total Protein 7.5 g/dl (6.4-8.2) 08/04/16 13:00 Albumin 2.6 g/dl (3.4-5.0) L 08/04/16 13:00 Globulin 4.9 gm/dL 08/04/16 13:00 Albumin/Globulin Ratio 0.5 (1-2) L 08/04/16 13:00 Lipase 284 U/L (73-393) 08/04/16 13:00 Urine Color [place] (Yellow) H 08/06/16 18:00 Urine Appearance Clear (Clear) 08/06/16 18:00 Urine pH 6.0 (5.0-8.0) 08/06/16 18:00 Ur Specific Haw[place] > or = 1.030 (1.005-1.030) 08/06/16 18:00 Urine Protein 2+ (Negative) H 08/06/16 18:00 Urine Glucose (UA) Negative (Negative) 08/06/16 18:00 Urine Ketones 1+ (Negative) H 08/06/16 18:00 Urine Occult Blood 3+ (Negative) H 08/06/16 18:00 Urine Nitrite Negative (Negative) 08/06/16 18:00 Urine Bilirubin 1+ (Negative) H 08/06/16 18:00 Urine Urobilinogen 1.0 (0.2-1.0) 08/06/16 18:00 Ur Leukocyte Esterase Negative (Negative) 08/06/16 18:00 Urine RBC >100 /hpf (0-5) H 08/06/16 18:00 Urine WBC 0-5 /hpf (0-5) 08/06/16 18:00 Ur Epithelial Cells 0-5 /hpf (0-5) 08/06/16 18:00 Ur Squamous Epith Cells 0-5 /hpf (0-5) 08/04/16 16:20 Amorphous Sediment Few /hpf (NOT SEEN) H 08/06/16 18:00 Urine Bacteria Rare /hpf (FEW) 08/06/16 18:00 Hyaline Casts 5-10 /lpf (0-5) H 08/04/16 16:20 Fine Granular Casts 0-5 /lpf (0-5) 08/06/16 18:00 Urine Mucus Few /hpf (FEW) 08/06/16 18:00 MRSA (PCR) Negative 08/04/16 18:45 - Allergies Allergies/Adverse Reactions: Allergies Allergy/AdvReac Type Severity Reaction Status Date / Time strawberries Allergy Unknown Cannot Uncoded 08/04/16 18:21 Remember - Blood Blood Available: No Product(s) Available: None - Anesthesia Plan Beta Randa: Carvedilol Med Last Dose Date: 08/07/16 Med Last Dose Time: 06:00 - Acknowledgements Anesthesia Type Planned: MAC Pt an Appropriate Candidate for the Planned Anesthesia: Yes Alternatives and Risks of Anesthesia Discussed w Pt/Guardian: Yes Pt/Guardian Understands and Agrees with Anesthesia Plan: Yes PreAnesthesia Questionnaire HEENT History: Reports: Impaired vision Other HEENT History: Glasses Cardiovascular History: Reports: Afib (Chronically and is on Coumadin for this reason.), CAD, High cholesterol, Hypertension, LA Other Cardiovascular History: LA in 1996 Respiratory History: Reports: SOB Gastrointestinal History: Reports: Diverticulosis Other Gastrointestinal History: "3 years he had a blockage in intestines, put a temporary bag on it - Dr. Bartlett at [facility] in [place]". Bleeding ulcer in and had half of stomach removed. Musculoskeletal History: Reports: Arthritis, Osteoarthritis, Osteoporosis Other Musculoskeletal History: Falling at home lately Neurological History: Reports: Seizure Other Neuro History: Last seizure was 1984. denies that patient has memory problems Psychiatric History: Reports: Other (see below) Other Psychiatric History: Been a little more "down" the last couple montshs. 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 Nisreen Bell - [facility] - Past Surgical History HEENT Surgical History: Reports: Cataract surgery GI Surgical History: Reports: Cholecystectomy, Colostomy - SUBSTANCE USE Smoking Status *Q: Former Smoker (Quit 29 years ago.) Tobacco Use Within Last Twelve Months: Cigarettes Second Hand Smoke Exposure: No Days Per Week of Alcohol Use: 0 (Quit drinking alcohol 29 years ago) Recreational Drug Use History: No - HOME MEDS Home Medications: Home Meds Isosorbide Mononitrate [Isosorbide Mononitrate ER] 60 mg PO DAILY 07/15/13 [ History] Phenytoin Sodium Extended 200 mg PO TID 07/15/13 [History] atorvaSTATin [Lipitor] 40 mg PO DAILY 07/15/13 [History] Warfarin [Coumadin] 5 mg PO IRAHETA 12/22/15 [History] Aspirin [Tamika Chewable Aspirin] 81 mg PO DAILY 05/20/16 [History] Carvedilol 6.25 mg PO BIDMEALS 05/20/16 [History] Sulfamethoxazole/Trimethoprim [Sulfamethoxazole-Tmp Ds Tablet] 1 tab PO DAILY [History] Mycophenolate Mofetil 1,000 mg PO BID 07/24/16 [History] Warfarin [Coumadin] 2.5 mg PO MOTUWETHFRSA 07/24/16 [History] diphenhydrAMINE HCl [Benadryl] 25 mg PO DAILY PRN 07/24/16 [History] Bisacodyl [Dulcolax] 5 mg PO DAILY PRN #30 tablet 07/30/16 [Rx] Lidocaine 2% [Xylocaine 2% Viscous] 15 ml PO TIDAC #13 cup 07/30/16 [Rx] Docusate Sodium 100 mg PO DAILY PRN 08/04/16 [History] Famotidine 20 mg PO DAILY 08/04/16 [History] Polyethylene Glycol 3350 [MiraLAX] 17 gm PO DAILY PRN 08/04/16 [History] Vitamin D. 1.25 mg PO WEEKLY 08/04/16 [History] oxyCODONE HCl/Acetaminophen [Percocet 10-325 mg Tablet] 1 tab PO Q4H PRN [History] - CURRENT (IN HOUSE) MEDS Current Meds: Current Medications Bisacodyl (Dulcolax) 5 mg PO DAILY PRN PRN Reason: Constipation Carvedilol (Coreg) 6.25 mg PO BIDMEALS [facility] Last Admin: 08/07/16 06:00 Dose: 6.25 mg Al Hydroxide/Mg Hydroxide 30 (ml/ Lidocaine HCl 15 ml) 0 ml PO TIDAC PRN PRN Reason: STOMACH IRRITATION Diphenhydramine HCl (Benadryl) 25 mg PO DAILY PRN PRN Reason: Itching Famotidine (Pepcid) 20 mg PO BID [facility] Last Admin: 08/07/16 09:54 Dose: Not Given Sodium Chloride (Sodium Chloride 0.45%) 1,000 mls @ 50 mls/hr IV ASDIRECTED [facility] Last Admin: 08/07/16 11:54 Dose: 50 mls/hr Magnesium Sulfate 2 gm/ Premix 50 mls @ 25 mls/hr IV Q1H [facility] Stop: 08/07/16 13:59 Lactated Ringer's (Ringers, Lactated) 1,000 mls @ 125 mls/hr IV ASDIRECTED [facility] Stop: 08/08/16 23:00 Isosorbide Mononitrate (Imdur) 60 mg PO DAILY [facility] Last Admin: 08/07/16 09:54 Dose: Not Given Lidocaine/Sodium Bicarbonate (Buffered Lidocaine 1% In Ns 8.4%) 0.25 ml IV ONETIME PRN PRN Reason: Prior to IV Start Stop: 08/08/16 18:00 Mycophenolate Mofetil (Cellcept) 1,000 mg PO BID [facility] Last Admin: 08/07/16 09:54 Dose: Not Given Ondansetron HCl (Zofran) 4 mg IVPUSH Q8H PRN PRN Reason: Nausea/Vomiting Phenytoin Sodium (Phenytoin) 200 mg PO TID [facility] Last Admin: 08/07/16 09:54 Dose: Not Given Prochlorperazine Edisylate (Compazine) 5 mg IVPUSH Q6H PRN PRN Reason: Nausea/Vomiting Rosuvastatin Calcium (Crestor) 10 mg PO DAILY [facility] Last Admin: 08/07/16 09:54 Dose: Not Given Sodium Chloride (Saline Flush) 10 ml FLUSH ASDIRECTED PRN PRN Reason: Keep Vein Open Stop: 08/08/16 18:00 Trimethoprim/Sulfamethoxazole (Septra Ds) 1 tab PO DAILY [facility] Last Admin: 08/07/16 09:55 Dose: Not Given Discontinued Medications Aspirin (Aspirin) 81 mg PO DAILY [facility] Last Admin: 08/05/16 09:22 Dose: 81 mg Hydromorphone HCl (Dilaudid) 0.5 mg IVPUSH ONETIME ONE Stop: 08/04/16 12:43 Last Admin: 08/04/16 12:49 Dose: 0.5 mg Sodium Chloride (Normal Saline) 1,000 mls @ 150 mls/hr IV ASDIRECTED [facility] Last Admin: 08/04/16 12:48 Dose: 150 mls/hr Sodium Chloride (Sodium Chloride 0.45%) 1,000 mls @ 100 mls/hr IV ASDIRECTED [facility] Sodium Chloride (Sodium Chloride 0.45%) 1,000 mls @ 999 mls/hr IV ASDIRECTED [facility] Stop: 08/04/16 19:31 Sodium Chloride (Normal Saline) 1,000 mls @ 70 mls/hr IV ASDIRECTED [facility] Magnesium Sulfate 2 gm/ Premix 50 mls @ 25 mls/hr IV ONETIME ONE Stop: 08/05/16 19:29 Last Admin: 08/05/16 18:00 Dose: 25 mls/hr Magnesium Sulfate 2 gm/ Premix 50 mls @ 25 mls/hr IV Q1H [facility] Stop: 08/07/16 09:14 Last Admin: 08/07/16 12:12 Dose: Not Given Potassium Chloride 10 meq/ (Premix) 100 mls @ 100 mls/hr IV Q1H [facility] Stop: 08/07/16 11:14 Last Admin: 08/07/16 12:11 Dose: Not Given Potassium Chloride 10 meq/ (Premix) 100 mls @ 100 mls/hr IV ONETIME ONE Stop: 08/07/16 12:59 Last Admin: 08/07/16 12:09 Dose: 100 mls/hr Lidocaine HCl (Xylocaine 2% Viscous) 15 ml PO TIDAC [facility] Last Admin: 08/05/16 06:34 Dose: Not Given Magnesium Citrate (Citrate Of Magnesia) 240 ml PO ONETIME ONE Stop: 08/04/16 17:55 Last Admin: 08/04/16 18:14 Dose: Not Given Mycophenolate Mofetil (Cellcept) 1,000 mg PO BID [facility] Last Admin: 08/04/16 21:38 Dose: Not Given Ondansetron HCl (Zofran) 4 mg IVPUSH ONETIME ONE Stop: 08/04/16 12:44 Last Admin: 08/04/16 12:50 Dose: 4 mg Pantoprazole Sodium (Protonix Iv) 40 mg IVPUSH ONETIME ONE Stop: 08/07/16 07:13 Last Admin: 08/07/16 08:24 Dose: 40 mg Mycophenolate (Mofetil 250 Mg Cap.) 0 each PO BID [facility] Phytonadione (Aquamephyton) 5 mg PO ONETIME ONE Stop: 08/04/16 17:53 Last Admin: 08/04/16 18:37 Dose: 5 mg Polyethylene Glycol (Miralax) 102 gm PO ONETIME ONE Stop: 08/04/16 12:45 Last Admin: 08/04/16 13:01 Dose: 102 gm Polyethylene Glycol/Electrolytes (Golytely) 4,000 ml PO ONETIME ONE Stop: 08/05/16 15:26 Last Admin: 08/05/16 15:36 Dose: Not Given Polyethylene Glycol/Electrolytes (Golytely) 4,000 ml PO ONETIME ONE Stop: 08/06/16 17:01 Last Admin: 08/06/16 18:19 Dose: 4,000 ml Potassium Chloride (Potassium Chloride Solution) 40 meq PO BIDMEALS [facility] Last Admin: 08/06/16 16:52 Dose: 40 meq
[2016-08-07] MEDS: Lactated Ringers 1,000 ML IV SCH (23:49)
[2016-08-08] MEDS ORDERED: Sodium Chloride 0.9% 10 ML Syringe FLUSH PRN (00:01)
[2016-08-08] MEDS ORDERED: Lidocaine 1%/Sod Bicarbonate in NS 8.4% 1 ML Syringe IV PRN (00:01)
[2016-08-08] MEDS: Carvedilol 6.25 MG Tab PO SCH ×2 (06:06→18:02)
[2016-08-08] MEDS ORDERED: Propofol 200 MG/20 ML SDV ONE (07:26)
[2016-08-08] MEDS ORDERED: Lactated Ringers 1,000 ML ONE (07:26)
[2016-08-08] MEDS ORDERED: Lidocaine 1% 6 ML ONE (07:26)
[2016-08-08] MEDS ORDERED: fentaNYL 100 MCG/2 ML SDV ONE (07:26)
[2016-08-08] MEDS ORDERED: Simethicone Drops 40 MG/0.6 ML 30 ML Bottle ONE (07:39)
--- NOTE | 2016-08-08 08:08 | PCM.OPNOTE ---
- General Post-Op/Procedure Note Date of Surgery/Procedure: 08/08/16 Operative Procedure(s): colonoscopy to cecum Findings: sigmoid diverticulosis and internal hemorrhoids Pre Op Diagnosis: change in bowel habits Post-Op Diagnosis: Same Anesthesia Technique: MAC Primary Surgeon: Brett Stanton EBL in mLs: 0 Complications: None Condition: Fair Free Text/Narrative:: Intake & Output 08/07/16 08/08/16 08/08/16 23:59 07:59 15:59 Intake Total 5437 567 Output Total 650 400 Balance 4787 167
--- NOTE | 2016-08-08 08:13 | PCM48HPAN ---
Post Anesthesia Note - EVALUATION WITHIN 48HRS OF ANESTHETIC Vital Signs in Normal Range: Yes Patient Participated in Evaluation: Yes Respiratory Function Stable: Yes Airway Patent: Yes Cardiovascular Function Stable: Yes Hydration Status Stable: Yes Pain Control Satisfactory: Yes Nausea and Vomiting Control Satisfactory: Yes Mental Status Recovered: Yes - COMMENTS/OBSERVATIONS Free Text/Narrative:: patient resting quietly with no current complaints of noted at this time.
[2016-08-08] MEDS: Rosuvastatin 10 MG Tab PO SCH (10:04)
[2016-08-08] MEDS: Isosorbide Mononitrate 60 MG Tab.ER PO SCH (10:04)
[2016-08-08] MEDS: MYCOPHENOLATE MOFETIL 250 MG PO SCH ×2 (10:04→21:18)
[2016-08-08] MEDS: Phenytoin 100 MG Cap.ER PO SCH ×3 (10:04→21:18)
[2016-08-08] MEDS: Sulfamethoxazole/Trimethoprim 800-160 MG Tab PO SCH (10:05)
[2016-08-08] MEDS: Potassium Chloride 10 MEQ in Premix Bag 1 BAG IV SCH ×4 (10:05→15:25)
[2016-08-08] MEDS: Magnesium Sulfate/Water 2 GM in Premix Bag 1 BAG IV SCH ×3 (10:23→21:18)
[2016-08-08] MEDS: Lactated Ringers 1,000 ML IV SCH (11:05)
[2016-08-08] MEDS: Famotidine 20 MG Tab PO SCH ×2 (11:05→21:19)
[2016-08-08] MEDS ORDERED: Magnesium Sulfate/Water 2 GM in Premix Bag 1 BAG IV SCH (12:30)
--- NOTE | 2016-08-08 13:53 | PCM.PN ---
<Maria Luisa Ma M - Last Filed: 08/08/16 13:56> - General Info Date of Service: 08/08/16 Admission Dx/Problem (Free Text): Patient is s/p colonoscopy with Dr. Stanton this morning. Verbal report is findings were with diverticulosis and hemorrhoid; no other acute findings noted. Patient is confused postoperatively to date, time and situation/place. He denies pain currently. He is 1:1 care with nursing now due to confusion and for safety. Functional Status: Reports: pain controlled, tolerating diet (soft diet per Dr. Stanton), ambulating, urinating. Denies: new symptoms - Review of Systems General: Reports: No Symptoms HEENT: Reports: no symptoms Pulmonary: Reports: no symptoms Cardiovascular: Reports: No Symptoms Gastrointestinal: Reports: Other (s/p colonoscopy) Genitourinary: Reports: no symptoms Musculoskeletal: Reports: no symptoms Neurological: Reports: Confusion Psychiatric: Reports: confusion - Patient Data Vitals - most recent: Last Vital Signs Temp 97.0 F 08/08/16 10:02 Pulse 97 08/08/16 12:46 Resp 18 08/08/16 10:02 BP 127/75 08/08/16 12:46 Pulse Ox 94 L 08/08/16 12:46 Weight - most recent: 66.088 kg I&O - last 24 hours: Intake & Output 08/07/16 08/08/16 08/08/16 22:59 06:59 14:59 Intake Total 5100 904 Output Total 650 400 Balance 4450 504 Lab Results last 24 hrs: Laboratory Results - last 24 hr 08/05/16 08/08/16 08/08/16 Range/Units 06:01 06:20 06:20 WBC 5.46 (4.23-9.07) K/mm3 RBC 3.75 L (4.63-6.08) M/mm3 Hgb 10.8 L (13.7-17.5) gm/L Hct 32.5 L (40.1-51.0) % MCV 86.7 (79.0-92.2) fl MCH 28.8 (25.7-32.2) pg MCHC 33.2 (32.2-35.5) g/dl RDW Std Deviation 49.3 H (35.1-43.9) fL Plt Count 318 (163-337) K/mm3 MPV 9.5 (9.4-12.3) fl Neut % (Auto) 65.6 (34.0-67.9) % Lymph % (Auto) 20.0 L (21.8-53.1) % [place] % (Auto) 11.0 (5.3-12.2) % Eos % (Auto) 2.6 (0.8-7.0) Baso % (Auto) 0.4 (0.1-1.2) % Neut # (Auto) 3.59 (1.78-5.38) K/mm3 Lymph # (Auto) 1.09 L (1.32-3.57) K/mm3 [place] # (Auto) 0.60 (0.30-0.82) K/mm3 Eos # (Auto) 0.14 (0.04-0.54) K/mm3 Baso # (Auto) 0.02 (0.01-0.08) K/mm3 Sodium 137 (136-145) mEq/L Potassium 3.1 L (3.5-5.1) mEq/L Chloride 102 (98-107) mEq/L Carbon Dioxide 24 (21-32) mEq/L Anion Gap 14.1 (5-15) BUN 6 L (7-18) mg/dL Creatinine 0.8 (0.7-1.3) mg/dL Est Cr Clr Drug Dosing 68.86 mL/min Estimated GFR (MDRD) > 60 (>60) mL/min BUN/Creatinine Ratio 7.5 L (14-18) Glucose 85 (83-115) mg/dL Calcium 10.3 H (8.5-10.1) mg/dL Magnesium 1.7 L (1.8-2.4) mg/dl Carcinoembryonic Ag 2.3 (0.0-3.0) ng/mL Med Orders - Current: Current Medications Bisacodyl (Dulcolax) 5 mg PO DAILY PRN PRN Reason: Constipation Carvedilol (Coreg) 6.25 mg PO BIDMEALS [facility] Last Admin: 08/08/16 06:06 Dose: 6.25 mg Al Hydroxide/Mg Hydroxide 30 (ml/ Lidocaine HCl 15 ml) 0 ml PO TIDAC PRN PRN Reason: STOMACH IRRITATION Diphenhydramine HCl (Benadryl) 25 mg PO DAILY PRN PRN Reason: Itching Famotidine (Pepcid) 20 mg PO BID [facility] Last Admin: 08/08/16 11:05 Dose: 20 mg Lactated Ringer's (Ringers, Lactated) 1,000 mls @ 125 mls/hr IV ASDIRECTED [facility] Stop: 08/08/16 23:00 Last Admin: 08/08/16 11:05 Dose: 125 mls/hr Magnesium Sulfate 2 gm/ Premix 50 mls @ 25 mls/hr IV Q2H [facility] Stop: 08/08/16 16:29 Isosorbide Mononitrate (Imdur) 60 mg PO DAILY [facility] Last Admin: 08/08/16 10:04 Dose: 60 mg Lidocaine/Sodium Bicarbonate (Buffered Lidocaine 1% In Ns 8.4%) 0.25 ml IV ONETIME PRN PRN Reason: Prior to IV Start Stop: 08/08/16 18:00 Mycophenolate Mofetil (Cellcept) 1,000 mg PO BID [facility] Last Admin: 08/08/16 10:04 Dose: 1,000 mg Ondansetron HCl (Zofran) 4 mg IVPUSH Q8H PRN PRN Reason: Nausea/Vomiting Phenytoin Sodium (Phenytoin) 200 mg PO TID [facility] Last Admin: 08/08/16 10:04 Dose: 200 mg Prochlorperazine Edisylate (Compazine) 5 mg IVPUSH Q6H PRN PRN Reason: Nausea/Vomiting Rosuvastatin Calcium (Crestor) 10 mg PO DAILY [facility] Last Admin: 08/08/16 10:04 Dose: 10 mg Sodium Chloride (Saline Flush) 10 ml FLUSH ASDIRECTED PRN PRN Reason: Keep Vein Open Stop: 08/08/16 18:00 Trimethoprim/Sulfamethoxazole (Septra Ds) 1 tab PO DAILY [facility] Last Admin: 08/08/16 10:05 Dose: 1 tab Warfarin Sodium (Coumadin) 7.5 mg PO DAILY@1800 [facility] Warfarin Sodium (Pharmacy To Dose - Warfarin) 1 dose .XX ASDIRECTED [facility] Discontinued Medications Aspirin (Aspirin) 81 mg PO DAILY [facility] Last Admin: 08/05/16 09:22 Dose: 81 mg Fentanyl (Sublimaze) Confirm Administered Dose 100 mcg .ROUTE .STK-MED ONE Stop: 08/08/16 07:27 Hydromorphone HCl (Dilaudid) 0.5 mg IVPUSH ONETIME ONE Stop: 08/04/16 12:43 Last Admin: 08/04/16 12:49 Dose: 0.5 mg Sodium Chloride (Normal Saline) 1,000 mls @ 150 mls/hr IV ASDIRECTED [facility] Last Admin: 08/04/16 12:48 Dose: 150 mls/hr Sodium Chloride (Sodium Chloride 0.45%) 1,000 mls @ 50 mls/hr IV ASDIRECTED [facility] Stop: 08/08/16 00:00 Last Admin: 08/07/16 11:54 Dose: 50 mls/hr Sodium Chloride (Sodium Chloride 0.45%) 1,000 mls @ 100 mls/hr IV ASDIRECTED [facility] Sodium Chloride (Sodium Chloride 0.45%) 1,000 mls @ 999 mls/hr IV ASDIRECTED [facility] Stop: 08/04/16 19:31 Sodium Chloride (Normal Saline) 1,000 mls @ 70 mls/hr IV ASDIRECTED [facility] Magnesium Sulfate 2 gm/ Premix 50 mls @ 25 mls/hr IV ONETIME ONE Stop: 08/05/16 19:29 Last Admin: 08/05/16 18:00 Dose: 25 mls/hr Magnesium Sulfate 2 gm/ Premix 50 mls @ 25 mls/hr IV Q1H [facility] Stop: 08/07/16 09:14 Last Admin: 08/07/16 12:12 Dose: Not Given Potassium Chloride 10 meq/ (Premix) 100 mls @ 100 mls/hr IV Q1H [facility] Stop: 08/07/16 11:14 Last Admin: 08/07/16 12:11 Dose: Not Given Potassium Chloride 10 meq/ (Premix) 100 mls @ 100 mls/hr IV ONETIME ONE Stop: 08/07/16 12:59 Last Admin: 08/07/16 12:09 Dose: 100 mls/hr Magnesium Sulfate 2 gm/ Premix 50 mls @ 25 mls/hr IV Q1H [facility] Stop: 08/07/16 13:59 Last Admin: 08/07/16 14:58 Dose: 25 mls/hr Lidocaine HCl (Xylocaine-Mpf 1%) Confirm Administered Dose 6 mls @ as directed .ROUTE .STK-MED ONE Stop: 08/08/16 07:27 Lactated Ringer's (Ringers, Lactated) Confirm Administered Dose 1,000 mls @ as directed .ROUTE .STK-MED ONE Stop: 08/08/16 07:27 Magnesium Sulfate 2 gm/ Premix 50 mls @ 25 mls/hr IV Q1H [facility] Stop: 08/08/16 10:29 Last Admin: 08/08/16 10:23 Dose: Not Given Potassium Chloride 10 meq/ (Premix) 100 mls @ 100 mls/hr IV Q1H [facility] Stop: 08/08/16 12:29 Last Admin: 08/08/16 12:00 Dose: 100 mls/hr Lidocaine HCl (Xylocaine 2% Viscous) 15 ml PO TIDAC [facility] Last Admin: 08/05/16 06:34 Dose: Not Given Magnesium Citrate (Citrate Of Magnesia) 240 ml PO ONETIME ONE Stop: 08/04/16 17:55 Last Admin: 08/04/16 18:14 Dose: Not Given Mycophenolate Mofetil (Cellcept) 1,000 mg PO BID [facility] Last Admin: 08/04/16 21:38 Dose: Not Given Ondansetron HCl (Zofran) 4 mg IVPUSH ONETIME ONE Stop: 08/04/16 12:44 Last Admin: 08/04/16 12:50 Dose: 4 mg Pantoprazole Sodium (Protonix Iv) 40 mg IVPUSH ONETIME ONE Stop: 08/07/16 07:13 Last Admin: 08/07/16 08:24 Dose: 40 mg Mycophenolate (Mofetil 250 Mg Cap.) 0 each PO BID [facility] Phytonadione (Aquamephyton) 5 mg PO ONETIME ONE Stop: 08/04/16 17:53 Last Admin: 08/04/16 18:37 Dose: 5 mg Polyethylene Glycol (Miralax) 102 gm PO ONETIME ONE Stop: 08/04/16 12:45 Last Admin: 08/04/16 13:01 Dose: 102 gm Polyethylene Glycol/Electrolytes (Golytely) 4,000 ml PO ONETIME ONE Stop: 08/05/16 15:26 Last Admin: 08/05/16 15:36 Dose: Not Given Polyethylene Glycol/Electrolytes (Golytely) 4,000 ml PO ONETIME ONE Stop: 08/06/16 17:01 Last Admin: 08/06/16 18:19 Dose: 4,000 ml Potassium Chloride (Potassium Chloride Solution) 40 meq PO BIDMEALS [facility] Last Admin: 08/06/16 16:52 Dose: 40 meq Propofol (Diprivan 20 Ml) Confirm Administered Dose 200 mg .ROUTE .STK-MED ONE Stop: 08/08/16 07:27 Simethicone (Infants' Gas Relief) Confirm Administered Dose 2,000 mg .ROUTE .STK -MED ONE Stop: 08/08/16 07:40 Last Admin: 08/08/16 07:50 Dose: 2,000 mg - Exam Quality Assessment: DVT prophylaxis (restart coumadin s/p colonoscopy) General: alert, cooperative, no acute distress HEENT: Pupils equal, Pupils reactive, EOMI, Mucous membr. moist/pink Neck: supple Lungs: Normal respiratory effort, Decreased breath sounds (to bases) Cardiovascular: Irregular Rhythm Abdomen: bowel sounds present, soft, no tenderness, distension (mild and diffuse ) (Male) Exam: Deferred Extremities: no edema, no calf tenderness Peripheral Pulses: 1+: dorsalis pedis (L), dorsalis pedis (R) Psy/Mental Status: alert, other (confused) - Problem List & Annotations (1) Abdominal pain SNOMED Code(s): 39449711 Code(s): R10.9 - UNSPECIFIED ABDOMINAL PAIN Status: Acute Priority: High Current Visit: Yes Qualifiers: Abdominal location: generalized Qualified Code(s): R10.84 - Generalized abdominal pain (2) Adult failure to thrive syndrome SNOMED Code(s): 475292806 Code(s): R62.7 - ADULT FAILURE TO THRIVE Status: Acute Priority: High Current Visit: Yes (3) Hypokalemia SNOMED Code(s): 23488450 Code(s): E87.6 - HYPOKALEMIA Status: Acute Priority: High Current Visit : Yes (4) Hypomagnesemia SNOMED Code(s): 465366715 Code(s): E83.42 - HYPOMAGNESEMIA Status: Acute Priority: High Current Visit: Yes (5) Hiatal hernia SNOMED Code(s): 50641134 Code(s): K44.9 - DIAPHRAGMATIC HERNIA WITHOUT OBSTRUCTION OR GANGRENE Status: Acute Priority: High Current Visit: Yes (6) Supratherapeutic INR SNOMED Code(s): 051087829, 578879723 Code(s): R79.1 - ABNORMAL COAGULATION PROFILE Status: Resolved Priority: High Current Visit: Yes (7) Esophagitis SNOMED Code(s): 62611468 Code(s): K20.9 - ESOPHAGITIS, UNSPECIFIED Status: Acute Priority: High Current Visit: No (8) Gross hematuria SNOMED Code(s): 641159835 Code(s): R31.0 - GROSS HEMATURIA Status: Acute Priority: High Current Visit: Yes - Problem List Review Problem List Initiated/Reviewed/Updated: Yes - My Orders Last 24 Hours: My Active Orders 08/08/16 12:30 Magnesium Sulfate/Water [Magnesium Sulfate 2 GM in Water 50 ML] 2 gm Premix Bag 1 bag IV Q2H 08/08/16 13:44 INR,PT,PROTHROMBIN TIME [COAG] Routine 08/08/16 13:45 Warfarin Pharmacy to Dose [Pharmacy to Dose - Warfarin] 1 dose .XX ASDIRECTED 08/08/16 18:00 Warfarin [Coumadin] 7.5 mg PO DAILY@1800 08/09/16 05:11 BASIC METABOLIC PANEL,BMP [CHEM] AM CBC WITH AUTO DIFF [HEME] AM MAGNESIUM [CHEM] AM - Plan Plan:: Impression: Abdominal pain with decrease appetite and weight loss Narcotic use for abdominal pain of unclear etiology Query Liver disease, hx of ETOH A Fib on coumadin s/p Vitamin K in the ED Recent EGD with finding of hiatal hernia and esophagitis Hematuria- recurrent Hypokalemia Hypomagnesemia Plan: General Surgery consult, Dr. Stanton -Planned Colonoscopy today; patient unable to tolerate prep. Nursing contacted Dr. Stanton with instructions to place NG tube to complete rest of prep today. Plan colonoscopy today- preliminary verbal report with diverticulosis and hemorrhoid. GB US pending report Protonix IV today and pepcid BID for esophagitis noted on prior admission with EGD Hematuria- will need Urology eval/workup as outpatient if not already done so Electrolyte abnormalities- replace and monitor with am labs Plan to resume coumadin after procedure if indicated Plan for SNF placement- [place]; likely tomorrow Other: CM/SW for SNF placement PT/OT for strengthening Dietitian for consult- wt loss Patient is full code. <Dyan Allen - Last Filed: 08/08/16 17:01> - Patient Data Vitals - most recent: Last Vital Signs Temp 36.9 C 08/08/16 15:59 Pulse 100 08/08/16 15:59 Resp 18 08/08/16 15:59 BP 138/86 08/08/16 15:59 Pulse Ox 97 08/08/16 15:59 I&O - last 24 hours: Intake & Output 08/08/16 08/08/16 08/08/16 06:59 14:59 22:59 Intake Total 904 600 Output Total 400 700 Balance 504 -100 Lab Results last 24 hrs: Laboratory Results - last 24 hr 08/05/16 08/08/16 08/08/16 Range/Units 06:01 06:20 06:20 WBC 5.46 (4.23-9.07) K/mm3 RBC 3.75 L (4.63-6.08) M/mm3 Hgb 10.8 L (13.7-17.5) gm/L Hct 32.5 L (40.1-51.0) % MCV 86.7 (79.0-92.2) fl MCH 28.8 (25.7-32.2) pg MCHC 33.2 (32.2-35.5) g/dl RDW Std Deviation 49.3 H (35.1-43.9) fL Plt Count 318 (163-337) K/mm3 MPV 9.5 (9.4-12.3) fl Neut % (Auto) 65.6 (34.0-67.9) % Lymph % (Auto) 20.0 L (21.8-53.1) % [place] % (Auto) 11.0 (5.3-12.2) % Eos % (Auto) 2.6 (0.8-7.0) Baso % (Auto) 0.4 (0.1-1.2) % Neut # (Auto) 3.59 (1.78-5.38) K/mm3 Lymph # (Auto) 1.09 L (1.32-3.57) K/mm3 [place] # (Auto) 0.60 (0.30-0.82) K/mm3 Eos # (Auto) 0.14 (0.04-0.54) K/mm3 Baso # (Auto) 0.02 (0.01-0.08) K/mm3 PT (8.0-13.0) SECONDS INR Sodium 137 (136-145) mEq/L Potassium 3.1 L (3.5-5.1) mEq/L Chloride 102 (98-107) mEq/L Carbon Dioxide 24 (21-32) mEq/L Anion Gap 14.1 (5-15) BUN 6 L (7-18) mg/dL Creatinine 0.8 (0.7-1.3) mg/dL Est Cr Clr Drug Dosing 68.86 mL/min Estimated GFR (MDRD) > 60 (>60) mL/min BUN/Creatinine Ratio 7.5 L (14-18) Glucose 85 (83-115) mg/dL Calcium 10.3 H (8.5-10.1) mg/dL Magnesium 1.7 L (1.8-2.4) mg/dl Carcinoembryonic Ag 2.3 (0.0-3.0) ng/mL 08/08/16 Range/Units 06:20 WBC (4.23-9.07) K/mm3 RBC (4.63-6.08) M/mm3 Hgb (13.7-17.5) gm/L Hct (40.1-51.0) % MCV (79.0-92.2) fl MCH (25.7-32.2) pg MCHC (32.2-35.5) g/dl RDW Std Deviation (35.1-43.9) fL Plt Count (163-337) K/mm3 MPV (9.4-12.3) fl Neut % (Auto) (34.0-67.9) % Lymph % (Auto) (21.8-53.1) % [place] % (Auto) (5.3-12.2) % Eos % (Auto) (0.8-7.0) Baso % (Auto) (0.1-1.2) % Neut # (Auto) (1.78-5.38) K/mm3 Lymph # (Auto) (1.32-3.57) K/mm3 [place] # (Auto) (0.30-0.82) K/mm3 Eos # (Auto) (0.04-0.54) K/mm3 Baso # (Auto) (0.01-0.08) K/mm3 PT 11.0 (8.0-13.0) SECONDS INR 1.01 Sodium (136-145) mEq/L Potassium (3.5-5.1) mEq/L Chloride (98-107) mEq/L Carbon Dioxide (21-32) mEq/L Anion Gap (5-15) BUN (7-18) mg/dL Creatinine (0.7-1.3) mg/dL Est Cr Clr Drug Dosing mL/min Estimated GFR (MDRD) (>60) mL/min BUN/Creatinine Ratio (14-18) Glucose (83-115) mg/dL Calcium (8.5-10.1) mg/dL Magnesium (1.8-2.4) mg/dl Carcinoembryonic Ag (0.0-3.0) ng/mL Med Orders - Current: Current Medications Bisacodyl (Dulcolax) 5 mg PO DAILY PRN PRN Reason: Constipation Carvedilol (Coreg) 6.25 mg PO BIDMEALS [facility] Last Admin: 08/08/16 06:06 Dose: 6.25 mg Al Hydroxide/Mg Hydroxide 30 (ml/ Lidocaine HCl 15 ml) 0 ml PO TIDAC PRN PRN Reason: STOMACH IRRITATION Diphenhydramine HCl (Benadryl) 25 mg PO DAILY PRN PRN Reason: Itching Famotidine (Pepcid) 20 mg PO BID [facility] Last Admin: 08/08/16 11:05 Dose: 20 mg Lactated Ringer's (Ringers, Lactated) 1,000 mls @ 125 mls/hr IV ASDIRECTED [facility] Stop: 08/08/16 23:00 Last Admin: 08/08/16 11:05 Dose: 125 mls/hr Magnesium Sulfate 2 gm/ Premix 50 mls @ 25 mls/hr IV Q2H [facility] Stop: 08/08/16 21:29 Isosorbide Mononitrate (Imdur) 60 mg PO DAILY [facility] Last Admin: 08/08/16 10:04 Dose: 60 mg Lidocaine/Sodium Bicarbonate (Buffered Lidocaine 1% In Ns 8.4%) 0.25 ml IV ONETIME PRN PRN Reason: Prior to IV Start Stop: 08/08/16 18:00 Magnesium Oxide (Magnesium Oxide) 800 mg PO DAILY [facility] Mycophenolate Mofetil (Cellcept) 1,000 mg PO BID [facility] Last Admin: 08/08/16 10:04 Dose: 1,000 mg Ondansetron HCl (Zofran) 4 mg IVPUSH Q8H PRN PRN Reason: Nausea/Vomiting Phenytoin Sodium (Phenytoin) 200 mg PO TID [facility] Last Admin: 08/08/16 14:07 Dose: 200 mg Prochlorperazine Edisylate (Compazine) 5 mg IVPUSH Q6H PRN PRN Reason: Nausea/Vomiting Rosuvastatin Calcium (Crestor) 10 mg PO DAILY [facility] Last Admin: 08/08/16 10:04 Dose: 10 mg Sodium Chloride (Saline Flush) 10 ml FLUSH ASDIRECTED PRN PRN Reason: Keep Vein Open Stop: 08/08/16 18:00 Trimethoprim/Sulfamethoxazole (Septra Ds) 1 tab PO DAILY [facility] Last Admin: 08/08/16 10:05 Dose: 1 tab Warfarin Sodium (Coumadin) 5 mg PO ONETIME@1800 ONE Stop: 08/08/16 18:01 Warfarin Sodium (Pharmacy To Dose - Warfarin) 0 dose .XX ASDIRECTED PRN PRN Reason: RX DOSE Discontinued Medications Aspirin (Aspirin) 81 mg PO DAILY [facility] Last Admin: 08/05/16 09:22 Dose: 81 mg Fentanyl (Sublimaze) Confirm Administered Dose 100 mcg .ROUTE .STK-MED ONE Stop: 08/08/16 07:27 Hydromorphone HCl (Dilaudid) 0.5 mg IVPUSH ONETIME ONE Stop: 08/04/16 12:43 Last Admin: 08/04/16 12:49 Dose: 0.5 mg Sodium Chloride (Normal Saline) 1,000 mls @ 150 mls/hr IV ASDIRECTED [facility] Last Admin: 08/04/16 12:48 Dose: 150 mls/hr Sodium Chloride (Sodium Chloride 0.45%) 1,000 mls @ 50 mls/hr IV ASDIRECTED [facility] Stop: 08/08/16 00:00 Last Admin: 08/07/16 11:54 Dose: 50 mls/hr Sodium Chloride (Sodium Chloride 0.45%) 1,000 mls @ 100 mls/hr IV ASDIRECTED [facility] Sodium Chloride (Sodium Chloride 0.45%) 1,000 mls @ 999 mls/hr IV ASDIRECTED [facility] Stop: 08/04/16 19:31 Sodium Chloride (Normal Saline) 1,000 mls @ 70 mls/hr IV ASDIRECTED [facility] Magnesium Sulfate 2 gm/ Premix 50 mls @ 25 mls/hr IV ONETIME ONE Stop: 08/05/16 19:29 Last Admin: 08/05/16 18:00 Dose: 25 mls/hr Magnesium Sulfate 2 gm/ Premix 50 mls @ 25 mls/hr IV Q1H [facility] Stop: 08/07/16 09:14 Last Admin: 08/07/16 12:12 Dose: Not Given Potassium Chloride 10 meq/ (Premix) 100 mls @ 100 mls/hr IV Q1H [facility] Stop: 08/07/16 11:14 Last Admin: 08/07/16 12:11 Dose: Not Given Potassium Chloride 10 meq/ (Premix) 100 mls @ 100 mls/hr IV ONETIME ONE Stop: 08/07/16 12:59 Last Admin: 08/07/16 12:09 Dose: 100 mls/hr Magnesium Sulfate 2 gm/ Premix 50 mls @ 25 mls/hr IV Q1H [facility] Stop: 08/07/16 13:59 Last Admin: 08/07/16 14:58 Dose: 25 mls/hr Lidocaine HCl (Xylocaine-Mpf 1%) Confirm Administered Dose 6 mls @ as directed .ROUTE .STK-MED ONE Stop: 08/08/16 07:27 Lactated Ringer's (Ringers, Lactated) Confirm Administered Dose 1,000 mls @ as directed .ROUTE .STK-MED ONE Stop: 08/08/16 07:27 Magnesium Sulfate 2 gm/ Premix 50 mls @ 25 mls/hr IV Q1H [facility] Stop: 08/08/16 10:29 Last Admin: 08/08/16 10:23 Dose: Not Given Potassium Chloride 10 meq/ (Premix) 100 mls @ 100 mls/hr IV Q1H [facility] Stop: 08/08/16 12:29 Last Admin: 08/08/16 15:25 Dose: Not Given Potassium Chloride 10 meq/ (Premix) 100 mls @ 100 mls/hr IV ONETIME ONE Stop: 08/08/16 16:29 Last Admin: 08/08/16 15:25 Dose: 100 mls/hr Lidocaine HCl (Xylocaine 2% Viscous) 15 ml PO TIDAC [facility] Last Admin: 08/05/16 06:34 Dose: Not Given Magnesium Citrate (Citrate Of Magnesia) 240 ml PO ONETIME ONE Stop: 08/04/16 17:55 Last Admin: 08/04/16 18:14 Dose: Not Given Mycophenolate Mofetil (Cellcept) 1,000 mg PO BID [facility] Last Admin: 08/04/16 21:38 Dose: Not Given Ondansetron HCl (Zofran) 4 mg IVPUSH ONETIME ONE Stop: 08/04/16 12:44 Last Admin: 08/04/16 12:50 Dose: 4 mg Pantoprazole Sodium (Protonix Iv) 40 mg IVPUSH ONETIME ONE Stop: 08/07/16 07:13 Last Admin: 08/07/16 08:24 Dose: 40 mg Mycophenolate (Mofetil 250 Mg Cap.) 0 each PO BID [facility] Phytonadione (Aquamephyton) 5 mg PO ONETIME ONE Stop: 08/04/16 17:53 Last Admin: 08/04/16 18:37 Dose: 5 mg Polyethylene Glycol (Miralax) 102 gm PO ONETIME ONE Stop: 08/04/16 12:45 Last Admin: 08/04/16 13:01 Dose: 102 gm Polyethylene Glycol/Electrolytes (Golytely) 4,000 ml PO ONETIME ONE Stop: 08/05/16 15:26 Last Admin: 08/05/16 15:36 Dose: Not Given Polyethylene Glycol/Electrolytes (Golytely) 4,000 ml PO ONETIME ONE Stop: 08/06/16 17:01 Last Admin: 08/06/16 18:19 Dose: 4,000 ml Potassium Chloride (Potassium Chloride Solution) 40 meq PO BIDMEALS [facility] Last Admin: 08/06/16 16:52 Dose: 40 meq Propofol (Diprivan 20 Ml) Confirm Administered Dose 200 mg .ROUTE .STK-MED ONE Stop: 08/08/16 07:27 Simethicone (Infants' Gas Relief) Confirm Administered Dose 2,000 mg .ROUTE .STK -MED ONE Stop: 08/08/16 07:40 Last Admin: 08/08/16 07:50 Dose: 2,000 mg - Problem List & Annotations (1) Abdominal pain SNOMED Code(s): 46379002 Code(s): R10.9 - UNSPECIFIED ABDOMINAL PAIN Status: Acute Priority: High Current Visit: Yes Qualifiers: Abdominal location: generalized Qualified Code(s): R10.84 - Generalized abdominal pain (2) Hiatal hernia SNOMED Code(s): 33633345 Code(s): K44.9 - DIAPHRAGMATIC HERNIA WITHOUT OBSTRUCTION OR GANGRENE Status: Acute Priority: High Current Visit: Yes (3) Afib, Atrial fibrillation and flutter SNOMED Code(s): 037427371 Code(s): I48.91 - UNSPECIFIED ATRIAL FIBRILLATION; I48.92 - UNSPECIFIED ATRIAL FLUTTER Status: Acute Current Visit: No (4) Aneurysm of internal iliac artery SNOMED Code(s): 841398363 Code(s): I72.3 - ANEURYSM OF ILIAC ARTERY Status: Acute Current Visit: No (5) Dehydration SNOMED Code(s): 31992113 Code(s): E86.0 - DEHYDRATION Status: Resolved Current Visit: No - Plan Plan:: Unremarkable colonoscopy, will dc to SNF 08/09/16. LOS>96 hours for eval/tx and placement.
[2016-08-08] MEDS ORDERED: Potassium Chloride 10 MEQ in Premix Bag 1 BAG IV ONE (15:30)
[2016-08-08] MEDS ORDERED: Warfarin 5 MG Tab PO ONE (18:00)
[2016-08-09] MEDS: Carvedilol 6.25 MG Tab PO SCH (06:25)
--- NOTE | 2016-08-09 06:48 | PCM.DCSUM1 ---
Discharge Summary - Hospital Course Free Text/Narrative:: 75 year old male recently discharged on after a length of stay for abdominal pain, 07/24/16-07/30/16. He was to have had a colonoscopy as an outpatient after preventing the diagnostic test as an inpatient when he refused to take his Golytely as ordered. He takes chronic narcotics for unspecified abdominal pain. Reports being constipated, and eating very little since he was discharged; last bowel movement was reported as 08/01/16. The [facility] report documents a complaint of abdominal pain. Vital signs were stable. The complaint in the ED was abdominal pain. Minimal nausea, as well as a decrease in appetite; he has loss reportedly six pounds. He denies fever, chills; narcotic induced constipation is highly probable. This would exacerbate the current complaint of abdominal pain. He underwent an EGD on his July admission, this resulted in an diagnosis of a sliding hiatal hernia and esophagitis. The procedure was performed by Dr Stanton. There is a remote history of bowel obstruction with subsequent colon resection and colostomy; the colostomy was reversed. Hospitalist service is asked to admit for abdominal pain of unknown origin. He currently is being hydrated and has been given Miralax in the ED. The six scoops of Miralax (given at 1244 hour) have had a profound/rapid result by 1750 hour. Since presenting to the hospital side after admission, he has been incontinent of stool, defecating while a sleep. He has required a change in bed clothes twice since arrival. It was anticipated that patient would comply with the necessary bowel prep for a colonoscopy however this was not the case as patient again refused to swallow prep. Dr. Stanton was called and instructed/ordered NG placement for prep to be completed. This was done, patient tolerated well. Proceeded with Colonoscopy with Dr. Stanton. Findings consistent with diverticulosis and hemorrhoids, no other abnormalities. Coumadin was held for procedure, restarted postprocedure. He is continued on PPI for esophagitis and will follow up with Dr. Stanton as outpatient for this as previously scheduled. He had mild electrolyte abnormalties after his bowel prep, hypomagnesemia and hypokalemia which were replaced and monitored. Post procedure the Patient continued to be confused, weak and requiring assistance with all transfers and ADL's despite working with PT/OT. Recommendations for SNF stay per therapies. Family is also no longer able to care for him at home in his current state. He is discharged to SNF/NH for rehab stay. He should follow up with his PCP within 1 week of discharge and with Dr. Stanton within 1-2 weeks of discharge. - Discharge Data Discharge Date: 08/09/16 (admit date 08/04/16) Discharge Disposition: DC/Tfer to SNF 03 Condition: Fair - Discharge Diagnosis/Problem(s) (1) Abdominal pain SNOMED Code(s): 79561170 ICD Code: R10.9 - UNSPECIFIED ABDOMINAL PAIN Status: Acute Priority: High Qualifiers: Abdominal location: generalized Qualified Code(s): R10.84 - Generalized abdominal pain (2) Adult failure to thrive syndrome SNOMED Code(s): 937760969 ICD Code: R62.7 - ADULT FAILURE TO THRIVE Status: Acute Priority: High (3) Hypokalemia SNOMED Code(s): 89738167 ICD Code: E87.6 - HYPOKALEMIA Status: Resolved Priority: High (4) Hypomagnesemia SNOMED Code(s): 946344806 ICD Code: E83.42 - HYPOMAGNESEMIA Status: Resolved Priority: High (5) Hiatal hernia SNOMED Code(s): 67821620 ICD Code: K44.9 - DIAPHRAGMATIC HERNIA WITHOUT OBSTRUCTION OR GANGRENE Status: Chronic Priority: High (6) Supratherapeutic INR SNOMED Code(s): 438139504, 392541869 ICD Code: R79.1 - ABNORMAL COAGULATION PROFILE Status: Resolved Priority : High (7) Esophagitis SNOMED Code(s): 40476932 ICD Code: K20.9 - ESOPHAGITIS, UNSPECIFIED Status: Acute Priority: High (8) Gross hematuria SNOMED Code(s): 407089781 ICD Code: R31.0 - GROSS HEMATURIA Status: Acute Priority: High - Patient Summary/Data Operative Procedure(s) Performed: colonoscopy to cecum Complications: None Consults: Consultations 08/05/16 09:00 Consult to Physical Therapy [PT Evaluation and Treatment] [CONS] Routine 08/05/16 10:00 Consult to Physician [CONS] Routine 08/07/16 10:00 Consult to Occupational Therapy [OT Evaluation and Treatment] [CONS] Routine Labs Pending at D/C: None Recommended Follow-up Testing/Procedures: Follow up with Dr. Blair in 5-7 days with labs prior; CBC, BMP, Mag and INR Follow up with Dr. Stanton in 1-2 weeks for recheck of abdominal pain and s/p colonoscopy Recommend repeat UA after discharge to follow up on hematuria, if still present would recommend Urologic evaluation. Planned Operative Procedure(s) after DC: None Hospital Course: As above - Patient Instructions Diet: Low Sodium, Drink 8-10+ Glasses/Day Activity: As Tolerated (PT/OT to continue at [place]) Driving: Do Not Drive Showering/Bathing: May Shower Notify Provider of: Fever, Increased Pain, Swelling and Redness, Nausea and/or Vomiting - Discharge Plan Prescriptions/Med Rec: Carvedilol [Coreg] 6.25 mg PO BIDMEALS #60 tablet Magnesium Oxide 400 mg PO BID #60 tablet Omeprazole 20 mg PO BIDAC #60 cap.cr Potassium Chloride 20 meq PO BID #60 tablet.er Home Medications: Home Meds Isosorbide Mononitrate [Isosorbide Mononitrate ER] 60 mg PO DAILY 07/15/13 [ History] Phenytoin Sodium Extended 200 mg PO TID 07/15/13 [History] atorvaSTATin [Lipitor] 40 mg PO DAILY 07/15/13 [History] Warfarin [Coumadin] 5 mg PO IRAHETA 12/22/15 [History] Aspirin [Tamika Chewable Aspirin] 81 mg PO DAILY 05/20/16 [History] Sulfamethoxazole/Trimethoprim [Sulfamethoxazole-Tmp Ds Tablet] 1 tab PO DAILY [History] Mycophenolate Mofetil 1,000 mg PO BID 07/24/16 [History] Warfarin [Coumadin] 2.5 mg PO MOTUWETHFRSA 07/24/16 [History] diphenhydrAMINE HCl [Benadryl] 25 mg PO DAILY PRN 07/24/16 [History] Lidocaine 2% [Xylocaine 2% Viscous] 15 ml PO TIDAC #13 cup 07/30/16 [Rx] Docusate Sodium 100 mg PO DAILY PRN 08/04/16 [History] Polyethylene Glycol 3350 [MiraLAX] 17 gm PO DAILY PRN 08/04/16 [History] Vitamin D. 1.25 mg PO WEEKLY 08/04/16 [History] oxyCODONE HCl/Acetaminophen [Percocet 10-325 mg Tablet] 1 tab PO Q4H PRN [History] Carvedilol [Coreg] 6.25 mg PO BIDMEALS #60 tablet 08/09/16 [Rx] Magnesium Oxide 400 mg PO BID #60 tablet 08/09/16 [Rx] Omeprazole 20 mg PO BIDAC #60 cap.cr 08/09/16 [Rx] Potassium Chloride 20 meq PO BID #60 tablet.er 08/09/16 [Rx] Patient Handouts: Food Choices for Gastroesophageal Reflux Disease, Adult, Easy -to-Read, Esophagitis, Hypomagnesemia, Hypokalemia, Failure to Thrive, Adult Forms: ED Department Discharge Referrals: Willie Blair MD [Physician] - - Discharge Summary/Plan Comment DC Time >30 min.: Yes (40 min) - General Info Date of Service: 08/09/16 Admission Dx/Problem (Free Text: Patient slept well overnight. Denies complaints of abdominal pain this morning. Afebrile, VSS Plans for DC to [facility] today. Functional Status: Reports: pain controlled, tolerating diet, ambulating, urinating. Denies: new symptoms - Review of Systems General: Reports: Weakness (improving slowly), Appetite (improving slowly). Denies: Fever HEENT: Reports: no symptoms Pulmonary: Reports: no symptoms. Denies: shortness of breath, cough Cardiovascular: Reports: No Symptoms. Denies: Chest Pain, Dyspnea on Exertion Gastrointestinal: Reports: Abdominal pain (intermittent; upper abdominal pain), Decreased appetite. Denies: Constipation, Diarrhea, Hematochezia, Melena, Nausea, Vomiting Genitourinary: Reports: no symptoms Musculoskeletal: Reports: no symptoms - Patient Data Vitals - Most Recent: Last Vital Signs Temp 98.8 F 08/09/16 02:31 Pulse 104 H 08/09/16 06:25 Resp 20 08/09/16 02:31 BP 134/87 08/09/16 06:25 Pulse Ox 95 08/09/16 02:31 Weight - Most Recent: 145 lb 4.8 oz I&O - Last 24 hours: Intake & Output 08/08/16 08/08/16 08/09/16 14:59 22:59 06:59 Intake Total 9940 355 Output Total 700 Balance 0037 875 Lab Results - Last 24 hrs: Laboratory Results - last 24 hr 08/08/16 08/08/16 08/08/16 Range/Units 06:20 06:20 06:20 WBC 5.46 (4.23-9.07) K/mm3 RBC 3.75 L (4.63-6.08) M/mm3 Hgb 10.8 L (13.7-17.5) gm/L Hct 32.5 L (40.1-51.0) % MCV 86.7 (79.0-92.2) fl MCH 28.8 (25.7-32.2) pg MCHC 33.2 (32.2-35.5) g/dl RDW Std Deviation 49.3 H (35.1-43.9) fL Plt Count 318 (163-337) K/mm3 MPV 9.5 (9.4-12.3) fl Neut % (Auto) 65.6 (34.0-67.9) % Lymph % (Auto) 20.0 L (21.8-53.1) % Perkins % (Auto) 11.0 (5.3-12.2) % Eos % (Auto) 2.6 (0.8-7.0) Baso % (Auto) 0.4 (0.1-1.2) % Neut # (Auto) 3.59 (1.78-5.38) K/mm3 Lymph # (Auto) 1.09 L (1.32-3.57) K/mm3 Perkins # (Auto) 0.60 (0.30-0.82) K/mm3 Eos # (Auto) 0.14 (0.04-0.54) K/mm3 Baso # (Auto) 0.02 (0.01-0.08) K/mm3 PT 11.0 (8.0-13.0) SECONDS INR 1.01 Sodium 137 (136-145) mEq/L Potassium 3.1 L (3.5-5.1) mEq/L Chloride 102 (98-107) mEq/L Carbon Dioxide 24 (21-32) mEq/L Anion Gap 14.1 (5-15) BUN 6 L (7-18) mg/dL Creatinine 0.8 (0.7-1.3) mg/dL Est Cr Clr Drug Dosing 68.86 mL/min Estimated GFR (MDRD) > 60 (>60) mL/min BUN/Creatinine Ratio 7.5 L (14-18) Glucose 85 (83-115) mg/dL Calcium 10.3 H (8.5-10.1) mg/dL Magnesium 1.7 L (1.8-2.4) mg/dl Med Orders - Current: Current Medications Bisacodyl (Dulcolax) 5 mg PO DAILY PRN PRN Reason: Constipation Carvedilol (Coreg) 6.25 mg PO BIDMEALS [facility] Last Admin: 08/09/16 06:25 Dose: 6.25 mg Al Hydroxide/Mg Hydroxide 30 (ml/ Lidocaine HCl 15 ml) 0 ml PO TIDAC PRN PRN Reason: STOMACH IRRITATION Diphenhydramine HCl (Benadryl) 25 mg PO DAILY PRN PRN Reason: Itching Famotidine (Pepcid) 20 mg PO BID [facility] Last Admin: 08/08/16 21:19 Dose: 20 mg Isosorbide Mononitrate (Imdur) 60 mg PO DAILY [facility] Last Admin: 08/08/16 10:04 Dose: 60 mg Magnesium Oxide (Magnesium Oxide) 800 mg PO DAILY [facility] Mycophenolate Mofetil (Cellcept) 1,000 mg PO BID [facility] Last Admin: 08/08/16 21:18 Dose: 1,000 mg Ondansetron HCl (Zofran) 4 mg IVPUSH Q8H PRN PRN Reason: Nausea/Vomiting Phenytoin Sodium (Phenytoin) 200 mg PO TID [facility] Last Admin: 08/08/16 21:18 Dose: 200 mg Prochlorperazine Edisylate (Compazine) 5 mg IVPUSH Q6H PRN PRN Reason: Nausea/Vomiting Rosuvastatin Calcium (Crestor) 10 mg PO DAILY [facility] Last Admin: 08/08/16 10:04 Dose: 10 mg Trimethoprim/Sulfamethoxazole (Septra Ds) 1 tab PO DAILY [facility] Last Admin: 08/08/16 10:05 Dose: 1 tab Warfarin Sodium (Pharmacy To Dose - Warfarin) 0 dose .XX ASDIRECTED PRN PRN Reason: RX DOSE Discontinued Medications Aspirin (Aspirin) 81 mg PO DAILY [facility] Last Admin: 08/05/16 09:22 Dose: 81 mg Fentanyl (Sublimaze) Confirm Administered Dose 100 mcg .ROUTE .STK-MED ONE Stop: 08/08/16 07:27 Hydromorphone HCl (Dilaudid) 0.5 mg IVPUSH ONETIME ONE Stop: 08/04/16 12:43 Last Admin: 08/04/16 12:49 Dose: 0.5 mg Sodium Chloride (Normal Saline) 1,000 mls @ 150 mls/hr IV ASDIRECTED [facility] Last Admin: 08/04/16 12:48 Dose: 150 mls/hr Sodium Chloride (Sodium Chloride 0.45%) 1,000 mls @ 50 mls/hr IV ASDIRECTED RICH Stop: 08/08/16 00:00 Last Admin: 08/07/16 11:54 Dose: 50 mls/hr Sodium Chloride (Sodium Chloride 0.45%) 1,000 mls @ 100 mls/hr IV ASDIRECTED RICH Sodium Chloride (Sodium Chloride 0.45%) 1,000 mls @ 999 mls/hr IV ASDIRECTED [facility] Stop: 08/04/16 19:31 Sodium Chloride (Normal Saline) 1,000 mls @ 70 mls/hr IV ASDIRECTED [facility] Magnesium Sulfate 2 gm/ Premix 50 mls @ 25 mls/hr IV ONETIME ONE Stop: 08/05/16 19:29 Last Admin: 08/05/16 18:00 Dose: 25 mls/hr Magnesium Sulfate 2 gm/ Premix 50 mls @ 25 mls/hr IV Q1H [facility] Stop: 08/07/16 09:14 Last Admin: 08/07/16 12:12 Dose: Not Given Potassium Chloride 10 meq/ (Premix) 100 mls @ 100 mls/hr IV Q1H [facility] Stop: 08/07/16 11:14 Last Admin: 08/07/16 12:11 Dose: Not Given Potassium Chloride 10 meq/ (Premix) 100 mls @ 100 mls/hr IV ONETIME ONE Stop: 08/07/16 12:59 Last Admin: 08/07/16 12:09 Dose: 100 mls/hr Magnesium Sulfate 2 gm/ Premix 50 mls @ 25 mls/hr IV Q1H [facility] Stop: 08/07/16 13:59 Last Admin: 08/07/16 14:58 Dose: 25 mls/hr Lactated Ringer's (Ringers, Lactated) 1,000 mls @ 125 mls/hr IV ASDIRECTED [facility] Stop: 08/08/16 23:00 Last Admin: 08/08/16 11:05 Dose: 125 mls/hr Lidocaine HCl (Xylocaine-Mpf 1%) Confirm Administered Dose 6 mls @ as directed .ROUTE .STK-MED ONE Stop: 08/08/16 07:27 Lactated Ringer's (Ringers, Lactated) Confirm Administered Dose 1,000 mls @ as directed .ROUTE .STK-MED ONE Stop: 08/08/16 07:27 Magnesium Sulfate 2 gm/ Premix 50 mls @ 25 mls/hr IV Q1H [facility] Stop: 08/08/16 10:29 Last Admin: 08/08/16 10:23 Dose: Not Given Potassium Chloride 10 meq/ (Premix) 100 mls @ 100 mls/hr IV Q1H [facility] Stop: 08/08/16 12:29 Last Admin: 08/08/16 15:25 Dose: Not Given Magnesium Sulfate 2 gm/ Premix 50 mls @ 25 mls/hr IV Q2H [facility] Stop: 08/08/16 21:29 Last Admin: 08/08/16 21:18 Dose: 25 mls/hr Potassium Chloride 10 meq/ (Premix) 100 mls @ 100 mls/hr IV ONETIME ONE Stop: 08/08/16 16:29 Last Admin: 08/08/16 15:25 Dose: 100 mls/hr Lidocaine HCl (Xylocaine 2% Viscous) 15 ml PO TIDAC [facility] Last Admin: 08/05/16 06:34 Dose: Not Given Lidocaine/Sodium Bicarbonate (Buffered Lidocaine 1% In Ns 8.4%) 0.25 ml IV ONETIME PRN PRN Reason: Prior to IV Start Stop: 08/08/16 18:00 Magnesium Citrate (Citrate Of Magnesia) 240 ml PO ONETIME ONE Stop: 08/04/16 17:55 Last Admin: 08/04/16 18:14 Dose: Not Given Mycophenolate Mofetil (Cellcept) 1,000 mg PO BID [facility] Last Admin: 08/04/16 21:38 Dose: Not Given Ondansetron HCl (Zofran) 4 mg IVPUSH ONETIME ONE Stop: 08/04/16 12:44 Last Admin: 08/04/16 12:50 Dose: 4 mg Pantoprazole Sodium (Protonix Iv) 40 mg IVPUSH ONETIME ONE Stop: 08/07/16 07:13 Last Admin: 08/07/16 08:24 Dose: 40 mg Mycophenolate (Mofetil 250 Mg Cap.) 0 each PO BID [facility] Phytonadione (Aquamephyton) 5 mg PO ONETIME ONE Stop: 08/04/16 17:53 Last Admin: 08/04/16 18:37 Dose: 5 mg Polyethylene Glycol (Miralax) 102 gm PO ONETIME ONE Stop: 08/04/16 12:45 Last Admin: 08/04/16 13:01 Dose: 102 gm Polyethylene Glycol/Electrolytes (Golytely) 4,000 ml PO ONETIME ONE Stop: 08/05/16 15:26 Last Admin: 08/05/16 15:36 Dose: Not Given Polyethylene Glycol/Electrolytes (Golytely) 4,000 ml PO ONETIME ONE Stop: 08/06/16 17:01 Last Admin: 08/06/16 18:19 Dose: 4,000 ml Potassium Chloride (Potassium Chloride Solution) 40 meq PO BIDMEALS [facility] Last Admin: 08/06/16 16:52 Dose: 40 meq Propofol (Diprivan 20 Ml) Confirm Administered Dose 200 mg .ROUTE .STK-MED ONE Stop: 08/08/16 07:27 Simethicone (Infants' Gas Relief) Confirm Administered Dose 2,000 mg .ROUTE .STK -MED ONE Stop: 08/08/16 07:40 Last Admin: 08/08/16 07:50 Dose: 2,000 mg Sodium Chloride (Saline Flush) 10 ml FLUSH ASDIRECTED PRN PRN Reason: Keep Vein Open Stop: 08/08/16 18:00 Warfarin Sodium (Coumadin) 5 mg PO ONETIME@1800 ONE Stop: 08/08/16 18:01 Last Admin: 08/08/16 18:07 Dose: 5 mg - Exam Quality Assessment: Reports: DVT prophylaxis General: Reports: alert, cooperative, no acute distress HEENT: Reports: Pupils equal, Pupils reactive, EOMI, Mucous membr. moist/pink Neck: Reports: supple Lungs: Reports: Clear to auscultation, Normal respiratory effort Cardiovascular: Reports: Regular Rate, Regular Rhythm Abdomen: Reports: bowel sounds present, soft, tenderness (mild diffuse upper abdomen) (Male) Exam: Deferred Rectal (Males) Exam: Deferred Extremities: Reports: no edema Neurological: Reports: no new focal deficit Psy/Mental Status: Reports: alert *Q Meaningful Use (DIS) - VTE *Q VTE Criteria *Q: - Stroke *Q Stroke Criteria *Q: - AMI *Q AMI Criteria *Q:
[2016-08-09 07:28] VITALS: BP 151/92
[2016-08-09] MEDS ORDERED: Potassium Chloride 20 MEQ Tab.ER PO ONE (08:19)
[2016-08-09] MEDS: Rosuvastatin 10 MG Tab PO SCH (08:22)
[2016-08-09] MEDS: Phenytoin 100 MG Cap.ER PO SCH (08:23)
[2016-08-09] MEDS: Famotidine 20 MG Tab PO SCH (08:23)
[2016-08-09] MEDS: MYCOPHENOLATE MOFETIL 250 MG PO SCH (08:23)
[2016-08-09] MEDS: Isosorbide Mononitrate 60 MG Tab.ER PO SCH (08:23)
[2016-08-09] MEDS: Sulfamethoxazole/Trimethoprim 800-160 MG Tab PO SCH (08:23)
[2016-08-09] MEDS ORDERED: Magnesium Oxide 400 MG Tab PO SCH (09:00)
--- NOTE | 2016-08-09 09:06 | OR ---
DATE OF OPERATION: 08/08/2016 SURGEON: Brett Stanton MD PREOPERATIVE DIAGNOSIS: Change in bowel habits. POSTOPERATIVE DIAGNOSIS: Change in bowel habits. OPERATION PERFORMED: Colonoscopy to the cecum. FINDINGS: Moderate sigmoid diverticulosis, internal hemorrhoids. No angiodysplasias, neoplasias, large tumor masses, or ulcerations. ANESTHESIA: Procedure done under IV sedation. DESCRIPTION OF PROCEDURE: The patient was taken to the operating room, placed in the supine position, connected to monitoring equipment, given IV sedation, and placed in left lateral position. The perianal area showed some hemorrhoidal tags. Rectal exam showed good sphincter tone. A video Olympus colonoscope was introduced into the rectum and threaded up without problem to the cecum, where the appendicular orifice and ileocecal valve were noted. Prep was excellent throughout the colon. [place] Cleansing score grade A. The scope was slowly withdrawn showing the cecum, ascending colon, transverse colon, descending colon, sigmoid colon, and rectum. Retroflexed view was done. The patient tolerated the procedure, sent to recovery room in a stable condition, and will be followed up as needed in the clinic. ESTIMATED BLOOD LOSS: MMODAL /[id number]
[2016-08-09] MEDS ORDERED: Warfarin 5 MG Tab PO ONE (18:00)
== END 2016-08-09 10:13 | DRG 392 ==
LOC: JD.ED 12:20 → JD.MS 16:02
PROVIDERS: ADMIT Internal Medicine Cardiovascular Disease; ATTEND Internal Medicine Cardiovascular Disease
PROC: 0D9670Z Drainage of Stomach with Drainage Device, Via Natural or Artificial Opening (ICD-10-PCS; 2016-08-07)
PROC: 0DJD8ZZ Inspection of Lower Intestinal Tract, Via Natural or Artificial Opening Endoscopic (ICD-10-PCS; principal; 2016-08-08)
DX: R10.9 Unspecified abdominal pain (principal); R10.84 Generalized abdominal pain; R79.1 Abnormal coagulation profile; K59.09 Other constipation; K57.30 Diverticulosis of large intestine without perforation or abscess without bleeding; K64.8 Other hemorrhoids; K21.0 Gastro-esophageal reflux disease with esophagitis; K44.9 Diaphragmatic hernia without obstruction or gangrene; I48.91 Unspecified atrial fibrillation; I72.3 Aneurysm of iliac artery; E87.6 Hypokalemia; E86.0 Dehydration; E83.42 Hypomagnesemia; R31.0 Gross hematuria; F10.21 Alcohol dependence, in remission; I25.10 Atherosclerotic heart disease of native coronary artery without angina pectoris; I10 Essential (primary) hypertension; Z87.891 Personal history of nicotine dependence; I25.2 Old myocardial infarction; E78.00 Pure hypercholesterolemia, unspecified; M19.90 Unspecified osteoarthritis, unspecified site; M81.0 Age-related osteoporosis without current pathological fracture; J44.9 Chronic obstructive pulmonary disease, unspecified; Z90.49 Acquired absence of other specified parts of digestive tract; Z91.018 Allergy to other foods; Z79.01 Long term (current) use of anticoagulants; Z79.82 Long term (current) use of aspirin; Z99.81 Dependence on supplemental oxygen; Z79.899 Other long term (current) drug therapy; R62.7 Adult failure to thrive
CPT/HCPCS: 36415; 74000; 80053; 82330; 83690; 85025; 85610; 86140; 96361; 96374; 96375; 99285; A9270; J1170; J2405; J7040; 00810; 76705; 76705-26; 80048; 81001; 82378; 82962; 83735; 86304; 87641; 97116-GP; 97161-GP; 97166-GO; C9113; J2704; J3010; J3475; J3480; J7030; J7120

== ENCOUNTER 2016-08-12 19:48 | Inpatient (IN) | payer MEDICARE, OTHER, MEDICAID ==
[2016-08-12] MEDS ORDERED: Aspirin 81 MG Tab.Chew PO STA (20:18)
--- NOTE | 2016-08-12 20:37 | EDM.PDOC ---
ED HPI GENERAL MEDICAL PROBLEM - General Chief Complaint: Neurological Problem Stated Complaint: [facility] Time Seen by Provider: 08/12/16 20:14 Source of Information: Reports: EMS, Old Records, RN Notes Reviewed History Limitations: Reports: Altered Mental Status - History of Present Illness INITIAL COMMENTS - FREE TEXT/NARRATIVE: Medical records indicate that the patient was admitted to this hospital 2016 through 07/30/2016 for abdominal pain. An EGD found a hiatal hernia and gastritis. He was started on a PPI. He was readmitted 08/04/2016 through 2016, again for abdominal pain. A colonoscopy found diverticulosis and hemorrhoids. Post-procedure, the patient remained confused and weak, requiring assistance with all transfers and ADLs. He was therefore discharged to [facility]. The patient is no returned to the ED via [place] [facility] with a half-way report of "lethargic and very poor appetite". Vital signs at the half-way were 120/81 - 100 - 20 - 97.6. Oxygen saturation is not documented. EMS acquired an ECG en route, which suggests an acute anterior wall GA, although there is considerable motion artifact and a RBBB. There is no report of the patient complaining of chest pain or dyspnea, although the half-way form indicates that the patient's mental status is confused. The patient was given a single spray of nitroglycerin, reportedly to treat his lung sounds. EMS place the patient on 15 L of oxygen via nonrebreather mask due to oxygen saturation of 92%. Other Treatments CLINICAL RESEARCH DIRECTOR: nitro - Related Data Allergies Allergy/AdvReac Type Severity Reaction Status Date / Time strawberries Allergy Unknown Cannot Uncoded 08/04/16 18:21 Remember Home Meds: Home Meds Phenytoin Sodium Extended 200 mg PO TID 07/15/13 [History] atorvaSTATin [Lipitor] 40 mg PO DAILY 07/15/13 [History] Aspirin [Tamika Chewable Aspirin] 81 mg PO DAILY 05/20/16 [History] Sulfamethoxazole/Trimethoprim [Sulfamethoxazole-Tmp Ds Tablet] 1 tab PO DAILY [History] Mycophenolate Mofetil 1,000 mg PO BID 07/24/16 [History] Warfarin [Coumadin] 2.5 mg PO MOTUWETHFRSA 07/24/16 [History] diphenhydrAMINE HCl [Benadryl] 25 mg PO DAILY PRN 07/24/16 [History] Lidocaine 2% [Xylocaine 2% Viscous] 15 ml PO TIDAC #13 cup 07/30/16 [Rx] Docusate Sodium 100 mg PO DAILY PRN 08/04/16 [History] Polyethylene Glycol 3350 [MiraLAX] 17 gm PO DAILY PRN 08/04/16 [History] Vitamin D. 1.25 mg PO WEEKLY 08/04/16 [History] oxyCODONE HCl/Acetaminophen [Percocet 10-325 mg Tablet] 1 tab PO Q4H PRN [History] Carvedilol [Coreg] 6.25 mg PO BIDMEALS #60 tablet 08/09/16 [Rx] Magnesium Oxide 400 mg PO BID #60 tablet 08/09/16 [Rx] Omeprazole 20 mg PO BIDAC #60 cap.cr 08/09/16 [Rx] Potassium Chloride 20 meq PO BID #60 tablet.er 08/09/16 [Rx] oxyCODONE HCl/Acetaminophen [oxyCODONE-Acetaminophen 5-325] 1 tab PO Q4H PRN [History] Past Medical History HEENT History: Reports: Impaired Vision Other HEENT History: Glasses Cardiovascular History: Reports: Afib, CAD, High Cholesterol, Hypertension, GA ( 1996) Gastrointestinal History: Reports: Diverticulosis, PUD Other Gastrointestinal History: "3 years he had a blockage in intestines, put a temporary bag on it - Dr. Bartlett at [facility] in [place]". Bleeding ulcer in and had half of stomach removed. 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 Nisreen Bell - [facility] - Past Surgical History HEENT Surgical History: Reports: Cataract Surgery GI Surgical History: Reports: Cholecystectomy, Colostomy Social & Family History - Family History Family Medical History: Noncontributory - Tobacco Use Smoking Status *Q: Former Smoker Years of Tobacco use: 20 Used Tobacco, but Quit: Yes Month Tobacco Last Used: 04/1991 Second Hand Smoke Exposure: No - Caffeine Use Caffeine Use: Reports: None - Alcohol Use Days Per Week of Alcohol Use: 0 (Quit drinking alcohol 29 years ago) - Recreational Drug Use Recreational Drug Use: No - Living Situation & Occupation Living situation: Reports: , Extended Care Facility Occupation: Retired ED ROS GENERAL - Review of Systems Review Of Systems: Unable To Obtain ED EXAM, GENERAL - Physical Exam Exam: See Below Exam Limited By: Altered Mental Status (Does not follow commands) General Appearance: Mild Distress, Thin Eye Exam: Bilateral Eye: Normal Inspection Ears: Normal External Exam, Hearing Grossly Normal Ear Exam: Bilateral Ear: Auricle Normal Nose: Normal Inspection, No Blood Throat/Mouth: Normal Inspection, Normal Lips, No Airway Compromise, Other (Dry oral mucosa) Head: Atraumatic, Normocephalic Neck: Normal Inspection Respiratory/Chest: No Respiratory Distress, No Accessory Muscle Use, Rales ( left base) Cardiovascular: Normal Peripheral Pulses, Regular Rate, Rhythm, No Gallop, No JVD, No Murmur, No Rub Peripheral Pulses: 4+: Radial (L), Radial (R) GI/Abdominal: Normal Bowel Sounds, Soft, Non-Tender, No Organomegaly, No Distention, No Abnormal Bruit, No Mass, Other (Numerous ecchymoses measuring 1- 2 cm diameter noted on the anterior abdominal wall) (Male) Exam: Deferred Rectal (Males) Exam: Deferred Back Exam: Normal Inspection Extremities: Normal Inspection, Normal Range of Motion, No Pedal Edema Neurological: Other (Moves all 4 extremities spontaneously) Psychiatric: Other (Unable to assess) Skin Exam: Dry, Intact, Normal Color, No Rash, Ecchymosis (numerous) Lymphatic: No Adenopathy EKG INTERPRETATION EKG Date: 08/12/16 Time: 20:04 Rhythm: NSR Rate (beats/min): 98 [place]: normal P-wave: present QRS: RBBB ST-T: elevated (consistent with acute anterolateral GA) QT: prolonged (QTc 509 ms) Comparison: change from previous EKG Course - Vital Signs Last Recorded V/S: Last Vital Signs Temp 36.6 C 08/12/16 19:55 Pulse 93 08/12/16 19:55 Resp 17 08/12/16 19:55 BP 96/74 08/12/16 19:55 Pulse Ox 92 L 08/12/16 19:55 - Orders/Labs/Meds Orders: Active Orders 24 hr Category Date Time Status Admission Status [Patient Status] [ADT] Routine ADT 08/13/16 00:28 Active EKG Documentation Completion [RC] ROUTINE Care 08/12/16 23:00 Active Rose Catheter Insertion [Insert Urinary Catheter] [OM. Care 08/12/16 21:30 Ordered PC] Q24H Urinary Catheter Assessment [RC] ASDIRECTED Care 08/12/16 21:31 Active Chest 1V Frontal [CR] Stat Exams 08/12/16 20:16 Taken Sodium Chloride 0.9% [Normal Saline] 1,000 ml Med 08/12/16 21:30 Active IV ASDIRECTED Medication Orders Sodium Chloride (Normal Saline) 1,000 mls @ 250 mls/hr IV ASDIRECTED RICH Last Admin: 08/12/16 21:43 Dose: 250 mls/hr Labs: Laboratory Tests 08/12/16 08/12/16 08/12/16 Range/Units 20:04 20:04 20:04 WBC 6.38 (4.23-9.07) K/mm3 RBC 4.03 L (4.63-6.08) M/mm3 Hgb 11.8 L (13.7-17.5) gm/L Hct 36.3 L (40.1-51.0) % MCV 90.1 (79.0-92.2) fl MCH 29.3 (25.7-32.2) pg MCHC 32.5 (32.2-35.5) g/dl RDW Std Deviation 53.5 H (35.1-43.9) fL Plt Count 376 H (163-337) K/mm3 MPV 9.8 (9.4-12.3) fl Neutrophils % (Manual) 54 (40-60) % Band Neutrophils % 1 (0-10) % Lymphocytes % (Manual) 38 (20-40) % Atypical Lymphs % 0 % Monocytes % (Manual) 5 (2-10) % Eosinophils % (Manual) 1 (0.8-7.0) % Basophils % (Manual) 1 (0.2-1.2) Platelet Estimate Adequate Plt Morphology Comment Normal Anisocytosis 1+ slight RBC Morph Comment Not Reportable PT 13.6 H (8.0-13.0) SECONDS INR 1.23 APTT 22 (22-36) SECONDS D-Dimer, Quantitative 3.00 H (0.19-0.59) mg/L Sodium 143 (136-145) mEq/L Potassium 4.3 (3.5-5.1) mEq/L Chloride 106 (98-107) mEq/L Carbon Dioxide 28 (21-32) mEq/L Anion Gap 13.3 (5-15) BUN 27 H (7-18) mg/dL Creatinine 1.5 H (0.7-1.3) mg/dL Est Cr Clr Drug Dosing 39.68 mL/min Estimated GFR (MDRD) 46 (>60) mL/min BUN/Creatinine Ratio 18.0 (14-18) Glucose 105 (83-115) mg/dL Calcium 13.2 H* (8.5-10.1) mg/dL Total Bilirubin 0.3 (0.2-1.0) mg/dL AST 32 (15-37) U/L ALT 20 (16-63) U/L Alkaline Phosphatase 189 H (46-116) U/L Troponin I 0.029 (0.00-0.056) ng/mL B-Natriuretic Peptide (0-100) pg/mL Total Protein 7.8 (6.4-8.2) g/dl Albumin 2.5 L (3.4-5.0) g/dl Globulin 5.3 gm/dL Albumin/Globulin Ratio 0.5 L (1-2) 08/12/16 08/12/16 Range/Units 20:04 23:00 WBC (4.23-9.07) K/mm3 RBC (4.63-6.08) M/mm3 Hgb (13.7-17.5) gm/L Hct (40.1-51.0) % MCV (79.0-92.2) fl MCH (25.7-32.2) pg MCHC (32.2-35.5) g/dl RDW Std Deviation (35.1-43.9) fL Plt Count (163-337) K/mm3 MPV (9.4-12.3) fl Neutrophils % (Manual) (40-60) % Band Neutrophils % (0-10) % Lymphocytes % (Manual) (20-40) % Atypical Lymphs % % Monocytes % (Manual) (2-10) % Eosinophils % (Manual) (0.8-7.0) % Basophils % (Manual) (0.2-1.2) Platelet Estimate Plt Morphology Comment Anisocytosis RBC Morph Comment PT (8.0-13.0) SECONDS INR APTT (22-36) SECONDS D-Dimer, Quantitative (0.19-0.59) mg/L Sodium 144 (136-145) mEq/L Potassium 4.2 (3.5-5.1) mEq/L Chloride 109 H (98-107) mEq/L Carbon Dioxide 28 (21-32) mEq/L Anion Gap 11.2 (5-15) BUN 28 H (7-18) mg/dL Creatinine 1.5 H (0.7-1.3) mg/dL Est Cr Clr Drug Dosing 39.68 mL/min Estimated GFR (MDRD) 46 (>60) mL/min BUN/Creatinine Ratio 18.7 H (14-18) Glucose 128 H (83-115) mg/dL Calcium 12.4 H (8.5-10.1) mg/dL Total Bilirubin (0.2-1.0) mg/dL AST (15-37) U/L ALT (16-63) U/L Alkaline Phosphatase (46-116) U/L Troponin I 0.037 (0.00-0.056) ng/mL B-Natriuretic Peptide 228 H (0-100) pg/mL Total Protein (6.4-8.2) g/dl Albumin (3.4-5.0) g/dl Globulin gm/dL Albumin/Globulin Ratio (1-2) Meds: Medications Generic Name Dose Route Start Last Admin Trade Name Saravananq PRN Reason Stop Dose Admin Sodium Chloride 1,000 mls @ 250 mls/hr 08/12/16 21:30 08/12/16 21:43 Normal Saline IV 250 mls/hr ASDIRECTED RICH Administration Discontinued Medications Generic Name Dose Route Start Last Admin Trade Name Freq PRN Reason Stop Dose Admin Aspirin 243 mg 08/12/16 20:18 08/12/16 20:24 Aspirin PO 08/12/16 20:19 243 mg ONETIME STA Administration Heparin Sodium (Porcine) 5,000 units 08/12/16 20:51 08/12/16 21:04 Heparin Sodium IVPUSH 08/12/16 20:52 5,000 units ONETIME ONE Administration Heparin Sodium/Dextrose 25,000 units in 500 mls @ 21.745 mls/hr 08/12/16 21: 00 08/12/16 21:05 Heparin 25,000 Units In D5w 500 Ml IV 21.745 mls/hr TITRATE RICH Administration Protocol 17 UNITS/KG/HR Zoledronic Acid 4 mg/ Sodium 105 mls @ 400 mls/hr 08/12/16 21:26 08/12/16 22: 26 Chloride IV 08/12/16 21:41 400 mls/hr ONETIME STA Administration Protocol Zoledronic Acid 4 mg/ Sodium 105 mls @ 400 mls/hr 08/12/16 22:20 08/12/16 22: 58 Chloride IV 08/12/16 22:35 Not Given ONETIME STA Protocol - Radiology Interpretation Free Text/Narrative:: Portable chest radiograph is limited. Cardiac silhouette appears to be within normal limits. Tortuous thoracic aorta. No pulmonary vascular congestion. No focal infiltrate. No pneumothorax. Small pleural effusion vs. atelectasis at left costophrenic angle. Formal read per the Radiologist pending. - Re-Assessments/Exams Free Text/Narrative Re-Assessment/Exam: 08/12/16 21:11 The patient's ECG demonstrates ST elevations in the anterolateral leads, concerning for a STEMI. His troponin is within normal range. His INR is subtherapeutic at 1.23. He takes one baby aspirin daily - I have ordered 3 additional. I have ordered a heparin bolus and drip. The patient is already on Coreg. Case discussed with Dr. Bains, [employer] Operator at [facility], at 20: 59. He reviewed the 20:04 ECG as well as a prior ECG from 07/25/2016. He notes that the patient had Q waves in his inferior and anterolateral leads, and even some subtle ST elevation in his anterolateral leads. Given that the patient has a tortuous aorta, which can cause some ST elevation, he does not believe that the patient is suffering a STEMI. He is advising AGAINST a thrombolytic. He is recommending we repeat a troponin in a few hours. 08/12/16 21:20 Notified that the patient's calcium has returned significantly elevated at 13.2. Hypercalcemia is known to cause ST elevation, and may also be responsible for the patient's altered mental status. Treatment consists of normal saline hydration 200-300 mL per hour, with a Rose to be placed to measure urine output, with IV fluid titrated to urine output 100-150 mL per hour , along with zoledronic acid, 4 mg IV over 15 minutes. Following treatment, I will repeat a BMP, which includes a calcium level, at 23:00. 08/12/16 23:21 Repeat ECG at 22:57 states a normal sinus rhythm at 85 bpm. There is a right bundle branch block. There are improving ST elevations in the anterolateral leads. Q waves are noted in the inferior and anterolateral leads. 08/13/16 00:18 Repeat troponin at 23:00 is still within normal range at 0.037. His calcium is down to 12.4. His BUN/Cr are essentially unchanged at 28/1.5, but elevated from prior BUN/Cr. His urine output is still low. The patient's mental status has not improved. The plan will be to admit the patient with continued IV fluid. I will discontinue the heparin drip. This was discussed with the patient's , who is in agreement. 08/13/16 00:[address] Allen at 00:18. She accepts the patient for admission to telemetry. Departure - Departure Time of Disposition: 00:25 Disposition: Admitted As Inpatient 68 Condition: fair Clinical Impression: Hypercalcemia, Acute kidney injury, Subtherapeutic anticoagulation - Discharge Information - My Orders Last 24 Hours: My Active Orders 08/12/16 20:16 Chest 1V Frontal [CR] Stat 08/12/16 21:30 Rose Catheter Insertion [Insert Urinary Catheter] [OM.PC] Q24H Sodium Chloride 0.9% [Normal Saline] 1,000 ml IV ASDIRECTED 08/12/16 21:31 Urinary Catheter Assessment [RC] ASDIRECTED 08/12/16 23:00 EKG Documentation Completion [RC] ROUTINE 08/13/16 00:28 Admission Status [Patient Status] [ADT] Routine - Assessment/Plan Last 24 Hours: My Active Orders 08/12/16 20:16 Chest 1V Frontal [CR] Stat 08/12/16 21:30 Rose Catheter Insertion [Insert Urinary Catheter] [OM.PC] Q24H Sodium Chloride 0.9% [Normal Saline] 1,000 ml IV ASDIRECTED 08/12/16 21:31 Urinary Catheter Assessment [RC] ASDIRECTED 08/12/16 23:00 EKG Documentation Completion [RC] ROUTINE 08/13/16 00:28 Admission Status [Patient Status] [ADT] Routine
[2016-08-12] MEDS ORDERED: Heparin Sodium 5,000 Units/ML Vial IVPUSH ONE (20:51)
[2016-08-12] MEDS ORDERED: Heparin Sodium/D5W 25,000 UNITS/500 ML BAG IV SCH (21:00)
[2016-08-12] MEDS ORDERED: Zoledronic Acid 4 MG in Sodium Chloride 0.9% 100 ML IV STA ×2 (21:26→22:20)
[2016-08-12] MEDS: Sodium Chloride 0.9% 1,000 ML IV SCH (21:43)
[2016-08-13] MEDS ORDERED: Sodium Chloride 0.9% 250 ML IV SCH (01:00)
[2016-08-13] MEDS: Sodium Chloride 0.9% 1,000 ML IV SCH ×4 (01:46→15:41)
[2016-08-13] MEDS ORDERED: Sodium Chloride 0.9% 1,000 ML IV SCH ×3 (06:27→09:00)
[2016-08-13] MEDS ORDERED: Enoxaparin 40 MG/0.4 ML Syringe SUBCUT SCH ×2 (09:00→22:00)
[2016-08-13] MEDS ORDERED: Enoxaparin 30 MG/0.3 ML Syringe SUBCUT SCH ×2 (09:00)
[2016-08-13] MEDS ORDERED: Furosemide 20 MG/2 ML VIAL IVPUSH ONE (09:30)
--- NOTE | 2016-08-13 10:33 | CR ---
Chest: Portable view of the chest is obtained. Comparison: Previous chest x-ray of 08/12/16. Heart size is within normal limits. Tortuous thoracic aorta is seen. Minimal left basilar atelectasis is seen. Lungs otherwise are clear. Bony structures are osteopenic. Previous cholecystectomy is noted. Mild increased density is seen along the lateral mid chest. This is felt to be present on most recent exam but not seen on earlier studies. Uncertain if this represents pleural thickening or represents a small parenchymal density with differential also including small area of pneumonia. Impression: 1. Density along the right mid lateral chest as described above with differential including small area of pneumonia versus developmental pleural thickening. 2. Other incidental findings. Diagnostic code #3
--- NOTE | 2016-08-13 10:37 | CR ---
Chest: Portable view of the chest was obtained. Comparison: Previous chest x-ray of 07/24/16. Heart size appears within normal limits. Tortuous thoracic aorta is seen. Mild atelectasis noted within the left lung base. Lungs otherwise are clear. Bony structures are osteopenic. Mild scoliosis is present within the spine. Previous cholecystectomy is noted. Impression: 1. Incidental findings. Nothing acute is identified on portable chest x-ray. Diagnostic code #2
--- NOTE | 2016-08-13 11:03 | PCM.HP ---
H&P History of Present Illness - General Date of Service: 08/13/16 Admit Problem/Dx: Admission Diagnosis/Problem Admission Diagnosis/Problem Hypercalcemia Source of Information: Provider History Limitations: Reports: No Limitations - History of Present Illness Initial Comments - Free Text/Narative: 75 year old male returns to the ED at [facility] with a change in mental status, abnormal laboratory studies include: ECG, UA, Ca level to name a few. CXR repeat suggest a RLL infiltrate. The UA documents a AUTI. TnI is elevated, he had initially received a UFH bolus for possible STEMI, this however was refuted by the poultry husbandman front line leader at [facility]. The patient has been treated with Zolendroic acid for hypercalemia, hydration was started at 250 cc/hr. This has been reduced to 70 cc/hr with adequate BP. He will be transferred to the ICU for treatment of multiple medical concerns (VT, hypotension, possible ACS, elevated Ca level, HCAP). His spouse has been informed and was at the bedside prior to transfer to the ICU. His code status has been changed to reflect the patient's recent discussion with his to DNR/DNI. Onset of Symptoms: Reports: Gradual Symptom Onset Date: 08/11/16 Duration of Symptoms: Reports: Day(s):, Getting Worse Location: Reports: Generalized Severity: Moderate Improves with: Reports: None Worsens with: Reports: None Associated Symptoms: Reports: Confusion, Loss of Appetite - Related Data Allergies/Adverse Reactions: Allergies Allergy/AdvReac Type Severity Reaction Status Date / Time strawberries Allergy Unknown Cannot Uncoded 08/04/16 18:21 Remember Home Medications: Home Meds Phenytoin Sodium Extended 200 mg PO TID 07/15/13 [History] atorvaSTATin [Lipitor] 40 mg PO DAILY 07/15/13 [History] Aspirin [Tamika Chewable Aspirin] 81 mg PO DAILY 05/20/16 [History] Sulfamethoxazole/Trimethoprim [Sulfamethoxazole-Tmp Ds Tablet] 1 tab PO DAILY [History] Mycophenolate Mofetil 1,000 mg PO BID 07/24/16 [History] Warfarin [Coumadin] 2.5 mg PO MOTUWETHFRSA 07/24/16 [History] diphenhydrAMINE HCl [Benadryl] 25 mg PO DAILY PRN 07/24/16 [History] Lidocaine 2% [Xylocaine 2% Viscous] 15 ml PO TIDAC #13 cup 07/30/16 [Rx] Docusate Sodium 100 mg PO DAILY PRN 08/04/16 [History] Polyethylene Glycol 3350 [MiraLAX] 17 gm PO DAILY PRN 08/04/16 [History] Vitamin D. 1.25 mg PO WEEKLY 08/04/16 [History] oxyCODONE HCl/Acetaminophen [Percocet 10-325 mg Tablet] 1 tab PO Q4H PRN [History] Carvedilol [Coreg] 6.25 mg PO BIDMEALS #60 tablet 08/09/16 [Rx] Magnesium Oxide 400 mg PO BID #60 tablet 08/09/16 [Rx] Omeprazole 20 mg PO BIDAC #60 cap.cr 08/09/16 [Rx] Potassium Chloride 20 meq PO BID #60 tablet.er 08/09/16 [Rx] oxyCODONE HCl/Acetaminophen [oxyCODONE-Acetaminophen 5-325] 1 tab PO Q4H PRN [History] Past Medical History HEENT History: Reports: Impaired Vision Other HEENT History: Glasses Cardiovascular History: Reports: Afib, CAD, High Cholesterol, Hypertension, IL Other Cardiovascular History: IL in 1996 Respiratory History: Reports: SOB Gastrointestinal History: Reports: Diverticulosis, Gastritis, GERD, PUD, Other ( See Below) Other Gastrointestinal History: "3 years he had a blockage in intestines, put a temporary bag on it - Dr. Bartlett at [place] in [place]". Bleeding ulcer in 1969' and had half of stomach removed. Pancreatic mass noted on previous admission Genitourinary History: Reports: Urinary Incontinence Musculoskeletal History: Reports: Arthritis, Osteoporosis Other Musculoskeletal History: Falling at home lately Neurological History: Reports: Seizure Other Neuro History: Last seizure was 1984. denies that patient has memory problems Psychiatric History: Reports: Anxiety, Dementia, Other (See Below) Other Psychiatric History: Been a little more "down" the last couple months. Endocrine/Metabolic History: Reports: Vitamin D Deficiency Hematologic History: Reports: Anticoagulation Therapy Other Hematologic History: vitamin D deficiency Dermatologic History: Reports: Other (See Below) Other Dermatologic History: bullous pemphigoid (blisters and sores) - on antifungal anticancer medication for this. [facility] dermatology [facility] - Past Surgical History HEENT Surgical History: Reports: Cataract Surgery GI Surgical History: Reports: Cholecystectomy, Colonoscopy, Colostomy, EGD Male Surgical History: Reports: None Social & Family History - Family History Family Medical History: Noncontributory - Tobacco Use Smoking Status *Q: Former Smoker Years of Tobacco use: 20 Used Tobacco, but Quit: No Month Tobacco Last Used: 1991 Second Hand Smoke Exposure: No - Caffeine Use Caffeine Use: Reports: Coffee - Alcohol Use Days Per Week of Alcohol Use: 0 (Quit drinking alcohol 29 years ago) - Recreational Drug Use Recreational Drug Use: No - Living Situation & Occupation Living situation: Reports: , Extended Care Facility Occupation: Retired H&P Review of Systems - Review of Systems: Review Of Systems: See Below General: Reports: Malaise, Weakness HEENT: Reports: No Symptoms Pulmonary: Reports: No Symptoms Cardiovascular: Reports: No Symptoms Gastrointestinal: Reports: Decreased Appetite Genitourinary: Reports: No Symptoms Musculoskeletal: Reports: No Symptoms Skin: Reports: No Symptoms Psychiatric: Reports: Confusion Neurological: Reports: No Symptoms Hematologic/Lymphatic: Reports: No Symptoms Immunologic: Reports: No Symptoms Exam - Exam Exam: See Below - Vital Signs Vital Signs: Last Vital Signs Temp 37.5 C 08/13/16 10:00 Pulse 110 H 08/13/16 08:25 Resp 24 H 08/13/16 10:00 BP 117/90 08/13/16 10:00 Pulse Ox 97 08/13/16 10:00 Weight: 62.777 kg - Exam Quality Assessment: Supplemental Oxygen, Urinary Catheter General: Lethargic HEENT: Nares Patent, Normal Nasal Septum, Pupils Equal, Pupils Reactive Neck: Supple, Trachea Midline Lungs: Decreased Breath Sounds Cardiovascular: Regular Rate, Tachycardia Abdomen: Normal Bowel Sounds, Soft (Male) Exam: Deferred Rectal (Males) Exam: Deferred Back Exam: Normal Inspection Extremities: Normal Pulses Skin: Warm Neurological: Cranial Nerves Intact Neuro Extensive - Mental Status: Other (lethargy) - Patient Data Lab Results last 24 hrs: Laboratory Results - last 24 hr 08/13/16 08/13/16 08/13/16 Range/Units 01:55 05:02 05:02 WBC 5.08 (4.23-9.07) K/mm3 RBC 3.62 L (4.63-6.08) M/mm3 Hgb 10.6 L (13.7-17.5) gm/L Hct 32.9 L (40.1-51.0) % MCV 90.9 (79.0-92.2) fl MCH 29.3 (25.7-32.2) pg MCHC 32.2 (32.2-35.5) g/dl RDW Std Deviation 54.2 H (35.1-43.9) fL Plt Count 305 (163-337) K/mm3 MPV 10.2 (9.4-12.3) fl Neut % (Auto) 70.1 H (34.0-67.9) % Lymph % (Auto) 15.9 L (21.8-53.1) % Jessamine % (Auto) 10.2 (5.3-12.2) % Eos % (Auto) 2.8 (0.8-7.0) Baso % (Auto) 0.4 (0.1-1.2) % Neut # (Auto) 3.56 (1.78-5.38) K/mm3 Lymph # (Auto) 0.81 L (1.32-3.57) K/mm3 Jess[place] # (Auto) 0.52 (0.30-0.82) K/mm3 Eos # (Auto) 0.14 (0.04-0.54) K/mm3 Baso # (Auto) 0.02 (0.01-0.08) K/mm3 Manual Slide Review Abnormal smear Sodium 145 (136-145) mEq/L Potassium 4.1 (3.5-5.1) mEq/L Chloride 111 H (98-107) mEq/L Carbon Dioxide 24 (21-32) mEq/L Anion Gap 14.1 (5-15) BUN 29 H (7-18) mg/dL Creatinine 1.4 H (0.7-1.3) mg/dL Est Cr Clr Drug Dosing 39.61 mL/min Estimated GFR (MDRD) 50 (>60) mL/min BUN/Creatinine Ratio 20.7 H (14-18) Glucose 94 (83-115) mg/dL Calcium 11.7 H (8.5-10.1) mg/dL Magnesium 2.0 (1.8-2.4) mg/dl B-Natriuretic Peptide (0-100) pg/mL MRSA (PCR) Negative 08/13/16 Range/Units 09:50 WBC (4.23-9.07) K/mm3 RBC (4.63-6.08) M/mm3 Hgb (13.7-17.5) gm/L Hct (40.1-51.0) % MCV (79.0-92.2) fl MCH (25.7-32.2) pg MCHC (32.2-35.5) g/dl RDW Std Deviation (35.1-43.9) fL Plt Count (163-337) K/mm3 MPV (9.4-12.3) fl Neut % (Auto) (34.0-67.9) % Lymph % (Auto) (21.8-53.1) % Jess[place] % (Auto) (5.3-12.2) % Eos % (Auto) (0.8-7.0) Baso % (Auto) (0.1-1.2) % Neut # (Auto) (1.78-5.38) K/mm3 Lymph # (Auto) (1.32-3.57) K/mm3 Jessamine # (Auto) (0.30-0.82) K/mm3 Eos # (Auto) (0.04-0.54) K/mm3 Baso # (Auto) (0.01-0.08) K/mm3 Manual Slide Review Sodium (136-145) mEq/L Potassium (3.5-5.1) mEq/L Chloride (98-107) mEq/L Carbon Dioxide (21-32) mEq/L Anion Gap (5-15) BUN (7-18) mg/dL Creatinine (0.7-1.3) mg/dL Est Cr Clr Drug Dosing mL/min Estimated GFR (MDRD) (>60) mL/min BUN/Creatinine Ratio (14-18) Glucose (83-115) mg/dL Calcium (8.5-10.1) mg/dL Magnesium (1.8-2.4) mg/dl B-Natriuretic Peptide 203 H (0-100) pg/mL MRSA (PCR) Result Diagrams: 08/13/16 05:02 08/13/16 14:10 *Q Meaningful Use (ADM) - VTE *Q VTE Criteria *Q: - Stroke *Q Stroke Criteria *Q: - AMI *Q AMI Criteria *Q: - Problem List (1) Confusion SNOMED Code(s): 566501459 ICD Code: R41.0 - DISORIENTATION, UNSPECIFIED Status: Acute Current Visit : Yes (2) Hypercalcemia SNOMED Code(s): 09117799 ICD Code: E83.52 - HYPERCALCEMIA Status: Acute Current Visit: Yes (3) Afib, Atrial fibrillation and flutter SNOMED Code(s): 560064091 ICD Code: I48.91 - UNSPECIFIED ATRIAL FIBRILLATION; I48.92 - UNSPECIFIED ATRIAL FLUTTER Status: Acute Current Visit: No (4) Pneumonia SNOMED Code(s): 334246333 ICD Code: J18.9 - PNEUMONIA, UNSPECIFIED ORGANISM Status: Acute Current Visit: Yes (5) Adult failure to thrive syndrome SNOMED Code(s): 678219349 ICD Code: R62.7 - ADULT FAILURE TO THRIVE Status: Acute Priority: High Current Visit: No Problem List Initiated/Reviewed/Updated: Yes Orders Last 24hrs: Active Orders 24 hr Category Date Time Status Patient Status [ADT] Routine ADT 08/13/16 09:20 Active Bedrest Bathroom Privileges [RC] QSHIFT Care 08/13/16 02:09 Active Bedrest Bedside Commode [RC] QSORFT Care 08/13/16 00:38 Inactive Cardiac Monitoring [RC] . DIRECTED Care 08/13/16 09:20 Active EKG 12 Lead [EKG Documentation Completion] [RC] ROUTINE Care 08/13/16 09:24 Active NPO Now [Nothing per Oral Now Diet] [DIET] Diet 08/13/16 Breakfast Active CBC W/O DIFF,HEMOGRAM [HEME] MOTH@0700 Lab 08/14/16 07:00 Ordered CBC W/O DIFF,HEMOGRAM [HEME] MOTH@0700 Lab 08/17/16 07:00 Ordered CBC W/O DIFF,HEMOGRAM [HEME] MOTH@0700 Lab 08/21/16 07:00 Ordered CBC W/O DIFF,HEMOGRAM [HEME] MOTH@0700 Lab 08/24/16 07:00 Ordered CBC W/O DIFF,HEMOGRAM [HEME] MOTH@0700 Lab 08/28/16 07:00 Ordered CBC W/O DIFF,HEMOGRAM [HEME] MOTH@0700 Lab 08/31/16 07:00 Ordered COMPREHENSIVE METABOLIC PN,CMP [CHEM] Routine Lab 08/13/16 14:00 Ordered MAGNESIUM [CHEM] Routine Lab 08/13/16 14:00 Ordered TROPONIN I [CHEM] Routine Lab 08/13/16 14:00 Ordered UA W/MICROSCOPIC [URIN] Routine Lab 08/13/16 09:46 Ordered Enoxaparin [Lovenox] Med 08/13/16 09:00 Active 40 mg SUBCUT DAILY Sodium Chloride 0.9% [Normal Saline] 1,000 ml Med 08/13/16 09:04 Active IV ASDIRECTED Code Status [Resuscitation Status] Routine Resus Stat 08/13/16 09:39 Ordered Medication Orders Enoxaparin Sodium (Lovenox) 40 mg SUBCUT DAILY [facility] Last Admin: 08/13/16 09:11 Dose: 40 mg Sodium Chloride (Normal Saline) 1,000 mls @ 70 mls/hr IV ASDIRECTED [facility] Last Admin: 08/13/16 09:13 Dose: 70 mls/hr Assessment/Plan Comment:: Impression: AMS, abnormal mildly elevated Ca level s/p Zaledronic Acid IVF currently running RLL infiltrate ARF on CKD Elevated TnI, can not exclude ACS History of A Fib/A Flutter Chronic CAD/IL HTN Hyperlipidemia Vitamin D deficiency Bullous Pemphigoid Plan: Transfer to ICU IVF Diurese Recheck labs: Tn, Ca, BMP/BNP Zosyn/Levoquin Nebs DVT/GI prophylaxis
[2016-08-13] MEDS ORDERED: Albuterol 0.5% 2.5 MG/0.5 ML Neb Soln NEB PRN ×2 (11:05→16:31)
[2016-08-13] MEDS ORDERED: Piperacillin/Tazobactam 4.5 GM in Sodium Chloride 0.9% 100 ML IV ONE (11:30)
[2016-08-13] MEDS ORDERED: Levofloxacin/Dextrose 5%-Water 750 MG in Premix Bag 1 BAG IV SCH (12:00)
[2016-08-13] MEDS: Metoprolol Tartrate 5 MG/5 ML SDV IVPUSH SCH ×3 (13:29→20:30)
[2016-08-13] MEDS: Phenytoin 100 MG Cap.ER PO SCH ×2 (15:04→20:25)
[2016-08-13] MEDS ORDERED: Morphine 2 MG/ML Syringe IVPUSH ONE ×2 (16:24→17:30)
[2016-08-13] MEDS: Morphine 2 MG/ML Syringe IVPUSH PRN ×2 (16:41→19:59)
[2016-08-13] MEDS ORDERED: Carvedilol 6.25 MG Tab PO SCH (17:00)
[2016-08-13] MEDS: Albuterol/Ipratropium 3.0-0.5 MG/3 ML Neb Soln NEB SCH ×2 (17:06→21:26)
--- NOTE | 2016-08-13 17:22 | CR ---
Chest: Portable view of the chest was obtained. Comparison: Previous chest x-ray of 08/13/16. Increased density is seen within the right mid and lower chest presumably artifact. Blunting of the lateral left costophrenic angle is seen which appears chronic. No acute infiltrates are seen. Patient is rotated for the study. Heart size is normal. Bony structures are osteopenic. Impression: 1. Increased density within the right mid and lower chest presumably artifact. 2. Other incidental findings. Nothing acute is suspected on current portable chest x-ray. Diagnostic code #2
[2016-08-13] MEDS ORDERED: LORazepam 2 MG/ML MDV IVPUSH ONE (18:42)
[2016-08-13] MEDS ORDERED: Piperacillin/Tazobactam 4.5 GM in Sodium Chloride 0.9% 100 ML IV SCH (20:00)
[2016-08-13 20:46] VITALS: BP 109/68
[2016-08-13] MEDS ORDERED: Acetaminophen 650 MG Supp RECTAL ONE (20:48)
[2016-08-13] MEDS ORDERED: Mycophenolate Mofetil 250 MG Cap PO SCH (21:00)
[2016-08-13] MEDS ORDERED: Acetaminophen 650 MG Supp RECTAL PRN (21:05)
[2016-08-13] MEDS ORDERED: LORazepam 2 MG/ML MDV IVPUSH PRN (21:20)
[2016-08-13] MEDS ORDERED: Morphine 2 MG/ML Syringe IVPUSH PRN (21:24)
[2016-08-13] MEDS ORDERED: Enoxaparin 60 MG/0.6 ML Syringe SUBCUT SCH (22:00)
[2016-08-13] MEDS ORDERED: Amiodarone 150 MG/3 ML SDV ONE (23:10)
[2016-08-14] MEDS ORDERED: Pantoprazole 40 MG Vial IVPUSH SCH (06:00)
[2016-08-14] MEDS ORDERED: Furosemide 20 MG/2 ML VIAL IVPUSH ONE (08:00)
[2016-08-14] MEDS ORDERED: Aspirin 81 MG Tab.EC PO SCH (09:00)
--- NOTE | 2016-08-14 13:26 | PCM.DCSUM1 ---
Discharge Summary - Hospital Course Free Text/Narrative:: 75 year old male recently seen and evaluated at [facility], had a colonoscopy presented with lethargy and generalized weakness. Abnormal electrolytes were noted particularly elevated Ca+2, this was treated with hydration and Zolendronic Acid. The Ca level decreased to the normal range within 12 hours of administration; the patient also had HCAP, and a UTI. His mental status change on MS tele and he was transferred to the ICU for close monitoring and further treatment. Code status was changed by his who stated that she and her had had a recent discussion about end of life; his wishes were DNR/DNI. He was treated in the ICU on Zosyn and Levoquin, later Vancomycin was added. Respiratory needs were met using initially NC before BIPAP, not well tolerated and later a NRM. CXR, ABGs were ordered to help guide assessment; he had occasional episodes of NSVT. However, he had a sustained run of VT ast 160 bpm, Amiodarone was ordered, the patient went into PEA before the bolus and drip could be given. He was pronounced at 2310. In ED, the patient had an abnormal ECG, the ED physician called [facility], it was not felt to be a STEMI; the insulation board back tender declined transfer. He had received a heparin bolus in anticipation of thrombolytics. D dimer was elevated at 3; RLL was noted, he received coverage for aspiration pneumonia as well as HCAP.. Primary Dx Resp Failure Pneumonia Dehydration Vent Tachycardia Acute on chronic renal failure Hypercalcemia Immune suppression therapy, bullous pemphigoid - Discharge Data Discharge Date: 08/13/16 Discharge Disposition: 20 Condition: - Discharge Diagnosis/Problem(s) (1) Confusion SNOMED Code(s): 834892967 ICD Code: R41.0 - DISORIENTATION, UNSPECIFIED Status: Acute (2) Hypercalcemia SNOMED Code(s): 69934911 ICD Code: E83.52 - HYPERCALCEMIA Status: Acute (3) Afib, Atrial fibrillation and flutter SNOMED Code(s): 733563468 ICD Code: I48.91 - UNSPECIFIED ATRIAL FIBRILLATION; I48.92 - UNSPECIFIED ATRIAL FLUTTER Status: Acute (4) Pneumonia SNOMED Code(s): 767479377 ICD Code: J18.9 - PNEUMONIA, UNSPECIFIED ORGANISM Status: Acute (5) Adult failure to thrive syndrome SNOMED Code(s): 122259752 ICD Code: R62.7 - ADULT FAILURE TO THRIVE Status: Acute Priority: High - Discharge Plan Home Medications: Home Meds Phenytoin Sodium Extended 200 mg PO TID 07/15/13 [History] atorvaSTATin [Lipitor] 40 mg PO DAILY 07/15/13 [History] Aspirin [Tamika Chewable Aspirin] 81 mg PO DAILY 05/20/16 [History] Sulfamethoxazole/Trimethoprim [Sulfamethoxazole-Tmp Ds Tablet] 1 tab PO DAILY [History] Mycophenolate Mofetil 1,000 mg PO BID 07/24/16 [History] Warfarin [Coumadin] 2.5 mg PO MOTUWETHFRSA 07/24/16 [History] diphenhydrAMINE HCl [Benadryl] 25 mg PO DAILY PRN 07/24/16 [History] Lidocaine 2% [Xylocaine 2% Viscous] 15 ml PO TIDAC #13 cup 07/30/16 [Rx] Docusate Sodium 100 mg PO DAILY PRN 08/04/16 [History] Polyethylene Glycol 3350 [MiraLAX] 17 gm PO DAILY PRN 08/04/16 [History] Vitamin D. 1.25 mg PO WEEKLY 08/04/16 [History] oxyCODONE HCl/Acetaminophen [Percocet 10-325 mg Tablet] 1 tab PO Q4H PRN [History] Carvedilol [Coreg] 6.25 mg PO BIDMEALS #60 tablet 08/09/16 [Rx] Magnesium Oxide 400 mg PO BID #60 tablet 08/09/16 [Rx] Omeprazole 20 mg PO BIDAC #60 cap.cr 08/09/16 [Rx] Potassium Chloride 20 meq PO BID #60 tablet.er 08/09/16 [Rx] oxyCODONE HCl/Acetaminophen [oxyCODONE-Acetaminophen 5-325] 1 tab PO Q4H PRN [History] - Discharge Summary/Plan Comment DC Time >30 min.: No - General Info Date of Service: 08/12/16 - Patient Data Vitals - Most Recent: Last Vital Signs Temp 37.6 C 08/13/16 21:49 Pulse 95 08/13/16 20:38 Resp 31 H 08/13/16 20:38 BP 109/68 08/13/16 20:38 Pulse Ox 99 08/13/16 21:27 Weight - Most Recent: 62.777 kg I&O - Last 24 hours: Intake & Output 08/13/16 08/14/16 08/14/16 22:59 06:59 14:59 Intake Total 628 Output Total 325 Balance 303 Lab Results - Last 24 hrs: Laboratory Results - last 24 hr 08/13/16 08/13/16 08/13/16 Range/Units 14:10 16:24 18:30 Puncture Site Rt radial Rt radial ABG pH 7.52 H 7.49 H (7.35-7.45) ABG pCO2 25.7 L 28.1 L (35.0-45.0) mmHg ABG pO2 55.0 L 73.0 L (80.0-100.0) mmHg ABG HCO3 20.9 L 21.0 L (22.0-26.0) meq/L ABG O2 Saturation 89.2 L 95.7 L (96.0-97.0) % ABG Base Excess -0.8 -1.3 (-2-2.0) A-a Gradient 92 212 mmHg O2 Delivery Device Nasal cannula Mask Oxygen Flow Rate 2.0 6.0 FiO2 28.00 40.00 (21.00-100.00) % Sodium 146 H (136-145) mEq/L Potassium 3.5 (3.5-5.1) mEq/L Chloride 114 H (98-107) mEq/L Carbon Dioxide 24 (21-32) mEq/L Anion Gap 11.5 (5-15) BUN 25 H (7-18) mg/dL Creatinine 1.6 H (0.7-1.3) mg/dL Est Cr Clr Drug Dosing 34.66 mL/min Estimated GFR (MDRD) 43 (>60) mL/min BUN/Creatinine Ratio 15.6 (14-18) Glucose 104 (83-115) mg/dL Calcium 10.8 H (8.5-10.1) mg/dL Magnesium 1.9 (1.8-2.4) mg/dl Total Bilirubin 0.3 (0.2-1.0) mg/dL AST 36 (15-37) U/L ALT 16 (16-63) U/L Alkaline Phosphatase 161 H (46-116) U/L CK-MB (CK-2) (0-3.6) ng/ml Troponin I 0.073 H* (0.00-0.056) ng/mL Total Protein 6.3 L (6.4-8.2) g/dl Albumin 1.9 L (3.4-5.0) g/dl Globulin 4.4 gm/dL Albumin/Globulin Ratio 0.4 L (1-2) 08/13/16 Range/Units 18:30 Puncture Site ABG pH (7.35-7.45) ABG pCO2 (35.0-45.0) mmHg ABG pO2 (80.0-100.0) mmHg ABG HCO3 (22.0-26.0) meq/L ABG O2 Saturation (96.0-97.0) % ABG Base Excess (-2-2.0) A-a Gradient mmHg O2 Delivery Device Oxygen Flow Rate FiO2 (21.00-100.00) % Sodium (136-145) mEq/L Potassium (3.5-5.1) mEq/L Chloride (98-107) mEq/L Carbon Dioxide (21-32) mEq/L Anion Gap (5-15) BUN (7-18) mg/dL Creatinine (0.7-1.3) mg/dL Est Cr Clr Drug Dosing mL/min Estimated GFR (MDRD) (>60) mL/min BUN/Creatinine Ratio (14-18) Glucose (83-115) mg/dL Calcium (8.5-10.1) mg/dL Magnesium (1.8-2.4) mg/dl Total Bilirubin (0.2-1.0) mg/dL AST (15-37) U/L ALT (16-63) U/L Alkaline Phosphatase (46-116) U/L CK-MB (CK-2) < 0.5 (0-3.6) ng/ml Troponin I 0.093 H* (0.00-0.056) ng/mL Total Protein (6.4-8.2) g/dl Albumin (3.4-5.0) g/dl Globulin gm/dL Albumin/Globulin Ratio (1-2) Med Orders - Current: Current Medications Vancomycin HCl (Pharmacy To Dose - Vancomycin) 1 dose .XX ASDIRECTED RICH Discontinued Medications Acetaminophen (Tylenol) 650 mg RECTAL ONETIME ONE Stop: 08/13/16 20:49 Last Admin: 08/13/16 21:04 Dose: 650 mg Acetaminophen (Tylenol) 650 mg RECTAL Q6H PRN PRN Reason: Fever Albuterol (Proventil) 2.5 mg NEB QIDRT PRN PRN Reason: Shortness of Breath Albuterol (Proventil) 2.5 mg NEB Q4H PRN PRN Reason: Shortness of Breath Albuterol/Ipratropium (Duoneb 3.0-0.5 Mg/3 Ml) 3 ml NEB QIDRT RICH Last Admin: 08/13/16 21:26 Dose: 3 ml Amiodarone HCl (Cordarone) Confirm Administered Dose 300 mg .ROUTE .STK-MED ONE Stop: 08/13/16 23:11 Aspirin (Aspirin) 243 mg PO ONETIME STA Stop: 08/12/16 20:19 Last Admin: 08/12/16 20:24 Dose: 243 mg Aspirin (Halfprin) 81 mg PO DAILY [facility] Carvedilol (Coreg) 6.25 mg PO BIDMEALS [facility] Last Admin: 08/13/16 17:25 Dose: Not Given Enoxaparin Sodium (Lovenox) 40 mg SUBCUT DAILY [facility] Last Admin: 08/13/16 09:11 Dose: 40 mg Enoxaparin Sodium (Lovenox) 60 mg SUBCUT DAILY [facility] Enoxaparin Sodium (Lovenox) 60 mg SUBCUT DAILY [facility] Furosemide (Lasix) 20 mg IVPUSH NOW ONE Stop: 08/13/16 09:31 Last Admin: 08/13/16 09:37 Dose: 20 mg Furosemide (Lasix) 20 mg IVPUSH NOW ONE Stop: 08/14/16 08:01 Heparin Sodium (Porcine) (Heparin Sodium) 5,000 units IVPUSH ONETIME ONE Stop: 08/12/16 20:52 Last Admin: 08/12/16 21:04 Dose: 5,000 units Heparin Sodium/Dextrose (Heparin 25,000 Units In D5w 500 Ml) 25,000 units in 500 mls @ 21.745 mls/hr IV TITRATE RICH; 17 UNITS/KG/HR PRN Reason: Protocol Last Admin: 08/12/16 21:05 Dose: 21.745 mls/hr Sodium Chloride (Normal Saline) 1,000 mls @ 250 mls/hr IV ASDIRECTED [facility] Last Admin: 08/13/16 06:47 Dose: 250 mls/hr Zoledronic Acid 4 mg/ Sodium (Chloride) 105 mls @ 400 mls/hr IV ONETIME STA PRN Reason: Protocol Stop: 08/12/16 21:41 Last Admin: 08/12/16 22:26 Dose: 400 mls/hr Zoledronic Acid 4 mg/ Sodium (Chloride) 105 mls @ 400 mls/hr IV ONETIME STA PRN Reason: Protocol Stop: 08/12/16 22:35 Last Admin: 08/12/16 22:58 Dose: Not Given Sodium Chloride (Normal Saline) 1,000 mls @ 150 mls/hr IV ASDIRECTED [facility] Sodium Chloride (Normal Saline) 1,000 mls @ 250 mls/hr IV ASDIRECTED [facility] Stop: 08/13/16 09:00 Sodium Chloride (Normal Saline) 1,000 mls @ 100 mls/hr IV ASDIRECTED [facility] Last Infusion: 08/13/16 17:27 Dose: 100 mls/hr Levofloxacin/Dextrose 750 mg/ (Premix) 150 mls @ 100 mls/hr IV Q48H [facility] Last Admin: 08/13/16 12:49 Dose: 100 mls/hr Piperacillin Sod/Tazobactam (Sod 4.5 gm/ Sodium Chloride) 100 mls @ 25 mls/hr IV Q8H [facility] Last Admin: 08/13/16 19:59 Dose: 25 mls/hr Piperacillin Sod/Tazobactam (Sod 4.5 gm/ Sodium Chloride) 100 mls @ 200 mls/hr IV ONETIME ONE Stop: 08/13/16 11:59 Last Admin: 08/13/16 12:22 Dose: 200 mls/hr Vancomycin HCl 1 gm/ Sodium (Chloride) 250 mls @ 250 mls/hr IV ONETIME ONE Stop: 08/13/16 17:26 Last Admin: 08/13/16 16:43 Dose: Not Given Vancomycin HCl 1 gm/ Sodium (Chloride) 250 mls @ 250 mls/hr IV ONETIME ONE Stop: 08/13/16 17:44 Last Admin: 08/13/16 17:00 Dose: 250 mls/hr Vancomycin HCl 1 gm/ Sodium (Chloride) 250 mls @ 250 mls/hr IV Q24H [facility] Lorazepam (Ativan) 0.5 mg IVPUSH ONETIME ONE Stop: 08/13/16 18:43 Last Admin: 08/13/16 18:59 Dose: 0.5 mg Lorazepam (Ativan) 0.5 mg IVPUSH Q4H PRN PRN Reason: restlessness Last Admin: 08/13/16 21:59 Dose: 0.5 mg Metoprolol Tartrate (Lopressor) 5 mg IVPUSH Q4H [facility] Last Admin: 08/13/16 20:30 Dose: 5 mg Morphine Sulfate (Morphine) 0.5 mg IVPUSH ONETIME ONE Stop: 08/13/16 16:25 Last Admin: 08/13/16 16:42 Dose: Not Given Morphine Sulfate (Morphine) 0.5 mg IVPUSH Q2H PRN PRN Reason: Shortness of Breath Last Admin: 08/13/16 19:59 Dose: 0.5 mg Morphine Sulfate (Morphine) 1 mg IVPUSH ONETIME ONE Stop: 08/13/16 17:31 Last Admin: 08/13/16 17:30 Dose: 1 mg Morphine Sulfate (Morphine) 1 mg IVPUSH Q2H PRN PRN Reason: Shortness of Breath Last Admin: 08/13/16 22:26 Dose: 1 mg Mycophenolate Mofetil (Cellcept) 1,000 mg PO BID [facility] Last Admin: 08/13/16 20:25 Dose: Not Given Pantoprazole Sodium (Protonix Iv) 40 mg IVPUSH ACBREAKFAST [facility] Phenytoin Sodium (Phenytoin) 200 mg PO TID [facility] Last Admin: 08/13/16 20:25 Dose: Not Given *Q Meaningful Use (DIS) - VTE *Q VTE Criteria *Q: - Stroke *Q Stroke Criteria *Q: - AMI *Q AMI Criteria *Q:
== END 2016-08-14 00:14 | disposition expired | DRG 640 ==
LOC: JD.ED 19:48 → JD.MS 08-13 00:28 → JD.ICU 08-13 09:20
PROVIDERS: ADMIT Internal Medicine Cardiovascular Disease; ATTEND Internal Medicine Cardiovascular Disease
DX: E83.52 Hypercalcemia (principal); J69.0 Pneumonitis due to inhalation of food and vomit; R79.1 Abnormal coagulation profile; J96.20 Acute and chronic respiratory failure, unspecified whether with hypoxia or hypercapnia; N39.0 Urinary tract infection, site not specified; I10 Essential (primary) hypertension; N17.9 Acute kidney failure, unspecified; I48.92 Unspecified atrial flutter; E78.00 Pure hypercholesterolemia, unspecified; M19.90 Unspecified osteoarthritis, unspecified site; L12.0 Bullous pemphigoid; I47.2 Ventricular tachycardia; R41.0 Disorientation, unspecified; I48.91 Unspecified atrial fibrillation; R62.7 Adult failure to thrive; I25.10 Atherosclerotic heart disease of native coronary artery without angina pectoris; I12.9 Hypertensive chronic kidney disease with stage 1 through stage 4 chronic kidney disease, or unspecified chronic kidney disease; N18.9 Chronic kidney disease, unspecified; Z87.891 Personal history of nicotine dependence; Z79.01 Long term (current) use of anticoagulants; I25.2 Old myocardial infarction; E78.5 Hyperlipidemia, unspecified; E55.9 Vitamin D deficiency, unspecified; Z66 Do not resuscitate; Z91.018 Allergy to other foods; Z79.82 Long term (current) use of aspirin; Z79.899 Other long term (current) drug therapy
CPT/HCPCS: 36415; 51702; 71010; 80048; 80053; 83880; 84484 ×2; 85025; 85379; 85610; 85730; 93005 ×2; 96365; 96366; 99285; A9270; J1644 ×2; J3489; J7030; J7040; 36600; 81001; 82553; 82803; 83735; 87641; 94640-76; 94660; 94664; 96361; J1650; J1956; J2060; J2270; J2543; J3370; J3490; J7050